=== PATIENT | female | born 1960 | race Caucasian/White ===

== ENCOUNTER 2020-01-06 09:51 | Inpatient (IN) ==
[2020-01-06] MEDS ORDERED: ONDANSETRON INJ 2 MG/ML 2 ML VIAL IV STA (10:18)
[2020-01-06] MEDS ORDERED: MoRPHine SULFATE 4 MG/ML 1 ML CARP\\VIAL IV STA ×2 (10:18→13:32)
--- NOTE | 2020-01-06 10:29 | Emergency Department Note ---
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 tachycardia without acute ischemia. I did order and personally reviewed the images of the patient's ribs/chest x-ray as described above. She does appear to have multiple rib fractures on the left side. I did order a urine analysis. She has some urine bacteria and WBC casts but no nitrates or leukocyte Estrace. I did order and review the patient's blood work as noted in the electronic medical record. CBC is unremarkable without leukocytosis or anemia. Her creatinine is elevated 1.78. I have no baseline to compare this with. Her calcium is elevated at 12.3. I did treat her with normal saline IV. ALT and AST are both elevated as well. Bilirubin is 1.2. D- dimer is significantly elevated at over 20,000. I did discuss the test results with the patient and her daughter. After discussion of risks and benefits she was agreeable to CT scanning with IV contrast to evaluate for pulmonary embolism and metastases. I did order a CT of the abdomen and pelvis, thoracic and lumbar spine and CT angiogram of the chest. I did review the images myself as well as the radiology report as described above. The patient appears to have multiple bony mets in the spine with compression fractures as well. She also has cholelithiasis with some gallbladder distention but no signs of cholecystitis. She was given additional morphine for pain control. This is for her back. She has no abdominal pain or tenderness at this time. I did discuss the days vomiting CT results with the patient and her daughter. Unfortunately does appears that she does have metastatic breast cancer. I did recommend hospitalization for further care and evaluation. I did discuss case with the hospitalist and telephonic nurse case manager. She was given Dilaudid 0.5 mg IV prior to her MRI which was ordered by the medical service. 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 Patient Disposition: Admitted As Inpatient Discharge Instructions Interventions: ED Discharge Assessment Last Done: 01/06/20 16:29 Discharge Problem: Non-traumatic compression fracture of vertebral column Qualifiers: Encounter type: initial encounter Qualified Code(s): M48.50XA - Collapsed vertebra, not elsewhere classified, site unspecified, initial encounter for fracture Metastatic cancer Qualifiers: Area of secondary neoplastic involvement: breast Qualified Code(s): C79.81 - Secondary malignant neoplasm of breast Multiple fractures of ribs Qualifiers: Encounter type: initial encounter Fracture type: closed Laterality: bilateral Qualified Code(s): S22.43XA - Multiple fractures of ribs, bilateral, initial encounter for closed fracture
[2020-01-06 10:37] LABS: Hematocrit (blood only) 38.1 % (37-47); Mean Corpuscular Hemoglobin 28.3 pg (25-34); Mean Corpuscular Hgb Conc 34.1 g/dL (32-36); Mean Platelet Volume 9.8 fL (7.4-10.4); Nucleated RBC # (auto) 0.15 K/uL (0-0); Nucleated RBC % (auto) 1.7 %; Platelet Count 175 K/uL (130-400); RDW Coefficient of Variation 14.5 % (11.5-14.5); RDW Standard Deviation 43.5 fL (36.4-46.3); Red Blood Count 4.59 M/uL (4.2-5.4); White Blood Count 8.94 K/uL (4.8-10.8)
[2020-01-06 10:57] LABS: Albumin Globulin Ratio 0.9 (0.9-2); Albumin Level 3.8 gm/dl (3.4-5.0); BUN Creatinine Ratio 18.9 (10-20); Bilirubin,Total 1.2 mg/dl (0.2-1); Calcium 12.3 mg/dl (8.5-10.1); Creatinine Clr Calc Pharmacy 38.1 ml/min; Est GFR (African American) 35.1; Est GFR (Non-African American) 30.3; Globulin 4.2 gm/dl (2.5-4.0); Potassium 3.8 mmol/L (3.5-5.1)
[2020-01-06 10:59] LABS: ALC (manual) 1.02 K/uL (1.2-3.4); ANC (manual) 6.74 K/uL (1.4-6.5); Basophils # (manual) 0.08 K/uL (0-0.2); Basophils % (manual) 0.9 %; Eosinophils # (manual) 0.08 K/uL (0-0.5); Eosinophils % (manual) 0.9 %; Lymphocytes # (manual) 1.02 K/uL (1.2-3.4); Lymphocytes % (manual) 11.4 %; Monocytes # (manual) 0.71 K/uL (0.11-0.59); Monocytes % (manual) 7.9 %; Myelocytes # (manual) 0.31 K/uL (0-0); Myelocytes % (manual) 3.5 %; Neutrophils # (manual) 6.74 K/uL (1.4-6.5); Neutrophils % (manual) 75.4 %; RBC Morphology Unremarkable
[2020-01-06] MEDS ORDERED: SODIUM CHLORIDE 0.9% 1000ML 1,000 ML IV ONE (11:00)
--- NOTE | 2020-01-06 11:18 | XRay Report ---
XR ribs BI min 4V w CXR1V CLINICAL HISTORY: bear hug with pain eval for fx COMPARISON STUDY: 07/08/2019 FINDINGS: Healing fractures left fourth and fifth ribs. Nondisplaced cortical fracture left eighth ri b. Right ribs show no acute bony abnormality. Lungs are considered clear. No evidence for pneumothorax. IMPRESSION: 1. Nondisplaced cortical fracture left anterior eighth rib. 2. Several old and/or healing left rib fractures. 3. No acute abnormality of the chest. ACT 112: Negative or not required by law. The above report was generated using voice recognition software. It may contain grammatical, syntax or spelling errors. Electronically signed by: Chon Henderson M.D. 01/06/2020 11:17 AM
[2020-01-06 11:33] LABS: D Dimer 28550 ug/L FEU (0-500)
[2020-01-06 12:36] LABS: Partial Thromboplastin Ratio 0.7; Partial Thromboplastin Time 20.5 Seconds (21.0-31.0); Prothrombin Time 10.8 Seconds (9.0-12.0)
[2020-01-06 12:50] LABS: Appearance Urine Clear (Clear); Bacteria Urine Automated 1+ (Negative); Bilirubin Urine Negative (Negative); Blood Urine Negative (Negative); Color Urine Yellow; Epithelial Cell Urine Auto >30 /lpf (0-5); Glucose Urine UA Negative (Negative); Ketones Urine Negative (Negative); Leukocyte Esterase Urine Negative (Negative); Nitrite Urine Negative (Negative); Protein Urine 1+ (Negative); RBC Urine Automated 0-4 /hpf (0-4); Specific Gravity Urine 1.016 (1.000-1.030); Urobilinogen Urine Negative (Negative)
[2020-01-06] MEDS ORDERED: OPTIRAY 320 125ml IV ONE (13:22)
--- NOTE | 2020-01-06 13:35 | CT Scan Report ---
LUMBAR SPINE CT CT DOSE: HISTORY: Low back pain eval for mets TECHNIQUE: Multiaxial CT images of the lumbar spine were performed and reformatted in the sagittal an d coronal plane without the use of contrast. A dose lowering technique was utilized adhering to the principles of ALARA. COMPARISON: None. FINDINGS: Multiple small scattered mixed lytic and osteoblastic metastatic lesions seen throughout th e lumbar spine and visualized pelvis. Dominant lytic lesion within the L5 vertebral body measures 1.5 cm. Mild superior endplate compression fracture at L1 demonstrating up to 15% loss of height. There is also 3 mm of retropulsion of the posterior superior corner of L1 resulting in mild central canal n arrowing at this level. Possible subtle superior endplate compression fracture at L2. Focal inferior endplate central compression fracture at L3. No associated retropulsion. No definite epidural or para spinal masses on this noncontrast study. Mild disc space narrowing at L2-L3 and L5-S1. IMPRESSION: 1. Innumerable small scattered mixed lytic and osteoblastic metastasis lesions seen throughout the tomas mbar spine and visualized pelvis. 2. 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 This is likely pathologic. 3. Possible subtle superior endplate compression fracture at L2. 4. Focal inferior endplate central compression fracture at L3. ACT 112: Negative or not required by law. Electronically signed by: Jonathan Parsons M.D. 01/06/2020 1:34 PM
--- NOTE | 2020-01-06 13:43 | CT Scan Report ---
CT angio chest PE protocol, CT abd pelvis IV con only CT DOSE: 2950.88 mGy.cm HISTORY: 59 years-old Female with cp eval for pe. Acute chest pain with shortness of breath TECHNIQUE: Multiple CTA images of the chest were obtained after the intravenous administration of [address] abdomen pelvis was also obtained with IV contrast. Coronal and sagittal MIPS were obtained from the axial data set and were submitted for review. All measurements were obtained acco rding to NASCET criteria. A dose lowering technique was utilized adhering to the principles of ALARA. COMPARISON: CT abdomen and pelvis, thoracic and lumbar spine studies of same day FINDINGS: CTA: The heart is normal in size without pericardial effusion. No thoracic aortic aneurysm or dissection. Patency of the imaged great vessels. The pulmonary artery is opacified to the level of the subsegment al branches and demonstrates no filling defects to suggest thromboembolic disease. CT CHEST: Unremarkable thyroid. No mediastinal or hilar adenopathy. There are multiple pathologically enlarged right axillary and subpectoral lymph nodes. A previously biopsied 1.6 x 1.4 cm right axillary lymph n ode is present. 2.9 cm biopsied mass of the lateral right mid breast. There is moderate diffuse right breast skin thickening. Subcutaneous edema of the medial right mid breast. Asymmetric subcutaneous e shanon of the right lateral chest wall with mild asymmetric thickening of the right pectoralis musculat ure. There is no pneumothorax or pleural effusion. Mild pulmonary cystic changes of the left lower lobe. M ild bilateral bronchial wall thickening. There are no suspicious pulmonary nodules or masses to sugge st metastasis. No airspace consolidation typical for pneumonia. Central airways appear patent. Innumerable lytic lesions are present throughout the spine with multiple age-indeterminate superior a nd inferior endplate compression deformity/Schmorl's nodes, most pronounced at the T5, T7, T9, T10 an d T11 levels. There is an expansile lytic lesion involving the posterior elements at T10 with possibl e mild involvement of the posterior epidural space. There are remote appearing bilateral rib fracture s. CT ABDOMEN/PELVIS: No pneumatosis or pneumoperitoneum. Mild splenomegaly, 14.2 cm. Unremarkable right adrenal gland. Lef t adrenal gland thickening. Gallbladder distention with cholelithiasis. No definite gallbladder wall thickening or biliary ductal dilation. Mild generalized pancreatic atrophy. Hepatic steatosis without a hepatic mass lesion identified. Kidneys, and urinary bladder appear unremarkable. Calcified uterine fibroids. No adnexal mass lesion. Aorta and IVC are within normal limits. No adenopathy. No bowel obstruction or bowel wall thickening. Terminal ileum and appendix are unremarkable. Soft tis sues are within normal limits. Innumerable lytic lesions throughout the spine with probable mixed haydee ent and sclerotic lesions of the sacrum and iliac bones. 25% anterior and superior endplate compressi on deformity of L1. Schmorl's nodes involve the inferior endplate of L3. There is an equivocal 9 mm l ucent lesion of the left femoral head. IMPRESSION: 1. Biopsied right breast mass with asymmetric right breast skin thickening and subcutaneous edema wit h thickening of the right pectoralis muscle may represent areas of disease extension versus posttreat ment related changes. 2. Metastatic right axillary and subpectoral adenopathy. 3. Innumerable skeletal metastasis with multiple age-indeterminate thoracic and lumbar compression de formities. Expansile lytic lesion involving the posterior elements at T10 may partially extend into t he posterior epidural space at this level. 4. No definite metastatic disease within the abdomen or pelvis. 5. Additional findings as above. ACT 112: Negative or not required by law. The above report was generated using voice recognition software. It may contain grammatical, syntax o r spelling errors. Electronically signed by: Dat Johnson M.D. 01/06/2020 1:42 PM
--- NOTE | 2020-01-06 14:13 | History & Physical Report ---
Date of Service January 06, 2020 Assessment & Plan (1) Hypercalcemia: Likely due to copious numbers of bony mets, presumably from right-sided breast cancer. Intact PTH suppressed. Will hydrate with NS and give zometa infusion 4mg IV x 1 tonight. Repeat BMP am. Suspect hypercalcemia was causing nonspecific abdominal discomfort, fatigue, and even mild mental fogginess. (2) Acute kidney injury: Possibly due to hypercalcemia. Can't rule out prerenal state from poor oral nutrition. Has casts on urine microscopy consistent with OLGA. Treat hypercalcemia. IV fluids. BMP in am. No signs of obstruction on CT today. (3) Bone pain: Severe metastatic disease seen on barragan-CT today. Numerous lesions in spine, ribs, etc. Has severe pain from these lesions. Start dilaudid SAFETY TECH -- 0.1mg demand dose, lock-out 20 minutes, max 0.3mg/hr. No basal rate at this time. Adjust as needed. K-pad heating. Lidoderm patches. Consider dexamethasone. (4) Metastatic cancer: most likely this is stage 4 breast cancer with primary site in the right breast. s/p right breast biopsy about 1 week ago at [facility] - biopsy results unavailable. Will ask HIM to obtain the biopsy report. (5) Breast cancer: right breast - presumed. large mass based on CT report today. s/p biopsy 1 week ago. I spoke with Dr Mccoy from oncology who will consult in am. We both agreed there is likely a major role for rad onc to play given her t- spine and l-spine pain from mets. Will consult rad onc, Dr Guy. treat pain as above. very poor prognosis given the aggressive nature seen on CT. will need dedicated MRI brain at some point this admission. (6) Abnormal LFTs: highly concerning for liver mets but none seen on CT. does have gallstones on CT, but no symptoms of such. will check RUQ u/s for mets, cholecystitis, etc. was taking tylenol prior to admission but not large amounts thus doubt tylenol toxicity. repeat LFTs am. (7) Multiple fractures of ribs: PATHOLOGIC. Pain control w/ SAFETY TECH dilaudid prn. K-pad. Etc. (8) Pathologic fracture of thoracic vertebrae: t-spine MRI without signs of cord compromise from her multiple t-spine compression fractures. rad onc to be consulted for her severe t-spine pain from bony mets. (9) Pathologic fracture of lumbar vertebra: no cord compromise seen on CT today in the lumbar region. neuro exam is reassuring. pain control as above. (10) DVT prophylaxis: lovenox 40mg daily daughter, extensively updated at bedside today patient and family aware of all CT findings and presumed metastatic breast ca support given focus on pain control tonight and Rx of high calcium History of Present Illness Chief Complaint: back pain, rib pain Primary Care Provider: Lara Moore 59yo female with no significant PMH presents with worsening back pain over a 1- 2 month period but much worse in the last 2 weeks. She remembers having a forceful sneeze about 2 weeks ago and has had severe back pain in the lumbar spine region since then. Much of the pain prior to that had been in the middle of the upper back. She has also has had right sided lower costal rib pain for 2 weeks, and left- sided mid-axillary pain as well. About 1-2 weeks ago her developmentally delayed son "bear hugged her" from behind and since then her rib pain has been much worse. Then, over the last 48 hours, she has had extreme fatigue. Just taking a shower led to severe weakness. She noticed several days ago during a walk that she was very tired. Had a breast biopsy of a right breast mass 1 week ago at [facility]. The breast mass was seen on a mammogram about 2 weeks ago. She found the mass on self-breast exam just prior to the mammogram. Currently taking tylenol and motrin at home without relief. Used tramadol sparingly at home without relief. Allergies Allergy/AdvReac Type Severity Reaction Status Date / Time No Known Allergies Allergy Verified 01/06/20 10:56 Home Medications Home Medications Medication Instructions Recorded Confirmed Type acetaminophen 500 mg PO Q6H PRN 01/06/20 01/06/20 History cyclobenzaprine [Flexeril] 10 mg PO HS PRN 01/06/20 01/06/20 History ibuprofen 800 mg PO Q6H PRN 01/06/20 01/06/20 History tramadol 50 mg PO TID PRN 01/06/20 01/06/20 History Past Med/Surg History Medical History (Updated 01/06/20 @ 23:20 by Fan Chan) No pertinent past medical history Surgical History (Updated 01/06/20 @ 14:23 by Fan Chan) History of bilateral tubal ligation Family History (Updated 01/06/20 @ 14:25 by Fan Chan) Mother , about age 82 Alzheimer disease Breast cancer Father , age 52 from MVA Motor vehicle accident Family/Other Breast cancer cousin Social History (Updated 01/06/20 @ 14:27 by Fan Chan) Smoking Status: Never smoker Hx Alcohol Use: No Hx Substance Use: No Preferred Language: Kazakh Communication Ability: Effective Computer Architect Required: No Beliefs That Will Affect Care: None marital status: Current Living Situation: Spouse Current Living Situation Comment: lives in [place] current occupational status: previously employed 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; 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; 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 How many Children do You have: 3 How many Children do You have Comment: 1 child developmentally disable Other Information That Helps Us Care for You: No Feels Safe at Home: Yes Review of Systems Constitutional: + fatigue, + weakness and + anorexia; no fever and no weight loss Eyes: no worsening vision Ear, Nose, Mouth, Throat: no nasal discharge and no dysphagia no loss of taste or smell Respiratory: + dyspnea on exertion (mild - with showering this AM ); no cough Cardiovascular: as per Subjective / HPI and + chest pain; no orthopnea, no paroxysmal nocturnal dyspnea and no edema Gastrointestinal: + abdominal pain (epigastric ); no nausea, no vomiting, no diarrhea/loose stools and no blood in stools Genitourinary: no dysuria Musculoskeletal: + back pain Integumentary: no rash Neurologic: + numbness (right leg - for 2 weeks ) Psychiatric: no depression Endocrine: no diabetes Hematologic / Lymphatic: no easy bleeding and no easy bruising Physical Exam Constitutional: + acute distress (any movement causes severe pain in back); no altered mental status Eyes: PERRL ENMT: Mouth: + dry oral mucous membranes; no oropharynx abnormality Neck: trachea midline, no thyromegaly Respiratory: normal respiratory effort, lungs clear to auscultation Cardiovascular: Rate/Rhythm: regular rate and regular rhythm Heart Sounds: normal S1 and normal S2; no murmur Vessels: posterior tibial pulses present and dorsalis pedis pulses present; no JVD Extremities: no edema Chest (Breasts): Additional Comments: chaperoned by nursing staff -- right breast nipple inverted; minimal erythema of superior portion of right breast; former breast bx sites clean Gastrointestinal (Abdomen): Inspection/Auscultation: normal bowel sounds; abdomen not distended Percussion/Palpation: abdomen soft and + hepatomegaly; abdomen nontender, no guarding and no splenomegaly Musculoskeletal: Spine: + thoracic spinal tenderness and + lumbar spinal tenderness tender over right lower costal margin to palpation Skin: no rashes, warm and dry Neurologic: deep tendon reflexes 2+ bilaterally and moves all extremities; no focal motor deficits Psychiatric: Orientation: alert and oriented x 3 Affect: + flat affect Lymphatic: + subclavicular lymphadenopathy (multiple small nodes b/l supraclavicular region ) Results & Data Results & Data ([facility]) Vital Signs (Past 12 Hours) Vital Signs Temp Pulse Pulse Resp BP BP Pulse Ox 01/06/20 12:00 85 18 151/96 H 96 01/06/20 11:12 93 H 18 133/82 98 01/06/20 10:02 36.7 C 122 H 18 166/109 H 97 Laboratory Results Laboratory Results - last 24 hr 01/06/20 01/06/20 01/06/20 10:25 10:25 10:25 WBC 8.94 RBC 4.59 Hgb 13.0 Hct 38.1 MCV 83.0 MCH 28.3 MCHC 34.1 RDW Std Deviation 43.5 RDW Coeff of Fritz 14.5 Plt Count 175 MPV 9.8 Absolute Nucleated RBC 0.15 H Nucleated RBC % (auto) 1.7 Neutrophils % (Manual) 75.4 Lymphocytes % (Manual) 11.4 Monocytes % (Manual) 7.9 Eosinophils % (Manual) 0.9 Basophils % (Manual) 0.9 Myelocytes % (Man) 3.5 Neutrophils # (Manual) 6.74 H Total Absolute Neuts 6.74 H Lymphocytes # (Manual) 1.02 L Total Abs Lymphocytes 1.02 L Monocytes # (Manual) 0.71 H Eosinophils # (Manual) 0.08 Basophils # (Manual) 0.08 Myelocytes # (Manual) 0.31 H RBC Morphology Unremarkable PT INR APTT PTT Ratio D-Dimer 37383 H* Sodium 138 Potassium 3.8 Chloride 105 Carbon Dioxide 22 Anion Gap 11.0 BUN 34 H Creatinine 1.78 H Est Cr Clr Drug Dosing 38.1 Est GFR ( Amer) 35.1 Est GFR (Non-Af Amer) 30.3 BUN/Creatinine Ratio 18.9 Glucose 102 H Calcium 12.3 H* Total Bilirubin 1.2 H AST 301 H ALT 136 H Alkaline Phosphatase 371 H Total Protein 8.0 Albumin 3.8 Globulin 4.2 H Albumin/Globulin Ratio 0.9 Lipase 58 L TSH PTH Intact Urine Color Urine Appearance Urine pH Ur Specific [place] Urine Protein Urine Glucose (UA) Urine Ketones Urine Blood Urine Nitrite Urine Bilirubin Urine Urobilinogen Ur Leukocyte Esterase Urine WBC (Auto) Urine RBC (Auto) U Hyaline Cast (Auto) U Epithel Cells (Auto) Urine Bacteria (Auto) Ur Renal Epithelial Cell WBC Casts Other Casts 01/06/20 01/06/20 01/06/20 10:25 10:25 12:22 WBC RBC Hgb Hct MCV MCH MCHC RDW Std Deviation RDW Coeff of Fritz Plt Count MPV Absolute Nucleated RBC Nucleated RBC % (auto) Neutrophils % (Manual) Lymphocytes % (Manual) Monocytes % (Manual) Eosinophils % (Manual) Basophils % (Manual) Myelocytes % (Man) Neutrophils # (Manual) Total Absolute Neuts Lymphocytes # (Manual) Total Abs Lymphocytes Monocytes # (Manual) Eosinophils # (Manual) Basophils # (Manual) Myelocytes # (Manual) RBC Morphology PT 10.8 INR 1.0 APTT 20.5 L PTT Ratio 0.7 D-Dimer Sodium Potassium Chloride Carbon Dioxide Anion Gap BUN Creatinine Est Cr Clr Drug Dosing Est GFR ( Amer) Est GFR (Non-Af Amer) BUN/Creatinine Ratio Glucose Calcium Total Bilirubin AST ALT Alkaline Phosphatase Total Protein Albumin Globulin Albumin/Globulin Ratio Lipase TSH 4.330 PTH Intact 7.3 L Urine Color Urine Appearance Urine pH Ur Specific [place] Urine Protein Urine Glucose (UA) Urine Ketones Urine Blood Urine Nitrite Urine Bilirubin Urine Urobilinogen Ur Leukocyte Esterase Urine WBC (Auto) Urine RBC (Auto) U Hyaline Cast (Auto) U Epithel Cells (Auto) Urine Bacteria (Auto) Ur Renal Epithelial Cell WBC Casts Other Casts 01/06/20 12:38 WBC RBC Hgb Hct MCV MCH MCHC RDW Std Deviation RDW Coeff of Fritz Plt Count MPV Absolute Nucleated RBC Nucleated RBC % (auto) Neutrophils % (Manual) Lymphocytes % (Manual) Monocytes % (Manual) Eosinophils % (Manual) Basophils % (Manual) Myelocytes % (Man) Neutrophils # (Manual) Total Absolute Neuts Lymphocytes # (Manual) Total Abs Lymphocytes Monocytes # (Manual) Eosinophils # (Manual) Basophils # (Manual) Myelocytes # (Manual) RBC Morphology PT INR APTT PTT Ratio D-Dimer Sodium Potassium Chloride Carbon Dioxide Anion Gap BUN Creatinine Est Cr Clr Drug Dosing Est GFR ( Amer) Est GFR (Non-Af Amer) BUN/Creatinine Ratio Glucose Calcium Total Bilirubin AST ALT Alkaline Phosphatase Total Protein Albumin Globulin Albumin/Globulin Ratio Lipase TSH PTH Intact Urine Color Yellow Urine Appearance Clear Urine pH 5.0 Ur Specific [place] 1.016 Urine Protein 1+ H Urine Glucose (UA) Negative Urine Ketones Negative Urine Blood Negative Urine Nitrite Negative Urine Bilirubin Negative Urine Urobilinogen Negative Ur Leukocyte Esterase Negative Urine WBC (Auto) 1-5 Urine RBC (Auto) 0-4 U Hyaline Cast (Auto) 10-30 H U Epithel Cells (Auto) >30 H Urine Bacteria (Auto) 1+ H Ur Renal Epithelial Cell 10-20 H WBC Casts 5-10 H Other Casts Mixed Cell Cast A Diagnostic Findings 1. CT chest/abd/pelvis - IMPRESSION: 1. Biopsied right breast mass with asymmetric right breast skin thickening and subcutaneous edema with thickening of the right pectoralis muscle may represent areas of disease extension versus posttreatment related changes. 2. Metastatic right axillary and subpectoral adenopathy. 3. Innumerable skeletal metastasis with multiple age-indeterminate thoracic and lumbar compression deformities. Expansile lytic lesion involving the posterior elements at T10 may partially extend into the posterior epidural space at this level. 4. No definite metastatic disease within the abdomen or pelvis. 5. No pulmonary emboli. 2. CT lumbar spine - IMPRESSION: 1. Innumerable small scattered mixed lytic and osteoblastic metastasis lesions seen throughout the lumbar spine and visualized pelvis. 2. Mild superior endplate compression fracture at L1 demonstrating 3 mm of retropulsion of the posterior superior corner with mild central canal narrowing at this level. This is likely pathologic. 3. Possible subtle superior endplate compression fracture at L2. 4. Focal inferior endplate central compression fracture at L3. 3. MRI thoracic spine - IMPRESSION: Diffuse osseous metastatic disease seen throughout the thoracic spine resulting in multiple mild endplate compression fractures. These are technically age indeterminate but favor subacute to chronic fractures. No central canal narrowing. 4. rib series - IMPRESSION: 1. Nondisplaced cortical fracture left anterior eighth rib. 2. Several old and/or healing left rib fractures. 3. No acute abnormality of the chest. 5. EKG - my reading - sinus tach, no ST changes Code Status & VTE Plan Code Status full VTE Prophylaxis Plan VTE Prophylaxis will be ordered: Yes PG Care Time/CCT Total # of Minutes Spent Total Time Spent with Patient: Total time spent is greater than 50% in coordination of care (as documented) at patient's floor/unit and/or counseling patient: Coding Level of Care Code 77460 Initial Inpt Care Lvl 3 Diagnoses Hypercalcemia E83.52 Acute kidney injury N17.9 Bone pain M89.8X9 Metastatic cancer C79.9 Breast cancer C50.911 Breast location: unspecified site of breast Estrogen receptor status: unspecified Patient sex: female Laterality: right Abnormal LFTs R94.5 Multiple fractures of ribs S22.43XA Encounter type: initial encounter Fracture type: closed Laterality: bilateral Pathologic fracture of thoracic vertebrae M84.48XA Pathologic fracture of lumbar vertebra M84.48XA DVT prophylaxis Z29.9 (1) Multiple fractures of ribs Encounter type: initial encounter Fracture type: closed Laterality: bilateral Qualified Code(s): S22.43XA - Multiple fractures of ribs, bilateral, initial encounter for closed fracture (2) Breast cancer Breast location: unspecified site of breast Estrogen receptor status: unspecified Patient sex: female Laterality: right Qualified Code(s): C50.911 - Malignant neoplasm of unspecified site of right female breast
--- NOTE | 2020-01-06 14:14 | CT Scan Report ---
CT SCAN OF THE THORACIC SPINE WITHOUT IV CONTRAST CLINICAL HISTORY: Thoracic back pain. COMPARISON STUDY: No priors. TECHNIQUE: CT scan of the thoracic spine is performed from the lower cervical spine to the upper lumb ar spine. Images are reviewed in the axial, sagittal, and coronal planes. IV contrast was not adminis tered for this examination. A dose lowering technique was utilized adhering to the principles of ELIJAH Ruano. FINDINGS: The skeletal structures are heterogeneously osteopenic. There are age indeterminant get milagros deformities of T3, T5, T7, T8, T9, T10, T11, and L1. Loss of height is moderate at T5, T9, and L 1. Fractures involving the inferior endplate of T8, the body of T9, and the body of L1 demonstrate tomas cency, suggesting these are acute to subacute. Fragments at L1 are retropulsed by up to 6 mm. Alignme nt is preserved. 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 Lesions are seen thro ughout the thoracic spine. Large lesions are seen in the spinous processes of T4 and T10. Question a nondisplaced pathologic fracture of the T10 spinous process. The remaining spinous processes are inta ct. The transverse processes are maintained. There is mild multilevel degenerative disc space narrowi ng. The central canal appears clear. The imaged lung parenchyma shows no evidence of airspace consoli dation or pleural effusion. A 4 mm groundglass nodule at the right apex is seen on image #39. The par aspinous soft tissues are normal in appearance. Mild paravertebral edema is noted at L1. A 10 mm comp chrystal/hyperdense cyst is noted in the partially imaged right kidney. IMPRESSION: 1. 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 2. There are numerous age indeterminant compression deformities of the thoracolumbar spine as above. 3. The compression deformities of T8, T9, and L1 demonstrate linear lucencies suggesting that these a re acute to subacute. Correlate for point tenderness. 4. Additional findings as above. ACT 112: Negative or not required by law. Dictated: 01/06/2020 1:34 PM Transcribed: 01/06/2020 2:03 PM Mica [id number] Electronically signed by: Isacc Benedict M.D. 01/06/2020 2:13 PM
[2020-01-06] MEDS ORDERED: HYDROmorphone INJ 0.5 MG/0.5 ML SYR IV STA (15:34)
--- NOTE | 2020-01-06 16:59 | Magnetic Resonance Report ---
THORACIC SPINE MRI HISTORY: metastatic cancer; concern for unstable T-spine Fx TECHNIQUE: Multiplanar multisequence MRI of the thoracic spine was performed without the use of contr ast. COMPARISON: Thoracic spine CT 01/06/2020. FINDINGS: Near diffuse abnormal T2 hyperintense, T1 hypointense signal seen throughout the thoracic spine consi stent with metastatic disease. Mild endplate compression deformities at T3, T5, T7, T8, T9, T10, T11, and L1. These are detected age indeterminate but favor subacute to chronic pathologic fractures. No definite epidural or paraspinal masses on this noncontrast study. No significant central canal or sean ral foraminal narrowing. 1 cm T2 hypointense lesion within the right kidney. This could represent a h yperdense cyst seen on the prior CT examination. The conus terminates at the T12-L1 disc space. The t horacic spinal cord is normal in course, caliber, and signal intensity. Mild posterior epidural lipom atosis within the mid thoracic region. IMPRESSION: Diffuse osseous metastatic disease seen throughout the thoracic spine resulting in multiple mild endp late compression fractures. These are technically age indeterminate but favor subacute to chronic fra ctures. No central canal narrowing. ACT 112: Negative or not required by law. Electronically signed by: Jonathan Parsons M.D. 01/06/2020 4:58 PM
[2020-01-06] MEDS ORDERED: NALOXONE HCL 0.4 MG/1 ML VIAL/CARP IV PRN (17:11)
[2020-01-06] MEDS: SODIUM CHLORIDE 0.9% 1000ML 1,000 ML IV SCH ×2 (17:41→18:19)
[2020-01-06] MEDS ORDERED: ZOLEDRONIC ACID 4 MG in 0.9 % SODIUM CHLORIDE 100 ML IV ONE (17:45)
[2020-01-06] MEDS: LIDOCAINE 5% 1 PATCH TD SCH (17:50)
[2020-01-06] MEDS: ENOXAPARIN INJ 40 MG/0.4 ML SYR SQ SCH (17:51)
[2020-01-06] MEDS: HYDROmorphone PCA 30 MG/30 ML IV PRN (18:26)
[2020-01-07] MEDS: SODIUM CHLORIDE 0.9% 1000ML 1,000 ML IV SCH ×5 (01:51→21:00)
--- NOTE | 2020-01-07 06:28 | Electrocardiogram Report ---
Test Reason : Blood Pressure : / mmHG Vent. Rate : 104 BPM Atrial Rate : 104 BPM P-R Int : 150 ms QRS Dur : 070 ms QT Int : 330 ms P-R-T Axes : 050 -07 007 degrees QTc Int : 433 ms Sinus tachycardia Cannot rule out Anterior infarct , age undetermined Abnormal ECG No previous ECGs available Confirmed by Rosalio Corrigan ([id number]) on 01/07/2020 6:27:56 AM Referred By: Confirmed By:Rosalio Corrigan
[2020-01-07 06:39] LABS: Albumin Level 2.6 gm/dl (3.4-5.0); BUN Creatinine Ratio 17.7 (10-20); Bilirubin Direct 0.4 mg/dl (0-0.2); Bilirubin,Total 1.1 mg/dl (0.2-1); Calcium 9.8 mg/dl (8.5-10.1); Creatinine Clr Calc Pharmacy 46.7 ml/min; Est GFR (African American) 44.2; Est GFR (Non-African American) 38.1; Potassium 4.2 mmol/L (3.5-5.1); Total Protein 5.9 gm/dl (6.4-8.2)
[2020-01-07] MEDS: SENNA 8.6 MG TAB PO SCH (07:18)
[2020-01-07] MEDS: LIDOCAINE 5% 1 PATCH TD SCH (07:19)
[2020-01-07] MEDS: POLYETHYLENE (MIRALAX) 17 GM PACK PO SCH (07:19)
--- NOTE | 2020-01-07 07:51 | Hospitalist Progress Note ---
Date of Service January 07, 2020 Assessment & Plan (1) Hypercalcemia: Likely due to bony mets, presumably from right-sided breast cancer. Intact PTH suppressed. NS and was given zometa infusion 4mg IV x 1 tonight. Calcium has responded to treatment Suspect hypercalcemia was causing nonspecific abdominal discomfort, fatigue, and even mild mental fogginess. (2) Acute kidney injury: Possibly due to hypercalcemia. Improved with treatment of hypercalcemia continue IV fluids No signs of obstruction on CT today. (3) Bone pain: Severe metastatic disease seen on barragan-CT today. Numerous lesions in spine, ribs, etc. Has severe pain from these lesions. Started dilaudid PLASTIC TILE SETTER -- 0.1mg demand dose, lock-out 20 minutes, max 0.3mg/hr. No basal rate at this time. Adjust as needed. K-pad heating. Lidoderm patches. Pain control is fair adding oxycodone as needed and scheduled Tylenol MRI thoracic spine 01/06/2020 Near diffuse abnormal T2 hyperintense, T1 hypointense signal seen throughout the thoracic spine consistent with metastatic disease. Mild endplate compression deformities at T3, T5, T7, T8, T9, T10, T11, and L1. These are detected age indeterminate but favor subacute to chronic patho logic fractures. CT scan of lumbar spine 01/06/2020 1. Innumerable small scattered mixed lytic and osteoblastic metastasis lesions seen throughout the lumbar spine and visualized pelvis. 2. Mild superior endplate compression fracture at L1 demonstrating 3 mm of retropulsion of the posterior superior corner with mild central canal narrowing at this level. This is likely pathologic. 3. Possible subtle superior endplate compression fracture at L2. 4. Focal inferior endplate central compression fracture at L3. (4) Metastatic cancer: most likely this is stage 4 breast cancer with primary site in the right breast. s/p right breast biopsy about 1 week ago at [facility] - biopsy results will be scanned into her record. With concern for thromboembolic disease associated with malignancy CT angiogram and lower extremity Doppler studies were negative for thromboembolic phenomena (5) Breast cancer: right breast - presumed. large mass based on CT report today. s/p biopsy 1 week ago. I spoke with Dr Mccoy from oncology who will consult in am. We both agreed there is likely a major role for rad onc to play given her t- spine and l-spine pain from mets. Will consult rad onc, Dr Guy. treat pain as above. very poor prognosis given the aggressive nature seen on CT. (6) Abnormal LFTs: highly concerning for liver mets but none seen on CT. does have gallstones on CT, but no symptoms of such. Negative RUQ u/s for mets, steatosis has been identified of masses seen on CT scan of the abdomen within her liver or other areas of metastasis was taking tylenol prior to admission but not large amounts thus doubt tylenol toxicity. (7) Multiple fractures of ribs: PATHOLOGIC. Pain control w/ PLASTIC TILE SETTER dilaudid prn. K-pad. Etc. (8) Pathologic fracture of thoracic vertebrae: t-spine MRI without signs of cord compromise from her multiple t-spine compression fractures. rad onc to be consulted for her severe t-spine pain from bony mets. (9) Pathologic fracture of lumbar vertebra: no cord compromise seen on CT today in the lumbar region. neuro exam is reassuring. pain control as above. (10) DVT prophylaxis: lovenox 40mg daily daughter, extensively updated at bedside today patient and family aware of all CT findings and presumed metastatic breast ca support given focus on pain control tonight and Rx of high calcium Admission and Anticipated Discharge Date Admission Date: January 06, 2020 Subjective Patient's pain is improved with a a PLASTIC TILE SETTER however it was started up after she underwent some testing for her radiation treatment for her skeletal spinal disease with likely metastatic breast cancer. We discussed pain management strategies during the visit today were going to try to employ some oral oxycodone and scheduled Tylenol leave the PLASTIC TILE SETTER in place at this time and eventually try to slowly reduce it over the weekend. Patient's daughter at the bedside is a nurse in our facility she is did say she located the pathology report which she will likely try to supply to Dr. Hauser for further plans on attacking her malignancy Review of Systems Review of Systems: Mild to moderate distress and fatigue no headache, blurry or double vision no speech or swallowing issues no chest pain, pressure or palpitations no shortness of breath, cough or wheezes no abdominal pain, mild nausea without vomiting, no dysuria, hematuria or frequency no focal joint pain or swelling Midline central posterior back pain lower thoracic spine no bruising, bleeding or rashes no focal signs of weakness or numbness or altered sensation no complaints or anxiety or depression. Physical Exam Physical Exam: The patient appeared well nourished and normally developed. He is in mild to moderate pain at this time Vital signs as documented. Head exam is normocephalic atraumatic no scleral icterus Neck is without JVD, thyromegaly, or carotid bruits. Lungs are clear to auscultation, no focal loss of breath sounds Cardiac exam, Rhythm is regular.. No murmurs, rubs or gallops. Abdominal exam reveals normal bowel sounds, soft non tender, no masses Extremities are nonedematous and both pedal pulses are normal. Spine is reproducible tenderness to examination Neurologic exam is alert and oriented, no focal loss of strength or sensation no focal peripheral neuropathy noted right now Skin is without bruises or rashes Psychologically is with concerned for depression Results & Data Results & Data ([facility]) Vital Signs (Past 12 Hours) Vital Signs Temp Pulse Pulse Resp BP BP Pulse Ox 01/07/20 02:56 98.4 F 90 18 144/74 H 92 01/06/20 23:35 90 01/06/20 23:21 97.9 F 107 H 18 138/81 93 01/06/20 19:53 97.9 F 18 131/81 92 PG Care Time/CCT Total # of Minutes Spent Total Time Spent with Patient: Total time spent is greater than 50% in coordination of care (as documented) at patient's floor/unit and/or counseling patient: Coding Level of Care Code 39945 Subseq Hosp Care Lvl 3 Diagnoses Hypercalcemia E83.52 Acute kidney injury N17.9 Bone pain M89.8X9 Metastatic cancer C79.81 Area of secondary neoplastic involvement: breast Breast cancer C50.911 Breast location: unspecified site of breast Estrogen receptor status: unspecified Laterality: right Patient sex: female Abnormal LFTs R94.5 Multiple fractures of ribs S22.43XA Encounter type: initial encounter Fracture type: closed Laterality: bilateral Pathologic fracture of thoracic vertebrae M84.48XA Pathologic fracture of lumbar vertebra M84.48XA DVT prophylaxis Z29.9 (1) Multiple fractures of ribs Encounter type: initial encounter Fracture type: closed Laterality: bilateral Qualified Code(s): S22.43XA - Multiple fractures of ribs, bilateral, initial encounter for closed fracture (2) Breast cancer Breast location: unspecified site of breast Estrogen receptor status: unspecified Laterality: right Patient sex: female Qualified Code(s): C50.911 - Malignant neoplasm of unspecified site of right female breast (3) Metastatic cancer Area of secondary neoplastic involvement: breast Qualified Code(s): C79.81 - Secondary malignant neoplasm of breast
--- NOTE | 2020-01-07 08:09 | Ultrasound Report ---
ABDOMINAL ULTRASOUND, RIGHT UPPER QUADRANT HISTORY: metastatic cancer; abnormal LFTs. COMPARISON: Abdomen and pelvis CT 01/06/2020. FINDINGS: Pancreas: The pancreatic head and tail are obscured by overlying bowel gas. The remaining portions of the pancreas are within normal limits. Liver: The liver is echogenic consistent with fatty change. A 2.6 cm in length. No hepatic masses stuart ntified. Gallbladder: No gallbladder wall thickening. A 2.3 cm stone within the gallbladder. Ringdown artifact at the gallbladder fundus favors adenomyomatosis. CBD: 2 mm in diameter. Right kidney: No hydronephrosis. IMPRESSION: 1. Cholelithiasis. No gallbladder wall thickening. 2. Hepatic steatosis. ACT 112: Negative or not required by law. Electronically signed by: Jonathan Parsons M.D. 01/07/2020 8:07 AM
--- NOTE | 2020-01-07 09:06 | Radiation OncologyConsultation ---
Date of Consultation January 07, 2020 Assessment & Plan (1) Secondary malignant neoplasm of bone: Assessment: Ms. Lynn is a 59-year-old female who presents with metastatic breast cancer to bone (ER/NV positive, Her2 negative). The patient was admitted to the hospital due to significant pain control issues. The patient did undergo imaging studies which did reveal metastatic disease involving the thoracic and lumbar spine. The patient is still symptomatic however her pain is significantly improved since she has been started on narcotic pain control medications. I am seeing the patient in consultation to discuss the role of radiation therapy. Recommendation: Palliative external beam radiation therapy to thoracic and lumbar spine. 10 fractions. 300 cGy per fraction. Plan: 1. CT simulation today to expedite treatment planning. Plan to start radiation therapy in the inpatient or outpatient setting on Friday. 2. Medical oncology consultation. 3. Palliative care consultation could be useful either in the inpatient or outpatient setting. 4. Continue pain management as per primary hospital team. 5. Patient and family encouraged to call us with any further questions or concerns. Rationale/Explanation of Treatment: I explained the indications, alternatives, benefits, risks and side effects of external beam radiation therapy. I then discussed radiation therapy side effects for treatment which include, but are not limited to, skin erythema, dry/moist desquamation of the skin, hyperpigmentation, telangiectasias, damage to the heart and development of cardiovascular disease, damage to the lungs including radiation pneumonitis, pulmonary fibrosis, decrease in pulmonary function, cough, fistula formation, tracheal stenosis, esophageal stenosis, esophageal perforation, dysphagia, nausea, vomiting, ulcers in stomach/bowel, gastritis, gastric perforation, bowel perforation, bowel obstruction, weight loss, dehydration, decreased appetite, liver damage including hepatitis and liver failure, damage to the kidneys including decreased renal function and renal failure, spinal cord damage including myelopathy, fatigue and secondary malignancy. I did explain the indications, alternatives, benefits, risks and side effects of external beam radiation therapy. I did explain the most common side effects including, but not limited to, skin erythema, skin breakdown, hyperpigmentation, telangiectasia, wound complications, perianal fistula development, fistula formation, bowel obstruction, bowel perforation, vaginal dryness, vaginal stenosis, dyspareunia, dysuria, increased urinary frequency, urgency, diarrhea, constipation, melena, hematochezia, hematuria, radiation cystitis, radiation proctitis, fatigue, decreased blood counts, wound complications from surgery, rectal incontinence, secondary malignancy development. I did explain the procedures and daily process of radiation therapy. The patient understands and would be willing to consent to treatment. The patient and daughter had multiple questions which were answered to their full satisfaction. Thank you for allowing us to participate in the care of this patient. This chart was completed in part utilizing [employer] Speech Voice Recognition software. Attempts were made to minimize the grammatical errors, random word insertions, pronoun errors and incomplete sentences. Any formal questions or concerns about the content, text or information contained within the body of this dictation should be directly addressed to the provider for clarification. Bhavani Guy MD Department of Radiation Oncology [facility] Present on Admission?: Yes History of Present Illness Attending Physician: Jose Deng MD History of Present Illness 12/29/2019. Biopsy of right breast mass. Official diagnostic pathology report unavailable. Notes as per radiology report state patient has invasive ductal carcinoma that is ER/NV positive and HER-2 negative. Sampled right axillary lymph node was also biopsied and consistent with breast cancer. 01/06/2020. Patient presents to emergency room with complaints of significant back pain. Patient states that she was previously diagnosed with breast cancer. 01/06/2020. CT of chest/abdomen/pelvis. IMPRESSION: 1. Biopsied right breast mass with asymmetric right breast skin thickening and subcutaneous edema with thickening of the right pectoralis muscle may represent areas of disease extension versus posttreatment related changes. 2. Metastatic right axillary and subpectoral adenopathy. 3. Innumerable skeletal metastasis with multiple age- indeterminate thoracic and lumbar compression deformities. Expansile lytic lesion involving the posterior elements at T10 may partially extend into the posterior epidural space at this level. 4. No definite metastatic disease within the abdomen or pelvis. 5. Additional findings as above. 01/06/2020. Chest x-ray. IMPRESSION: 1. Nondisplaced cortical fracture left anterior eighth rib. 2. Several old and/or healing left rib fractures. 3. No acute abnormality of the chest. 01/06/2020. CT of thoracic spine. 01/06/2020. CT of lumbar spine. IMPRESSION: 1. Innumerable small scattered mixed lytic and osteoblastic metastasis lesions seen throughout the lumbar spine and visualized pelvis. 2. Mild superior endplate compression fracture at L1 demonstrating 3 mm of retropulsion of the posterior superior corner with mild central canal narrowing at this level. This is likely pathologic. 3. Possible subtle superior endplate compression fracture at L2. 4. Focal inferior endplate central compression fracture at L3. 01/06/2020. MRI of thoracic spine. IMPRESSION: Diffuse osseous metastatic disease seen throughout the thoracic spine resulting in multiple mild endplate compression fractures. These are technically age indeterminate but favor subacute to chronic fractures. No central canal narrowing. Currently, the patient is doing better since she has been started on pain medication. Allergies Allergy/AdvReac Type Severity Reaction Status Date / Time No Known Allergies Allergy Verified 01/06/20 10:56 Home Medications Home Medications Medication Instructions Recorded Confirmed Type acetaminophen 500 mg PO Q6H PRN 01/06/20 01/06/20 History cyclobenzaprine [Flexeril] 10 mg PO HS PRN 01/06/20 01/06/20 History ibuprofen 800 mg PO Q6H PRN 01/06/20 01/06/20 History tramadol 50 mg PO TID PRN 01/06/20 01/06/20 History Patient History Medical History (Updated 01/07/20 @ 09:13 by Bhavani Guy MD) No pertinent past medical history Secondary malignant neoplasm of bone Surgical History (Updated 01/06/20 @ 14:23 by Fan Chan) History of bilateral tubal ligation Family History (Updated 01/06/20 @ 14:25 by Fan Chan) Mother , about age 82 Alzheimer disease Breast cancer Father , age 52 from MVA Motor vehicle accident Family/Other Breast cancer cousin Social History (Updated 01/06/20 @ 14:27 by Fan Chan) Smoking Status: Never smoker Hx Alcohol Use: No Hx Substance Use: No Preferred Language: Nigerian Communication Ability: Effective Machine Setup Operator Required: No Beliefs That Will Affect Care: None marital status: Current Living Situation: Spouse Current Living Situation Comment: lives in [place] current occupational status: previously employed 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; 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; 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 How many Children do You have: 3 How many Children do You have Comment: 1 child developmentally disable Other Information That Helps Us Care for You: No Feels Safe at Home: Yes Review of Systems Review of Systems: All systems reviewed & are unremarkable except as noted in HPI & below Physical Exam 2 Constitutional: WD/WN, vitals as above well developed and well nourished Eyes: PERRL, conjunctivae normal, anicteric sclerae ENMT: external ear and nose normal, oropharynx normal Neck: trachea midline, no thyromegaly Respiratory: normal respiratory effort, lungs clear to auscultation Cardiovascular: RRR, no murmur, no edema Gastrointestinal (Abdomen): normal bowel sounds, soft, nontender, no hepatosplenomegaly Musculoskeletal: no cyanosis or clubbing, extremities motor strength 5/5 Skin: no rashes, warm and dry Neurologic: patellar DTR's 2+ bilat, sensation intact and PERRL, EOMI, accommodation nl, no face palsy, no dysarthria Psychiatric: A+Ox3, euthymic affect Time Spent Attending I spent 10 minutes in preparation for this consultation including reviewing all the clinical records, reviewing laboratory studies, pathology reports and imaging results. I spent 20 minutes with direct face to face interaction with the patient and/or family including performing a physical exam and answering all questions. I spent 10 minutes documenting this patient's visit. I spent 5 minutes speaking with the following providers regarding this patient's care: Dr. Deng.
--- NOTE | 2020-01-07 09:22 | Consultation Report ---
DATE OF CONSULTATION: 01/07/2020 REASON FOR CONSULTATION: Suspected metastatic breast cancer, hypercalcemia and intractable skeletal pain. HISTORY OF PRESENT ILLNESS: Audra is a very pleasant 59-year-old postmenopausal female who presented to [facility] Emergency Room with worsening back pain over the past couple of months, which exacerbated within the past 2 weeks. The patient unfortunately has a disabled son that she cares for, weighs 30 pounds and has to carry him around from time to time and thought that her pain was related to a musculoskeletal strain. However, a couple weeks ago, she had noticed changes within the right breast including inversion of the nipple and increased firmness in the outer portion of the breast. She brought this to the attention of medical authorities in [place] who recommended a biopsy. Unfortunately, I do not have the path report as of yet. Nonetheless, Audra underwent extensive radiographic workup in the Emergency Room including CTA of the chest and CT of the abdomen and pelvis. Interestingly, Audra's D-dimer is significantly elevated and CTA was negative for pulmonary embolism. Nonetheless, the scan did reveal innumerable skeletal metastatic disease, specifically an expansile lytic lesion in the posterior elements of T10, which may be partially extend into the posterior epidural space at this level. There was also metastatic right axillary and subpectoral adenopathy and no definite metastatic disease within the abdomen and pelvis. She was also noted to suffer from hypercalcemia, was provided IV fluids and bisphosphonate therapy by the admitting service. I have been asked to discuss therapeutic options with Audra this morning. PAST MEDICAL HISTORY: Essentially negative. PAST SURGICAL HISTORY: Bilateral tubal ligation. HOME MEDICATIONS: Include tramadol 50 mg p.o. t.i.d. p.r.n., ibuprofen 800 mg p.o. q. 6 hours p.r.n., Flexeril 10 mg p.o. at bedtime p.r.n., acetaminophen 500 mg p.o. 6 hours p.r.n. ALLERGIES: No known drug allergies. FAMILY HISTORY: Much more interesting. Her mother suffered from breast cancer as well as maternal cousin. Father secondary to motor vehicle accident at age 52. SOCIAL HISTORY: The patient lives in [place]. She is . She is a nonsmoker, nondrinker. REVIEW OF SYSTEMS: CONSTITUTIONAL: Most notably for asthenia, generalized weakness, anorexia. Negative for fevers, chills or sweats. She reports no significant weight loss. HEENT: Negative for headaches, lightheadedness or dizziness. No sinus symptoms, sore throat or dysphagia. LYMPH: No history of lymphoproliferative disease. CARDIAC: No history of coronary artery disease, no angina or palpitations. PULMONARY: She is not acutely short of breath, dyspneic or orthopneic. No cough or hemoptysis. No history of chronic obstructive pulmonary disease. GASTROINTESTINAL: Negative for abdominal pain, nausea, vomiting, diarrhea or constipation, hematochezia or melena stools. GENITOURINARY: No hematuria, dysuria, urinary incontinence. PSYCHIATRIC: Negative for anxiety, depression or psychoses. MUSCULOSKELETAL: Positive for mid thoracic back pain. ENDOCRINE: Negative for diabetes or thyroid disease. NEUROLOGIC: Negative for seizure, stroke, or migraine headache. HEMATOLOGIC: Positive for significantly elevated D-dimer. PHYSICAL EXAMINATION: GENERAL: A very pleasant, well-nourished 59-year-old postmenopausal female in no acute distress. VITAL SIGNS: Temperature 36.8, pulse 90, respiratory rate 19, blood pressure 128/78. SKIN: Warm, dry and noncyanotic without petechia, rash or ecchymosis. HEENT: Head is atraumatic, normocephalic. Eyes: PERRLA, EOMI. Sclerae nonicteric. No conjunctival injection. Nares are patent without rhinorrhea or discharge. Throat is clear. Tongue midline. Mucous membranes are moist. NECK: Supple without JVD or thyromegaly. LYMPH: Could not palpate the radiographic evident right axillary adenopathy. HEART: Regular rate and rhythm. No clicks, rubs, murmurs or gallops. LUNGS: Clear to auscultation bilaterally. No rales or rhonchi. ABDOMEN: Soft, nontender, nondistended, without palpable hepatosplenomegaly. Bowel sounds are active. EXTREMITIES: No clubbing, cyanosis or edema. MUSCULOSKELETAL: Strength and pulses are equal in all 4 quadrants. NEUROLOGICALLY: She is awake, alert and oriented x3. Cranial nerves II-XII are grossly intact. No gross motor or sensory deficits at the present time. LABORATORY DATA: WBC count 8940, hemoglobin 13, platelet count 175,000. D-dimer 20,550. Sodium 143, potassium 4.2, chloride 112, carbon dioxide 25, BUN 26, creatinine 1.47. AST 182, ALT 87. Albumin 2.6. IMPRESSION: 1. Probable metastatic breast cancer, await pathology report from [place] for confirmation. 2. Intractable skeletal pain. 3. Markedly elevated D-dimer. 4. Elevated liver transaminases. 5. Hypoalbuminemia. 6. Hypercalcemia, attributable to neoplasia. PLAN: It was my pleasure to visit with Audra this morning to advise her that she most likely suffers from metastatic breast cancer based on radiographic evidence. Unfortunately, I cannot make treatment recommendations until path report is reviewed. Goals of this admission is to control her pain. To that end agree with SONAR WATCHSTANDER pump for now, but would also consult radiation oncology for palliative radiation to T10. The admitting hospitalist is already provided bisphosphonate therapy and IV fluids to lower Audra's calcium level. I have also asked the hospitalist to obtain Dopplers to further investigate this patient's D-dimer. I suspect she probably has left lower extremity DVT based on discomfort she describes during this morning's encounter. I would also ask the hospitalist to have general surgery consult for MediPort placement in anticipation of providing salvage treatment upon discharge. We will plan to reconvene with Audra some time during her stay to discuss path report specifics and treatment options. I agree with medical management otherwise. If there are any questions or concerns, feel free to contact me at any time. LUIS
--- NOTE | 2020-01-07 11:08 | Ultrasound Report ---
US venous doppler LE BI HISTORY: Pain. Edema. DVT? elevated DDIMER COMPARISON STUDY: None. FINDINGS: There is normal compressibility, flow, and augmentation within the bilateral lower extremit y deep venous systems. IMPRESSION: No DVT within the right or left lower extremity. Several benign soft tissue lipomas account for the p alpable left thigh nodule. ACT 112: Negative or not required by law. The above report was generated using voice recognition software. It may contain grammatical, syntax or spelling errors. Electronically signed by: Chon Henderson M.D. 01/07/2020 11:06 AM
[2020-01-07] MEDS ORDERED: OXYCODONE HCL IR 5 MG TAB (IMMEDIATE RELEASE) PO PRN (13:35)
[2020-01-07] MEDS: ACETAMINOPHEN 500 MG TAB PO SCH ×2 (13:44→21:00)
[2020-01-07] MEDS: ENOXAPARIN INJ 40 MG/0.4 ML SYR SQ SCH (18:20)
[2020-01-08] MEDS: SODIUM CHLORIDE 0.9% 1000ML 1,000 ML IV SCH ×4 (04:45→20:40)
[2020-01-08] MEDS: LIDOCAINE 5% 1 PATCH TD SCH (08:13)
[2020-01-08] MEDS: POLYETHYLENE (MIRALAX) 17 GM PACK PO SCH (08:13)
[2020-01-08] MEDS: ACETAMINOPHEN 500 MG TAB PO SCH ×3 (08:14→20:27)
[2020-01-08] MEDS: SENNA 8.6 MG TAB PO SCH (08:14)
--- NOTE | 2020-01-08 14:59 | Hospitalist Progress Note ---
Date of Service January 08, 2020 Assessment & Plan (1) Hypercalcemia: Likely due to bony mets, presumably from right-sided breast cancer. Intact PTH suppressed. Concern for PTH RP with this was not measured NS and was given zometa infusion 4mg IV x 1 tonight. Calcium has responded to treatment repeat calcium on 01/08 Suspect hypercalcemia was causing nonspecific abdominal discomfort, fatigue, and even mild mental fogginess. (2) Acute kidney injury: Possibly due to hypercalcemia. Improved with treatment of hypercalcemia continue IV fluids/as the addition of nonsteroidals at this time No signs of obstruction on CT today. (3) Bone pain: Severe metastatic disease seen on barragan-CT today. Numerous lesions in spine, ribs, etc. Has severe pain from these lesions. Started dilaudid [employer] -- 0.1mg demand dose, lock-out 20 minutes, max 0.3mg/hr. No basal rate at this time. Adjust as needed. K-pad heating. Lidoderm patches. Pain control is fair adding oxycodone as needed and scheduled Tylenol we will add Miacalcin nasal spray and Celebrex MRI thoracic spine 01/06/2020 Near diffuse abnormal T2 hyperintense, T1 hypointense signal seen throughout the thoracic spine consistent with metastatic disease. Mild endplate compression deformities at T3, T5, T7, T8, T9, T10, T11, and L1. These are detected age indeterminate but favor subacute to chronic pathologic fractures. CT scan of lumbar spine 01/06/2020 1. Innumerable small scattered mixed lytic and osteoblastic metastasis lesions seen throughout the lumbar spine and visualized pelvis. 2. Mild superior endplate compression fracture at L1 demonstrating 3 mm of retropulsion of the posterior superior corner with mild central canal narrowing at this level. This is likely pathologic. 3. Possible subtle superior endplate compression fracture at L2. 4. Focal inferior endplate central compression fracture at L3. (4) Metastatic cancer: most likely this is stage 4 breast cancer with primary site in the right breast. s/p right breast biopsy about 1 week ago at [facility] - biopsy results will be scanned into her record. With concern for thromboembolic disease associated with malignancy CT angiogram and lower extremity Doppler studies were negative for thromboembolic phenomena (5) Breast cancer: right breast - presumed. large mass based on CT report today. s/p biopsy 1 week ago. I spoke with Dr Mccoy from oncology we are still in search of a formal pathology report daughter believes she delivered this to the hospital. Is also in need of a brain imaging test to look for metastatic disease however given her spinal pain will wait till this is better controlled before we have really in a hard surface for period of time. We both agreed there is likely a major role for rad onc to play given her t- spine and l-spine pain from mets. Will consult rad onc, Dr Guy. treat pain as above. (6) Abnormal LFTs: highly concerning for liver mets but none seen on CT. does have gallstones on CT, but no symptoms of such. Negative RUQ u/s for mets, steatosis has been identified of masses seen on CT scan of the abdomen within her liver or other areas of metastasis was taking tylenol prior to admission but not large amounts thus doubt tylenol toxicity. (7) Multiple fractures of ribs: PATHOLOGIC. Pain control w/ [employer] dilaudid prn. Continue topical Lidoderm patches and other adjunctive pain measures K-pad. Etc. (8) Pathologic fracture of thoracic vertebrae: t-spine MRI without signs of cord compromise from her multiple t-spine compression fractures. rad onc to be consulted for her severe t-spine pain from bony mets. (9) Pathologic fracture of lumbar vertebra: no cord compromise seen on CT today in the lumbar region. neuro exam is without radicular symptoms (10) DVT prophylaxis: lovenox 40mg daily daughter, extensively updated at bedside 01/08/2020 patient and family aware of all CT findings and presumed metastatic breast ca support given focus on pain control tonight and Rx of high calcium Admission and Anticipated Discharge Date Admission Date: January 06, 2020 Subjective Patient's pain is improved she continues with [employer] coverage but will try and escalate non-parenteral medications in hopes of controlling her cancer related pain. To this and she is on oxycodone, scheduled Tylenol, Lidoderm patch to painful points, she started Miacalcin nasal spray for compression fractures of her spine however instituting Celebrex therapy. We will watch her renal function with the start of nonsteroidals. Review of Systems Review of Systems: Mild to moderate distress and fatigue no headache, blurry or double vision no speech or swallowing issues Patient is having some left-sided rib pain now but denies having any pressure or palpitations no shortness of breath, cough or wheezes no abdominal pain, mild nausea without vomiting, no dysuria, hematuria or frequency no focal joint pain or swelling Midline central posterior back pain lower thoracic spine no bruising, bleeding or rashes no focal signs of weakness or numbness or altered sensation no complaints or anxiety or depression. Physical Exam Physical Exam: The patient appeared well nourished and normally developed. He is in mild to moderate pain at this time Vital signs as documented. Head exam is normocephalic atraumatic no scleral icterus Neck is without JVD, thyromegaly, or carotid bruits. Lungs are clear to auscultation, no focal loss of breath sounds Cardiac exam, Rhythm is regular.. No murmurs, rubs or gallops. Abdominal exam reveals normal bowel sounds, soft non tender, no masses Extremities are nonedematous and both pedal pulses are normal. Spine is reproducible tenderness to examination Neurologic exam is alert and oriented, no focal loss of strength or sensation no focal peripheral neuropathy noted right now Skin is without bruises or rashes Psychologically is with concerned for depression Results & Data Results & Data ([facility]) Vital Signs (Past 12 Hours) Vital Signs Temp Pulse Pulse Pulse Resp BP BP 01/08/20 11:45 97.9 F 78 18 135/73 01/08/20 08:55 88 01/08/20 08:15 98.6 F 79 18 128/79 01/08/20 08:05 98.4 F 79 18 144/67 H 01/08/20 03:54 99.3 F 78 17 110/55 L Pulse Ox 01/08/20 11:45 96 01/08/20 08:55 01/08/20 08:15 93 01/08/20 08:05 94 01/08/20 03:54 94 PG Care Time/CCT Total # of Minutes Spent Total Time Spent with Patient: Total time spent is greater than 50% in coordination of care (as documented) at patient's floor/unit and/or counseling patient: Coding Level of Care Code 60703 Subseq Hosp Care Lvl 3 Diagnoses Hypercalcemia E83.52 Acute kidney injury N17.9 Bone pain M89.8X9 Metastatic cancer C79.81 Area of secondary neoplastic involvement: breast Breast cancer C50.911 Breast location: unspecified site of breast Estrogen receptor status: unspecified Patient sex: female Laterality: right Abnormal LFTs R94.5 Multiple fractures of ribs S22.43XA Encounter type: initial encounter Fracture type: closed Laterality: bilateral Pathologic fracture of thoracic vertebrae M84.48XA Pathologic fracture of lumbar vertebra M84.48XA DVT prophylaxis Z29.9 (1) Metastatic cancer Area of secondary neoplastic involvement: breast Qualified Code(s): C79.81 - Secondary malignant neoplasm of breast (2) Breast cancer Breast location: unspecified site of breast Estrogen receptor status: unspecified Patient sex: female Laterality: right Qualified Code(s): C50.911 - Malignant neoplasm of unspecified site of right female breast (3) Multiple fractures of ribs Encounter type: initial encounter Fracture type: closed Laterality: bilateral Qualified Code(s): S22.43XA - Multiple fractures of ribs, bilateral, initial encounter for closed fracture
[2020-01-08] MEDS: CALCITONIN SALMON NA 200 IU/AC 3.7 ML BTL SCH (15:05)
--- NOTE | 2020-01-08 16:00 | Progress Notes ---
DATE: 01/08/2020 DIAGNOSES: 1. Probable metastatic breast cancer, ER 90% positive, VA less than 5% positive and HER-2/sean 1+, date of diagnosis 12/29/2019. 2. Intractable skeletal pain. 3. Markedly elevated D-dimer. 4. Elevated liver transaminases. 5. Hypoalbuminemia. 6. Hypercalcemia attributable to neoplasia. SUBJECTIVE: The patient was seen and examined at bedside this afternoon. She is definitely much more comfortable with current pain regimen. Appreciate Radiation Oncology's input and plans to provide palliative radiation therapy to painful bony areas. I finally was able to get ahold of the patient's original path report which indicates she suffers from ER strongly positive, VA weakly positive and HER-2/sean negative invasive ductal carcinoma. Referring to her most recent radiographs, she clearly has extensive skeletal disease and a fair amount of locally advanced disease with the involved breast into the right axilla. Discussed possible therapeutic options moving forward, specifically induction chemotherapy followed by an oral metastatic regimen versus starting the metastatic oral regimen upfront. My concern with that option is her tumor burden at the present time. The patient's calcium levels have come down quite nicely. Creatinine is also improving. Nursing reports no overnight difficulties. OBJECTIVE: GENERAL: A very pleasant 59-year-old female, in no acute distress. VITAL SIGNS: Temperature 36.6, pulse 78, respiratory rate 18, blood pressure 135/73. SKIN: Warm, dry, noncyanotic without rash or lesion. HEENT: Buccal mucosa clear. HEART: Regular rate and rhythm. LUNGS: Clear to auscultation. ABDOMEN: Soft, nontender, nondistended. EXTREMITIES: No clubbing, cyanosis or edema. NEUROLOGIC: Grossly intact. LABORATORY DATA: CA 15-3 and CA 27-29 pending. IMPRESSION: 1. Probable metastatic breast cancer. 2. Intractable skeletal pain. 3. Markedly elevated D-dimer. 4. Elevated liver transaminases. 5. Hypoalbuminemia. 6. Hypercalcemia. PLAN: I was very pleased to see her Dopplers were negative for DVT. I was also able to obtain a path report, which confirmed ER strongly positive, VA weakly positive and HER-2/sean negative disease. I will now contemplate the therapeutic approach in the patient's case. She has quite a bit of tumor in the breast, axilla and supramammary lymph nodes. She also has a lot of bony disease. I am considering cytotoxic chemotherapy upfront followed by perhaps Faslodex and Ibrance. She would need bisphosphonate therapy for bone strengthening. We could even consider placing her on anastrozole while she is in house. Appreciate Radiation-Oncology's input and plan to proceed with palliative XRT. I would still like the patient to discuss MediPort placement with General Surgery during her inpatient stay. We will continue to follow her periodically once her electrolytes normalize and the patient gets back on her feet. She could go home and follow up at [facility] as an outpatient. Thank you very much for allowing me to participate in her care.
[2020-01-08] MEDS: ENOXAPARIN INJ 40 MG/0.4 ML SYR SQ SCH (18:49)
[2020-01-08] MEDS: CELECOXIB 100 MG CAP PO SCH (20:27)
[2020-01-09] MEDS: SODIUM CHLORIDE 0.9% 1000ML 1,000 ML IV SCH ×4 (04:21→19:56)
[2020-01-09] MEDS: ONDANSETRON INJ 2 MG/ML 2 ML VIAL IV PRN ×2 (04:21→17:10)
[2020-01-09] MEDS: POLYETHYLENE (MIRALAX) 17 GM PACK PO SCH (08:26)
[2020-01-09] MEDS: SENNA 8.6 MG TAB PO SCH (08:26)
[2020-01-09] MEDS: CALCITONIN SALMON NA 200 IU/AC 3.7 ML BTL SCH (08:26)
[2020-01-09] MEDS: LIDOCAINE 5% 1 PATCH TD SCH (08:26)
[2020-01-09] MEDS: ACETAMINOPHEN 500 MG TAB PO SCH ×2 (08:27→13:18)
[2020-01-09] MEDS: CELECOXIB 100 MG CAP PO SCH (08:27)
[2020-01-09] MEDS ORDERED: ALUMINUM/MAGNESIUM/SIMETH (MAALOX MAX) 30 ML UDC PO PRN (13:48)
[2020-01-09] MEDS ORDERED: OXYCODONE HCL IR 5 MG TAB (IMMEDIATE RELEASE) PO PRN (15:56)
--- NOTE | 2020-01-09 16:00 | Hospitalist Progress Note ---
Date of Service January 09, 2020 Assessment & Plan (1) Hypercalcemia: Likely due to bony mets, presumably from right-sided breast cancer. Intact PTH suppressed. Concern for PTH RP with this was not measured NS and was given zometa infusion 4mg IV x 1 on admission Calcium has responded to treatment repeat calcium on 01/08 Suspect hypercalcemia was causing nonspecific abdominal discomfort, fatigue, and even mild mental fogginess. (2) Acute kidney injury: Possibly due to hypercalcemia. Improved with treatment of hypercalcemia continue IV fluids/as the addition of nonsteroidals at this time No signs of obstruction on CT on admission (3) Bone pain: Severe metastatic disease seen on barragan-CT today. Numerous lesions in spine, ribs, etc. Has severe pain from these lesions. Started dilaudid [employer] -- 0.1mg demand dose, lock-out 20 minutes, max 0.3mg/hr. No basal rate at this time. Adjust as needed. K-pad heating. Lidoderm patches. Pain control is fair increasing oxycodone as needed on 01/09/2020 and scheduled Tylenol added Miacalcin nasal spray and Celebrex 01/08/2020 MRI thoracic spine 01/06/2020 Near diffuse abnormal T2 hyperintense, T1 hypointense signal seen throughout the thoracic spine consistent with metastatic disease. Mild endplate compression deformities at T3, T5, T7, T8, T9, T10, T11, and L1. These are detected age indeterminate but favor subacute to chronic pathologic fractures. CT scan of lumbar spine 01/06/2020 1. Innumerable small scattered mixed lytic and osteoblastic metastasis lesions seen throughout the lumbar spine and visualized pelvis. 2. Mild superior endplate compression fracture at L1 demonstrating 3 mm of retropulsion of the posterior superior corner with mild central canal narrowing at this level. This is likely pathologic. 3. Possible subtle superior endplate compression fracture at L2. 4. Focal inferior endplate central compression fracture at L3. (4) Metastatic cancer: most likely this is stage 4 breast cancer with primary site in the right breast. s/p right breast biopsy about 1 week ago at [facility] - biopsy results will be scanned into her record. With concern for thromboembolic disease associated with malignancy CT angiogram and lower extremity Doppler studies were negative for thromboembolic phenomena (5) Breast cancer: right breast - presumed. large mass based on CT report today. s/p biopsy 1 week ago. I spoke with Dr Mccoy from oncology we are still in search of a formal pathology report daughter believes she delivered this to the hospital. Is also in need of a brain imaging test to look for metastatic disease however given her spinal pain will wait till this is better controlled before we have really in a hard surface for period of time. We both agreed there is likely a major role for rad onc to play given her t- spine and l-spine pain from mets. Will consult rad onc, Dr Guy. treat pain as above. (6) Abnormal LFTs: highly concerning for liver mets but none seen on CT. does have gallstones on CT, but no symptoms of such. Negative RUQ u/s for mets, steatosis has been identified of masses seen on CT scan of the abdomen within her liver or other areas of metastasis was taking tylenol prior to admission but not large amounts thus doubt tylenol toxicity. Some dyspeptic symptoms adding Maalox and Protonix (7) Multiple fractures of ribs: PATHOLOGIC. Pain control w/ [employer] dilaudid prn. Continue topical Lidoderm patches and other adjunctive pain measures K-pad. Etc. (8) Pathologic fracture of thoracic vertebrae: t-spine MRI without signs of cord compromise from her multiple t-spine compression fractures. rad onc to be consulted for her severe t-spine pain from bony mets. Hopefully radiation treatment to her spine may improve her pain control if not may consider pain management consultation (9) Pathologic fracture of lumbar vertebra: no cord compromise seen on CT today in the lumbar region. neuro exam is without radicular symptoms (10) DVT prophylaxis: lovenox 40mg daily daughter, extensively updated at bedside 01/08/2020 patient and family aware of all CT findings and presumed metastatic breast ca did discuss with the patient and her the need for a brain image at some point along the way but we are hopeful to improve her back pain before we have her have a prolonged recumbent position for the MRI Admission and Anticipated Discharge Date Admission Date: January 06, 2020 Subjective Patient's pain is improved she continues with the need for [employer] coverage Increased dose of PRN oxycodone, continued scheduled Tylenol, Lidoderm patch to painful points, she started Miacalcin nasal spray for compression fractures of her spine was also began Celebrex therapy. We will watch her renal function with the start of nonsteroidals. Review of Systems Review of Systems: Mild to moderate distress and fatigue no headache, blurry or double vision no speech or swallowing issues Patient is having some left-sided rib pain now but denies having any pressure or palpitations no shortness of breath, cough or wheezes no abdominal pain, mild nausea without vomiting, no dysuria, hematuria or frequency no focal joint pain or swelling Midline central posterior back pain lower thoracic spine no bruising, bleeding or rashes no focal signs of weakness or numbness or altered sensation no complaints or anxiety or depression. Constitutional: + fatigue, + weakness and + anorexia; no fever and no weight loss Ear, Nose, Mouth, Throat: no loss of taste or smell Respiratory: + dyspnea on exertion (mild - with showering this AM ); no cough Cardiovascular: as per Subjective / HPI and + chest pain; no orthopnea, no paroxysmal nocturnal dyspnea and no edema Gastrointestinal: + abdominal pain (epigastric ); no nausea, no vomiting, no diarrhea/loose stools and no blood in stools Musculoskeletal: + back pain Neurologic: + numbness (right leg - for 2 weeks ) Endocrine: no diabetes Physical Exam Physical Exam: The patient appeared well nourished and normally developed. He is in mild to moderate pain at this time Vital signs as documented. Head exam is normocephalic atraumatic no scleral icterus Neck is without JVD, thyromegaly, or carotid bruits. Lungs are clear to auscultation, no focal loss of breath sounds Cardiac exam, Rhythm is regular.. No murmurs, rubs or gallops. Abdominal exam reveals normal bowel sounds, soft non tender, no masses Extremities are nonedematous and both pedal pulses are normal. Spine is reproducible tenderness to examination Neurologic exam is alert and oriented, no focal loss of strength or sensation no focal peripheral neuropathy noted right now Skin is without bruises or rashes Psychologically is with concerned for depression Results & Data Results & Data ([facility]) Vital Signs (Past 12 Hours) Vital Signs Temp Pulse Resp BP Pulse Ox 01/09/20 15:10 97.7 F 76 18 148/84 H 94 01/09/20 07:00 97.5 F L 67 18 136/81 92 01/09/20 04:00 97.9 F 79 18 146/83 H 96 PG Care Time/CCT Total # of Minutes Spent Total Time Spent with Patient: Total time spent is greater than 50% in coordination of care (as documented) at patient's floor/unit and/or counseling patient: Coding Level of Care Code 42510 Subseq Hosp Care Lvl 3 Diagnoses Hypercalcemia E83.52 Acute kidney injury N17.9 Bone pain M89.8X9 Metastatic cancer C79.81 Area of secondary neoplastic involvement: breast Breast cancer C50.911 Breast location: unspecified site of breast Estrogen receptor status: unspecified Patient sex: female Laterality: right Abnormal LFTs R94.5 Multiple fractures of ribs S22.43XA Encounter type: initial encounter Fracture type: closed Laterality: bilateral Pathologic fracture of thoracic vertebrae M84.48XA Pathologic fracture of lumbar vertebra M84.48XA DVT prophylaxis Z29.9 (1) Metastatic cancer Area of secondary neoplastic involvement: breast Qualified Code(s): C79.81 - Secondary malignant neoplasm of breast (2) Breast cancer Breast location: unspecified site of breast Estrogen receptor status: unspecified Patient sex: female Laterality: right Qualified Code(s): C50.911 - Malignant neoplasm of unspecified site of right female breast (3) Multiple fractures of ribs Encounter type: initial encounter Fracture type: closed Laterality: bilateral Qualified Code(s): S22.43XA - Multiple fractures of ribs, bilateral, initial encounter for closed fracture
[2020-01-09] MEDS: PANTOprazole 40 MG TAB PO SCH (16:31)
[2020-01-09] MEDS: ENOXAPARIN INJ 40 MG/0.4 ML SYR SQ SCH (17:17)
[2020-01-09] MEDS ORDERED: METOCLOPRAMIDE HCL INJ 5 MG/ML 2 ML VIAL IV ONE (20:42)
[2020-01-09] MEDS ORDERED: DiphenhydrAMINE HCL 50 MG/ML VIAL IV STA (20:51)
[2020-01-10] MEDS: CELECOXIB 100 MG CAP PO SCH ×3 (00:20→21:01)
[2020-01-10] MEDS: ACETAMINOPHEN 500 MG TAB PO SCH ×4 (00:20→22:53)
[2020-01-10] MEDS: SODIUM CHLORIDE 0.9% 1000ML 1,000 ML IV SCH ×2 (04:08→23:02)
[2020-01-10 08:32] LABS: Hematocrit (blood only) 30.6 % (37-47); Mean Corpuscular Hemoglobin 27.2 pg (25-34); Mean Corpuscular Hgb Conc 32.7 g/dL (32-36); Mean Corpuscular Volume 83.4 fL (80-100); Mean Platelet Volume 9.3 fL (7.4-10.4); Nucleated RBC # (auto) 0.21 K/uL (0-0); Platelet Count 128 K/uL (130-400); RDW Coefficient of Variation 14.5 % (11.5-14.5); RDW Standard Deviation 43.5 fL (36.4-46.3); Red Blood Count 3.67 M/uL (4.2-5.4); White Blood Count 5.21 K/uL (4.8-10.8)
[2020-01-10] MEDS: ONDANSETRON INJ 2 MG/ML 2 ML VIAL IV PRN ×2 (08:35→15:57)
[2020-01-10 09:06] LABS: Albumin Level 2.6 gm/dl (3.4-5.0); BUN Creatinine Ratio 10.7 (10-20); Bilirubin Direct 0.3 mg/dl (0-0.2); Calcium 7.1 mg/dl (8.5-10.1); Creatinine Clr Calc Pharmacy 80.7 ml/min; Est GFR (African American) 85.7; Potassium 3.3 mmol/L (3.5-5.1)
[2020-01-10 09:11] LABS: Total Protein 5.9 gm/dl (6.4-8.2)
[2020-01-10 09:12] LABS: Basophils # (auto) 0.03 K/uL (0-0.2); Basophils % (auto) 0.6 %; Eosinophils # (auto) 0.11 K/uL (0-0.5); Eosinophils % (auto) 2.1 %; Immature Granulocytes # (auto) 0.35 K/uL (0.00-0.02); Immature Granulocytes % (auto) 6.7 %; Lymphocytes # (auto) 0.73 K/uL (1.2-3.4); Monocytes # (auto) 0.47 K/uL (0.11-0.59); Neutrophils # (auto) 3.52 K/uL (1.4-6.5); Neutrophils % (auto) 67.6 %; RBC Morphology Unremarkable
[2020-01-10] MEDS: POLYETHYLENE (MIRALAX) 17 GM PACK PO SCH (10:00)
[2020-01-10] MEDS: CALCITONIN SALMON NA 200 IU/AC 3.7 ML BTL SCH (10:00)
[2020-01-10] MEDS: PANTOprazole 40 MG TAB PO SCH (10:00)
[2020-01-10] MEDS: SENNA 8.6 MG TAB PO SCH (10:00)
[2020-01-10] MEDS: LIDOCAINE 5% 1 PATCH TD SCH (10:05)
[2020-01-10] MEDS ORDERED: POTASSIUM CHLORIDE 20 MEQ in SODIUM CHLORIDE 0.9% 1000ML 1,000 ML IV SCH (12:00)
[2020-01-10] MEDS: PROMETHAZINE HCL 12.5 MG in SODIUM CHLORIDE 0.9% 50 ML IV PRN ×2 (12:02→19:16)
[2020-01-10] MEDS: NSS + 20MEQ KCL 20 MEQ/1,000 ML BAG IV SCH ×2 (12:05→21:01)
--- NOTE | 2020-01-10 13:15 | Pain Management Consultation ---
Date of Consultation January 10, 2020 Assessment & Plan (1) Secondary malignant neoplasm of bone: Present on Admission?: Yes (2) Breast cancer: Breast location: unspecified site of breast Estrogen receptor status: unspecified Patient sex: female Laterality: right Qualified Code(s): C50.911 - Malignant neoplasm of unspecified site of right female breast Present on Admission?: Yes (3) Pathologic fracture of lumbar vertebra: Present on Admission?: Yes (4) Pathologic fracture of thoracic vertebrae: Present on Admission?: Yes (5) Multiple fractures of ribs: * Will discontinue OxyIR due to reported side effect of nausea * Will initiate fentanyl 12 mcg every 72 hours. Titration pending response as well as conversion of HEAVY EQUIPMENT OPERATOR/PAVER Dilaudid * Continue with HEAVY EQUIPMENT OPERATOR/PAVER Dilaudid for PRN breakthrough pain. We encouraged utilization to assess need * Consider trial of tramadol versus Nucynta versus hydrocodone for PRN breakthrough pain due to side effect of nauseousness on OxyIR * Will initiate Colace 100 mg twice daily to combat opioid-induced constipation * Consider Medrol Dosepak intended diminish inflammatory response-we will defer to Dr. Deng * Consider duloxetine to assist in pain control and mood response to recent diagnosis of metastatic breast cancer * Will continue to follow. Thank you for allowing us to participate in the care of Mrs. Luz. Encounter type: initial encounter Fracture type: closed Laterality: bilateral Qualified Code(s): S22.43XA - Multiple fractures of ribs, bilateral, initial encounter for closed fracture Present on Admission?: Yes History of Present Illness Reason for Consultation: Intractable axial back pain Requesting Physician: Jose Deng MD Attending Physician: Jose Deng MD History of Present Illness Mrs. Luz is a 59-year-old white female who was admitted with a 1-2-month history of worsening thoracolumbar back pain. Her pain was initially in the lumbar region which she reported occurred after "a forceful sneeze". She reported improvement in this pain and then the pain began in the thoracic region. She is also describing pain in the chest wall right greater than left- sided. The patient underwent a breast biopsy approximate 1 week ago and was found to have breast cancer. Extensive imaging has revealed metastatic disease with multiple pathologic fractures involving the ribs, thoracic and lumbar spine vertebral bodies. Patient has been experiencing persisting complaints of pain upon this admission moderately well controlled with Dilaudid HEAVY EQUIPMENT OPERATOR/PAVER and poorly controlled transition to oral oxycodone with associated nausea. Patient has not been utilizing HEAVY EQUIPMENT OPERATOR/PAVER Dilaudid as she knows diminished utilization will allow her to transition to home care. She is also concerned about contributions of her nausea. Patient's daughter reported that the patient felt her best on Friday/Friday timeframe with frequent utilization of Dilaudid HEAVY EQUIPMENT OPERATOR/PAVER with improved pain control. Patient reports her pain is a 3-4/10 while sitting without movement but can escalate to an 8-9/10 with movement. She reports a few episodes of pain traveling in the right lower extremity which appear to be in an L4 distribution to the pretibial region. She denies bowel or bladder incontinence or saddle anesthesias. Patient is planned for her initial radiation therapy later today. They did initiate Phenergan earlier which is causing some sedation. She is reporting slight improvement provement in her nausea. Plan of care discussed with Dr. Jesica Ceballos. Pain Assessment Full Body Front + Back: 1. Axial thoracolumbar back pain 2. Occasional right lower extremity pain Pain scale - at its best (0-10): 3 Pain scale - at its worst (0-10): 8 Allergies Allergy/AdvReac Type Severity Reaction Status Date / Time No Known Allergies Allergy Verified 01/06/20 10:56 Home Medications Home Medications Medication Instructions Recorded Confirmed Type acetaminophen 500 mg PO Q6H PRN 01/06/20 01/06/20 History cyclobenzaprine [Flexeril] 10 mg PO HS PRN 01/06/20 01/06/20 History ibuprofen 800 mg PO Q6H PRN 01/06/20 01/06/20 History tramadol 50 mg PO TID PRN 01/06/20 01/06/20 History Pain History Pain Intensity Pain scale - at its best (0-10): 3 Pain scale - at its worst (0-10): 8 Patient History Medical History (Updated 01/07/20 @ 09:13 by Bhavani Guy MD) No pertinent past medical history Secondary malignant neoplasm of bone Surgical History (Updated 01/06/20 @ 14:23 by Fan Chan) History of bilateral tubal ligation Family History (Updated 01/06/20 @ 14:25 by Fan Chan) Mother , about age 82 Alzheimer disease Breast cancer Father , age 52 from MVA Motor vehicle accident Family/Other Breast cancer cousin Social History (Updated 01/06/20 @ 14:27 by Fan Chan) Smoking Status: Never smoker Hx Alcohol Use: No Hx Substance Use: No Preferred Language: Monegasque Communication Ability: Effective Player Development Manager Required: No Beliefs That Will Affect Care: None marital status: Current Living Situation: Spouse Current Living Situation Comment: lives in [place] current occupational status: previously employed 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 Speech and thought process appropriate. Mood and affect appropriate. Cognition intact. Patient accompanied by her daughter. Head: Normocephalic and atraumatic. ENT: No evidence of nasal or oral mucosal lesions. Mucous membranes are moist. Eyes: Pupils equal round reactive to light. Neck: Supple without adenopathy and full range of motion. Chest: Nontender to palpation of the costosternal junction. Patient moderately tender with AP and lateral compression of the chest wall. Abdomen: Soft and nondistended. No organomegaly. Bowel sounds active. Back/spine: Patient tender to palpation and percussion over the mid thoracic through the thoracolumbar junction. Minimally tender in the paravertebral musculature. Lower extremities: Sensation intact distally. Strength testing 5/5 with dorsiflexion, plantarflexion and EHL testing. No evidence of edema. Neurologic: Cranial nerves grossly intact. Ambulatory function not witnessed. Results (Pain Clinic) Diagnostic Review MRI: non enhanced and reports reviewed [phone] Report Patient: COLE LUZ Date: 01/06/20 MR#: [id number]: [address] Acct ID:[id number]: [facility]: 1960[facility] Zip[facility] [place] [address] Age: 59Location: ED Sex: F Room/Bed: Att Phy:Diagnosis: BACK PAIN, UPPER ABD PAIN Candie Phy: Lara Moore PA-CService Date: 01/06/20 Fam Phy:Interpreting Phy: Jonathan Parsons MD Admit Phy: Ordering Phy: Fan Chan MD cc: ~ THORACIC SPINE MRI HISTORY: metastatic cancer; concern for unstable T-spine Fx TECHNIQUE: Multiplanar multisequence MRI of the thoracic spine was performed without the use of contrast. COMPARISON: Thoracic spine CT 01/06/2020. FINDINGS: Near diffuse abnormal T2 hyperintense, T1 hypointense signal seen throughout the thoracic spine consistent with metastatic disease. Mild endplate compression deformities at T3, T5, T7, T8, T9, T10, T11, and L1. These are detected age indeterminate but favor subacute to chronic pathologic fractures. No definite epidural or paraspinal masses on this noncontrast study. No significant central canal or neural foraminal narrowing. 1 cm T2 hypointense lesion within the right kidney. This could represent a hyperdense cyst seen on the prior CT examination. The conus terminates at the T12-L1 disc space. The thoracic spinal cord is normal in course, caliber, and signal intensity. Mild posterior epidural lipomatosis within the mid thoracic region. IMPRESSION: Diffuse osseous metastatic disease seen throughout the thoracic spine resulting in multiple mild endplate compression fractures. These are technically age indeterminate but favor subacute to chronic fractures. No central canal narrowing. ACT 112: Negative or not required by law. Electronically signed by: Jonathan Parsons M.D. 01/06/2020 4:58 PM Dictated: 01/06/201651 Transcribed: 01/06/201651 CT: non enhanced and reports reviewed CT Findings: [place], [place] [phone] CT Scan Report Patient: COLE LUZ Date: 01/06/20 MR#: [id number]: [address] Acct ID:[id number]: Date: 1960[facility] Zip: [place] [address] Age: 59Location: ED Sex: F Room/Bed: Att Phy:Diagnosis: BACK PAIN, UPPER ABD PAIN Candie Phy: Lara Moore PA-CService Date: 01/06/20 [facility] Phy:Interpreting Phy: Isacc Benedict MD Admit Phy: Ordering Phy: Jose Aquino MD cc: ~ CT SCAN OF THE THORACIC SPINE WITHOUT IV CONTRAST CLINICAL HISTORY: Thoracic back pain. COMPARISON STUDY: No priors. TECHNIQUE: CT scan of the thoracic spine is performed from the lower cervical spine to the upper lumbar spine. Images are reviewed in the axial, sagittal, and coronal planes. IV contrast was not administered for this examination. A dose lowering technique was utilized adhering to the principles of ALARA. FINDINGS: The skeletal structures are heterogeneously osteopenic. There are age indeterminant compression deformities of T3, T5, T7, T8, T9, T10, T11, and L1. Loss of height is moderate at T5, T9, and L1. Fractures involving the inferior endplate of T8, the body of T9, and the body of L1 demonstrate lucency, suggesting these are acute to subacute. Fragments at L1 are retropulsed by up to 6 mm. Alignment is preserved. 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 Lesions are seen throughout the thoracic spine. Large lesions are seen in the spinous processes of T4 and T10. Question a nondisplaced pathologic fracture of the T10 spinous process. The remaining spinous processes are intact. The transverse processes are maintained. There is mild multilevel degenerative disc space narrowing. The central canal appears clear. The imaged lung parenchyma shows no evidence of airspace consolidation or pleural effusion. A 4 mm groundglass nodule at the right apex is seen on image #39. The paraspinous soft tissues are normal in appearance. Mild paravertebral edema is noted at L1. A 10 mm complex/hyperdense cyst is noted in the partially imaged right kidney. IMPRESSION: 1. 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 2. There are numerous age indeterminant compression deformities of the thoracolumbar spine as above. 3. The compression deformities of T8, T9, and L1 demonstrate linear lucencies suggesting that these are acute to subacute. Correlate for point tenderness. 4. Additional findings as above. ACT 112: Negative or not required by law. Dictated: 01/06/2020 1:34 PM Transcribed: 01/06/2020 2:03 PM Mica [id number] [email or web address] Electronically signed by: Isacc Benedict M.D. 01/06/2020 2:13 PM Dictated: 01/06/20 1334 Transcribed: 01/06/20 1405 [place], [place] [phone] CT Scan Report Patient: COLE LUZ Date: 01/06/20 MR#: [id number]: [address] Acct ID:[id number]: [facility]: 1960[facility] Zip: [place] [address] Age: 59Location: ED Sex: F Room/Bed: Att Phy:Diagnosis: BACK PAIN, UPPER ABD PAIN Candie Phy: Lara Moore PA-CService Date: 01/06/20 Fam Phy:Interpreting Phy: Jonathan Parsons MD Admit Phy: Ordering Phy: Jose Aquino MD cc: ~ LUMBAR SPINE CT CT DOSE: HISTORY: Low back pain eval for mets TECHNIQUE: Multiaxial CT images of the lumbar spine were performed and reformatted in the sagittal and coronal plane without the use of contrast. A dose lowering technique was utilized adhering to the principles of ALARA. COMPARISON: None. FINDINGS: Multiple small scattered mixed lytic and osteoblastic metastatic lesions seen throughout the lumbar spine and visualized pelvis. Dominant lytic lesion within the L5 vertebral body measures 1.5 cm. Mild superior endplate compression fracture at L1 demonstrating up to 15% loss of height. There is also 3 mm of retropulsion of the posterior superior corner of L1 resulting in mild central canal narrowing at this level. Possible subtle superior endplate compression fracture at L2. Focal inferior endplate central compression fracture at L3. No associated retropulsion. No definite epidural or paraspinal masses on this noncontrast study. Mild disc space narrowing at L2-L3 and L5-S1. IMPRESSION: 1. Innumerable small scattered mixed lytic and osteoblastic metastasis lesions seen throughout the lumbar spine and visualized pelvis. 2. Mild superior endplate compression fracture at L1 demonstrating 3 mm of retropulsion of the posterior superior corner with mild central canal narrowing at this level. This is likely pathologic. 3. Possible subtle superior endplate compression fracture at L2. 4. Focal inferior endplate central compression fracture at L3. ACT 112: Negative or not required by law. Electronically signed by: Jonathan Parsons M.D. 01/06/2020 1:34 PM Dictated: 01/06/20 1328 Transcribed: 01/06/20 1328 [place], [place] [phone] CT Scan Report Patient: COLE LUZ Date: 01/06/20 MR#: [id number]: [address] Acct ID:[id number]: Date: 1960[facility] Zip: [place] [address] Age: 59Location: ED Sex: F Room/Bed: Att Phy:Diagnosis: BACK PAIN, UPPER ABD PAIN Candie Phy: Lara Moore PA-CService Date: 01/06/20 Fam Phy:Interpreting Phy: Severo Johnson Admit Phy: Ordering Phy: Jose Aquino MD cc: ~ CT angio chest PE protocol, CT abd pelvis IV con only CT DOSE: 2950.88 mGy.cm HISTORY: 59 years-old Female with cp eval for pe. Acute chest pain with shortness of breath TECHNIQUE: Multiple CTA images of the chest were obtained after the intravenous administration of [address] abdomen pelvis was also obtained with IV contrast. Coronal and sagittal MIPS were obtained from the axial data set and were submitted for review. All measurements were obtained according to NASCET criteria. A dose lowering technique was utilized adhering to the principles of ALARA. COMPARISON: CT abdomen and pelvis, thoracic and lumbar spine studies of same day FINDINGS: CTA: The heart is normal in size without pericardial effusion. No thoracic aortic aneurysm or dissection. Patency of the imaged great vessels. The pulmonary artery is opacified to the level of the subsegmental branches and demonstrates no filling defects to suggest thromboembolic disease. CT CHEST: Unremarkable thyroid. No mediastinal or hilar adenopathy. There are multiple pathologically enlarged right axillary and subpectoral lymph nodes. A previously biopsied 1.6 x 1.4 cm right axillary lymph node is present. 2.9 cm biopsied mass of the lateral right mid breast. There is moderate diffuse right breast skin thickening. Subcutaneous edema of the medial right mid breast. Asymmetric subcutaneous edema of the right lateral chest wall with mild asymmetric thickening of the right pectoralis musculature. There is no pneumothorax or pleural effusion. Mild pulmonary cystic changes of the left lower lobe. Mild bilateral bronchial wall thickening. There are no suspicious pulmonary nodules or masses to suggest metastasis. No airspace consolidation typical for pneumonia. Central airways appear patent. Innumerable lytic lesions are present throughout the spine with multiple age- indeterminate superior and inferior endplate compression deformity/Schmorl's nodes, most pronounced at the T5, T7, T9, T10 and T11 levels. There is an expansile lytic lesion involving the posterior elements at T10 with possible mild involvement of the posterior epidural space. There are remote appearing bilateral rib fractures. CT ABDOMEN/PELVIS: No pneumatosis or pneumoperitoneum. Mild splenomegaly, 14.2 cm. Unremarkable right adrenal gland. Left adrenal gland thickening. Gallbladder distention with cholelithiasis. No definite gallbladder wall thickening or biliary ductal dilation. Mild generalized pancreatic atrophy. Hepatic steatosis without a hepatic mass lesion identified. Kidneys, and urinary bladder appear unremarkable. Calcified uterine fibroids. No adnexal mass lesion. Aorta and IVC are within normal limits. No adenopathy. No bowel obstruction or bowel wall thickening. Terminal ileum and appendix are unremarkable. Soft tissues are within normal limits. Innumerable lytic lesions throughout the spine with probable mixed lucent and sclerotic lesions of the sacrum and iliac bones. 25% anterior and superior endplate compression deformity of L1. Schmorl's nodes involve the inferior endplate of L3. There is an equivocal 9 mm lucent lesion of the left femoral head. IMPRESSION: 1. Biopsied right breast mass with asymmetric right breast skin thickening and subcutaneous edema with thickening of the right pectoralis muscle may represent areas of disease extension versus posttreatment related changes. 2. Metastatic right axillary and subpectoral adenopathy. 3. Innumerable skeletal metastasis with multiple age-indeterminate thoracic and lumbar compression deformities. Expansile lytic lesion involving the posterior elements at T10 may partially extend into the posterior epidural space at this level. 4. No definite metastatic disease within the abdomen or pelvis. 5. Additional findings as above. ACT 112: Negative or not required by law. The above report was generated using voice recognition software. It may contain grammatical, syntax or spelling errors. Electronically signed by: Dat Johnson M.D. 01/06/2020 1:42 PM Dictated: 01/06/20 1320 Transcribed: 01/06/20 1320 Radiology: reports reviewed Radiology Findings: [facility], [place] [phone] XRay Report Patient: COLE LUZ Date: 01/06/20 MR#: [id number]: [address] Acct ID:[id number]: Date: 1960City Zip: [place] [address] Age: 59Location: ED Sex: F Room/Bed: Att Phy:Diagnosis: BACK PAIN, UPPER ABD PAIN Candie Phy: PCP,NOService Date: 01/06/20 Fam Phy:Interpreting Phy: Chon Henderson MD Admit Phy: Ordering Phy: Jose Aquino MD cc: ~ XR ribs BI min 4V w CXR1V CLINICAL HISTORY: bear hug with pain eval for fx COMPARISON STUDY: 07/08/2019 FINDINGS: Healing fractures left fourth and fifth ribs. Nondisplaced cortical fracture left eighth rib. Right ribs show no acute bony abnormality. Lungs are considered clear. No evidence for pneumothorax. IMPRESSION: 1. Nondisplaced cortical fracture left anterior eighth rib. 2. Several old and/or healing left rib fractures. 3. No acute abnormality of the chest. ACT 112: Negative or not required by law. The above report was generated using voice recognition software. It may contain grammatical, syntax or spelling errors. Electronically signed by: Chon Henderson M.D. 01/06/2020 11:17 AM Dictated: 01/06/20 111 Transcribed: 01/06/20 111 Previous Records Review Previous Records: personally reviewed by me
[2020-01-10] MEDS: fentaNYL 12 MCG/HR TDSY TD SCH (15:57)
--- NOTE | 2020-01-10 15:57 | Hospitalist Progress Note ---
Date of Service January 10, 2020 Assessment & Plan (1) Bone pain: Severe metastatic disease seen on barragan-CT today. Numerous lesions in spine, ribs, etc. Has severe pain from these lesions. Started dilaudid BENCH REPAIR TECHNICIAN -- 0.1mg demand dose, lock-out 20 minutes, max 0.3mg/hr. No basal rate at this time. Adjust as needed. K-pad heating. Lidoderm patches. Pain control not well-balanced, even after increasing oxycodone as needed on 01/09/2020 and scheduled Tylenol added Miacalcin nasal spray and Celebrex 01/08/2020 I did personally call pain management as for consultation on 01/10/2020 MRI thoracic spine 01/06/2020 Near diffuse abnormal T2 hyperintense, T1 hypointense signal seen throughout the thoracic spine consistent with metastatic disease. Mild endplate compression deformities at T3, T5, T7, T8, T9, T10, T11, and L1. These are detected age indeterminate but favor subacute to chronic pathologic fractures. CT scan of lumbar spine 01/06/2020 1. Innumerable small scattered mixed lytic and osteoblastic metastasis lesions seen throughout the lumbar spine and visualized pelvis. 2. Mild superior endplate compression fracture at L1 demonstrating 3 mm of retropulsion of the posterior superior corner with mild central canal narrowing at this level. This is likely pathologic. 3. Possible subtle superior endplate compression fracture at L2. 4. Focal inferior endplate central compression fracture at L3. (2) Hypercalcemia: Likely due to bony mets, presumably from right-sided breast cancer. Intact PTH suppressed. Concern for PTH RP with this was not measured NS and was given zometa infusion 4mg IV x 1 on admission Calcium has responded to treatment repeat calcium on 01/08 Suspect hypercalcemia was causing nonspecific abdominal discomfort, fatigue, and even mild mental fogginess. (3) Acute kidney injury: Possibly due to hypercalcemia. Improved with treatment of hypercalcemia continue IV fluids/as the addition of nonsteroidals at this time No signs of obstruction on CT on admission (4) Metastatic cancer: most likely this is stage 4 breast cancer with primary site in the right breast. s/p right breast biopsy about 1 week ago at [facility] - biopsy results will be scanned into her record. With concern for thromboembolic disease associated with malignancy CT angiogram and lower extremity Doppler studies were negative for thromboembolic phenomena (5) Breast cancer: right breast - presumed. large mass based on CT report today. s/p biopsy [address] Mccoy from oncology we are still in search of a formal pathology report daughter believes she delivered this to the hospital. Is also in need of a brain imaging test to look for metastatic disease however given her spinal pain will wait till this is better controlled before we have really in a hard surface for period of time. We both agreed there is likely a major role for rad onc to play given her t- spine and l-spine pain from mets. Will consult rad onc, Dr Guy. treat pain as above. Patient did not have a ROD AND TUBE STRAIGHTENER brain scan of any kind and likely willing to do this however her pain limits the ability to remain still for such a scan at this point time (6) Abnormal LFTs: highly concerning for liver mets but none seen on CT. does have gallstones on CT, but no symptoms of such. Negative RUQ u/s for mets, steatosis has been identified of masses seen on CT scan of the abdomen within her liver or other areas of metastasis was taking tylenol prior to admission but not large amounts thus doubt tylenol toxicity. Some dyspeptic symptoms adding Maalox and Protonix (7) Multiple fractures of ribs: PATHOLOGIC. Pain control w/ BENCH REPAIR TECHNICIAN dilaudid prn. Continue topical Lidoderm patches and other adjunctive pain measures K-pad. Etc. (8) Pathologic fracture of thoracic vertebrae: t-spine MRI without signs of cord compromise from her multiple t-spine compression fractures. rad onc to be consulted for her severe t-spine pain from bony mets. Hopefully radiation treatment to her spine may improve her pain control if not may consider pain management consultation (9) Pathologic fracture of lumbar vertebra: no cord compromise seen on CT today in the lumbar region. neuro exam is without radicular symptoms (10) DVT prophylaxis: lovenox 40mg daily daughter, extensively updated at bedside 01/08/2020 patient and family aware of all CT findings and presumed metastatic breast ca did discuss with the patient and her the need for a brain image at some point along the way but we are hopeful to improve her back pain before we have her have a prolonged recumbent position for the MRI Admission and Anticipated Discharge Date Admission Date: January 06, 2020 Subjective Patient's pain is worsened today associate with nausea vomiting and hematochezia. Pain management was consulted On 01/09 we increased dose of PRN oxycodone, continued scheduled Tylenol, Lidoderm patch to painful points, she started Miacalcin nasal spray for compression fractures of her spine was also began Celebrex therapy. Review of Systems Review of Systems: Mild to moderate distress and fatigue no headache, blurry or double vision no speech or swallowing issues Patient is having some left-sided rib pain now but denies having any pressure or palpitations no shortness of breath, cough or wheezes Abdominal pain nausea vomiting and one bout of hematochezia on 01/09 no dysuria, hematuria or frequency no focal joint pain or swelling Midline central posterior back pain lower thoracic spine no bruising, bleeding or rashes no focal signs of weakness or numbness or altered sensation no complaints or anxiety or depression. Physical Exam Physical Exam: The patient appeared well nourished and normally developed. This patient continues with moderate pain at this time Vital signs as documented. Head exam is normocephalic atraumatic no scleral icterus Neck is without JVD, thyromegaly, or carotid bruits. Lungs are clear to auscultation, no focal loss of breath sounds Cardiac exam, Rhythm is regular.. No murmurs, rubs or gallops. Abdominal exam reveals normal bowel sounds, soft non tender, feels dull and slightly distended Extremities are nonedematous and both pedal pulses are normal. Spine is reproducible tenderness to examination Neurologic exam is alert and oriented, no focal loss of strength or sensation no focal peripheral neuropathy noted right now Skin is without bruises or rashes Psychologically is with concerned for depression Results & Data Results & Data ([facility]) Vital Signs (Past 12 Hours) Vital Signs Temp Pulse Resp BP Pulse Ox 01/10/20 11:13 98.2 F 79 18 156/82 H 96 01/10/20 07:22 97.9 F 86 18 154/90 H 95 PG Care Time/CCT Total # of Minutes Spent Total Time Spent with Patient: Total time spent is greater than 50% in coordination of care (as documented) at patient's floor/unit and/or counseling patient: Coding Level of Care Code 05700 Subseq Hosp Care Lvl 2 Diagnoses Bone pain M89.8X9 Hypercalcemia E83.52 Acute kidney injury N17.9 Metastatic cancer C79.81 Area of secondary neoplastic involvement: breast Breast cancer C50.911 Breast location: unspecified site of breast Estrogen receptor status: unspecified Patient sex: female Laterality: right Abnormal LFTs R94.5 Multiple fractures of ribs S22.43XA Encounter type: initial encounter Fracture type: closed Laterality: bilateral Pathologic fracture of thoracic vertebrae M84.48XA Pathologic fracture of lumbar vertebra M84.48XA DVT prophylaxis Z29.9 (1) Metastatic cancer Area of secondary neoplastic involvement: breast Qualified Code(s): C79.81 - Secondary malignant neoplasm of breast (2) Breast cancer Breast location: unspecified site of breast Estrogen receptor status: unspecified Patient sex: female Laterality: right Qualified Code(s): C50.911 - Malignant neoplasm of unspecified site of right female breast (3) Multiple fractures of ribs Encounter type: initial encounter Fracture type: closed Laterality: bilateral Qualified Code(s): S22.43XA - Multiple fractures of ribs, bilateral, initial encounter for closed fracture
[2020-01-10] MEDS: CHECK FENTANYL PATCH PLACEMENT SCH (17:02)
[2020-01-10] MEDS: ENOXAPARIN INJ 40 MG/0.4 ML SYR SQ SCH (19:53)
[2020-01-10] MEDS ORDERED: METOCLOPRAMIDE HCL INJ 5 MG/ML 2 ML VIAL IV ONE (20:05)
[2020-01-10] MEDS: DOCUSATE SODIUM 100 MG CAP PO SCH (21:01)
[2020-01-11] MEDS: CHECK FENTANYL PATCH PLACEMENT SCH ×4 (01:05→23:18)
[2020-01-11] MEDS: NSS + 20MEQ KCL 20 MEQ/1,000 ML BAG IV SCH ×3 (05:22→23:18)
[2020-01-11] MEDS: LIDOCAINE 5% 1 PATCH TD SCH (07:20)
[2020-01-11] MEDS: POLYETHYLENE (MIRALAX) 17 GM PACK PO SCH (07:20)
[2020-01-11] MEDS: PANTOprazole 40 MG TAB PO SCH (07:21)
[2020-01-11] MEDS: CELECOXIB 100 MG CAP PO SCH ×2 (07:21→20:08)
[2020-01-11] MEDS: DOCUSATE SODIUM 100 MG CAP PO SCH ×2 (07:21→20:06)
[2020-01-11] MEDS: CALCITONIN SALMON NA 200 IU/AC 3.7 ML BTL SCH (07:21)
[2020-01-11] MEDS: SENNA 8.6 MG TAB PO SCH (07:21)
[2020-01-11] MEDS: ACETAMINOPHEN 500 MG TAB PO SCH ×3 (07:21→20:14)
[2020-01-11] MEDS: ONDANSETRON INJ 2 MG/ML 2 ML VIAL IV PRN (07:22)
--- NOTE | 2020-01-11 08:24 | Pain Management Progress Note ---
Date of Service January 11, 2020 Assessment & Plan (1) Secondary malignant neoplasm of bone: (2) Breast cancer: Breast location: unspecified site of breast Estrogen receptor status: unspecified Laterality: right Patient sex: female Qualified Code(s): C50.911 - Malignant neoplasm of unspecified site of right female breast (3) Pathologic fracture of lumbar vertebra: (4) Pathologic fracture of thoracic vertebrae: (5) Multiple fractures of ribs: * Will maintain fentanyl at 12 mcg q. 72 hours at this time. Will again consider titration pending utilization of Dilaudid RN PSYCHIATRIC over the next 24 hours. * Continue to refrain from oral opiate therapy due to her nausea/vomiting--continue with current RN PSYCHIATRIC Dilaudid without change * Consider trial of tramadol versus Nucynta versus hydrocodone for PRN breakthrough pain once nausea well controlled * Continue Colace 100 mg twice daily to combat opioid-induced constipation * Consider Medrol Dosepak intended diminish inflammatory response--defer to Dr. Deng * Consider duloxetine to assist in pain control and mood response to recent diagnosis of metastatic breast cancer * Will continue to follow. Encounter type: initial encounter Fracture type: closed Laterali ty: bilateral Qualified Code(s): S22.43XA - Multiple fractures of ribs, bilateral, initial encounter for closed fracture Present on Admission?: Yes Admission and Anticipated Discharge Date Admission Date: January 06, 2020 Subjective Mrs. Lynn is a 59-year-old white female who is recent diagnosis of metastatic breast cancer who has multiple pathologic fractures of the lumbar vertebrae, thoracic vertebrae and ribs. She started radiation therapy yesterday. She has ongoing difficulties with intractable axial thoracolumbar back pain. Fentanyl transdermal patch was initiated yesterday at 12 mcg dose applied to the right upper outer arm. She is reporting tolerability at this time without notable side effects although does continue to deal with nausea and occasional vomiting. Oxycodone was discontinued yesterday which appears to be unlikely the overt cause of her nausea/vomiting which was previously suspected. She reports that her pain is improved. She indicates that she is currently comfortable at a 2- 3/10. She continues to have escalation of pain with movement. Her pain can escalate to a 6-7/10. She reported limited utilization of Dilaudid RN PSYCHIATRIC throughout last night as her pain was adequately well controlled. She reports her pain remains in the midline of the axial spine. She continues to deny a radicular component to symptoms. Patient has no further constitutional complaints. Plan of care discussed with Dr. Jesica Ceballos. Physical Exam Physical Exam: General: Patient was sitting up upon in the room in no acute distress. Speech and thought process appropriate. Mood and affect appropriate. Cognition intact.
[2020-01-11] MEDS: PROMETHAZINE HCL 12.5 MG in SODIUM CHLORIDE 0.9% 50 ML IV PRN (09:53)
[2020-01-11] MEDS ORDERED: PROMETHAZINE HCL 12.5 MG in SODIUM CHLORIDE 0.9% 50 ML IV PRN (12:46)
[2020-01-11] MEDS: FAMOTIDINE 20 MG in SYRINGE 3 ML IV SCH ×2 (13:31→20:17)
[2020-01-11] MEDS: ONDANSETRON INJ 2 MG/ML 2 ML VIAL IV SCH ×2 (13:31→19:31)
[2020-01-11] MEDS: ANASTROZOLE 1 MG TAB PO SCH (14:27)
[2020-01-11 14:29] LABS: CA 27.29 1517 U/mL (<38); CA15-3 Breast Antigen 1898 U/mL (<32)
[2020-01-11] MEDS ORDERED: SODIUM CHLORIDE 0.9% 1000ML 1,000 ML IV PRN (15:30)
[2020-01-11] MEDS: ENOXAPARIN INJ 40 MG/0.4 ML SYR SQ SCH (17:08)
[2020-01-11] MEDS: METOCLOPRAMIDE HCL INJ 5 MG/ML 2 ML VIAL IV PRN (17:08)
--- NOTE | 2020-01-11 20:12 | Hospitalist Progress Note ---
Date of Service January 11, 2020 Assessment & Plan (1) Bone pain: Severe metastatic disease seen on barragan-CT Numerous lesions in spine, ribs, etc. Has severe pain from these lesions. doing better with this since dilauded CHERRY GROWER - appreciate pain mangement input K-pad heating. Lidoderm patches. MRI thoracic spine 01/06/2020 Near diffuse abnormal T2 hyperintense, T1 hypointense signal seen throughout the thoracic spine consistent with metastatic disease. Mild endplate compression deformities at T3, T5, T7, T8, T9, T10, T11, and L1. These are detected age indeterminate but favor subacute to chronic pathologic fractures. CT scan of lumbar spine 01/06/2020 1. Innumerable small scattered mixed lytic and osteoblastic metastasis lesions seen throughout the lumbar spine and visualized pelvis. 2. Mild superior endplate compression fracture at L1 demonstrating 3 mm of retropulsion of the posterior superior corner with mild central canal narrowing at this level. This is likely pathologic. 3. Possible subtle superior endplate compression fracture at L2. 4. Focal inferior endplate central compression fracture at L3. (2) Nausea: likely related to diffuse malignancy as well -aggressive management - scheduled zofran (QTC ok), pepcid IV BID, prn reglan/phenergan, start marinol bid -encouarged small amounts of PO intake (3) Hypercalcemia: Likely due to bony mets, presumably from right-sided breast cancer. Intact PTH suppressed. NS and was given zometa infusion 4mg IV x 1 on admission Calcium has responded to treatment - continue to follow Suspect hypercalcemia was contributing to nonspecific abdominal discomfort, fatigue, and even mild mental fogginess. (4) Acute kidney injury: Possibly due to hypercalcemia. Improved with treatment of hypercalcemia continue IV fluids/as the addition of nonsteroidals at this time No signs of obstruction on CT on admission f/u periodic BMP (5) Metastatic cancer: most likely this is stage 4 breast cancer with primary site in the right breast. s/p right breast biopsy about 1 week ago at [facility] [address] - biopsy results will be scanned into her record. With concern for thromboembolic disease associated with malignancy CT angiogram and lower extremity Doppler studies were negative for thromboembolic phenomena (6) Breast cancer: right breast - presumed. large mass based on CT report today. s/p biopsy 1 week ago. started anastrazole today at oncology recommendation (pt unable to take due to nausea, however) (7) Abnormal LFTs: highly concerning for liver mets but none seen on CT. does have gallstones on CT, but no symptoms of such. Negative RUQ u/s for mets, steatosis has been identified of masses seen on CT scan of the abdomen within her liver or other areas of metastasis was taking tylenol prior to admission but not large amounts thus doubt tylenol t oxicity. ?reflective of hepatic malignant process contributing to nausea -follow periodically (8) Multiple fractures of ribs: PATHOLOGIC. Pain control as goal (9) Pathologic fracture of thoracic vertebrae: t-spine MRI without signs of cord compromise from her multiple t-spine compression fractures. rad onc to be consulted for her severe t-spine pain from bony mets. Hopefully radiation treatment to her spine may improve her pain control, continue meds for now (10) Pathologic fracture of lumbar vertebra: no cord compromise seen on CT in the lumbar region. neuro exam is without radicular symptoms (11) DVT prophylaxis: lovenox 40mg daily I Admission and Anticipated Discharge Date Admission Date: January 06, 2020 Subjective notes pain is actually reasonably well controlled today - problem is more nausea. notes this has been going on for a while too - predating admission/pain meds/etc. vomited a few times, but mostly is a food aversion. no stomach pain - just nausea and occassional vomiting. no constipation - generally a BM more or less every day. son adriana as well - answered all questions to the best of my ability and to their satisfaction. d/w dr pulido this AM - wanted her started on anastrozole - ordered, although pt deferred due to nausea. discussed plan for the day pain management input appreciated Review of Systems Review of Systems: All systems reviewed & are unremarkable except as noted in HPI & below Physical Exam Physical Exam: gen aao pleasant but does appear apprehensive and somewhat na useated. heent nc at mmm. breathing unlabored no accessory muscles good effort skin no rashes no pallor or icteurs neuro no focal deficits. abd soft nd nt no masses or organomegaly. Results & Data Results & Data ([facility]) Vital Signs (Past 12 Hours) Vital Signs Temp Pulse Resp BP Pulse Ox 01/11/20 15:12 98.2 F 81 21 168/92 H 95 PG Care Time/CCT Total # of Minutes Spent Total Time Spent with Patient: Total time spent is greater than 50% in coordination of care (as documented) at patient's floor/unit and/or counseling patient: Coding Level of Care Code 14766 Subseq Hosp Care Lvl 3 Diagnoses Bone pain M89.8X9 Nausea R11.0 Hypercalcemia E83.52 Acute kidney injury N17.9 Metastatic cancer C79.81 Area of secondary neoplastic involvement: breast Breast cancer C50.911 Breast location: unspecified site of breast Estrogen receptor status: unspecified Patient sex: female Laterality: right Abnormal LFTs R94.5 Multiple fractures of ribs S22.43XA Encounter type: initial encounter Fracture type: closed Laterality: bilateral Pathologic fracture of thoracic vertebrae M84.48XA Pathologic fracture of lumbar vertebra M84.48XA DVT prophylaxis Z29.9 (1) Metastatic cancer Area of secondary neoplastic involvement: breast Qualified Code(s): C79.81 - Secondary malignant neoplasm of breast (2) Breast cancer Breast location: unspecified site of breast Estrogen receptor status: unspecified Patient sex: female Laterality: right Qualified Code(s): C50.911 - Malignant neoplasm of unspecified site of right female breast (3) Multiple fractures of ribs Encounter type: initial encounter Fracture type: closed Laterality: bilateral Qualified Code(s): S22.43XA - Multiple fractures of ribs, bilateral, initial encounter for closed fracture
[2020-01-12] MEDS: ONDANSETRON INJ 2 MG/ML 2 ML VIAL IV SCH ×4 (00:47→17:36)
[2020-01-12 06:17] LABS: Hematocrit (blood only) 28.3 % (37-47); Hemoglobin 9.4 g/dL (12.0-16.0); Mean Corpuscular Hemoglobin 27.9 pg (25-34); Mean Corpuscular Hgb Conc 33.2 g/dL (32-36); Mean Platelet Volume 9.9 fL (7.4-10.4); Nucleated RBC # (auto) 0.26 K/uL (0-0); Nucleated RBC % (auto) 5.1 %; Platelet Count 125 K/uL (130-400); RDW Coefficient of Variation 15.1 % (11.5-14.5); RDW Standard Deviation 45.4 fL (36.4-46.3); Red Blood Count 3.37 M/uL (4.2-5.4); White Blood Count 5.01 K/uL (4.8-10.8)
[2020-01-12] MEDS: NSS + 20MEQ KCL 20 MEQ/1,000 ML BAG IV SCH ×3 (06:23→20:36)
[2020-01-12 06:42] LABS: Albumin Level 2.5 gm/dl (3.4-5.0); BUN Creatinine Ratio 13.7 (10-20); Calcium 6.9 mg/dl (8.5-10.1); Creatinine Clr Calc Pharmacy 92.7 ml/min; Est GFR (African American) 101.3; Est GFR (Non-African American) 87.4; Potassium 3.7 mmol/L (3.5-5.1)
[2020-01-12 06:45] LABS: Albumin Globulin Ratio 0.8 (0.9-2); Bilirubin,Total 1.2 mg/dl (0.2-1); Globulin 3.1 gm/dl (2.5-4.0); Total Protein 5.6 gm/dl (6.4-8.2)
[2020-01-12] MEDS: HYDROmorphone PCA 30 MG/30 ML IV PRN (06:55)
[2020-01-12] MEDS: METOCLOPRAMIDE HCL INJ 5 MG/ML 2 ML VIAL IV PRN (07:58)
[2020-01-12] MEDS: CHECK FENTANYL PATCH PLACEMENT SCH ×3 (08:00→23:20)
--- NOTE | 2020-01-12 08:27 | Pain Management Progress Note ---
Date of Service January 12, 2020 Assessment & Plan (1) Secondary malignant neoplasm of bone: (2) Breast cancer: Breast location: unspecified site of breast Estrogen receptor status: unspecified Patient sex: female Laterality: right Qualified Code(s): C50.911 - Malignant neoplasm of unspecified site of right female breast (3) Pathologic fracture of lumbar vertebra: (4) Pathologic fracture of thoracic vertebrae: (5) Multiple fractures of ribs: * Maintain fentanyl at 12 mcg q. 72 hours at this time. * Will initiate tramadol 50 mg every 4 hours for as needed breakthrough pain in an attempt to determine tolerability and effectiveness. * Patient may utilize ELECTRICIAN SHIP Dilaudid as needed. We discussed the importance of utilizing Dilaudid ELECTRICIAN SHIP prior to transferring for radiation therapy in an attempt to improve pain control during radiation therapy. Patient verbalized understanding. * Continue Colace 100 mg twice daily to combat opioid-induced constipation * Consider duloxetine to assist in pain control and mood response to recent diagnosis of metastatic breast cancer * Will continue to follow. Encounter type: initial encounter Fracture type: closed Laterality: bilateral Qualified Code(s): S22.43XA - Multiple fractures of ribs, bilateral, initial encounter for closed fracture Admission and Anticipated Discharge Date Admission Date: January 06, 2020 Subjective Mrs. Lynn is reporting improved pain control as well as improvement in her nausea over the past 12 hours. She reports her discomfort is minimal in the sitting or supine positions rating her pain at a 2-3/10. Her pain is increased with positional change from supine to sitting and from sitting to standing but then gradually improves once she establishes position. Patient indicates she is tolerating the fentanyl patch without notable side effects. She reports increased pain while lying supine for her radiation therapy. She continues utilize Dilaudid ELECTRICIAN SHIP for breakthrough pain with efficacy. She has only utilized 1.4 mg over the past 24 hours. Patient indicates that her pain remains in the axial thoracic and thoracolumbar regions. She continues to deny radiation. Patient has no further concert complaints at this time. Plan of care discussed with Dr. Jesica Ceballos. Pain Assessment Pain Assessment Full Body Front + Back: 1. Thoracic and thoracolumbar axial spine Pain scale - at its best (0-10): 2 Pain scale - at its worst (0-10): 8 Physical Exam Physical Exam: General: Patient sitting up on entering the room in no acute distress. Speech and thought process appropriate. Mood and affect appropriate. Cognition intact. Neurologic: Cranial nerves grossly intact. Ambulatory function not witnessed.
[2020-01-12] MEDS: POLYETHYLENE (MIRALAX) 17 GM PACK PO SCH (08:52)
[2020-01-12] MEDS: DOCUSATE SODIUM 100 MG CAP PO SCH ×2 (08:52→20:38)
[2020-01-12] MEDS: LIDOCAINE 5% 1 PATCH TD SCH (08:53)
[2020-01-12] MEDS: SENNA 8.6 MG TAB PO SCH (08:53)
[2020-01-12] MEDS: CELECOXIB 100 MG CAP PO SCH ×2 (08:54→20:38)
[2020-01-12] MEDS: ANASTROZOLE 1 MG TAB PO SCH (08:54)
[2020-01-12] MEDS: PANTOprazole 40 MG TAB PO SCH (08:54)
[2020-01-12] MEDS: CALCITONIN SALMON NA 200 IU/AC 3.7 ML BTL SCH (08:55)
[2020-01-12] MEDS: FAMOTIDINE 20 MG in SYRINGE 3 ML IV SCH (08:58)
[2020-01-12] MEDS: ACETAMINOPHEN 500 MG TAB PO SCH ×3 (08:58→20:36)
--- NOTE | 2020-01-12 08:58 | Progress Notes ---
DATE: 01/12/2020 DIAGNOSES: 1. Metastatic breast cancer, ER 90% positive, ID less than 5% positive and HER-2/sean 1+, date of diagnosis 12/29/2019. 2. Intractable skeletal pain. 3. Markedly elevated D-dimer. 4. Elevated liver transaminases. 5. Hypoalbuminemia. 6. Hypercalcemia, attributable to neoplasia. SUBJECTIVE: The patient was seen and examined at bedside. I had recommended starting anastrozole as a temporizing measure while in house as I formulate a therapeutic approach where the patient is concerned. Her pain is slowly improving. She has been placed on fentanyl patch, but still remains on MARINE SURVEYOR Dilaudid. She experienced some nausea last night, but was able to get her first dose of anastrozole down without issue. Again, I need general surgery to place a MediPort to provide flexibility regarding treatment moving forward. She seems to be doing well with radiation thus far, but expects expresses concern that she is not able to lie still for prolonged periods of time. Nursing reports no overnight difficulties. OBJECTIVE: GENERAL: A very pleasant 59-year-old postmenopausal female in no acute distress. VITAL SIGNS: Temperature 36.8, pulse 82, respiratory rate 20, blood pressure 145/79. SKIN: Without rash or lesion. HEENT: Oral mucosa without erythema or ulceration. HEART: Regular rate and rhythm. No clicks, rubs or murmurs. LUNGS: Clear to auscultation bilaterally. ABDOMEN: Soft, nontender, nondistended. EXTREMITIES: No clubbing, cyanosis or edema. NEUROLOGICAL: Grossly intact. LABORATORY DATA: WBC count 5000, hemoglobin 9.4, platelet count 125,000. Sodium 142, potassium 3.7, chloride 112, carbon dioxide 23, creatinine 0.74 and BUN 10, AST 165, ALT 73, albumin 2.5. IMPRESSION: 1. Intractable skeletal pain due to metastatic disease. 2. Metastatic ER/ID positive breast cancer. 3. Hypercalcemia, attributable to bony metastatic disease. 4. Hypoalbuminemia. 5. Acute renal injury. 6. Elevated liver transaminases. PLAN: It was my pleasure to visit with the patient this morning. I think overall she is making strides getting her pain under control. She was converted to fentanyl and now will require oral breakthrough opioids moving forward heading towards discharge. I empirically started her on anastrozole yesterday. She had a bout of nausea but was able to get her first dose down. That said, I am oscillating between a possible IV induction, will most likely be modified. My concern is tumor bulk within her breast and some point a prophylactic mastectomy may need to be done. Current standard for ER/ID positive metastatic bony disease is Ibrance and Faslodex. I may consider an abbreviated Taxotere and cyclophosphamide induction again merely to reduce tumor bulk. I will leave her on anastrozole and would ask the hospitalist to provide a prescription so she may continue oral therapy until I see her in followup. Overall, feels that she is doing relatively well. Thank you again for allowing me to participate in her care.
[2020-01-12] MEDS: ENOXAPARIN INJ 40 MG/0.4 ML SYR SQ SCH (17:37)
[2020-01-12] MEDS ORDERED: PROMETHAZINE HCL 25 MG TAB PO PRN (19:19)
[2020-01-12] MEDS ORDERED: METOCLOPRAMIDE HCL 10 MG TABLET PO PRN (19:19)
--- NOTE | 2020-01-12 19:24 | Hospitalist Progress Note ---
Date of Service January 12, 2020 Assessment & Plan (1) Breast cancer: (1) Bone pain: Severe metastatic disease seen on barragan-CT Numerous lesions in spine, ribs, etc. Has severe pain from these lesions. pain improvign - needing IV very little. continue current care MRI thoracic spine 01/06/2020 Near diffuse abnormal T2 hyperintense, T1 hypointense signal seen throughout the thoracic spine consistent with metastatic disease. Mild endplate compression deformities at T3, T5, T7, T8, T9, T10, T11, and L1. These are detected age indeterminate but favor subacute to chronic pathologic fractures. CT scan of lumbar spine 01/06/2020 1. Innumerable small scattered mixed lytic and osteoblastic metastasis lesions seen throughout the lumbar spine and visualized pelvis. 2. Mild superior endplate compression fracture at L1 demonstrating 3 mm of retropulsion of the posterior superior corner with mild central canal narrowing at this level. This is likely pathologic. 3. Possible subtle superior endplate compression fracture at L2. 4. Focal inferior endplate central compression fracture at L3. (2) Nausea: likely related to diffuse malignancy as well -improving - transition aggressive regimen to PO, increase marinol (3) Hypercalcemia: Likely due to bony mets, presumably from right-sided breast cancer. Intact PTH suppressed. NS and was given zometa infusion 4mg IV x 1 on admission Calcium has responded to treatment - continue to follow periodically (actually a little low today - obviously will not supplement at this time) Suspect hypercalcemia was contributing to nonspecific abdominal discomfort, fatigue, and even mild mental fogginess. (4) Acute kidney injury: Possibly due to hypercalcemia. Improved with treatment of hypercalcemia continue IV fluids/as the addition of nonsteroidals at this time No signs of obstruction on CT on admission f/u periodic BMP - creat normal now (5) Metastatic cancer: most likely this is stage 4 breast cancer with primary site in the right breast. s/p right breast biopsy about [address] [facility] - biopsy results will be scanned into her record. With concern for thromboembolic disease associated with malignancy CT angiogram and lower extremity Doppler studies were negative for thromboembolic phenomena (6) Breast cancer: right breast - presumed. large mass based on CT report today. s/p biopsy 1 week ago. started anastrazole today at oncology recommendation (pt unable to take due to nausea, however) (7) Abnormal LFTs: highly concerning for liver mets but none seen on CT. does have gallstones on CT, but no symptoms of such. Negative RUQ u/s for mets, steatosis has been identified of masses seen on CT scan of the abdomen within her liver or other areas of metastasis was taking tylenol prior to admission but not large amounts thus doubt tylenol toxicity. ?reflective of hepatic malignant process contributing to nausea -follow periodically (8) Multiple fractures of ribs: PATHOLOGIC. Pain control as goal (9) Pathologic fracture of thoracic vertebrae: t-spine MRI without signs of cord compromise from her multiple t-spine compression fractures. rad onc to be consulted for her severe t-spine pain from bony mets. Hopefully radiation treatment to her spine may improve her pain control, continue meds for now (10) Pathologic fracture of lumbar vertebra: no cord compromise seen on CT in the lumbar region. neuro exam is without radicular symptoms (11) DVT prophylaxis: lovenox 40mg daily Admission and Anticipated Discharge Date Admission Date: January 06, 2020 Subjective feeling somewhat better!! eating better, a little hungry at times. pain under pretty good overall control, brighter spirits Review of Systems Review of Systems: All systems reviewed & are unremarkable except as noted in HPI & below Physical Exam Physical Exam: gen aao pleasant nad heent nc at mmm breathing unlabored no accessory muslces good effort skin no rashes no pallor or icterus Results & Data Results & [facility] ([facility]) Vital Signs (Past 12 Hours) Vital Signs Temp Pulse Resp BP BP Pulse Ox 01/12/20 15:44 98.1 F 80 20 172/94 H 94 01/12/20 12:02 97.9 F 80 23 167/84 H 96 01/12/20 07:35 98.2 F 82 22 145/79 H 95 PG Care Time/CCT Total # of Minutes Spent Total Time Spent with Patient: Total time spent is greater than 50% in coordination of care (as documented) at patient's floor/unit and/or counseling patient: Coding Level of Care Code 85836 Subseq Hosp Care Lvl 3 Diagnoses Breast cancer C50.911 Breast location: unspecified site of breast Estrogen receptor status: unspecified Patient sex: female Laterality: right (1) Breast cancer Breast location: unspecified site of breast Estrogen receptor status: unspecified Patient sex: female Laterality: right Qualified Code(s): C50.911 - Malignant neoplasm of unspecified site of right female breast
[2020-01-12] MEDS: FAMOTIDINE 20 MG TAB PO SCH (20:54)
[2020-01-13] MEDS: NSS + 20MEQ KCL 20 MEQ/1,000 ML BAG IV SCH ×3 (03:48→18:51)
--- NOTE | 2020-01-13 08:42 | Pain Management Progress Note ---
Date of Service January 13, 2020 Assessment & Plan (1) Secondary malignant neoplasm of bone: (2) Breast cancer: Breast location: unspecified site of breast Estrogen receptor status: unspecified Patient sex: female Laterality: right Qualified Code(s): C50.911 - Malignant neoplasm of unspecified site of right female breast (3) Pathologic fracture of lumbar vertebra: (4) Pathologic fracture of thoracic vertebrae: (5) Multiple fractures of ribs: * Maintain fentanyl at 12 mcg q. 72 hours at this time. * Patient was encouraged utilize tramadol 50 mg every 4 hours for PRN breakthrough pain in place of TAX REPRESENTATIVE Dilaudid throughout today to assess efficacy/tolerability. * Continue Colace 100 mg twice daily to combat opioid-induced constipation * Consider duloxetine to assist in pain control and mood response to recent diagnosis of metastatic breast cancer. Encounter type: initial encounter Fracture type: closed Laterality: bilateral Qualified Code(s): S22.43XA - Multiple fractures of ribs, bilateral, initial encounter for closed fracture Admission and Anticipated Discharge Date Admission Date: January 06, 2020 [address] Mrs. Lynn is reporting overall improved pain control. Patient reports her pain in the axial thoracolumbar region is currently a 2/10. She reported slight increased pain in the rib/chest wall throughout last evening and this morning rating it a 4-5/10. She did not utilize oral tramadol yesterday as we discussed. She reported nursing staff recommended to utilize TAX REPRESENTATIVE hydromorphone instead of tramadol. She reported improved pain control with radiation therapy yesterday with utilization of TAX REPRESENTATIVE Dilaudid prior to the treatment. She reports no residual nausea at this time. Patient feels she is tolerating fentanyl patch without notable side effects. Patient has no further constitutional complaints at this time. Plan of care discussed with Dr. Jesica Ceballos. Pain Assessment Pain Assessment Full Body Front + Back: 1. Axial thoracolumbar spine 2. Anterior lateral chest wall 3. Anterior lateral chest wall Pain scale - at its best (0-10): 2 Pain scale - at its worst (0-10): 6 Physical Exam Physical Exam: General: Patient sitting up upon entering the room reading. Patient in no acute distress. Speech and thought process appropriate. Cognition intact. Chest: Moderately tender with AP/lateral compression of the chest wall. Thoracolumbar spine: Nontender to palpation. Minimal tenderness over the midline to percussion.
--- NOTE | 2020-01-13 08:53 | Progress Notes ---
DATE: 01/13/2020 ONCOLOGY PROGRESS NOTE DIAGNOSES: 1. Metastatic breast cancer, ER 90% positive, NH less than 5% positive and HER-2/sean 1+, date of diagnosis 12/29/2019. 2. Intractable skeletal pain. 3. Markedly elevated D-dimer. 4. Elevated liver transaminases. 5. Hypoalbuminemia. 6. Hypercalcemia, attributable to neoplasia. SUBJECTIVE: The patient was seen and examined at bedside. She seems to be tolerating anastrozole well. Advised her that I would probably proceed with combination Ibrance and Faslodex once she is outpatient. Pain control seems to be improving; however, would like her IV opioids replaced with oral as we move forward towards discharge. The patient's dietary intake has improved modestly. She is able to ambulate without difficulty. She continues to experience some discomfort in the rib area. Audra continues palliative radiation therapy without difficulty. OBJECTIVE: GENERAL: A very pleasant 59-year-old female, in no acute distress. VITAL SIGNS: Temperature 37.1, pulse 76, respiratory rate 16, blood pressure 134/74. SKIN: Without rash or lesion. HEENT: Oral mucosa without erythema or ulceration. HEART: Regular rate and rhythm. LUNGS: Clear to auscultation. ABDOMEN: Soft, nontender, nondistended. EXTREMITIES: No clubbing, cyanosis or edema. NEUROLOGIC: Grossly intact. LABORATORY DATA: None ordered. IMPRESSION: 1. ER/NH positive metastatic breast cancer. 2. Intractable skeletal pain, attributable to metastatic disease. 3. Hypercalcemia, attributable to bony metastatic disease. 4. Hypoalbuminemia. 5. Acute renal injury. 6. Elevated liver transaminases. PLAN: Audra was seen once again at bedside. She took her anastrozole dose as prescribed without difficulty. Her nausea seems to be improving. Her dietary intake has also increased. Truly in my estimation, the only outstanding issue is converting IV opioids to p.o. to prepare her for discharge. After speaking with some colleagues, I have decided to proceed with Ibrance and Faslodex once she is stable. However, I would like her to receive a small prescription for anastrozole to continue until the patient is established on the prescribed induction regimen. Thank you again for allowing me to participate in Audra's care.
[2020-01-13] MEDS: FAMOTIDINE 20 MG TAB PO SCH ×2 (09:30→20:28)
[2020-01-13] MEDS: ANASTROZOLE 1 MG TAB PO SCH (09:30)
[2020-01-13] MEDS: PANTOprazole 40 MG TAB PO SCH (09:30)
[2020-01-13] MEDS: CELECOXIB 100 MG CAP PO SCH ×2 (09:31→20:28)
[2020-01-13] MEDS: POLYETHYLENE (MIRALAX) 17 GM PACK PO SCH (09:31)
[2020-01-13] MEDS: CHECK FENTANYL PATCH PLACEMENT SCH ×2 (09:31→16:04)
[2020-01-13] MEDS: CALCITONIN SALMON NA 200 IU/AC 3.7 ML BTL SCH (09:32)
[2020-01-13] MEDS: SENNA 8.6 MG TAB PO SCH (09:33)
[2020-01-13] MEDS: LIDOCAINE 5% 1 PATCH TD SCH (09:37)
[2020-01-13] MEDS: DOCUSATE SODIUM 100 MG CAP PO SCH ×2 (09:38→20:29)
[2020-01-13] MEDS: ACETAMINOPHEN 500 MG TAB PO SCH ×3 (09:40→21:48)
[2020-01-13] MEDS ORDERED: HYDROmorphone INJ 0.5 MG/0.5 ML SYR IV PRN (13:24)
[2020-01-13] MEDS: fentaNYL 12 MCG/HR TDSY TD SCH (13:28)
--- NOTE | 2020-01-13 17:53 | Hospitalist Progress Note ---
Date of Service January 13, 2020 Assessment & Plan (1) Breast cancer: (1) Bone pain: Severe metastatic disease seen on barragan-CT Numerous lesions in spine, ribs, etc. Has severe pain from these lesions. pain improving - changed orders so as to be clear to prioritize PO tramadol prior to anything IV so that pt has confidence in being able to have pain control at home MRI thoracic spine 01/06/2020 Near diffuse abnormal T2 hyperintense, T1 hypointense signal seen throughout the thoracic spine consistent with metastatic disease. Mild endplate compression deformities at T3, T5, T7, T8, T9, T10, T11, and L1. These are detected age indeterminate but favor subacute to chronic pathologic fractures. CT scan of lumbar spine 01/06/2020 1. Innumerable small scattered mixed lytic and osteoblastic metastasis lesions seen throughout the lumbar spine and visualized pelvis. 2. Mild superior endplate compression fracture at L1 demonstrating 3 mm of retropulsion of the posterior superior corner with mild central canal narrowing at this level. This is likely pathologic. 3. Possible subtle superior endplate compression fracture at L2. 4. Focal inferior endplate central compression fracture at L3. (2) Nausea: likely related to diffuse malignancy as well -improving - regimen now entirely PO. continue. (3) Hypercalcemia: Likely due to bony mets, presumably from right-sided breast cancer. Intact PTH suppressed. NS and was given zometa infusion 4mg IV x 1 on admission Calcium has responded to treatment - continue to follow periodically. no current intervention needed Suspect hypercalcemia was contributing to nonspecific abdominal discomfort, fatigue, and even mild mental fogginess. (4) Acute kidney injury: Possibly due to hypercalcemia. Improved with treatment of hypercalcemia continue IV fluids/as the addition of nonsteroidals at this time No signs of obstruction on CT on admission f/u periodic BMP - anticipate this staying normal as long as her PO intake stays good. (5) Metastatic cancer: most likely this is stage 4 breast cancer with primary site in the right breast. s/p right breast biopsy about 1 week ago at [facility] - biopsy results will be scanned into her record. With concern for thromboembolic disease associated with malignancy CT angiogram and lower extremity Doppler studies were negative for thromboembolic phenomena (6) Breast cancer: right breast - presumed. large mass based on CT report today. s/p biopsy 1 week ago. started anastrazole - pt tolerating. (7) Abnormal LFTs: highly concerning for liver mets but none seen on CT. -periodic f/u (8) Multiple fractures of ribs: PATHOLOGIC. Pain control as goal (9) Pathologic fracture of thoracic vertebrae: t-spine MRI without signs of cord compromise from her multiple t-spine compression fractures. rad onc input appreciated Hopefully radiation treatment to her spine may improve her pain control, continue meds for now (10) Pathologic fracture of lumbar vertebra: no cord compromise seen on CT in the lumbar region. neuro exam is without radicular symptoms (11) DVT prophylaxis: lovenox 40mg daily Admission and Anticipated Discharge Date Admission Date: January 06, 2020 Subjective pain and nausea overall doing better - only real problem was apparent confusion overngith on trying PO pain regimen while SOAP PRESS FEEDER still attached - so was instructed to just use SOAP PRESS FEEDER. otherwise though pain doing better, nausea doing better, eating better. d/w dr pulido Review of Systems Review of Systems: All systems reviewed & are unremarkable except as noted in HPI & below Physical Exam Physical Exam: gen aaox3 pleasant nad heent nc at mmm breathing unlabored no accessory muscles good effort skin no rashes no pallor or icterus neuro no focal deficits Results & Data Results & Data ([facility]) Vital Signs (Past 12 Hours) Vital Signs Temp Pulse Resp BP BP Pulse Ox 01/13/20 15:01 98.2 F 80 20 146/87 H 95 01/13/20 08:00 98.1 F 82 16 149/79 H 94 PG Care Time/CCT Total # of Minutes Spent Total Time Spent with Patient: Total time spent is greater than 50% in coordination of care (as documented) at patient's floor/unit and/or counseling patient: Coding Level of Care Code 14315 Subseq Hosp Care Lvl 3 Diagnoses Breast cancer C50.911 Breast location: unspecified site of breast Estrogen receptor status: unspecified Patient sex: female Laterality: right (1) Breast cancer Breast location: unspecified site of breast Estrogen receptor status: unspecified Patient sex: female Laterality: right Qualified Code(s): C50.911 - Malignant neoplasm of unspecified site of right female breast
[2020-01-13] MEDS: TRAMADOL HCL 50 MG TABLET PO PRN ×2 (18:02→21:45)
[2020-01-13] MEDS: ONDANSETRON 4 MG OD TAB PO PRN (18:02)
[2020-01-13] MEDS: ENOXAPARIN INJ 40 MG/0.4 ML SYR SQ SCH (18:45)
[2020-01-14] MEDS: CHECK FENTANYL PATCH PLACEMENT SCH ×2 (00:42→08:05)
[2020-01-14] MEDS: NSS + 20MEQ KCL 20 MEQ/1,000 ML BAG IV SCH ×2 (02:07→10:31)
[2020-01-14 06:17] LABS: Hematocrit (blood only) 27.5 % (37-47); Hemoglobin 9.4 g/dL (12.0-16.0); Mean Corpuscular Hemoglobin 28.6 pg (25-34); Mean Corpuscular Hgb Conc 34.2 g/dL (32-36); Mean Corpuscular Volume 83.6 fL (80-100); Mean Platelet Volume 9.8 fL (7.4-10.4); Nucleated RBC # (auto) 0.28 K/uL (0-0); Nucleated RBC % (auto) 7.6 %; Platelet Count 108 K/uL (130-400); RDW Coefficient of Variation 15.2 % (11.5-14.5); RDW Standard Deviation 45.2 fL (36.4-46.3); Red Blood Count 3.29 M/uL (4.2-5.4); White Blood Count 3.62 K/uL (4.8-10.8)
[2020-01-14 06:45] LABS: BUN Creatinine Ratio 12.7 (10-20); Calcium 7.6 mg/dl (8.5-10.1); Creatinine Clr Calc Pharmacy 103.9 ml/min; Est GFR (African American) 110.5; Est GFR (Non-African American) 95.3; Potassium 3.5 mmol/L (3.5-5.1)
[2020-01-14] MEDS: ONDANSETRON 4 MG OD TAB PO PRN (08:04)
[2020-01-14] MEDS: CALCITONIN SALMON NA 200 IU/AC 3.7 ML BTL SCH (09:04)
[2020-01-14] MEDS: CELECOXIB 100 MG CAP PO SCH (09:05)
[2020-01-14] MEDS: FAMOTIDINE 20 MG TAB PO SCH (09:05)
[2020-01-14] MEDS: ANASTROZOLE 1 MG TAB PO SCH (09:06)
[2020-01-14] MEDS: PANTOprazole 40 MG TAB PO SCH (09:06)
[2020-01-14] MEDS: LIDOCAINE 5% 1 PATCH TD SCH (09:07)
[2020-01-14] MEDS: POLYETHYLENE (MIRALAX) 17 GM PACK PO SCH (10:23)
[2020-01-14] MEDS: SENNA 8.6 MG TAB PO SCH (10:23)
[2020-01-14] MEDS: DOCUSATE SODIUM 100 MG CAP PO SCH (10:23)
[2020-01-14] MEDS: ACETAMINOPHEN 500 MG TAB PO SCH ×2 (10:28→13:37)
--- NOTE | 2020-01-14 19:33 | Discharge Summary ---
Date of Service January 14, 2020 Admission HPI Per Admitting Provider 59yo female with no significant PMH presents with worsening back pain over a 1-2 month period but much worse in the last 2 weeks. She remembers having a forceful sneeze about 2 weeks ago and has had severe back pain in the lumbar spine region since then. Much of the pain prior to that had been in the middle of the upper back. She has also has had right sided lower costal rib pain for 2 weeks, and left- sided mid-axillary pain as well. About 1-2 weeks ago her developmentally delayed son "jennifer hugged her" from behind and since then her rib pain has been much worse. Then, over the last 48 hours, she has had extreme fatigue. Just taking a shower led to severe weakness. She noticed several days ago during a walk that she was very tired. Had a breast biopsy of a right breast mass 1 week ago at [facility]. The breast mass was seen on a mammogram about 2 weeks ago. She found the mass on self-breast exam just prior to the mammogram. Currently taking tylenol and motrin at home without relief. Used tramadol sparingly at home without relief. Principal Diagnosis metastatic breast cancer Discharge Exam gen aaox3 [place] at [facility] breathing unlabored no accessory muscles good effort skin no rashes no pallor or icterus neuro no focal deficits mental status intact Discharge Data Allergies Allergy/AdvReac Type Severity Reaction Status Date / Time No Known Allergies Allergy Verified 01/06/20 10:56 Consultations 01/06/20 13:52 ED Decision to Admit Stat 01/06/20 17:11 Consult Oncology Routine 01/06/20 22:59 Consult Health Information Management Routine Consult Radiation Oncology Routine 01/08/20 15:01 Consult Health Information Management Routine 01/10/20 13:54 Consult Pain Management Routine Ordered Studies 01/06/20 11:37 CT abd pelvis IV con only Stat CT angio chest PE protocol Stat CT lumbar spine wo con Stat CT thoracic spine wo con Stat 01/06/20 15:11 MR thoracic spine wo con Stat 01/06/20 17:11 US gallbladder Routine 01/07/20 CT guide rad therapy abdomen Routine 01/07/20 07:44 US venous doppler LE BI Routine Hospital Course (1) Breast cancer: (1) Bone pain: Severe metastatic disease seen on barragan-CT Numerous lesions in spine, ribs, etc. Has severe pain from these lesions. pain improving - home on home regimen MRI thoracic spine 01/06/2020 Near diffuse abnormal T2 hyperintense, T1 hypointense signal seen throughout the thoracic spine consistent with metastatic disease. Mild endplate compression deformities at T3, T5, T7, T8, T9, T10, T11, and L1. These are detected age indeterminate but favor subacute to chronic pathologic fractures. CT scan of lumbar spine 01/06/2020 1. Innumerable small scattered mixed lytic and osteoblastic metastasis lesions seen throughout the lumbar spine and visualized pelvis. 2. Mild superior endplate compression fracture at L1 demonstrating 3 mm of retropulsion of the posterior superior corner with mild central canal narrowing at this level. This is likely pathologic. 3. Possible subtle superior endplate compression fracture at L2. 4. Focal inferior endplate central compression fracture at L3. (2) Nausea: likely related to diffuse malignancy as well -improving - regimen now entirely PO. continue. see instructions (3) Hypercalcemia: Likely due to bony mets, presumably from right-sided breast cancer. Intact PTH suppressed. NS and was given zometa infusion 4mg IV x 1 on admission Calcium has responded to treatment - continue to follow periodically. no current intervention needed. follow periodically Suspect hypercalcemia was contributing to nonspecific abdominal discomfort, fatigue, and even mild mental fogginess. (4) Acute kidney injury: Possibly due to hypercalcemia. Improved with treatment of hypercalcemia continue IV fluids/as the addition of nonsteroidals at this time No signs of obstruction on CT on admission f/u periodic BMP - anticipate this staying normal as long as her PO intake stays good. (5) Metastatic cancer: most likely this is stage 4 breast cancer with primary site in the right breast. s/p right breast biopsy about 1 week ago at [facility] - biopsy results will be scanned into her record. With concern for thromboembolic disease associated with malignancy CT angiogram and lower extremity Doppler studies were negative for thromboembolic phenomena (6) Breast cancer: right breast - presumed. large mass based on CT report today. s/p biopsy 1 week ago. started anastrazole - pt tolerating. (7) Abnormal LFTs: highly concerning for liver mets but none seen on CT. -periodic f/u (8) Multiple fractures of ribs: PATHOLOGIC. Pain control as goal (9) Pathologic fracture of thoracic vertebrae: t-spine MRI without signs of cord compromise from her multiple t-spine compression fractures. rad onc input appreciated Hopefully radiation treatment to her spine may improve her pain control, continue meds for now (10) Pathologic fracture of lumbar vertebra: no cord compromise seen on CT in the lumbar region. neuro exam is without radicular symptoms (11) DVT prophylaxis: lovenox 40mg daily utilized while here stable for home see instructions for details of today's discussions for close oncology and PCP f/u Total Time Total Time Spent Total Time Spent (In Minutes): >30 Discharge Plan Discharge Items Patient Disposition: Home - Self-Care Reason For Visit: HYPERCALCEMIA; PRESUMED METASTATIC CANCER Discharge Diagnosis: metastatic breast cancer now under treatment Activity: Resume your previous activity Non-emergency contact: Primary Care Provider Call non-emergency contact if: you have any medication questions, your symptoms worsen and your pain is not controlled Follow-up/Referrals: Lara Moore PA-C [Primary Care Provider] - Diet: Regular Addtl Attending Provider Instructions: pain -while this may be a bit of a "moving target" depending on how things go with radiation and chemo, for now the pain is under pretty reasonable control - so we'll continue our current regimen: ---fentanyl patch every 3 days - like we talked, write the date down on the patch, because it's REALLY easy to forget when you put it on. right now, it's our foundational pain control medicine ---we'll have you use the tramadol up to every four hours as needed for breakthrough pain -- if you're finding that you need it 4 times a day or more pretty routinely, then it's probably time to talk w Dr Marshall about increasing the dose of the patch ---because both of these medicines can be constipating, and constipation can effect both pain and nausea, we'll want to be proactive with your bowels -- the goal is a bowel movement DAILY. if you don't have a bowel movement that day, take a dose (17 grams, 1 capful) of miralax that night. if you haven't had a bowel movement the next day (day 2) then take 3 doses of miralax. if it's three days in with no bowel movement, take 5 capfuls -- and if that doesn't fix the problem, call the office for evaluation and/or further guidance. nausea -it's critical that we keep ahead of the nausea so that you're able to get in enough nutrition -we'll have you on 2 medicines scheduled (our "foundational treatment") - protonix (pantoprazole) and marinol (dronabinol); and 2 medicines as needed (for "breakthrough nausea") - the zofran (ondansetron) and reglan (metoclopramide) -take the protonix every morning, take the marinol in the morning and in the evening. you're at a "mid dose" on the marinol - so if we find that you need more help with your appetite, it can be increased to as much as 10mg twice a day -if you have nausea on top of those medicines, take the zofran as your first line - you can take it up to every four hours if you need; if that's not enough then take the reglan, but as we discussed, it can have odd neurologic side effects that don't go away - generally only if people are taking it at high doses for a long time - but because of that we'll want you to be a little more cautious/a little slower to take it nutrition -far too often when i see someone doing poorly during a course with cancer, malnutrition is at play -- when people fall behind nutritionally, they'll start to lose reserve to tolerate cancer treatments, and their immune systems are less able to fight infections - so bad things often start to pop up in a lot of ways -it is CRITICAL to get in enough nutrition every day - no matter how you get it in. while "perfect" would be eating entirely fruits, vegetables, and lean proteins - it is more important to get in enough calories than it is to get in "the right kind" of calories -re-doing the math - it does appear that somewhere around 1900 calories a day is the target for you. keep track - either using a notepad or an neetu (like calorie shan, lose it, or my fitness pal) -- when people guesstimate how they're doing with eating enough, they're almost always wrong (and usually by at least 25%) -- this is too important to get right -"cheaters" that allow you to get in a lot of calories without putting a lot of volume of food/drink in your stomach can be very helpful - boost plus has 350 calories in 8 ounces, most regular ones have about 220-250 in 8 ounces, they even make a product that has a whopping 500 calories in 8 ounces if you really needed. on top of that, making your own shakes at home can get a similar goal of calories with more variety in taste. ice cream is also a great "cheat" where you can get in 3-400 calories without it feeling like a lot. if you really can't eat, [place] [employer] are the most calorie dense hard candy i've found - at about 25 calories per piece (yes, it's all sugar, but getting in something is better than nothing). -the bottom line is that as the day goes on, if you're seeing that you're going to come up short on the goal of 1900, it's really important to find ways to get in more calories, however you can. ongoing cancer treatment -for no w Dr Mccoy wants you on the anastrazole daily, and you'll finish out your course of radiation treatment -he'll have you continue to follow up with him, and he has plans for other more aggressive treatments, he just wanted to get you built up first (see "all of above") PCP follow up -as we discussed, it's really helpful to see your PCP about once a month or so as you're going through treatment - while the oncologist will act as the quarterback for "all things cancer," it's just as important to make sure someone is looking after the rest of you - and putting in dedicated effort to pain/nausea/nutrition/depression/etc - so that we can make adjustments to help before you're really in a hole/have a big problem that might be way harder to fix -while Dr Mccoy will likely be getting it as part of your chemo related labs, if he hasn't checked an electrolyte panel (BMP) by the time you get to your appointment with Dr Marshall, we'll want him to check one (your calcium levels have come down nicely, but with the bony spread, it can creep up again - better to see it as a lab problem and treat if needed than to have you start to feel worse because of really high levels.) Pending Studies at Discharge: No Stand-Alone Forms: My [facility], Smoking Cessation Medications and DC Order Prescriptions: New anastrozole 1 mg Tablet 1 mg PO QAM Qty: 30 RF: 0 polyethylene glycol 3350 [Miralax] 17 gram Powder In Packet 17 g PO DAILY PRN (Reason: constipation) Qty: 1 RF: 0 tramadol 50 mg Tablet 50 mg PO Q4H PRN (Reason: breakthrough pain) Qty: 90 RF: 0 pantoprazole 40 mg Tablet,Delayed Release (Dr/Ec) 40 mg PO QAM Qty: 30 RF: 0 ondansetron 4 mg Tablet,Disintegrating 4 mg PO Q4H PRN (Reason: nausea and vomiting) Qty: 120 RF: 0 metoclopramide HCl 10 mg Tablet 10 mg PO QID PRN (Reason: breakthrough nausea) Qty: 30 RF: 0 fentanyl 12 mcg/hr Patch 72 Hour 12 mcg transdermal Q3D Qty: 10 RF: 0 dronabinol [Marinol] 5 mg capsule 5 mg PO BID Qty: 60 RF: 0 Continued acetaminophen 500 mg Tablet 500 mg PO Q6H PRN (Reason: Pain) RF: 0 Discontinued cyclobenzaprine [Flexeril] 10 mg Tablet 10 mg PO HS PRN (Reason: Pain) RF: 0 tramadol 50 mg Tablet 50 mg PO TID PRN (Reason: Pain) RF: 0 ibuprofen 200 mg Tablet 800 mg PO Q6H PRN (Reason: Pain) RF: 0 Discharge Orders: Discharge Order (Routine); Ordered 01/14/20 Ordered By: Rajiv Douglas Admission Data Admit Date/Time: 01/06/20 15:08 Attending Provider: Rajiv Douglas Admit Provider: Fan Chan Primary Care Provider: Lara Moore Other Providers: Fan Chan ; Willy Mccoy V. ; Bhavani Guy ; Cirilo Jiménez ; Jose Deng Other Interventions: Discharge Summary Assessment (RN) Last Done: 01/14/20 13:56 Coding Level of Care Code D/C Day Management >30 mins Diagnoses Breast cancer C50.911 Breast location: unspecified site of breast Estrogen receptor status: unspecified Patient sex: female Laterality: right
== END 2020-01-14 14:45 | disposition home or self-care (01) | DRG 543 ==
LOC: ED 09:51 → SUATTDRO 15:08 → 2S 15:08 → 2W 01-08 13:34 → 3N 01-11 21:11

== ENCOUNTER 2020-01-26 15:45 | Inpatient (IN) ==
[2020-01-26] MEDS ORDERED: FAMOTIDINE 20MG/5ML IV PUSH IV STA (16:38)
[2020-01-26] MEDS ORDERED: PROMETHAZINE 6.25 MG/50.25 ML BAG IV STA (16:38)
[2020-01-26] MEDS ORDERED: ONDANSETRON INJ 2 MG/ML 2 ML VIAL IV STA (16:38)
--- NOTE | 2020-01-26 16:43 | Emergency Department Note ---
Impression & Plan Acute dehydration, Breast cancer, Vomiting, Tachycardia ED Provider Note NAME: COLE LUZ AGE: 59 SEX: F : 1960 ARRIVES VIA: Walk-In INFORMANT: [Patient][family] ED PROVIDER(S): [Isacc Garcia MD] CHIEF COMPLAINT: Vomiting HISTORY OF PRESENT ILLNESS: The patient is a 59-year-old female who states that around 3 to 4 weeks ago she was diagnosed with stage IV breast cancer. She was in the hospital for a bit and has been home for several weeks. She has been on oral chemotherapy and has been receiving radiation. The patient states that in the last 2 weeks, she has had escalating symptoms. She has nausea, she feels weak, she feels exhausted. She has no appetite. Over the last few days, she has been vomiting. Now she cannot keep any of her medications down. She has nausea medication at home but she is vomiting despite these meds. There has been no cough, no fever. No stuffy nose or sore throat. No urinary complaints, no diarrhea. She says that she does have some abdominal pain but it is mild and is more nausea than anything. It would be may be a 2 on a scale of 1-10. The patient is to see her cancer physician in 2 days. She was feeling so poorly to that she went to her doctors office. She was referred to the ED for hydration and a work-up. REVIEW OF SYSTEMS: See HPI for pertinent positives and negatives. A total of ten systems were reviewed and were otherwise negative. PMHx/PSHx: See Below SOCIAL HISTORY: See Below. PHYSICAL EXAM: GENERAL: Patient is in no acute distress. HEENT: No acute trauma, normocephalic atraumatic, mucous membranes somewhat dry, no nasal congestion, no scleral icterus. NECK: No stridor, no adenopathy, no meningismus, trachea is midline. LUNGS: Clear to auscultation bilaterally, no wheeze, no rhonchi, breath sounds equal. HEART: Tachycardic, regular rhythm, no murmurs. ABDOMEN: Soft, nontender, bowel sounds positive, no hernias, no peritonitis. EXTREMITIES: No cyanosis or edema, full range of motion of all the joints without pain or difficulty, no signs for acute trauma. NEUROLOGIC: Oriented x 3, no acute motor or sensory deficits, no focal weakness. SKIN: No rash, no jaundice, no diaphoresis. DIFFERENTIAL DIAGNOSIS: Infection, dehydration, metabolic abnormality, hypo/hyperglycemia, bowel obstruction, ileus, medication reaction, viral or foodborne illness, electrolyte disturbance, anemia, hypoxia, cardiac sources, intracerebral event, toxicologic, neurologic, as well as other pathologies. EMERGENCY DEPARTMENT COURSE/PROCEDURES: ECG: Indication was weakness. The ECG shows a sinus tachycardia with a rate of 102. There is no ST elevation, no PVCs. The QTc is 456. Continuous Cardiac Monitoring: An order was placed for continuous cardiac monitoring. The monitor shows a rate of 86 with normal sinus rhythm. MEDICAL DECISION MAKING: There is a lower white blood cell count and platelet count. She has had this issue in the past and this is likely secondary to her oral chemotherapy. No worrisome anemia. No significant electrolyte abnormality or kidney failure. She does have liver enzyme elevation, slightly worse than her past values. Patient appeared to be in a euthyroid state. Urinalysis did not show any evidence for infection, contamination was seen. ECG showed a sinus tachycardia, no acute ischemia. Cardiac enzyme testing x1 is not consistent with acute cardiac injury. Abdominal series does not show pneumonia, free air or bowel obstruction. The patient received IV Phenergan, IV Zofran, IV saline patient was given a liter of lactated Ringer's. She was given IV Pepcid. She still feels nauseated and does not feel she can take anything in by mouth. The patient is dehydrated. She is not able to tolerate oral intake. She is not able to take her regular medications. I suspect a lot of her nausea/vomiting may be from her oral chemotherapy agent. I do not think the patient is capable of being discharged. She will be hospit alized for hydration and further care. I did speak to the patient and case management. The on-call hospitalist has been consulted. Past Med/Surg History Medical History Breast cancer Secondary malignant neoplasm of bone Surgical History History of bilateral tubal ligation Family History (Updated 01/06/20 @ 14:25 by Fan Chan) Mother , about age 82 Alzheimer disease Breast cancer Father , age 52 from MVA Motor vehicle accident Family/Other Breast cancer cousin Social History Smoking Status: Never smoker Do You Dip or Chew Tobacco: No; Hx Alcohol Use: No Hx Substance Use: No Preferred Language: Albanian Communication Ability: Effective Sales And Training Specialist Required: No Beliefs That Will Affect Care: None marital status: Current Living Situation: Family Current Living Situation Comment: lives in [place] current occupational status: previously employed 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; 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; 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 How many Children do You have: 3 How many Children do You have Comment: 1 child developmentally disable Other Information That Helps Us Care for You: No Feels Safe at Home: Yes Safety Concerns: Feels Safe At This Time Allergies Allergies Allergy/AdvReac Type Severity Reaction Status Date / Time No Known Allergies Allergy Verified 01/26/20 18:04 Home Meds Home Medications Medication Instructions Recorded Confirmed acetaminophen 500 mg PO Q6H PRN 01/06/20 01/26/20 fentanyl 12 mcg TRANSDERMAL [id number] 01/26/20 01/26/20 metoclopramide HCl 10 mg PO QID PRN 01/26/20 01/26/20 ondansetron 4 mg PO Q4H PRN 01/26/20 01/26/20 polyethylene glycol 3350 [Miralax] 17 g PO DAILY PRN 01/26/20 01/26/20 tramadol 50 mg PO Q4H PRN 01/26/20 01/26/20 Previous Rx's Medication Instructions Recorded anastrozole 1 mg PO QAM #30 tab 01/14/20 dronabinol [Marinol] 5 mg PO BID #60 cap 01/14/20 pantoprazole 40 mg PO QAM #30 tab 01/14/20 Results & Data (ED) Vital Signs Vital Signs - 24 hr 01/26/20 15:51 01/26/20 16:57 01/26/20 17:06 Temperature 36.3 C L Temperature Source Oral Pulse Rate 127 H 101 H Pulse Rate [Apical] Pulse Rate from SpO2 Sensor Respiratory Rate 18 20 Respiratory Effort / Characteristics Non-Labored Spontaneous Respiratory Depth Normal Respiratory Pattern Regular Blood Pressure 129/87 Blood Pressure [Left Arm] Blood Pressure Mean 101 Blood Pressure Mean [Left Arm] Blood Pressure Position Sitting Pulse Oximetry 95 97 Oxygen Delivery Method Room Air Room Air Sepsis Recent Fever Within 48 Hours No Sepsis New/Unexplained Change in Mental Status N/A Sepsis Action Taken by Nursing No Action Required 01/26/20 17:09 01/26/20 17:10 01/26/20 17:11 Temperature Temperature Source Pulse Rate 99 H 100 H Pulse Rate [Apical] 101 H Pulse Rate from SpO2 Sensor 99 H 101 H Respiratory Rate 18 19 16 Respiratory Effort / Characteristics Non-Labored Respiratory Depth Normal Respiratory Pattern Blood Pressure 139/87 Blood Pressure [Left Arm] 139/87 Blood Pressure Mean 108 Blood Pressure Mean [Left Arm] 104 Blood Pressure Position Pulse Oximetry 96 96 96 Oxygen Delivery Method Room Air Sepsis Recent Fever Within 48 Hours Sepsis New/Unexplained Change in Mental Status Sepsis Action Taken by Nursing 01/26/20 17:20 01/26/20 17:30 01/26/20 17:31 Temperature Temperature Source Pulse Rate 87 91 H 89 Pulse Rate [Apical] Pulse Rate from SpO2 Sensor 88 90 89 Respiratory Rate 20 23 20 Respiratory Effort / Characteristics Respiratory Depth Respiratory Pattern Blood Pressure 138/85 Blood Pressure [Left Arm] Blood Pressure Mean 93 Blood Pressure Mean [Left Arm] Blood Pressure Position Pulse Oximetry 97 96 98 Oxygen Delivery Method Sepsis Recent Fever Within 48 Hours Sepsis New/Unexplained Change in Mental Status Sepsis Action Taken by Nursing 01/26/20 17:44 01/26/20 17:50 01/26/20 18:00 Temperature Temperature Source Pulse Rate 100 H 95 H 92 H Pulse Rate [Apical] Pulse Rate from SpO2 Sensor 101 H 94 H 92 H Respiratory Rate 16 20 22 Respiratory Effort / Characteristics Respiratory Depth Respiratory Pattern Blood Pressure Blood Pressure [Left Arm] Blood Pressure Mean Blood Pressure Mean [Left Arm] Blood Pressure Position Pulse Oximetry 96 97 96 Oxygen Delivery Method Sepsis Recent Fever Within 48 Hours Sepsis New/Unexplained Change in Mental Status Sepsis Action Taken by Nursing 01/26/20 18:01 01/26/20 18:10 01/26/20 18:20 Temperature Temperature Source Pulse Rate 89 92 H 105 H Pulse Rate [Apical] Pulse Rate from SpO2 Sensor 91 H 91 H 109 H Respiratory Rate 21 22 21 Respiratory Effort / Characteristics Respiratory Depth Respiratory Pattern Blood Pressure 113/64 Blood Pressure [Left Arm] Blood Pressure Mean 86 Blood Pressure Mean [Left Arm] Blood Pressure Position Pulse Oximetry 96 96 96 Oxygen Delivery Method Sepsis Recent Fever Within 48 Hours Sepsis New/Unexplained Change in Mental Status Sepsis Action Taken by Nursing 01/26/20 18:30 01/26/20 18:31 01/26/20 18:40 Temperature Temperature Source Pulse Rate 94 H 88 92 H Pulse Rate [Apical] Pulse Rate from SpO2 Sensor 92 H 91 H 92 H Respiratory Rate 20 20 19 Respiratory Effort / Characteristics Respiratory Depth Respiratory Pattern Blood Pressure 101/67 Blood Pressure [Left Arm] Blood Pressure Mean 84 Blood Pressure Mean [Left Arm] Blood Pressure Position Pulse Oximetry 95 96 97 Oxygen Delivery Method Sepsis Recent Fever Within 48 Hours Sepsis New/Unexplained Change in Mental Status Sepsis Action Taken by Nursing 01/26/20 18:50 01/26/20 19:00 01/26/20 19:01 Temperature Temperature Source Pulse Rate 92 H 86 86 Pulse Rate [Apical] Pulse Rate from SpO2 Sensor 92 H 86 85 Respiratory Rate 23 20 20 Respiratory Effort / Characteristics Respiratory Depth Respiratory Pattern Blood Pressure 128/76 Blood Pressure [Left Arm] Blood Pressure Mean 106 Blood Pressure Mean [Left Arm] Blood Pressure Position Pulse Oximetry 96 96 96 Oxygen Delivery Method Sepsis Recent Fever Within 48 Hours Sepsis New/Unexplained Change in Mental Status Sepsis Action Taken by Nursing 01/26/20 19:12 01/26/20 19:20 01/26/20 19:30 Temperature Temperature Source Pulse Rate 104 H 88 86 Pulse Rate [Apical] Pulse Rate from SpO2 Sensor 88 86 Respiratory Rate 17 21 22 Respiratory Effort / Characteristics Respiratory Depth Respiratory Pattern Blood Pressure 129/73 Blood Pressure [Left Arm] Blood Pressure Mean 83 Blood Pressure Mean [Left Arm] Blood Pressure Position Pulse Oximetry 96 98 Oxygen Delivery Method Sepsis Recent Fever Within 48 Hours Sepsis New/Unexplained Change in Mental Status Sepsis Action Taken by Nursing 01/26/20 19:31 01/26/20 19:40 01/26/20 19:50 Temperature Temperature Source Pulse Rate 84 89 90 Pulse Rate [Apical] Pulse Rate from SpO2 Sensor 85 89 91 H Respiratory Rate 19 17 14 Respiratory Effort / Characteristics Respiratory Depth Respiratory Pattern Blood Pressure Blood Pressure [Left Arm] Blood Pressure Mean Blood Pressure Mean [Left Arm] Blood Pressure Position Pulse Oximetry 95 96 96 Oxygen Delivery Method Sepsis Recent Fever Within 48 Hours Sepsis New/Unexplained Change in Mental Status Sepsis Action Taken by Nursing 01/26/20 20:00 01/26/20 20:01 01/26/20 20:10 Temperature Temperature Source Pulse Rate 89 88 79 Pulse Rate [Apical] Pulse Rate from SpO2 Sensor 89 89 79 Respiratory Rate 26 H 23 20 Respiratory Effort / Characteristics Respiratory Depth Respiratory Pattern Blood Pressure 115/73 Blood Pressure [Left Arm] Blood Pressure Mean 83 Blood Pressure Mean [Left Arm] Blood Pressure Position Pulse Oximetry 96 96 95 Oxygen Delivery Method Sepsis Recent Fever Within 48 Hours Sepsis New/Unexplained Change in Mental Status Sepsis Action Taken by Nursing 01/26/20 20:20 01/26/20 20:30 01/26/20 20:32 Temperature Temperature Source Pulse Rate 80 84 86 Pulse Rate [Apical] Pulse Rate from SpO2 Sensor 80 84 86 Respiratory Rate 20 21 22 Respiratory Effort / Characteristics Respiratory Depth Respiratory Pattern Blood Pressure 109/69 Blood Pressure [Left Arm] Blood Pressure Mean 84 Blood Pressure Mean [Left Arm] Blood Pressure Position Pulse Oximetry 95 96 96 Oxygen Delivery Method Sepsis Recent Fever Within 48 Hours Sepsis New/Unexplained Change in Mental Status Sepsis Action Taken by Nursing 01/26/20 20:40 01/26/20 20:50 01/26/20 21:00 Temperature Temperature Source Pulse Rate 86 80 89 Pulse Rate [Apical] Pulse Rate from SpO2 Sensor 86 Respiratory Rate 22 20 19 Respiratory Effort / Characteristics Respiratory Depth Respiratory Pattern Blood Pressure 128/66 Blood Pressure [Left Arm] Blood Pressure Mean 81 Blood Pressure Mean [Left Arm] Blood Pressure Position Pulse Oximetry 96 Oxygen Delivery Method Sepsis Recent Fever Within 48 Hours Sepsis New/Unexplained Change in Mental Status Sepsis Action Taken by Nursing 01/26/20 21:01 01/26/20 21:10 01/26/20 21:20 Temperature Temperature Source Pulse Rate 87 85 85 Pulse Rate [Apical] Pulse Rate from SpO2 Sensor Respiratory Rate 19 20 Respiratory Effort / Characteristics Respiratory Depth Respiratory Pattern Blood Pressure Blood Pressure [Left Arm] Blood Pressure Mean Blood Pressure Mean [Left Arm] Blood Pressure Position Pulse Oximetry Oxygen Delivery Method Sepsis Recent Fever Within 48 Hours Sepsis New/Unexplained Change in Mental Status Sepsis Action Taken by [facility] Medications Current Medication List: was personally reviewed by me Laboratory Data Attestation: I reviewed the patient's lab results. Result diagrams: 01/26/20 16:55 01/26/20 16:55 Lab Results 01/26/20 01/26/20 01/26/20 Range/Units 16:55 16:55 19:15 WBC 2.36 L (4.8-10.8) K/uL RBC 4.21 (4.2-5.4) M/uL Hgb 11.8 L (12.0-16.0) g/dL Hct 37.1 (37-47) % MCV 88.1 (80-100) fL MCH 28.0 (25-34) pg MCHC 31.8 L (32-36) g/dL RDW Std Deviation 50.9 H (36.4-46.3) fL RDW Coeff of Fritz 16.7 H (11.5-14.5) % Plt Count 82 L (130-400) K/uL MPV 10.6 H (7.4-10.4) fL Immature Gran % (Auto) 5.5 % Neut % (Auto) 67.9 % Lymph % (Auto) 11.0 % [place] % (Auto) 12.3 % Eos % (Auto) 2.5 % Baso % (Auto) 0.8 % Neut # (Auto) 1.60 (1.4-6.5) K/uL Lymph # (Auto) 0.26 L (1.2-3.4) K/uL [place] # (Auto) 0.29 (0.11-0.59) K/uL Eos # (Auto) 0.06 (0-0.5) K/uL Baso # (Auto) 0.02 (0-0.2) K/uL Immature Gran # (Auto) 0.13 H (0.00-0.02) K/uL Absolute Nucleated RBC 0.07 H (0-0) K/uL Nucleated RBC % (auto) 3.2 % Platelet Estimate Decreased L (Normal) Ovalocytes 1+ Sodium 140 (136-145) mmol/L Potassium 4.0 (3.5-5.1) mmol/L Chloride 108 H (98-107) mmol/L Carbon Dioxide 23 (21-32) mmol/L Anion Gap 9.0 (3-11) BUN 32 H (7-18) mg/dl Creatinine 1.06 (0.6-1.2) mg/dl Est Cr Clr Drug Dosing 59.9 ml/min Est GFR ( Amer) 65.6 Est GFR (Non-Af Amer) 56.6 BUN/Creatinine Ratio 29.7 H (10-20) Glucose 117 H (70-99) mg/dl Calcium 9.2 (8.5-10.1) mg/dl Magnesium 2.3 (1.8-2.4) mg/dl Total Bilirubin 1.8 H (0.2-1) mg/dl AST 178 H (15-37) U/L ALT 138 H (12-78) U/L Alkaline Phosphatase 666 H (45-117) U/L Troponin I < 0.015 (0-0.045) ng/ml Total Protein 7.0 (6.4-8.2) gm/dl Albumin 3.2 L (3.4-5.0) gm/dl Globulin 3.8 (2.5-4.0) gm/dl Albumin/Globulin Ratio 0.8 L (0.9-2) TSH 0.657 (0.300-4.500) uIu/ml Urine Color Dark Yellow Urine Appearance Clear (Clear) Urine pH 5.5 (4.5-7.5) Ur Specific [place] 1.025 (1.000-1.030) Urine Protein 1+ H (Negative) Urine Glucose (UA) Negative (Negative) Urine Ketones 1+ H (Negative) Urine Blood Negative (Negative) Urine Nitrite Negative (Negative) Urine Bilirubin Negative (Negative) Urine Urobilinogen Negative (Negative) Ur Leukocyte Esterase Negative (Negative) Urine WBC (Auto) 1-5 (0-5) /hpf Urine RBC (Auto) 0-4 (0-4) /hpf U Hyaline Cast (Auto) 1-5 (0-5) /lpf U Epithel Cells (Auto) 10-20 H (0-5) /lpf Urine Bacteria (Auto) Negative (Negative) Administered Medications Acetaminophen (Acetaminophen 1000 Mg/100 Ml Iv) 1,000 mg IV Q6H PRN PRN Reason: Pain or Fever Stop: 01/30/20 00:18 Last Admin: 01/27/20 00:44 Dose: 1,000 mg Documented by: [id number] Enoxaparin Sodium (Enoxaparin Inj 40 Mg/0.4 Ml Syr) 40 mg SQ Q24H DARLENE Stop: 02/25/20 22:59 Last Admin: 01/27/20 00:13 Dose: 40 mg Documented by: [id number] Lactated Ringer's (Lr) 1,000 mls @ 125 mls/hr IV .Q8H DARLENE Stop: 01/27/20 14:11 Last Admin: 01/26/20 22:46 Dose: 125 mls/hr Documented by: [id number] Famotidine 20 mg/ Syringe 5 mls @ 2.5 mls/min IV HS DARLENE Stop: 02/25/20 22:21 Last Admin: 01/27/20 00:13 Dose: 2.5 mls/min Documented by: [id number] Miscellaneous (Check Fentanyl Patch Placement) 1 ea N/A QS DARLENE Stop: 02/26/20 00:00 Last Admin: 01/27/20 00:14 Dose: 1 ea Documented by: [id number] Ondansetron HCl (Ondansetron Inj 2 Mg/Ml 2 Ml Vial) 4 mg IV Q4H PRN PRN Reason: Nausea Stop: 02/25/20 22:11 Last Admin: 01/26/20 22:46 Dose: 4 mg Documented by: [id number] Discontinued Medications Famotidine (Famotidine 20mg/5ml Iv Push) 20 mg IV ONE STA Stop: 01/26/20 16:39 Last Admin: 01/26/20 17:05 Dose: 20 mg Documented by: [id number] Sodium Chloride (Nss 1000ml) 1,000 mls @ 999 mls/hr IV .Q1H1M DARLENE Stop: 01/26/20 17:45 Last Infusion: 01/26/20 19:04 Dose: 0 mls/hr Documented by: [id number] Admin: 01/26/20 17:04 Dose: 999 mls/hr Documented by: [id number] Promethazine HCl (Phenergan) 6.25 mg in 50.25 mls @ 201 mls/hr IV NOW STA Stop: 01/26/20 16:52 Last Infusion: 01/26/20 17:36 Dose: 0 mls/hr Documented by: [id number] Admin: 01/26/20 17:04 Dose: 201 mls/hr Documented by: [id number] Lactated Ringer's (Lr) 1,000 mls @ 999 mls/hr IV .Q1H1M STA Stop: 01/26/20 18:50 Last Infusion: 01/26/20 20:34 Dose: 0 mls/hr Documented by: [id number] Admin: 01/26/20 19:21 Dose: 999 mls/hr Documented by: [id number] Promethazine HCl 12.5 mg/ (Sodium Chloride) 50.5 mls @ 202 mls/hr IV NOW ONE Stop: 01/27/20 00:44 Last Infusion: 01/27/20 00:43 Dose: 0 mls/hr Documented by: [id number] Admin: 01/27/20 00:22 Dose: 202 mls/hr Documented by: [id number] Ondansetron HCl (Ondansetron Inj 2 Mg/Ml 2 Ml Vial) 4 mg IV NOW STA Stop: 01/26/20 16:39 Last Admin: 01/26/20 17:04 Dose: 4 mg Documented by: [id number] Imaging Data Radiologist's Impression: PA CHEST RADIOGRAPH AND UPRIGHT AND SUPINE AP RADIOGRAPHS OF THE ABDOMEN CLINICAL HISTORY: Nausea and vomiting. COMPARISON STUDY: CT of the chest, abdomen and pelvis January 06, 2020. FINDINGS: Lung volumes are normal. There is no pneumothorax or pleural effusion. There is no consolidation or evidence for pulmonary edema. Cardiomediastinal silhouette is unremarkable. Numerous skeletal lesions are better depicted on prior CT. There is no free air. A gallstone within the gallbladder is noted. The bowel gas pattern is normal. IMPRESSION: 1. No free air or evidence of bowel obstruction. 2. No acute cardiopulmonary findings. 3. Numerous skeletal lesions, better depicted on prior CT. Blood Pressure Blood Pressure Findings: Elevated blood pressure Blood Pressure Disposition: further management by hospitalist Discharge Plan Visit Data Chief Complaint: Vomiting Stated Complaint: VOMITING, HYDRATED FROM CHEMO ED Provider: Isacc Garcia Discharge Problem: Acute dehydration, Breast cancer, Vomiting, Tachycardia Patient Disposition: Admitted As Inpatient Condition: Fair Discharge Instructions Interventions: ED Discharge Assessment Last Done: 01/26/20 21:58 Discharge Problem: Breast cancer Qualifiers: Breast location: unspecified site of breast Estrogen receptor status: unspecified Patient sex: female Laterality: unspecified laterality Qualified Code(s): C50.919 - Malignant neoplasm of unspecified site of unspecified female breast Vomiting Qualifiers: Vomiting type: unspecified Vomiting Intractability: non-intractable Nausea presence: with nausea Qualified Code(s): R11.2 - Nausea with vomiting, unspecified
[2020-01-26] MEDS ORDERED: SODIUM CHLORIDE 0.9% 1000ML 1,000 ML IV SCH (16:45)
[2020-01-26 17:12] LABS: Hematocrit (blood only) 37.1 % (37-47); Hemoglobin 11.8 g/dL (12.0-16.0); Mean Corpuscular Hgb Conc 31.8 g/dL (32-36); Mean Corpuscular Volume 88.1 fL (80-100); Nucleated RBC # (auto) 0.07 K/uL (0-0); Nucleated RBC % (auto) 3.2 %; RDW Coefficient of Variation 16.7 % (11.5-14.5); RDW Standard Deviation 50.9 fL (36.4-46.3); Red Blood Count 4.21 M/uL (4.2-5.4); White Blood Count 2.36 K/uL (4.8-10.8)
[2020-01-26 17:32] LABS: Alanine Aminotransferase 138 U/L (12-78); Albumin Level 3.2 gm/dl (3.4-5.0); Aspartate Aminotransferase 178 U/L (15-37); BUN Creatinine Ratio 29.7 (10-20); Blood Urea Nitrogen 32 mg/dl (7-18); Calcium 9.2 mg/dl (8.5-10.1); Carbon Dioxide 23 mmol/L (21-32); Chloride 108 mmol/L (98-107); Creatinine Clr Calc Pharmacy 59.9 ml/min; Est GFR (African American) 65.6; Est GFR (Non-African American) 56.6; Glucose 117 mg/dl (70-99); Magnesium 2.3 mg/dl (1.8-2.4); Sodium 140 mmol/L (136-145)
[2020-01-26 17:35] LABS: Basophils # (auto) 0.02 K/uL (0-0.2); Basophils % (auto) 0.8 %; Eosinophils # (auto) 0.06 K/uL (0-0.5); Eosinophils % (auto) 2.5 %; Immature Granulocytes # (auto) 0.13 K/uL (0.00-0.02); Immature Granulocytes % (auto) 5.5 %; Lymphocytes # (auto) 0.26 K/uL (1.2-3.4); Mean Platelet Volume 10.6 fL (7.4-10.4); Monocytes # (auto) 0.29 K/uL (0.11-0.59); Monocytes % (auto) 12.3 %; Neutrophils % (auto) 67.9 %; Ovalocytes 1+; Platelet Count 82 K/uL (130-400); Platelet Estimate Decreased (Normal)
[2020-01-26 17:43] LABS: Albumin Globulin Ratio 0.8 (0.9-2); Alkaline Phosphatase 666 U/L (45-117); Bilirubin,Total 1.8 mg/dl (0.2-1); Globulin 3.8 gm/dl (2.5-4.0); Thyroid Stimulating Hormone 0.657 uIu/ml (0.300-4.500); Troponin I < 0.015 ng/ml (0-0.045)
[2020-01-26] MEDS ORDERED: LACTATED RINGER'S 1,000 ML IV STA (17:50)
--- NOTE | 2020-01-26 18:03 | XRay Report ---
PA CHEST RADIOGRAPH AND UPRIGHT AND SUPINE AP RADIOGRAPHS OF THE ABDOMEN CLINICAL HISTORY: Nausea and vomiting. COMPARISON STUDY: CT of the chest, abdomen and pelvis January 06, 2020. FINDINGS: Lung volumes are normal. There is no pneumothorax or pleural effusion. There is no consoli dation or evidence for pulmonary edema. Cardiomediastinal silhouette is unremarkable. Numerous skelet al lesions are better depicted on prior CT. There is no free air. A gallstone within the gallbladder is noted. The bowel gas pattern is normal. IMPRESSION: 1. No free air or evidence of bowel obstruction. 2. No acute cardiopulmonary findings. 3. Numerous skeletal lesions, better depicted on prior CT. ACT 112: Negative or not required by law. Electronically signed by: Allan Santamaria M.D. 01/26/2020 6:01 PM
[2020-01-26 19:30] LABS: Appearance Urine Clear (Clear); Bacteria Urine Automated Negative (Negative); Blood Urine Negative (Negative); Color Urine Dark Yellow; Glucose Urine UA Negative (Negative); Ketones Urine 1+ (Negative); Leukocyte Esterase Urine Negative (Negative); Nitrite Urine Negative (Negative); Protein Urine 1+ (Negative); RBC Urine Automated 0-4 /hpf (0-4); Specific Gravity Urine 1.025 (1.000-1.030); Urobilinogen Urine Negative (Negative); pH Urine 5.5 (4.5-7.5)
[2020-01-26 19:32] LABS: Bilirubin Urine Negative (Negative); Ictotest Urine Negative (Negative)
--- NOTE | 2020-01-26 21:32 | History & Physical Report ---
Date of Service January 26, 2020 Assessment & Plan (1) Intractable vomiting with nausea: Audra Lynn is a 59 y/o female with metastatic breast cancer, bone pain from mets, pathologic fractures, who presented to [facility] ED for CC of Intractable Nausea and Vomiting. - She was tachycardic on arrival and hypovolumic. She was given NSS 1L Bolus x1; LR 1L Bolus x1 which resolved HR to WNL. - Admission for intractable nausea/vomiting. Will try to help come up with home regimen to help provide symptom relief. - Will consult Dr. Mccoy Oncology. - In ED was also given, Pepcid 20mg IV, Promethazine 6.25mg IV, Zofran 4mg IV, with no active vomiting. - Will have Reglan 10mg IV ordered PRN, along with Zofran 4mg IV. she might benefit from more frequent dosage..? Discussed that will try to find more appropriate home regimen. - Currently appears stable, vital signs WNL, nausea/vomiting actively controlled. - Will continue with IVF overnight and hopefully can manage nausea where she is able to take PO intake. FENGI: home PPI, Pepcid 20mg IV, LR @ 125ml/hr x 2 bags; Full liquid - advanced as tolerated DVT ppx: Lovenox 40mg SQ daily Code: DNR/DNI Dipso: Full admit, med/surg (2) Secondary malignant neoplasm of bone: c/w home Fentanyl TD pain appears well controlled here C/w home Tramadol 50mg PRN for breatkthrough pain (3) Breast cancer: metastatic has been going through radiation, on hormone Anastrozole c/w medication Was planning to meet soon with Onc to discuss chemotherapy Might benefit from discussion about Palliative Care to help with quality of life....? c/w home pain meds as noted above. (4) Abnormal LFTs: AST 178 similar to prior lab values on record from past hospitalization ALT elevated to 138, either medication/disease process/from vomiting related. Alk Phos 666 most likely in response to bony mets/destruction (5) GERD (gastroesophageal reflux disease): notes difficulties with GERD at home. She is on Pantoprazole 40mg PO. will continue with home PPI will add Pepcid 20mg IV in short term Perhaps might benefit from Carafate? (6) Bone pain: Appears controlled at baseline. C/w Fentanyl patch TD. C/w Tramadol 50mg PO breatkthrough pain (home dose) (7) Leukopenia: WBC of 2.36, not on chemotherapy, only radiation and hormone. She did have value of 3.62 on 01/14/20, previously values were normal. Get CBC with Diff in AM (8) Normocytic hypochromic anemia: Hgb 11.8 improved from prior hospitalization MCV WNL MCHC 31.8 L - suspect neoplasm using iron stores or perhaps acute phase reactants are storing iron Will check iron studies as early intervention with iron supplementation could help promote adequate RBC formation. History of Present Illness Chief Complaint: Intractable Nausea and Vomiting Primary Care Provider: Lara Moore Audra Lynn is a 59 y/o female with metastatic breast cancer, bone pain from mets, pathologic fractures, who presented to [facility] ED for CC of Intractable Nausea and Vomiting. She notes onset was about 3 days ago. She notes that her nausea and vomiting are worsened with food or with movement she feels stomach acid move in her stomach which also worsens. She notes she has been unable to tolerate any significant PO intake. She notes only PO intake she was able to hand was a "mushed up popsicle." She has been taking Zofran ODT at home which notes only provided mild relief. She states Zofran has helped her to keep her daily medications from being ejected from body through vomiting. She notes she has had generalized abdominal discomfort from stomach acid sensation. She notes she only gets this discomfort prior to episode of emesis. She denies any blood tinged emesis/coffee ground emesis/bloody emesis. She denies fever, chills, diarrhea, constipation, chest pain, shortness of breath. She notes she's had 10 sessions of radiation, M-F over the last two weeks. She notes she hasn't started chemotherapy as of yet, she had an appointment later this week with Oncology. She is on hormone therapy with Anastrozole. She had a recent hospitalization here from 01/05- where work up showed new diagnosis of Metastatic Breast Ca. Allergies Allergy/AdvReac Type Severity Reaction Status Date / Time No Known Allergies Allergy Verified 01/26/20 18:04 Home Medications Home Medications Medication Instructions Recorded Confirmed Type acetaminophen 500 mg PO Q6H PRN 01/06/20 01/26/20 History anastrozole 1 mg PO QAM #30 tab 01/14/20 01/26/20 Rx dronabinol [Marinol] 5 mg PO BID #60 cap 01/14/20 01/26/20 Rx pantoprazole 40 mg PO QAM #30 tab 01/14/20 01/26/20 Rx fentanyl 12 mcg TRANSDERMAL [id number] 01/26/20 01/26/20 History metoclopramide HCl 10 mg PO QID PRN 01/26/20 01/26/20 History ondansetron 4 mg PO Q4H PRN 01/26/20 01/26/20 History polyethylene glycol 3350 [Miralax] 17 g PO DAILY PRN 01/26/20 01/26/20 History tramadol 50 mg PO Q4H PRN 01/26/20 01/26/20 History Past Med/Surg History Medical History Breast cancer Secondary malignant neoplasm of bone Surgical History History of bilateral tubal ligation Family History (Updated 01/06/20 @ 14:25 by Fan Chan) Mother , about age 82 Alzheimer disease Breast cancer Father , age 52 from MVA Motor vehicle accident Family/Other Breast cancer cousin Social History Smoking Status: Never smoker Do You Dip or Chew Tobacco: No; Hx Alcohol Use: No Hx Substance Use: No Preferred Language: Botswan[place] Communication Ability: Effective Project Management Specialist Required: No Beliefs That Will Affect Care: None marital status: Current Living Situation: Family Current Living Situation Comment: lives in [place] current occupational status: previously employed 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; 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; 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 How many Children do You have: 3 How many Children do You have Comment: 1 child developmentally disable Other Information That Helps Us Care for You: No Feels Safe at Home: Yes Safety Concerns: Feels Safe At This Time Review of Systems Review of Systems: All systems reviewed & are unremarkable except as noted in HPI & below Constitutional: no fever, no chills and no increased appetite Eyes: no blind spots and no diplopia Ear, Nose, Mouth, Throat: no nasal congestion, no nasal obstruction and no epistaxis Respiratory: no cough and no dyspnea Cardiovascular: no chest pain and no syncope Gastrointestinal: as per Subjective / HPI; no blood in stools Genitourinary: no dysuria and no urinary frequency Musculoskeletal: no radicular pain and no deformity Integumentary: no rash and no lesions Neurologic: no localized weakness and no numbness Physical Exam Constitutional: WD/WN, vitals as above cooperative and comfortable; no acute distress laying left lateral recumbent, no active vomiting Eyes: PERRL, conjunctivae normal, anicteric sclerae ENMT: external ear and nose normal, oropharynx normal Neck: normal visual inspection and trachea midline Respiratory: normal respiratory effort, lungs clear to auscultation Cardiovascular: Rate/Rhythm: regular rate and regular rhythm Extremities: no edema Gastrointestinal (Abdomen): Percussion/Palpation: abdomen soft; abdomen nontender, no guarding and abdomen not rigid Musculoskeletal: Head/Neck/Chest: normocephalic and head atraumatic Skin: no rashes, warm and dry Neurologic: moves all extremities and awake Psychiatric: A+Ox3, euthymic affect Results & Data Results & Data ([facility]) Vital Signs (Past 12 Hours) Vital Signs Temp Pulse Pulse Resp BP BP Pulse Ox 01/26/20 20:01 88 23 96 01/26/20 20:00 89 26 H 115/73 96 01/26/20 19:50 90 14 96 01/26/20 19:40 89 17 96 01/26/20 19:31 84 19 95 01/26/20 19:30 86 22 129/73 98 01/26/20 19:20 88 21 96 01/26/20 19:12 104 H 17 01/26/20 19:01 86 20 96 01/26/20 19:00 86 20 128/76 96 01/26/20 18:50 92 H 23 96 01/26/20 18:40 92 H 19 97 01/26/20 18:31 88 20 96 01/26/20 18:30 94 H 20 101/67 95 01/26/20 18:20 105 H 21 96 01/26/20 18:10 92 H 22 96 01/26/20 18:01 89 21 113/64 96 01/26/20 18:00 92 H 22 96 01/26/20 17:50 95 H 20 97 01/26/20 17:44 100 H 16 96 01/26/20 17:31 89 20 98 01/26/20 17:30 91 H 23 138/85 96 01/26/20 17:20 87 20 97 01/26/20 17:11 100 H 16 96 01/26/20 17:10 99 H 19 139/87 96 01/26/20 17:09 101 H 18 139/87 96 01/26/20 17:06 101 H 20 01/26/20 16:57 97 01/26/20 15:51 36.3 C L 127 H 18 129/87 95 Laboratory Results Laboratory Results - last 24 hr 01/26/20 01/26/20 01/26/20 16:55 16:55 19:15 WBC 2.36 L RBC 4.21 Hgb 11.8 L Hct 37.1 MCV 88.1 MCH 28.0 MCHC 31.8 L RDW Std Deviation 50.9 H RDW Coeff of Fritz 16.7 H Plt Count 82 L MPV 10.6 H Immature Gran % (Auto) 5.5 Neut % (Auto) 67.9 Lymph % (Auto) 11.0 Stanton % (Auto) 12.3 Eos % (Auto) 2.5 Baso % (Auto) 0.8 Neut # (Auto) 1.60 Lymph # (Auto) 0.26 L Stanton # (Auto) 0.29 Eos # (Auto) 0.06 Baso # (Auto) 0.02 Immature Gran # (Auto) 0.13 H Absolute Nucleated RBC 0.07 H Nucleated RBC % (auto) 3.2 Platelet Estimate Decreased L Ovalocytes 1+ Sodium 140 Potassium 4.0 Chloride 108 H Carbon Dioxide 23 Anion Gap 9.0 BUN 32 H Creatinine 1.06 Est Cr Clr Drug Dosing 59.9 Est GFR ( Amer) 65.6 Est GFR (Non-Af Amer) 56.6 BUN/Creatinine Ratio 29.7 H Glucose 117 H Calcium 9.2 Magnesium 2.3 Total Bilirubin 1.8 H AST 178 H ALT 138 H Alkaline Phosphatase 666 H Troponin I < 0.015 Total Protein 7.0 Albumin 3.2 L Globulin 3.8 Albumin/Globulin Ratio 0.8 L TSH 0.657 Urine Color Dark Yellow Urine Appearance Clear Urine pH 5.5 Ur Specific [place] 1.025 Urine Protein 1+ H Urine Glucose (UA) Negative Urine Ketones 1+ H Urine Blood Negative Urine Nitrite Negative Urine Bilirubin Negative Urine Urobilinogen Negative Ur Leukocyte Esterase Negative Urine WBC (Auto) 1-5 Urine RBC (Auto) 0-4 U Hyaline Cast (Auto) 1-5 U Epithel Cells (Auto) 10-20 H Urine Bacteria (Auto) Negative Diagnostic Findings PA CHEST RADIOGRAPH AND UPRIGHT AND SUPINE AP RADIOGRAPHS OF THE ABDOMEN CLINICAL HISTORY: Nausea and vomiting. COMPARISON STUDY: CT of the chest, abdomen and pelvis January 06, 2020. FINDINGS: Lung volumes are normal. There is no pneumothorax or pleural effusion. There is no consolidation or evidence for pulmonary edema. Cardiomediastinal silhouette is unremarkable. Numerous skeletal lesions are better depicted on prior CT. There is no free air. A gallstone within the gallbladder is noted. The bowel gas pattern is normal. IMPRESSION: 1. No free air or evidence of bowel obstruction. 2. No acute cardiopulmonary findings. 3. Numerous skeletal lesions, better depicted on prior CT. Code Status & VTE Plan Code Status DNR/DNI VTE Prophylaxis Plan VTE Prophylaxis will be ordered: Yes Supervising Physician Co-Signing Physician Notes Attending addendum: I have physically seen this patient, have supervised the medical residents activities, and agree with the H&P unless as otherwise noted. Assessment and Plan: Intractable nausea vomiting with dehydration- Status post 1 L normal saline bolus in ED with improved heart rate. Add acid reduction medications with Pepcid IV and pantoprazole IV. Continue promethazine IV as needed and Zofran IV as needed. Reglan IV as needed Continue IV fluid rehydration the evening. Could add Decadron IV if symptoms persist. Metastatic breast cancer- newly diagnosed during admission 01/05-01/[address] Mccoy Remainder of orders and notations as noted Resident Activity Tracking Resident Involvement: Resident Care Provided Care Provided: Adult [facility] (1) Breast cancer Breast location: unspecified site of breast Estrogen receptor status: unspecified Laterality: right Patient sex: female Qualified Code(s): C50.911 - Malignant neoplasm of unspecified site of right female breast
[2020-01-26] MEDS ORDERED: ACETAMINOPHEN 325 MG TAB PO PRN (22:12)
[2020-01-26] MEDS ORDERED: MELATONIN 3 MG TAB PO PRN (22:12)
[2020-01-26] MEDS ORDERED: TRAMADOL HCL 50 MG TABLET PO PRN (22:12)
[2020-01-26] MEDS ORDERED: POLYETHYLENE (MIRALAX) 17 GM PACK PO PRN (22:12)
[2020-01-26] MEDS: ONDANSETRON INJ 2 MG/ML 2 ML VIAL IV PRN (22:46)
[2020-01-26] MEDS: LACTATED RINGER'S 1,000 ML IV SCH (22:46)
[2020-01-27] MEDS: ENOXAPARIN INJ 40 MG/0.4 ML SYR SQ SCH ×2 (00:13→22:03)
[2020-01-27] MEDS: FAMOTIDINE 20 MG in SYRINGE 3 ML IV SCH ×2 (00:13→20:33)
[2020-01-27] MEDS: CHECK FENTANYL PATCH PLACEMENT SCH ×4 (00:14→23:54)
[2020-01-27] MEDS ORDERED: ACETAMINOPHEN 1000 MG/100 ML IV IV PRN (00:19)
[2020-01-27] MEDS ORDERED: PROMETHAZINE HCL 12.5 MG in SODIUM CHLORIDE 0.9% 50 ML IV ONE (00:30)
[2020-01-27] MEDS: ONDANSETRON INJ 2 MG/ML 2 ML VIAL IV PRN ×3 (02:19→19:09)
[2020-01-27 06:38] LABS: Hematocrit (blood only) 29.3 % (37-47); Hemoglobin 9.5 g/dL (12.0-16.0); Mean Corpuscular Hemoglobin 28.1 pg (25-34); Mean Corpuscular Hgb Conc 32.4 g/dL (32-36); Mean Corpuscular Volume 86.7 fL (80-100); Nucleated RBC # (auto) 0.03 K/uL (0-0); Nucleated RBC % (auto) 1.6 %; RDW Coefficient of Variation 16.6 % (11.5-14.5); RDW Standard Deviation 50.8 fL (36.4-46.3); Red Blood Count 3.38 M/uL (4.2-5.4); White Blood Count 1.79 K/uL (4.8-10.8)
[2020-01-27 06:42] LABS: Mean Platelet Volume 10.6 fL (7.4-10.4); Platelet Count 62 K/uL (130-400)
[2020-01-27 07:05] LABS: Basophils # (auto) 0.02 K/uL (0-0.2); Basophils % (auto) 1.1 %; Eosinophils # (auto) 0.08 K/uL (0-0.5); Eosinophils % (auto) 4.5 %; Immature Granulocytes # (auto) 0.08 K/uL (0.00-0.02); Immature Granulocytes % (auto) 4.5 %; Lymphocytes # (auto) 0.27 K/uL (1.2-3.4); Lymphocytes % (auto) 15.1 %; Monocytes # (auto) 0.18 K/uL (0.11-0.59); Monocytes % (auto) 10.1 %; Neutrophils # (auto) 1.16 K/uL (1.4-6.5); Neutrophils % (auto) 64.7 %
[2020-01-27 07:16] LABS: Albumin Level 2.6 gm/dl (3.4-5.0); BUN Creatinine Ratio 36.7 (10-20); Calcium 8.6 mg/dl (8.5-10.1); Creatinine Clr Calc Pharmacy 76.5 ml/min; Est GFR (African American) 88.2; Est GFR (Non-African American) 76.1; Potassium 3.3 mmol/L (3.5-5.1)
[2020-01-27 07:37] LABS: Albumin Globulin Ratio 0.9 (0.9-2); Bilirubin,Total 1.3 mg/dl (0.2-1); Ferritin 5876.1 ng/ml (8-388); Total Protein 5.6 gm/dl (6.4-8.2)
[2020-01-27] MEDS: PANTOprazole 40 MG TAB PO SCH (08:12)
[2020-01-27] MEDS: ANASTROZOLE 1 MG TAB PO SCH (08:12)
[2020-01-27] MEDS: LACTATED RINGER'S 1,000 ML IV SCH (08:23)
--- NOTE | 2020-01-27 09:22 | Consultation Report ---
DATE OF CONSULTATION: 01/27/2020 REASON FOR CONSULTATION: Intractable vomiting in a 59-year-old female patient with recent diagnosis of metastatic breast cancer. HISTORY OF PRESENT ILLNESS: The patient is a very pleasant 59-year-old postmenopausal female recently diagnosed with metastatic breast cancer, specifically a disseminated skeletal disease, returns to [facility] with intractable nausea and vomiting. I had seen the patient a little less than a month ago when she was initially diagnosed. She had been struggling with intractable pain and was started on opioid analgesia, which was quite effective. She also received palliative radiation therapy. However, she readily admits after being discharged to struggling with her appetite over the past couple of days, now developed intractable nausea and vomiting. Biopsy of the right breast confirmed ER positive breast cancer and initially placed her on anastrozole as a temporizing measure until I could get her into the office and propose combination Ibrance and Faslodex. I initially met the patient back in mid December, to be precise at [facility] where she had presented with worsening back pain. Couple weeks prior to admission had noticed changes within the right breast including inversion of the nipple and increased firmness in the outer portion of the breast. She brought this to the attention of her physicians in [place] who recommended biopsy. Again, path report confirms invasive ductal carcinoma. Again, she was provided palliative radiation therapy, which has been largely helpful. I also initially placed her on anastrozole 1 mg p.o. daily, which she states has been compliant up until yesterday when nausea and vomiting worsened. The patient also was noted to have hypercalcemia when she originally presented. PAST MEDICAL HISTORY: Essentially negative except for metastatic breast cancer. PAST SURGICAL HISTORY: Bilateral tubal ligation. FAMILY HISTORY: Mother suffered from breast cancer as well as maternal cousin. Father secondary to motor vehicle accident at age 52. SOCIAL HISTORY: The patient lives in [place]. She is and nonsmoker, nondrinker. MEDICATIONS: Prior to admission include tramadol 50 mg p.o. q. 4 hours p.r.n., MiraLax 17 g p.o. daily p.r.n., Zofran 4 mg p.o. q. 4 hours p.r.n., metoclopramide 10 mg p.o. q.i.d. p.r.n., fentanyl 12 mcg transdermal patch q. 72 hours, Protonix 40 mg p.o. daily, Marinol 5 mg p.o. b.i.d., anastrozole 1 mg p.o. daily, acetaminophen 500 mg p.o. 6 hours p.r.n. ALLERGIES: No known drug allergies. REVIEW OF SYSTEMS: CONSTITUTIONAL: Positive for anorexia, weight loss, intractable nausea and vomiting. A general clinical decline. No fevers, chills or sweats. HEENT: Denies headaches, lightheadedness or dizziness. No acute visual or hearing deficits. No sinus symptoms, sore throat or dysphagia. LYMPH: No history of lymphadenopathy. CARDIAC: Negative for coronary artery disease, no angina or palpitations. PULMONARY: Negative for COPD. No shortness of breath, dyspnea or orthopnea. No cough or hemoptysis. GASTROINTESTINAL: Negative for abdominal pain per se. Positive for intractable nausea and vomiting. She denies diarrhea, constipation or hematochezia at this time. GENITOURINARY: No hematuria, dysuria, urinary incontinence. PSYCHIATRIC: Negative for anxiety, depression or psychoses. ENDOCRINE: Negative for diabetes or thyroid disease. MUSCULOSKELETAL: Positive for skeletal metastatic disease and associated pain. NEUROLOGIC: Negative for seizure, stroke, or migraine headache. HEMATOLOGIC: Positive for normocytic normochromic anemia and borderline thrombocytopenia. PHYSICAL EXAMINATION: GENERAL: Very pleasant 59-year-old female, awake, alert and appropriate, in no acute distress. VITAL SIGNS: Temperature 36.5, pulse 87, respiratory rate 18, blood pressure 132/79. SKIN: Warm, dry, noncyanotic without petechia, rash or ecchymosis. HEENT: Head is atraumatic, normocephalic. Eyes: PERRLA, EOMI. Sclerae nonicteric. No conjunctival injection. Nares are patent without rhinorrhea or discharge. Throat is clear. Tongue is midline. Mucous membranes are moist. NECK: Supple without JVD or thyromegaly. HEART: Regular rate and rhythm. No clicks, rubs, murmurs or gallops. LUNGS: Clear to auscultation bilaterally. ABDOMEN: Soft, nontender, nondistended, without palpable hepatosplenomegaly. EXTREMITIES: No calf tenderness or swelling. No clubbing, cyanosis or edema. NEUROLOGICALLY: She is awake, alert and oriented x3. Cranial nerves are grossly intact. LABORATORY DATA: WBC count 1790, hemoglobin 9.5, platelet count 62,000. Sodium 142, potassium 3.3, chloride 111, creatinine 0.83, BUN 31, ferritin 5876. Serum iron 174, TIBC 179, AST 139, ALT 106, alkaline phosphatase 564, albumin 2.6. IMPRESSION: 1. Intractable nausea and vomiting. 2. Metastatic breast cancer. 3. Elevated liver transaminases. 4. Hypoalbuminemia. 5. Pancytopenia. PLAN: The patient is a very pleasant but unfortunate 59-year-old female who is in a general clinical decline manifested by anorexia and weight loss. More recently, she has developed nausea and vomiting. She has a disseminated skeletal disease and thus far has been treated with single-agent anastrozole and palliative radiation therapy. Unfortunately, her prognosis is very poor at this point. Peripheral blood counts indicate that she may perhaps have intramedullary bone marrow involvement. It would be difficult at this point to treat her with cytotoxic chemotherapy and based on her recent chemistries, I suspect the liver may now be involved. Perhaps a CT scan of the chest, abdomen and pelvis with contrast today. Additionally, I would like her CA 27-29 and CA 15-3 drawn. Because of the apparent rapid progression, I feel there is probably very little else that can be done at this point and need to discuss the possibility of hospice care in her case. Treating her aggressively with chemotherapy would result in profound and protracted myelosuppression. We will discuss further with the patient once her nausea is better controlled. Agree with medical management otherwise a transfusional support is reasonable if her hemoglobin falls below 8 grams per deciliter and platelet count falls below 15,000. We will continue to follow periodically during her hospital stay. Thank you very much for allowing me to participate in the care of this very pleasant but unfortunate patient.
[2020-01-27] MEDS ORDERED: IOVERSOL 100ml IV ONE (20:14)
--- NOTE | 2020-01-27 20:26 | CT Scan Report ---
CT OF THE CHEST WITH IV CONTRAST CLINICAL HISTORY: Metastatic disease. COMPARISON STUDY: 01/06/2020 TECHNIQUE: Following the IV administration of 90 mL of Optiray-320, CT of the thorax was performed f rom the thoracic inlet to the lung bases. Images are reviewed in the axial, sagittal, and coronal larissa isha. IV contrast was administered without complication. A dose lowering technique was utilized adher ing to the principles of ALARA. CT DOSE: FINDINGS: Thyroid: Imaged portions of the thyroid gland are normal in appearance. Thoracic aorta: The thoracic aorta is normal in course and caliber, noting standard 3-vessel arch antionette ashanti. No aneurysm or dissection is seen. Pulmonary vasculature: The pulmonary trunk is normal in caliber. There are no central filling defects identified to suggest pulmonary embolus. Note that this examination was not protocoled for the evalu ation of pulmonary emboli. HEART: The heart is normal in size and configuration, without pericardial effusion. Lungs and pleural spaces: There are no pleural effusions. There is no focal pulmonary consolidation. There is respiratory motion artifact. There are left basilar atelectatic changes. There are areas of presumed focal emphysema versus air trapping within the left lower lobe. There is stable 4 mm right a pical pulmonary nodule. There is a stable 5 mm groundglass pulmonary nodule within the left upper lob e. Mediastinum: There is no mediastinal lymphadenopathy. Bette: Clear. Axilla: There is pathologic right axillary lymphadenopathy. Upper abdomen: There is suspected mild splenomegaly Skeletal structures: There is diffuse skeletal metastasis. There are multiple thoracic compression de formities similar to the prior study. There is a right breast mass. IMPRESSION: 1. Persistent pathologic right axillary and subpectoral lymphadenopathy 2. Right breast mass containing a surgical clip 3. Stable indeterminate 4 mm right apical pulmonary nodule and 5 mm groundglass left upper lobe pulmo nary nodule 4. Diffuse skeletal metastasis with multiple thoracic vertebral body compression deformities. There i s a stable slightly expansile lytic lesion involving the posterior elements the T10 level. ACT 112: Negative or not required by law. Electronically signed by: Anselmo Villa M.D. 01/27/2020 8:25 PM
--- NOTE | 2020-01-27 20:29 | CT Scan Report ---
CT abd pelvis IV con only CLINICAL HISTORY: Metastatic carcinoma. Abnormal LFTs. COMPARISON STUDY: 01/06/2020 TECHNIQUE: The patient was scanned in a dynamic helical fashion during intravenous administration of 90 cc of Optiray 320 A dose lowering technique was utilized adhering to the principles of ALARA. CT DOSE: 890.77 mGy.cm FINDINGS: Lower chest: There is right breast skin thickening and asymmetric parenchyma. Liver: There is borderline hepatic steatosis. No focal masses are visualized. Gallbladder: Cholelithiasis Spleen: Top normal in size Pancreas: Unremarkable. Adrenal glands: Unremarkable. Kidneys: There is symmetric renal cortical enhancement. The kidneys are normal in size without hydron ephrosis. Bowel: There are no transition zones indicate bowel obstruction. The appendix appears normal. There i s no acute diverticulitis. Peritoneum: There is no intraperitoneal free air or abdominal ascites. There is minimal infiltration of the central mesentery unchanged from the preceding study Vasculature: The abdominal aorta is normal in course and caliber. Adenopathy: None. Pelvic viscera: There are uterine calcifications likely secondary to calcified fibroids Skeletal structures: There is evidence for diffuse skeletal metastasis. IMPRESSION: 1. No evidence of solid organ metastasis within the abdomen or pelvis. 2. No evidence of pathologic adenopathy within the abdomen or pelvis 3. Diffuse skeletal metastasis 4. No evidence of bowel obstruction. No evidence of free air 5. Cholelithiasis 6. Normal appendix. No evidence of acute diverticulitis ACT 112: Negative or not required by law. Electronically signed by: Anselmo Villa M.D. 01/27/2020 8:28 PM
[2020-01-27] MEDS: POTASSIUM CHLORIDE 20 MEQ TABCR PO SCH (20:33)
--- NOTE | 2020-01-27 21:32 | Billing Data ---
Date of Service January 27, 2020 Coding Level of Care Code 77624 OBS Care - Level 3
--- NOTE | 2020-01-27 22:45 | Hospitalist Progress Note ---
Date of Service January 27, 2020 Assessment & Plan (1) Intractable vomiting with nausea: Audra Lynn is a 59 y/o female with metastatic breast cancer, bone pain from mets, pathologic fractures, who presented to [facility] ED for CC of Intractable Nausea and Vomiting. - She was tachycardic on arrival and hypovolumic. She was given NSS 1L Bolus x1; LR 1L Bolus x1 which resolved HR to WNL. - Admission for intractable nausea/vomiting. Will try to help come up with home regimen to help provide symptom relief. - Will consult Dr. Mccoy Oncology. - In ED was also given, Pepcid 20mg IV, Promethazine 6.25mg IV, Zofran 4mg IV, with no active vomiting. - Will have Reglan 10mg IV ordered PRN, along with Zofran 4mg IV. she might benefit from more frequent dosage..? Discussed that will try to find more appropriate home regimen. - Currently appears stable, vital signs WNL, nausea/vomiting actively controlled. - No longer tachycardic. D/W Onc will obtain ct scans of abd/ pelvis and chest. Will also obtain PET scan as an outpatient. FENGI: home PPI, Full liquid - advanced as tolerated DVT ppx: Lovenox 40mg SQ daily Code: DNR/DNI Dipso: Full admit, med/surg (2) Secondary malignant neoplasm of bone: c/w home Fentanyl TD pain appears well controlled here C/w home Tramadol 50mg PRN for breatkthrough pain (3) Breast cancer: metastatic has been going through radiation, on hormone Anastrozole c/w medication Was planning to meet soon with Onc to discuss chemotherapy Might benefit from discussion about Palliative Care to help with quality of life: not ordered as of yet. May do this as an outpatient. c/w home pain meds as noted above. (4) Abnormal LFTs: AST 178 similar to prior lab values on record from past hospitalization ALT elevated to 138, either medication/disease process/from vomiting related. Alk Phos 666 most likely in response to bony mets/destruction (5) GERD (gastroesophageal reflux disease): notes difficulties with GERD at home. She is on Pantoprazole 40mg PO. will continue with home PPI will add Pepcid 20mg IV in short term Perhaps might benefit from Carafate. Symptoms though have improved, this is held. (6) Bone pain: Appears controlled at baseline. C/w Fentanyl patch TD. C/w Tramadol 50mg PO breatkthrough pain (home dose) (7) Leukopenia: WBC of 2.36, not on chemotherapy, only radiation and hormone. She did have value of 3.62 on 01/14/20, previously values were normal. Get CBC with Diff in AM (8) Normocytic hypochromic anemia: Hgb 11.8 improved from prior hospitalization MCV WNL MCHC 31.8 L - suspect neoplasm using iron stores or perhaps acute phase reactants are storing iron (2) Secondary malignant neoplasm of bone: (3) Breast cancer: (4) Abnormal LFTs: (5) GERD (gastroesophageal reflux disease): (6) Bone pain: (7) Leukopenia: (8) Normocytic hypochromic anemia: Admission and Anticipated Discharge Date Admission Date: January 26, 2020 Subjective 59 yo female reports feeling better, she is less nauseous at this time. Review of Systems Review of Systems: All systems reviewed & are unremarkable except as noted in HPI & below Physical Exam Physical Exam: Constitutional: WD/WN, vitals as above cooperative and comfor table; no acute distress laying left lateral recumbent, no active vomiting Eyes: PERRL, conjunctivae normal, anicteric sclerae ENMT: external ear and nose normal, oropharynx normal Neck: normal visual inspection and trachea midline Respiratory: normal respiratory effort, lungs clear to auscultation Cardiovascular: Rate/Rhythm: regular rate and regular rhythm Extremities: no edema Gastrointestinal (Abdomen): Percussion/Palpation: abdomen soft; abdomen nontender, no guarding and abdomen not rigid Musculoskeletal: Head/Neck/Chest: normocephalic and head atraumatic Skin: no rashes, warm and dry Neurologic: moves all extremities and awake Psychiatric: A+Ox3, euthymic affect Results & Data Results & Data ([facility]) Vital Signs (Past 12 Hours) Vital Signs Temp Pulse Resp BP Pulse Ox 01/27/20 15:22 36.9 C 89 18 110/72 95 PG Care Time/CCT Total # of Minutes Spent Total Time Spent with Patient: Total time spent is greater than 50% in coordination of care (as documented) at patient's floor/unit and/or counseling patient: Coding Level of Care Code 47286 Subseq Hosp Care Lvl 2 Diagnoses Intractable vomiting with nausea R11.2 Secondary malignant neoplasm of bone C79.51 Breast cancer C50.911 Breast location: unspecified site of breast Estrogen receptor status: unspecified Laterality: right Patient sex: female Abnormal LFTs R94.5 GERD (gastroesophageal reflux disease) K21.9 Bone pain M89.8X9 Leukopenia D72.819 Normocytic hypochromic anemia D50.9 (1) Breast cancer Breast location: unspecified site of breast Estrogen receptor status: unspecified Laterality: right Patient sex: female Qualified Code(s): C50.911 - Malignant neoplasm of unspecified site of right female breast
[2020-01-28] MEDS: ONDANSETRON INJ 2 MG/ML 2 ML VIAL IV PRN ×2 (02:37→07:55)
--- NOTE | 2020-01-28 06:15 | Electrocardiogram Report ---
Test Reason : Blood Pressure : / mmHG Vent. Rate : 102 BPM Atrial Rate : 102 BPM P-R Int : 128 ms QRS Dur : 070 ms QT Int : 350 ms P-R-T Axes : 061 -08 009 degrees QTc Int : 456 ms Sinus tachycardia Otherwise normal ECG When compared with ECG of 06-JAN-2020 10:41, No significant change was found Confirmed by Rosalio Corrigan ([id number]) on 01/28/2020 6:14:57 AM Referred By: REFERRED SELF Confirmed By:Rosalio Corrigan
[2020-01-28] MEDS: METOCLOPRAMIDE HCL INJ 5 MG/ML 2 ML VIAL IV PRN (06:34)
[2020-01-28] MEDS: ANASTROZOLE 1 MG TAB PO SCH (09:20)
[2020-01-28] MEDS: PANTOprazole 40 MG TAB PO SCH (09:22)
[2020-01-28] MEDS: POTASSIUM CHLORIDE 20 MEQ TABCR PO SCH ×3 (09:22→23:40)
[2020-01-28] MEDS: fentaNYL 12 MCG/HR TDSY TD SCH (09:33)
[2020-01-28] MEDS: CHECK FENTANYL PATCH PLACEMENT SCH ×2 (09:35→17:16)
--- NOTE | 2020-01-28 16:07 | Hospitalist Progress Note ---
Date of Service January 28, 2020 Assessment & Plan (1) Pulmonary nodules: Stable 4 mm right apical pulmonary nodule Stable 5 mm groundglass pulmonary nodule within the left upper lobe No mediastinal lymphadenopathy These were not mentioned on CTA of 01/06/2020 Continue to follow due to metastatic disease of breast cancer (2) Breast cancer: Metastatic disease to the bone specifically of the lumbar and thoracic spine Follows with Dr. Willy Hauser Continue anastrozole 1 mg p.o. daily Oncology is consulted Appreciate Dr. Mccoy's input (3) Secondary malignant neoplasm of bone: Secondary to breast cancer Underwent radiation therapy with 10 sessions of 300 cGy to the thoracic and lumbar spine Further management per oncology (4) Intractable vomiting with nausea: Patient with ongoing history of GERD and being treated with omeprazole at home We will treat her with pantoprazole while inpatient secondary to formulary We will also add famotidine Patient has never been seen by gastroenterology Pattern of vomiting after food ingestion lend suspicion for obstructive syndrome or gastroparesis Patient would benefit from an upper GI barium swallow. Unable we are not able to perform this inpatient until next Friday Should arrange for outpatient follow-up with gastroenterology and upper GI barium swallow as an outpatient discharge While inpatient, continue antiemetics, H2 daniela, and PPI Continue aspiration precautions (5) Pancytopenia: Leukopenia but no neutropenia Thrombocytopenia with a platelet count of 62,000 Oncology consulted and will see the patient tomorrow (6) Abnormal LFTs: Unknown etiology CT scan of the abdomen pelvis yesterday with no involvement of solid organs LFTs significantly elevated in mid December LFTs are drifting downward Continue to follow serial lab (7) Bone pain: Continue fentanyl patch Continue tramadol Continue bowel regimen (8) DVT prophylaxis: Metastatic disease Continue enoxaparin Please refer to Dr. Beebe's addendum for recommendations and corrections Admission and Anticipated Discharge Date Admission Date: January 26, 2020 Subjective Attending: Dr. Beebe Is a 59-year-old female with metastatic breast cancer. She has disseminated skeletal disease and has received palliative radiation to her spine. She received 10 fractions of 300 cGy per fraction to the lumbar and thoracic spine and was simulated on 01/07/2020. She is followed by Dr. Hauser and was first seen for worsening back pain. She is continued on anastrozole 1 mg p.o. daily at home. She presented to the hospital on 01/26/2020 with intractable nausea and vomiting. I had a lengthy discussion with the patient and her son at bedside where they describe that her chief complaint is ongoing nausea. She reports that she has GERD and is on a PPI and lately has been experiencing reflux up to her neck most of the time with laying down. She also reports that she has intractable vomiting when eating anything. She has not seen gastroenterology and has never had any imaging studies done. She has been placed empirically on Marinol for appetite stimulation and also metoclopramide for motility. She is unaware of a formal diagnosis of gastroparesis and does not remember undergoing nuclear s malinda. Aside from nausea and vomiting and fatigue, she really has very few complaints. She denies fever chills. She denies shortness of breath. She has no chest pain or tightness. She has no specific abdominal pain. She does have some pain with vomiting but this is atypical. She has no lower extremity edema. She has no recent history of falls. I broached the subject of palliation and the patient and her son were fairly convinced that if the nausea could be controlled that she would feel better. She did discuss conversation with Dr. Mccoy where it was conveyed that without treatment she would have less than a year to live and with treatment she possibly could have as long as 5 years. She is informed that Dr. Mccoy would see her in consultation tomorrow and that complete work-up may need to be completed outpatient Review of Systems Review of Systems: All systems reviewed & are unremarkable except as noted in HPI & below Physical Exam Physical Exam: GENERAL : No acute distress EYES: No icterus, gaze conjugate NOSE: No evidence of epistaxis MOUTH: No lesions or candidiasis NECK: Supple LUNGS: CTA B/L, no wheezes, rales or rhonchi HEART: Regular, rate controlled ABDOMEN: Soft, ND, BS Present. She does have some tenderness to palpation of the belly. Deep palpation does not elicit nausea EXTREMITIES: No LE edema, pedal pulses intact NEURO: A&OX3 Results & Data Results & Data ([facility]) Vital Signs (Past 12 Hours) Vital Signs Temp Pulse Resp BP Pulse Ox 01/28/20 15:34 36.9 C 94 H 20 121/80 96 01/28/20 07:07 36.9 C 92 H 16 131/[address] OF THE CHEST WITH IV CONTRAST CLINICAL HISTORY: Metastatic disease. COMPARISON STUDY: 01/06/2020 TECHNIQUE: Following the IV administration of 90 mL of Optiray-320, CT of the thorax was performed from the thoracic inlet to the lung bases. Images are re viewed in the axial, sagittal, and coronal planes. IV contrast was administered without complication. A dose lowering technique was utilized adhering to the principles of ALARA. CT DOSE: FINDINGS: Thyroid: Imaged portions of the thyroid gland are normal in appearance. Thoracic aorta: The thoracic aorta is normal in course and caliber, noting standard 3-vessel arch anatomy. No aneurysm or dissection is seen. Pulmonary vasculature: The pulmonary trunk is normal in caliber. There are no central filling defects identified to suggest pulmonary embolus. Note that this examination was not protocoled for the evaluation of pulmonary emboli. HEART: The heart is normal in size and configuration, without pericardial effusion. Lungs and pleural spaces: There are no pleural effusions. There is no focal pulmonary consolidation. There is respiratory motion artifact. There are left basilar atelectatic changes. There are areas of presumed focal emphysema versus air trapping within the left lower lobe. There is stable 4 mm right apical pulmonary nodule. There is a stable 5 mm groundglass pulmonary nodule within the left upper lobe. Mediastinum: There is no mediastinal lymphadenopathy. Bette: Clear. Axilla: There is pathologic right axillary lymphadenopathy. Upper abdomen: There is suspected mild splenomegaly Skeletal structures: There is diffuse skeletal metastasis. There are multiple thoracic compression deformities similar to the prior study. There is a right breast mass. IMPRESSION: 1. Persistent pathologic right axillary and subpectoral lymphadenopathy 2. Right breast mass containing a surgical clip 3. Stable indeterminate 4 mm right apical pulmonary nodule and 5 mm groundglass left upper lobe pulmonary nodule 4. Diffuse skeletal metastasis with multiple thoracic vertebral body compression deformities. There is a stable slightly expansile lytic lesion involving the posterior elements the T10 level. ACT 112: Negative or not required by law. Electronically signed by: Anselmo Villa M.D. 01/27/2020 8:[address] abd pelvis IV con only CLINICAL HISTORY: Metastatic carcinoma. Abnormal LFTs. COMPARISON STUDY: 01/06/2020 TECHNIQUE: The patient was scanned in a dynamic helical fashion during intravenous administration of 90 cc of Optiray 320 A dose lowering technique was utilized adhering to the principles of ALARA. CT DOSE: 890.77 mGy.cm FINDINGS: Lower chest: There is right breast skin thickening and asymmetric parenchyma. Liver: There is borderline hepatic steatosis. No focal masses are visualized. Gallbladder: Cholelithiasis Spleen: Top normal in size Pancreas: Unremarkable. Adrenal glands: Unremarkable. Kidneys: There is symmetric renal cortical enhancement. The kidneys are normal in size without hydronephrosis. Bowel: There are no transition zones indicate bowel obstruction. The appendix appears normal. There is no acute diverticulitis. Peritoneum: There is no intraperitoneal free air or abdominal ascites. There is minimal infiltration of the central mesentery unchanged from the preceding study Vasculature: The abdominal aorta is normal in course and caliber. Adenopathy: None. Pelvic viscera: There are uterine calcifications likely secondary to calcified fibroids Skeletal structures: There is evidence for diffuse skeletal metastasis. IMPRESSION: 1. No evidence of solid organ metastasis within the abdomen or pelvis. 2. No evidence of pathologic adenopathy within the abdomen or pelvis 3. Diffuse skeletal metastasis 4. No evidence of bowel obstruction. No evidence of free air 5. Cholelithiasis 6. Normal appendix. No evidence of acute diverticulitis ACT 112: Negative or not required by law. Electronically signed by: Anselmo Villa M.D. 01/27/2020 8:28 PM PG Care Time/CCT Total # of Minutes Spent Total Time Spent with Patient: Total time spent is greater than 50% in coordination of care (as documented) at patient's floor/unit and/or counseling patient: 45 minutes including multiple visits to the patient to discuss with family as well as discussion with specialists Coding Level of Care Code 36887 Subseq Hosp Care Lvl 3 Diagnoses Pulmonary nodules R91.8 Breast cancer C50.919 Breast location: unspecified site of breast Estrogen receptor status: unspecified Laterality: unspecified laterality Patient sex: female Secondary malignant neoplasm of bone C79.51 Intractable vomiting with nausea R11.2 Pancytopenia D61.818 Abnormal LFTs R94.5 Bone pain M89.8X9 DVT prophylaxis Z29.9 (1) Breast cancer Breast location: unspecified site of breast Estrogen receptor status: unspecified Laterality: unspecified laterality Patient sex: female Qualified Code(s): C50.919 - Malignant neoplasm of unspecified site of unspecified female breast
[2020-01-28] MEDS: FAMOTIDINE 20 MG in SYRINGE 3 ML IV SCH (23:30)
[2020-01-28] MEDS: ENOXAPARIN INJ 40 MG/0.4 ML SYR SQ SCH (23:41)
[2020-01-29] MEDS: ONDANSETRON INJ 2 MG/ML 2 ML VIAL IV PRN (00:08)
[2020-01-29] MEDS: CHECK FENTANYL PATCH PLACEMENT SCH ×3 (00:18→17:23)
[2020-01-29 07:51] LABS: Hematocrit (blood only) 30.5 % (37-47); Hemoglobin 9.6 g/dL (12.0-16.0); Mean Corpuscular Hemoglobin 27.1 pg (25-34); Mean Corpuscular Hgb Conc 31.5 g/dL (32-36); Mean Corpuscular Volume 86.2 fL (80-100); Nucleated RBC # (auto) 0.05 K/uL (0-0); Nucleated RBC % (auto) 2.5 %; RDW Coefficient of Variation 16.2 % (11.5-14.5); RDW Standard Deviation 48.7 fL (36.4-46.3); Red Blood Count 3.54 M/uL (4.2-5.4); White Blood Count 1.87 K/uL (4.8-10.8)
[2020-01-29] MEDS: METOCLOPRAMIDE HCL INJ 5 MG/ML 2 ML VIAL IV PRN (08:01)
[2020-01-29 08:02] LABS: Mean Platelet Volume 9.6 fL (7.4-10.4); Platelet Count 48 K/uL (130-400)
[2020-01-29 08:14] LABS: Basophils # (auto) 0.01 K/uL (0-0.2); Basophils % (auto) 0.5 %; Eosinophils # (auto) 0.09 K/uL (0-0.5); Eosinophils % (auto) 4.8 %; Immature Granulocytes # (auto) 0.02 K/uL (0.00-0.02); Immature Granulocytes % (auto) 1.1 %; Lymphocytes # (auto) 0.12 K/uL (1.2-3.4); Lymphocytes % (auto) 6.4 %; Monocytes % (auto) 10.7 %; Neutrophils # (auto) 1.43 K/uL (1.4-6.5); Neutrophils % (auto) 76.5 %
[2020-01-29 08:24] LABS: Creatinine Clr Calc Pharmacy 85.8 ml/min; Est GFR (African American) 101.3; Est GFR (Non-African American) 87.4
[2020-01-29 08:28] LABS: Albumin Globulin Ratio 0.9 (0.9-2); Albumin Level 2.7 gm/dl (3.4-5.0); BUN Creatinine Ratio 24.5 (10-20); Bilirubin,Total 1.3 mg/dl (0.2-1); Calcium 8.5 mg/dl (8.5-10.1); Creatinine Clr Calc Pharmacy 85.8 ml/min; Est GFR (African American) 101.3; Est GFR (Non-African American) 87.4; Globulin 3.1 gm/dl (2.5-4.0); Phosphorus 2.8 mg/dl (2.5-4.9); Potassium 4.1 mmol/L (3.5-5.1); Total Protein 5.8 gm/dl (6.4-8.2)
--- NOTE | 2020-01-29 09:53 | Progress Notes ---
DATE: 01/29/2020 DIAGNOSES: 1. Intractable nausea and vomiting. 2. Metastatic breast cancer. 3. Elevated liver transaminases. 4. Hypoalbuminemia. 5. Pancytopenia. SUBJECTIVE: Visited with the patient this morning at bedside, accompanied by her son. She is not making significant progress regarding her nausea. Again, had an episode of vomiting last night. I made it very clear to the patient with her current performance status, could not push forward with salvage chemotherapy. Various antiemetics have been tried. Unclear if a GI consultation is on the horizon, it probably would not be a bad idea. Her pain seems to be reasonably well controlled, but again her performance status remains tenuous. The pancytopenia has me concerned again that she may be suffering with infiltrated bone marrow disease. OBJECTIVE: GENERAL: A very pleasant 59-year-old female, in no acute distress. VITAL SIGNS: Temperature 36.8, pulse 91, respiratory rate 18, blood pressure 124/81. SKIN: Without rash or lesion. HEENT: Oral mucosa without erythema or ulceration. HEART: Regular rate and rhythm. No clicks, rubs, murmurs or gallops. LUNGS: Clear to auscultation bilaterally. ABDOMEN: Soft, nontender, nondistended, without palpable hepatosplenomegaly. EXTREMITIES: No calf tenderness or swelling. No clubbing, cyanosis or edema. NEUROLOGIC: Grossly intact. LABORATORY DATA: WBC count 1870, hemoglobin 9.6, platelet count 48,000. Sodium 138, potassium 4.1, chloride 108, carbon dioxide 23, creatinine 0.74, BUN 18, AST improving on 147, ALT 101, alkaline phosphatase 631, albumin 2.7. RADIOGRAPHIC DATA: Chest CT reveals persistent pathologic right axillary and subpectoral lymphadenopathy. Right breast mass containing surgical clip, stable indeterminate 4 mm right apical pulmonary nodule and a 5 mm ground-glass left upper lobe pulmonary nodule, diffuse skeletal mets with multiple thoracic vertebral body compression deformities noted. IMPRESSION: 1. Intractable nausea and vomiting. 2. Metastatic breast cancer (bony mets). 3. Elevated liver transaminases. 4. Hypoalbuminemia. 5. Pancytopenia. PLAN: Engaged in discussion with the patient on where we are at present time with salvage intervention. Her performance status is not satisfactory and not to be aggressive with her treatment. I encouraged her to continue the anastrozole orally. However, we need to get to the bottom of the intractable nausea and vomiting before I would feel comfortable pressing forward with chemotherapy. I am now with the mindset that I might have to treat her with an IV cytotoxic chemotherapy to get a better handle on the disease moving forward. I did not broach hospice directly, but certainly the patient understands the terminal nature of her disease and further delay in pursuing therapy will impact her overall prognosis moving forward. I would not be against should the patient comes to the decision to maintain comfort for the time that she has remaining. I suspect, however, at the rate that she appears to be progressing she is probably looking at 2-3 months at best without treatment. Thank you very much for allowing me to participate in her care. I will continue to periodically follow her during her hospital stay. Should she be discharged before I return to the hospital on Friday, make sure that she calls the office to schedule a followup appointment.
[2020-01-29] MEDS: PANTOprazole 40 MG TAB PO SCH (10:59)
[2020-01-29] MEDS: ANASTROZOLE 1 MG TAB PO SCH (10:59)
--- NOTE | 2020-01-29 15:37 | Hospitalist Progress Note ---
Date of Service January 29, 2020 Assessment & Plan (1) Intractable vomiting with nausea: She was tachycardic on arrival and hypovolumic. She was given NSS 1L Bolus x1; LR 1L Bolus x1 which resolved HR to WNL. - Unclear cause, though GERD may be the issue as she reports it is worse in the morning after lying down. - Will give standing Zofran - GI consulted on 01/28. - Would plan for barium swallow and gastric emptying study on Friday if she is still here. Otherwise, will pursue outpatient. (2) Breast cancer: Metastatic. Has been going through radiation, on hormone anastrozole c/w medication. - Was planning to meet soon with Onc to discuss chemotherapy - C/w home Fentanyl TD - C/w home Tramadol 50mg PRN for breatkthrough pain (3) Abnormal LFTs: AST was 178 similar to prior lab values on record from past hospitalization; ALT elevated to 138, either medication/disease process/from vomiting related. - Alk Phos 666 most likely in response to bony mets/destruction. - Monitor (4) GERD (gastroesophageal reflux disease): Notes difficulties with GERD at home. She is on Pantoprazole 40mg PO. - Continue with home PPI - Added Pepcid 20mg IV in short term - Perhaps might benefit from Carafate. Symptoms though have improved, this is held. (5) Bone pain: Appears controlled at baseline. C/w Fentanyl patch TD. C/w Tramadol 50mg PO breatkthrough pain (home dose). (6) Leukopenia: WBC of 2.36, not on chemotherapy, only radiation and hormone. She did have value of 3.62 on 01/14/20, previously values were normal. - Concern by Dr. Mccoy of bone marrow infiltration of her cancer. (7) Normocytic hypochromic anemia: Hgb was 11.8 improved from prior hospitalization. MCV WNL. - Stable today at 9.6. (8) DVT prophylaxis: Admission and Anticipated Discharge Date Admission Date: January 26, 2020 Subjective Some better on my arrival today at 11:30am. The mornings are worst for her, then seem to improve after that. Reports no fevers/chills, chest pain, shortness of breath. Physical Exam Constitutional: WD/WN, vitals as above Eyes: EOM intact bilaterally; no conjunctival abnormality ENMT: external ear and nose normal, oropharynx normal Neck: trachea midline, no thyromegaly normal visual inspection Respiratory: normal respiratory effort, lungs clear to auscultation no respiratory distress Cardiovascular: RRR, no murmur, no edema Gastrointestinal (Abdomen): Inspection/Auscultation: abdomen normal to inspection; abdomen not distended Musculoskeletal: no cyanosis or clubbing, extremities motor strength 5/5 Skin: no rashes, warm and dry Neurologic: moves all extremities and awake Psychiatric: Orientation: alert, oriented to person and cooperative Results & Data Results & Data ([facility]) Vital Signs (Past 12 Hours) Vital Signs Temp Pulse Resp BP Pulse Ox 01/29/20 14:17 36.7 C 90 18 120/80 96 01/29/20 07:52 36.8 C 91 H 18 124/81 95 PG Care Time/CCT Total # of Minutes Spent Total Time Spent with Patient: Total time spent is greater than 50% in coordination of care (as documented) at patient's floor/unit and/or counseling patient: Coding Level of Care Code 24446 Subseq Hosp Care Lvl 3 Diagnoses Intractable vomiting with nausea R11.2 Breast cancer C50.911 Breast location: unspecified site of breast Estrogen receptor status: unspecified Patient sex: female Laterality: right Abnormal LFTs R94.5 GERD (gastroesophageal reflux disease) K21.9 Bone pain M89.8X9 Leukopenia D72.819 Normocytic hypochromic anemia D50.9 DVT prophylaxis Z29.9 (1) Breast cancer Breast location: unspecified site of breast Estrogen receptor status: unspecified Patient sex: female Laterality: right Qualified Code(s): C50.911 - Malignant neoplasm of unspecified site of right female breast
[2020-01-29] MEDS ORDERED: NORMOSOL-R 1,000 ML IV ONE (15:38)
[2020-01-29] MEDS: FAMOTIDINE 20 MG in SYRINGE 3 ML IV SCH (20:31)
[2020-01-29] MEDS: ONDANSETRON INJ 2 MG/ML 2 ML VIAL IV SCH (20:33)
[2020-01-30] MEDS: CHECK FENTANYL PATCH PLACEMENT SCH ×4 (00:16→23:15)
[2020-01-30] MEDS: ONDANSETRON INJ 2 MG/ML 2 ML VIAL IV SCH ×3 (00:16→21:28)
[2020-01-30 05:46] LABS: Hematocrit (blood only) 27.5 % (37-47); Hemoglobin 8.7 g/dL (12.0-16.0); Mean Corpuscular Hemoglobin 27.7 pg (25-34); Mean Corpuscular Hgb Conc 31.6 g/dL (32-36); Mean Corpuscular Volume 87.6 fL (80-100); Nucleated RBC # (auto) 0.04 K/uL (0-0); Nucleated RBC % (auto) 2.1 %; RDW Coefficient of Variation 16.5 % (11.5-14.5); RDW Standard Deviation 50.6 fL (36.4-46.3); Red Blood Count 3.14 M/uL (4.2-5.4)
[2020-01-30 06:14] LABS: Mean Platelet Volume 10.6 fL (7.4-10.4); Platelet Count 40 K/uL (130-400)
[2020-01-30 06:39] LABS: Albumin Globulin Ratio 0.8 (0.9-2); Albumin Level 2.4 gm/dl (3.4-5.0); BUN Creatinine Ratio 22.5 (10-20); Bilirubin,Total 1.1 mg/dl (0.2-1); Calcium 8.3 mg/dl (8.5-10.1); Creatinine Clr Calc Pharmacy 79.4 ml/min; Est GFR (African American) 92.2; Est GFR (Non-African American) 79.6; Magnesium 2.2 mg/dl (1.8-2.4); Phosphorus 3.1 mg/dl (2.5-4.9); Potassium 4.3 mmol/L (3.5-5.1); Total Protein 5.4 gm/dl (6.4-8.2)
[2020-01-30 06:41] LABS: ALC (manual) 0.19 K/uL (1.2-3.4); ANC (manual) 1.36 K/uL (1.4-6.5); Basophils # (manual) 0.02 K/uL (0-0.2); Basophils % (manual) 0.9 %; Eosinophils # (manual) 0.02 K/uL (0-0.5); Eosinophils % (manual) 0.9 %; Lymphocytes # (manual) 0.19 K/uL (1.2-3.4); Lymphocytes % (manual) 11.3 %; Metamyelocytes # (manual) 0.02 K/uL (0-0); Metamyelocytes % (manual) 0.9 %; Monocytes # (manual) 0.06 K/uL (0.11-0.59); Monocytes % (manual) 3.5 %; Myelocytes # (manual) 0.04 K/uL (0-0); Myelocytes % (manual) 2.6 %; Neutrophils # (manual) 1.36 K/uL (1.4-6.5); Neutrophils % (manual) 79.9 %; Tear Drop Cells 1+
[2020-01-30 08:12] LABS: Fibrinogen 377 mg/dl (184-400)
[2020-01-30 08:42] LABS: Immature Retic Fraction 21.4 % (3.0-15.9); Reticulated Hemoglobin 32.6 pg (28.2-36.6); Reticulocyte % 1.6 % (0.5-2.0); Reticulocytes # 0.05 10^6/uL (0.02-0.10)
--- NOTE | 2020-01-30 11:43 | Gastrointestinal Consultation ---
Date of Consultation January 30, 2020 Assessment & Plan (1) GERD (gastroesophageal reflux disease): (2) Intractable vomiting with nausea: possibly 2/2 severe GERD vs. medication side effect vs. gastroparesis; she may also have a component of PUD has hx frequent NSAID use with aleve/motrin not too long ago Recs: --increase protonix to 40 mg BID, switch to IV while inpatient -- continue IV famotidine qhs --start carafate 5 mL QID --consider gastric emptying study early this week or as an outpatient --can consider EGD for further evaluation in the future when she is not leukopenic Thank you for allowing me to participate in the care of this patient History of Present Illness Attending Physician: Guero Beebe MD 59 yo female with hx metastatic breast cancer on anastrozole here with intractable nausea and vomiting. There is a plan for her to eventually start chemotherapy, she has completed radiation treatment recently. She notes a persistent reflux of acidic content worse in the mornings and nausea and vomiting, can happen even when she is not eating. No diarrhea, she notes some small amounts of blood occasionally when she vomits. Also notes some dysphagia to solids and liquids. labs reviewed. pancytopenia noted. Allergies Allergy/AdvReac Type Severity Reaction Status Date / Time No Known Allergies Allergy Verified 01/26/20 18:04 Home Medications Home Medications Medication Instructions Recorded Confirmed Type acetaminophen 500 mg PO Q6H PRN 01/06/20 01/26/20 History anastrozole 1 mg PO QAM #30 tab 01/14/20 01/26/20 Rx dronabinol [Marinol] 5 mg PO BID #60 cap 01/14/20 01/26/20 Rx pantoprazole 40 mg PO QAM #30 tab 01/14/20 01/26/20 Rx fentanyl 12 mcg TRANSDERMAL [id number] 01/26/20 01/26/20 History metoclopramide HCl 10 mg PO QID PRN 01/26/20 01/26/20 History ondansetron 4 mg PO Q4H PRN 01/26/20 01/26/20 History polyethylene glycol 3350 [Miralax] 17 g PO DAILY PRN 01/26/20 01/26/20 History tramadol 50 mg PO Q4H PRN 01/26/20 01/26/20 History Patient History Medical History Breast cancer Secondary malignant neoplasm of bone Surgical History History of bilateral tubal ligation Family History Mother , about age 82 Alzheimer disease Breast cancer Father , age 52 from MVA Motor vehicle accident Family/Other Breast cancer cousin Social History Smoking Status: Never smoker Do You Dip or Chew Tobacco: No; Hx Alcohol Use: No Hx Substance Use: No Preferred Language: Croatian Communication Ability: Effective [employer] Required: No Beliefs That Will Affect Care: None marital status: Current Living Situation: Family Current Living Situation Comment: lives in [place] current occupational status: previously employed 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; 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; 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 How many Children do You have: 3 How many Children do You have Comment: 1 child developmentally disable Other Information That Helps Us Care for You: No Feels Safe at Home: Yes Safety Concerns: Feels Safe At This Time Review of Systems Constitutional: no fever, no chills and no weight loss Eyes: as per Subjective / HPI Ear, Nose, Mouth, Throat: as per Subjective / HPI Respiratory: no dyspnea and no dyspnea on exertion Cardiovascular: no chest pain and no palpitations Gastrointestinal: as per Subjective / HPI Musculoskeletal: no joint pain and no swelling Integumentary: no rash and no lesions Neurologic: no numbness and no paresthesia Psychiatric: no depression and no anxiety Endocrine: no fatigue Hematologic / Lymphatic: no easy bleeding and no easy bruising Physical Exam Constitutional: WD/WN, vitals as above Eyes: EOM intact bilaterally Neck: normal visual inspection Respiratory: normal respiratory effort, lungs clear to auscultation Cardiovascular: RRR, no murmur, no edema Gastrointestinal (Abdomen): Inspection/Auscultation: abdomen normal to inspection; abdomen not distended Percussion/Palpation: abdomen soft; abdomen nontender and no hepatosplenomegaly Musculoskeletal: Extremities: no cyanosis Gait: normal gait Skin: no rashes, warm and dry Neurologic: moves all extremities Psychiatric: A+Ox3, euthymic affect Results & Data ([place]) Vital Signs (Past 12 Hours) Vital Signs Temp Pulse Resp BP Pulse Ox 01/30/20 08:00 36.7 C 90 16 134/81 95 01/30/20 00:18 36.9 C 80 16 111/70 96 PG Care Time/CCT Total # of Minutes Spent Total Time Spent with Patient: Total time spent is greater than 50% in coordination of care (as documented) at patient's floor/unit and/or counseling patient: Coding Level of Care Code 34878 Inpt Consult Level 4 Diagnoses GERD (gastroesophageal reflux disease) K21.9 Intractable vomiting with nausea R11.2
--- NOTE | 2020-01-30 12:30 | Hospitalist Progress Note ---
Date of Service January 30, 2020 Assessment & Plan (1) Pancytopenia: During this admission, all cell lines have trended down. Discussed with Dr. Mccoy who feels bone marrow infiltration from cancer may be the cause. No indication of hemolysis or consumptive process on labs as of 01/29. - Unfortunately, this is very bad prognostic sign as she could not really tolerate chemotherapy given that would further suppress her counts. - Blood consent in the chart: * Replete hgb > 8 (given oncologic issue in nature) * Replete platelets > 10 or > 50 if any sign of bleeding (2) Intractable vomiting with nausea: She was tachycardic on arrival and hypovolumic. She was given NSS 1L Bolus x1; LR 1L Bolus x1 which resolved HR to WNL. - Unclear cause, though GERD may be the issue as she reports it is worse in the morning after lying down. - Will give standing Zofran at 9pm, 1am, and 6am. - GI consulted on 01/28 -> Recommend PPI IV BID & starting carafate QID. - Would plan for gastric emptying study on Friday if she is still here. Otherwise, will pursue outpatient. Deferring EGD for now given low cell counts. (3) Breast cancer: Metastatic. Has been going through radiation, on hormone anastrozole. - Was planning to meet soon with onc to discuss chemotherapy - C/w home Fentanyl TD - C/w home Tramadol 50mg PRN for breatkthrough pain - Palliative care consult (4) Abnormal LFTs: AST was 178 similar to prior lab values on record from past hospitalization; ALT elevated to 138, either medication/disease process/from vomiting-related. - Alk Phos 586 most likely in response to bony mets/destruction. - Monitor (5) GERD (gastroesophageal reflux disease): Notes difficulties with GERD at home. She is on Pantoprazole 40mg PO. - As above (6) Bone pain: Appears controlled at baseline. - C/w Fentanyl patch TD. - C/w Tramadol 50mg PO breatkthrough pain (home dose). (7) DVT prophylaxis: Lovenox initially; stopped on 01/28 for platelets < 50k. Admission and Anticipated Discharge Date Admission Date: January 26, 2020 Subjective Woke up feeling relatively well, but then had an episode of nausea and emesis before breakfast. Was able to eat some breakfast and keep it down. Now mostly with just low energy/fatigue. Reports no fevers/chills, chest pain, shortness of breath, or abdominal pain. Physical Exam Constitutional: WD/WN, vitals as above Eyes: EOM intact bilaterally; no conjunctival abnormality ENMT: external ear and nose normal, oropharynx normal Neck: trachea midline, no thyromegaly normal visual inspection Respiratory: normal respiratory effort, lungs clear to auscultation no respiratory distress Cardiovascular: RRR, no murmur, no edema Gastrointestinal (Abdomen): Inspection/Auscultation: abdomen normal to inspection; abdomen not distended Musculoskeletal: no cyanosis or clubbing, extremities motor strength 5/5 Skin: no rashes, warm and dry Neurologic: moves all extremities and awake Psychiatric: Orientation: alert, oriented to person and cooperative Results & Data Results & Data ([facility]) Vital Signs (Past 12 Hours) Vital Signs Temp Pulse Resp BP Pulse Ox 01/30/20 08:00 36.7 C 90 16 134/81 95 PG Care Time/CCT Total # of Minutes Spent Total Time Spent with Patient: Total time spent is greater than 50% in coordination of care (as documented) at patient's floor/unit and/or counseling patient: Coding Level of Care Code 68905 Subseq Hosp Care Lvl 3 Diagnoses Pancytopenia D61.818 Intractable vomiting with nausea R11.2 Breast cancer C50.911 Breast location: unspecified site of breast Estrogen receptor status: unspecified Patient sex: female Laterality: right Abnormal LFTs R94.5 GERD (gastroesophageal reflux disease) K21.9 Bone pain M89.8X9 DVT prophylaxis Z29.9 (1) Breast cancer Breast location: unspecified site of breast Estrogen receptor status: unspecified Patient sex: female Laterality: right Qualified Code(s): C50.911 - Malignant neoplasm of unspecified site of right female breast
[2020-01-30] MEDS: SUCRALFATE 1 GM/10 ML UDC PO SCH ×3 (16:29→21:28)
[2020-01-30] MEDS: ANASTROZOLE 1 MG TAB PO SCH (16:29)
[2020-01-30] MEDS: PANTOprazole 40 MG TAB PO SCH (16:29)
[2020-01-30] MEDS: PANTOprazole 40 MG in SYRINGE 0 ML IV SCH (21:28)
[2020-01-30] MEDS: FAMOTIDINE 20 MG in SYRINGE 3 ML IV SCH (21:28)
[2020-01-30] MEDS: METOCLOPRAMIDE HCL INJ 5 MG/ML 2 ML VIAL IV PRN (23:25)
[2020-01-31] MEDS: ONDANSETRON INJ 2 MG/ML 2 ML VIAL IV SCH ×3 (01:10→20:55)
[2020-01-31 06:13] LABS: Hematocrit (blood only) 27.1 % (37-47); Hemoglobin 8.7 g/dL (12.0-16.0); Mean Corpuscular Hemoglobin 28.1 pg (25-34); Mean Corpuscular Hgb Conc 32.1 g/dL (32-36); Mean Corpuscular Volume 87.4 fL (80-100); Nucleated RBC # (auto) 0.05 K/uL (0-0); Nucleated RBC % (auto) 2.9 %; RDW Coefficient of Variation 16.6 % (11.5-14.5); RDW Standard Deviation 50.4 fL (36.4-46.3); White Blood Count 1.58 K/uL (4.8-10.8)
[2020-01-31 06:30] LABS: Mean Platelet Volume 10.5 fL (7.4-10.4); Platelet Count 39 K/uL (130-400)
[2020-01-31 06:37] LABS: Basophils # (auto) 0.01 K/uL (0-0.2); Basophils % (auto) 0.6 %; Eosinophils # (auto) 0.04 K/uL (0-0.5); Eosinophils % (auto) 2.5 %; Immature Granulocytes # (auto) 0.07 K/uL (0.00-0.02); Immature Granulocytes % (auto) 4.4 %; Lymphocytes # (auto) 0.15 K/uL (1.2-3.4); Lymphocytes % (auto) 9.5 %; Monocytes # (auto) 0.18 K/uL (0.11-0.59); Monocytes % (auto) 11.4 %; Neutrophils # (auto) 1.13 K/uL (1.4-6.5); Neutrophils % (auto) 71.6 %; Tear Drop Cells 1+
[2020-01-31 06:40] LABS: Albumin Level 2.5 gm/dl (3.4-5.0); BUN Creatinine Ratio 27.2 (10-20); Calcium 8.1 mg/dl (8.5-10.1); Est GFR (Non-African American) 88.9; Potassium 3.9 mmol/L (3.5-5.1)
[2020-01-31 06:42] LABS: Albumin Globulin Ratio 0.8 (0.9-2); Bilirubin,Total 1.3 mg/dl (0.2-1); Total Protein 5.5 gm/dl (6.4-8.2)
[2020-01-31] MEDS: ANASTROZOLE 1 MG TAB PO SCH (09:17)
[2020-01-31] MEDS: SUCRALFATE 1 GM/10 ML UDC PO SCH ×4 (09:17→20:49)
[2020-01-31] MEDS: PANTOprazole 40 MG in SYRINGE 0 ML IV SCH ×2 (09:17→21:21)
[2020-01-31] MEDS: fentaNYL 12 MCG/HR TDSY TD SCH (09:20)
[2020-01-31] MEDS: CHECK FENTANYL PATCH PLACEMENT SCH ×2 (09:29→17:16)
[2020-01-31] MEDS: SENNA 8.6 MG TAB PO SCH (11:46)
[2020-01-31] MEDS: ONDANSETRON INJ 2 MG/ML 2 ML VIAL IV PRN ×2 (11:46→17:10)
[2020-01-31] MEDS: METOCLOPRAMIDE HCL INJ 5 MG/ML 2 ML VIAL IV PRN (12:32)
--- NOTE | 2020-01-31 14:48 | Hospitalist Progress Note ---
Date of Service January 31, 2020 Assessment & Plan (1) Pancytopenia: During this admission, all cell lines have trended down. Discussed with Dr. Mccoy who feels bone marrow infiltration from cancer may be the cause. No indication of hemolysis or consumptive process on labs as of 01/29. - Unfortunately, this is very bad prognostic sign as she could not really tolerate chemotherapy given that would further suppress her counts. - Blood consent in the chart: * Replete hgb > 8 (given oncologic issue in nature) * Replete platelets > 10 or > 50 if any sign of bleeding (2) Intractable vomiting with nausea: She was tachycardic on arrival and hypovolumic. She was given NSS 1L Bolus x1; LR 1L Bolus x1 which resolved HR to WNL. - Unclear cause, though GERD may be the issue as she reports it is worse in the morning after lying down. - Will give standing Zofran at 9pm, 1am, and 6am. - GI consulted on 01/28 -> Recommend PPI IV BID & starting carafate QID. - Would plan for gastric emptying study on Friday if she is still here. Otherwise, will pursue outpatient. Deferring EGD for now given low cell counts. Pt did tolerate breakfast today, but not lunch Will continue to work with strategies for management of n/v Suggested by palliative care to try haldol 1mg SL (3) Breast cancer: Metastatic. Has been going through radiation, on hormone anastrozole. - Was planning to meet soon with onc to discuss chemotherapy - C/w home Fentanyl TD - C/w home Tramadol 50mg PRN for breatkthrough pain - Palliative care consult (4) Abnormal LFTs: AST was 178 similar to prior lab values on record from past hospitalization; ALT elevated to 138, either medication/disease process/from vomiting-related. - Alk Phos 586 most likely in response to bony mets/destruction. - Monitor (5) GERD (gastroesophageal reflux disease): Notes difficulties with GERD at home. She is on Pantoprazole 40mg PO. - As above (6) Bone pain: Appears controlled at baseline. - C/w Fentanyl patch TD. - C/w Tramadol 50mg PO breatkthrough pain (home dose). (7) DVT prophylaxis: Lovenox initially; stopped on 01/28 for platelets < 50k. Admission and Anticipated Discharge Date Admission Date: January 26, 2020 Subjective Pt seen just prior to arrival of lunch. She states that she ate breakfast this AM and felt quite well after this. She had no n/v. Son was present and felt that pt looked the best she has since admission. Pt denies fever, SOB, chest pain, abd pain, n/v, LE pain or swelling. Pt states she did have an emesis in late evening due to "acidy stomach" which has been an ongoing issue. She felt at that time that if she tolerated lunch, she might want to go home later today. Called by nursing after lunch and pt did have emesis shortly after eating. Review of Systems Review of Systems: Pertinent positives and negatives reviewed in HPI--all others negative Physical Exam Constitutional: WD/WN, vitals as above Eyes: normal visual pimentel by confrontation and + anicteric sclerae Neck: normal visual inspection and trachea midline Respiratory: normal respiratory effort, lungs clear to auscultation Cardiovascular: Rate/Rhythm: regular rate and regular rhythm Gastrointestinal (Abdomen): Inspection/Auscultation: abdomen not distended Percussion/Palpation: abdomen soft; abdomen nontender Musculoskeletal: Head/Neck/Chest: normocephalic and head atraumatic negative for edema, peripheral pulses intact Skin: no rashes, warm and dry Neurologic: awake; not confused Speech / Cognition: normal speech Psychiatric: A+Ox3, euthymic affect Results & Data Results & Data ([facility]) Vital Signs (Past 12 Hours) Vital Signs Temp Pulse Resp BP Pulse Ox 01/31/20 07:55 36.8 C 93 H 16 102/64 94 PG Care Time/CCT Total # of Minutes Spent Total Time Spent with Patient: Total time spent is greater than 50% in coordination of care (as documented) at patient's floor/unit and/or counseling patient: Coding Level of Care Code 61226 Subseq Hosp Care Lvl 3 Diagnoses Pancytopenia D61.818 Intractable vomiting with nausea R11.2 Breast cancer C50.911 Breast location: unspecified site of breast Estrogen receptor status: unspecified Laterality: right Patient sex: female Abnormal LFTs R94.5 GERD (gastroesophageal reflux disease) K21.9 Bone pain M89.8X9 DVT prophylaxis Z29.9 (1) Breast cancer Breast location: unspecified site of breast Estrogen receptor status: unspecified Laterality: right Patient sex: female Qualified Code(s): C50.911 - Malignant neoplasm of unspecified site of right female breast
[2020-01-31] MEDS ORDERED: haloperidoL 1 MG TAB PO PRN (15:01)
--- NOTE | 2020-01-31 15:39 | Gastroenterology Progress Note ---
Date of Service January 31, 2020 Assessment & Plan (1) Vomiting: (2) GERD (gastroesophageal reflux disease): mildly improved, still with symptoms likely a combination of GERD and side effects from anastrozole recs: --continue protonix 40 mg IV BID -- pepcid 20 mg IV qhs --carafate QID -- when she is no longer leukopenic, can consider EGD in the future to further assess --diet as tolerated, small meals --anti-emetics prn rest as per primary team Admission and Anticipated Discharge Date Admission Date: January 26, 2020 Subjective no events overnight, afebrile. notes some improvement with carafate. on PPI BID and pepcid qhs. tolerating some yogurt and small amounts of liquids. still with some nausea/vomiting Review of Systems Constitutional: no fever and no chills Respiratory: no cough, no dyspnea and no dyspnea on exertion Cardiovascular: no chest pain and no dyspnea Gastrointestinal: as per Subjective / HPI Psychiatric: no depression and no anxiety Physical Exam Constitutional: WD/WN, vitals as above Respiratory: normal respiratory effort, lungs clear to auscultation Cardiovascular: RRR, no murmur, no edema Gastrointestinal (Abdomen): normal bowel sounds, soft, nontender, no hepatosplenomegaly Musculoskeletal: no lower extremity edema Psychiatric: A+Ox3, euthymic affect Results & Data Results & Data ([facility]) Vital Signs (Past 12 Hours) Vital Signs Temp Pulse Resp BP Pulse Ox 01/31/20 15:04 36.8 C 95 H 18 117/79 96 01/31/20 07:55 36.8 C 93 H 16 102/64 94 PG Care Time/CCT Total # of Minutes Spent Total Time Spent with Patient: Total time spent is greater than 50% in coordination of care (as documented) at patient's floor/unit and/or counseling patient: Coding Level of Care Code 20449 Subseq Hosp Care Lvl 3 Diagnoses Vomiting R11.2 Nausea presence: with nausea Vomiting Intractability: non-intractable Vomiting type: unspecified GERD (gastroesophageal reflux disease) K21.9 (1) Vomiting Nausea presence: with nausea Vomiting Intractability: non-intractable Vomiting type: unspecified Qualified Code(s): R11.2 - Nausea with vomiting, unspecified
[2020-01-31] MEDS: LACTOBACILLUS ACIDOPHILUS (FLORANEX) TAB PO SCH ×2 (17:09→20:50)
[2020-01-31] MEDS: FAMOTIDINE 20 MG in SYRINGE 3 ML IV SCH (20:55)
[2020-02-01] MEDS: CHECK FENTANYL PATCH PLACEMENT SCH ×2 (00:02→09:41)
[2020-02-01] MEDS: ONDANSETRON INJ 2 MG/ML 2 ML VIAL IV SCH ×2 (01:05→06:15)
[2020-02-01 06:09] LABS: Creatinine Clr Calc Pharmacy 80.4 ml/min; Est GFR (African American) 93.6; Est GFR (Non-African American) 80.8
[2020-02-01] MEDS: LACTOBACILLUS ACIDOPHILUS (FLORANEX) TAB PO SCH ×2 (08:39→11:32)
[2020-02-01] MEDS: SUCRALFATE 1 GM/10 ML UDC PO SCH ×2 (08:39→11:33)
[2020-02-01] MEDS: PANTOprazole 40 MG in SYRINGE 0 ML IV SCH (08:40)
[2020-02-01] MEDS: ANASTROZOLE 1 MG TAB PO SCH (09:41)
[2020-02-01] MEDS: SENNA 8.6 MG TAB PO SCH (09:41)
[2020-02-01] MEDS: ONDANSETRON INJ 2 MG/ML 2 ML VIAL IV PRN (11:33)
--- NOTE | 2020-02-01 14:11 | Discharge Summary ---
Date of Service February 01, 2020 Admission HPI Per Admitting Provider Audra Lynn is a 59 y/o female with metastatic breast cancer, bone pain from mets, pathologic fractures, who presented to [facility] ED for CC of Intractable Nausea and Vomiting. She notes onset was about 3 days ago. She notes that her nausea and vomiting are worsened with food or with movement she feels stomach acid move in her stomach which also worsens. She notes she has been unable to tolerate any significant PO intake. She notes only PO intake she was able to hand was a "mushed up popsicle." She has been taking Zofran ODT at home which notes only provided mild relief. She states Zofran has helped her to keep her daily medications from being ejected from body through vomiting. She notes she has had generalized abdominal discomfort from stomach acid sensation. She notes she only gets this discomfort prior to episode of emesis. She denies any blood tinged emesis/coffee ground emesis/bloody emesis. She denies fever, chills, diarrhea, constipation, chest pain, shortness of breath. She notes she's had 10 sessions of radiation, M-F over the last two weeks. She notes she hasn't started chemotherapy as of yet, she had an appointment later this week with Oncology. She is on hormone therapy with Anastrozole. She had a recent hospitalization here from 01/05- where work up showed new diagnosis of Metastatic Breast Ca. Principal Diagnosis Pt did well with dinner last night and no issues overnight. Did not have the "acidy" feeling in her stomach overnight. Tolerated her breakfast, but then had some issues with taking her AM meds. One of them stuck in her throat and then she had an episode of emesis. Did well with lunch and feels she would like to go home. Pt denies fever, SOB, chest pain, abd pain, c/d, LE pain or swelling. Discharge Exam Constitutional WD/WN, vitals as above Eyes normal visual pimentel by confrontation and + anicteric sclerae Neck normal visual inspection and trachea midline Respiratory normal respiratory effort, lungs clear to auscultation Cardiovascular Rate/Rhythm: regular rate and regular rhythm Gastrointestinal (Abdomen) Inspection/Auscultation: abdomen not distended Percussion/Palpation: abdomen soft; abdomen nontender Musculoskeletal Head/Neck/Chest: normocephalic and head atraumatic Skin no rashes, warm and dry Neurologic awake; not confused Speech / Cognition: normal speech Psychiatric A+Ox3, euthymic affect Discharge Data Allergies Allergy/AdvReac Type Severity Reaction Status Date / Time No Known Allergies Allergy Verified 01/26/20 18:04 Consultations 01/26/20 19:59 ED Decision to Admit Stat 01/26/20 22:12 Consult Oncology Routine 01/29/20 15:38 Consult Gastroenterology Routine Ordered Studies 01/27/20 16:54 CT abd pelvis IV con only Routine CT chest w con Routine Hospital Course (1) Pancytopenia: During this admission, all cell lines have trended down. Discussed with Dr. Mccoy who feels bone marrow infiltration from cancer may be the cause. No indication of hemolysis or consumptive process on labs as of 01/29. - Concerns about pt's ability tolerate chemotherapy due to her cell counts No transfusions indicated during admission (2) Intractable vomiting with nausea: She was tachycardic on arrival and hypovolumic. She was given NSS 1L Bolus x1; LR 1L Bolus x1 which resolved HR to WNL. - Unclear cause, though GERD may be the issue as she reports it is worse in the morning after lying down. Pt seen by GI Working with zofran before meals, carafate scheduled Seems to be doing well with haldol 1mg SL, can use this PRN also Discussion about possible gastric emptying study, however pt is feeling improved. Can be done as outpt if issues return Deferring EGD for now given low cell counts. (3) Breast cancer: Metastatic. Has been going through radiation, on hormone anastrozole. - Was planning to meet soon with onc to discuss chemotherapy - C/w home Fentanyl TD - C/w home Tramadol 50mg PRN for breatkthrough pain - Palliative care consult not done during hospitalization as it was a holiday weekend, planning for appt with team as outpt and this can be arranged to occur after her next appt with Dr. Mccoy (4) Abnormal LFTs: AST was 178 similar to prior lab values on record from past hospitalization; ALT elevated to 138, either medication/disease process/from vomiting-related. - Alk Phos 586 most likely in response to bony mets/destruction. - Monitor (5) GERD (gastroesophageal reflux disease): Notes difficulties with GERD at home. She is on Pantoprazole 40mg PO. - As above (6) Bone pain: Appears controlled at baseline. - C/w Fentanyl patch TD. - C/w Tramadol 50mg PO breatkthrough pain (home dose). (7) DVT prophylaxis: Lovenox initially; stopped on 01/28 for platelets < 50k. Total Time Total Time Spent Total Time Spent (In Minutes): >30 Total Time Includes: Examination of the Patient, Discharge Planning, Medication Reconciliation, Communication With Other Providers and Other Discharge Plan Discharge Items Patient Disposition: Home - Self-Care Reason For Visit: INTRACTABLE VOMITING Discharge Diagnosis: intractable vomiting Condition on Discharge: Fair Activity: Resume your previous activity Non-emergency contact: Primary Care Provider and Oncologist Call non-emergency contact if: you have any medication questions and your symptoms worsen Follow-up/Referrals: Willy Mccoy DO [Physician] - (next week) Viviane Paul MD [Physician] - (should be seen the same day as next oncology appt) Lara Moore PAAzra [Primary Care Provider] - Diet: Regular Addtl Attending Provider Instructions: You should start taking a probiotic. The one I recommend for most patients is Jarrow EPS 5 billion. It is a mix of 8 different bacteria. You can find this product at [employer] in [email or web address]. You should start with 1 a day. The goal is to have 1 solid bowel movement a day. You should take the probiotic away from your reflux medication. You could also take it 30 minutes prior to taking your reflux medication. Good options for nausea and "sick stomach" are daphney, peppermint, fennel seed. You can try these one at a time as different supplements work for different people. The probiotic may also help. Slippery elm losanges are availabe over the counter and can help with the "acidy stomach" feeling that you get. Good options to help with appetite are eating a square of dark chocolate (not milk chocolate) about 15-30 minutes prior to a meal or cooking onions in a barragan on the stove while you are preparing your meals. Pending Studies at Discharge: No Stand-Alone Forms: [facility] [employer], Smoking Cessation Medications and DC Order Prescriptions: New sucralfate 100 mg/mL Suspension 1 g PO QID Qty: 420 RF: 0 haloperidol 1 mg Tablet 1 mg PO Q6H PRN (Reason: nausea and vomiting) Qty: 30 RF: 0 melatonin 3 mg Tablet 3 mg PO HS PRN (Reason: sleep) Qty: 30 RF: 0 ondansetron HCl [Zofran] 4 mg tablet 4 mg PO Q6H PRN (Reason: nausea and vomiting) Qty: 60 RF: 2 Continued acetaminophen 500 mg Tablet 500 mg PO Q6H PRN (Reason: Pain) RF: 0 anastrozole 1 mg Tablet 1 mg PO QAM Qty: 30 RF: 0 pantoprazole 40 mg Tablet,Delayed Release (Dr/Ec) 40 mg PO QAM Qty: 30 RF: 0 dronabinol [Marinol] 5 mg capsule 5 mg PO BID Qty: 60 RF: 0 polyethylene glycol 3350 [Miralax] 17 gram powder in packet 17 g PO DAILY PRN (Reason: Constipation) RF: 0 tramadol 50 mg tablet 50 mg PO Q4H PRN (Reason: Breakthrough Pain) RF: 0 ondansetron 4 mg tablet,disintegrating 4 mg PO Q4H PRN (Reason: Nausea And Vomiting) RF: 0 metoclopramide HCl 10 mg tablet 10 mg PO QID PRN (Reason: Breakthrough nausea) RF: 0 fentanyl 12 mcg/hr patch 72 hour 12 mcg transdermal [id number] RF: 0 Discharge Orders: Discharge Order (Routine); Ordered 02/01/20 Ordered By: Ivet Velasquez/Other Patient Handouts: Hormone Therapy for Breast Cancer, Nausea Vomit Control Admission Data Admit Date/Time: 01/26/20 21:26 Attending Provider: Ivet [place] Admit Provider: Jono Black Primary Care Provider: Lara Moore Other Providers: Willy Mccoy V. ; Guero Beebe ; Edgard Manriquez Coding Level of Care Code D/C Day Management >30 mins Diagnoses Pancytopenia D61.818 Intractable vomiting with nausea R11.2 Breast cancer C50.911 Breast location: unspecified site of breast Estrogen receptor status: unspecified Patient sex: female Laterality: right Abnormal LFTs R94.5 GERD (gastroesophageal reflux disease) K21.9 Bone pain M89.8X9 DVT prophylaxis Z29.9
--- NOTE | 2020-02-02 18:35 | Pharmacy Report ---
ED Pharmacist Progress Note - ED Pharmacist Progress Note Date of Service:: February 02, 2020 Notes:: Received call from patient's pharmacy regarding prescription for haldol 1 mg tablets- directions say to give sublingually but it is not an ODT tablet. Reviewed notes and medications while in hospital- patient was receiving haldol 1 mg tablet SL- there are case reports of this administration route in palliative/terminally ill patients and was tolerating in the hospital. Relayed this information to the pharmacy.
== END 2020-02-01 15:15 | disposition home or self-care (01) | DRG 392 ==
LOC: ED 15:45 → SUATTDRO 21:26 → 3W 21:26

== ENCOUNTER 2021-07-01 20:38 | Observation (INO) ==
[2021-07-01] MEDS ORDERED: fentaNYL citrate 100 MCG/2 ML VIAL IV PRN (21:35)
[2021-07-01 21:42] LABS: Hematocrit (blood only) 35.4 % (37-47); Mean Corpuscular Hgb Conc 33.9 g/dL (32-36); Mean Corpuscular Volume 100.3 fL (80-100); RDW Coefficient of Variation 19.1 % (11.5-14.5); RDW Standard Deviation 69.8 fL (36.4-46.3); Red Blood Count 3.53 M/uL (4.2-5.4); White Blood Count 10.89 K/uL (4.8-10.8)
--- NOTE | 2021-07-01 21:48 | Emergency Department Note ---
Impression & Plan Pneumothorax, Right-sided chest pain, Metastatic breast cancer, Elevated LFTs ED Provider Note INFORMANT: Patient and daughter ED PROVIDER(S): Clifton Devlin MD CHIEF COMPLAINT: Right-sided chest pain PLAN: Disposition: Admitted Condition: Good Outpatient prescription management: none Referral: None MEDICAL DECISION MAKING: Patient presented because of right-sided chest pain. ECG was performed and did not reveal any acute findings. Patient was here with IV fentanyl felt much be tter. She was placed on supplemental oxygen vital signs are stable. Chest x- ray was performed and does reveal a small right-sided pneumothorax. Pleurx catheter noted in the right base. Patient underwent chest CT imaging. No thromboembolic disease was noted. She does have a right-sided pneumothorax of 15 to 20% along with a pleural effusion on the right and left. Patient CBC showed a slight leukocytosis. Chemistry panel was unremarkable. Patient's troponin is negative. Mild elevation of LFTs which is not significantly different than prior. Due to this finding I did discuss her case with Dr. Casey of pulmonology. He recommended attaching the catheter to a chest tube set up and will suction at -[address] the patient on a nonrebreather. He recommended the patient to be admitted and pulmonary will consult. Consultation was made with Dr. Sony Santos of the [facility] service. Patient was evaluated in the ER for further management. After the catheter was placed to suction the patient had more pain on the chest, right side. A repeat chest x-ray was performed. Pneumothorax appears to be reexpanded. Patient was treated with a dose of Dilaudid by the hospitalist service and felt much better. Triage Nursing notes reviewed and agree them. Vital Signs: reviewed and remarkable for mild tachycardia Differential diagnosis: Cardiac ischemia, aortic dissection, pulmonary embolism, pneumothorax, pneum onia, pericarditis, myocarditis, esophageal rupture, GERD, cholecystitis, pancreatitis, musculoskeletal, as well as other pathologies. Diagnostics interpreted by me: ECG: Twelve-lead ECG reveals a sinus tachycardia with low voltage QRS at 109 bpm. Inferior Q waves present. No ST elevation or depression. Normal axis. Cardiac Monitoring: Cardiac monitoring ordered by me: The patient was placed on continuous cardiac monitoring and observed. It revealed a sinus tachycardia at 102 beats per minute without ectopy or evidence of dysrhythmia. Imaging studies: Chest x-ray reveals a small right-sided pneumothorax. CT imaging as above. Repeat chest x-ray after catheter hooked up to wall suction reveals resolution of pneumothorax. HPI: The patient is a 60 year old female who presents to the Emergency Room with complaints of right-sided chest pain. This started this week and is worsening over the last 2 days. The patient also notes the following associated symptoms, shortness of breath, conversational dyspnea, hypoxia with exertion. Patient has a history of breast cancer and right-sided pleural effusion. She had a thoracentesis and catheter placed 2 days ago. Her symptoms worsened over the weekend. The patient has found no relieving factors. Current pain is rated as 810. Pt denies LOC, headache, fevers, chills, diaphoresis, visual changes, neck pain, nausea, vomiting, abdominal pain, back pain, melena, hematochezia, urinary symptoms, numbness, weakness, lymphadenopathy, rash, or other complaints. ROS: See above HPI for pertinent positives & negatives. A total of 10 systems reviewed and were otherwise negative. PAST MEDICAL HISTORY:See Below , breast cancer PAST SURGICAL HISTORY:See Below, FAMILY HISTORY:See Below SOCIAL HISTORY:See Below, HOME MEDICATIONS:See Below ALLERGIES:See Below VITALS:See Below PHYSICAL EXAMINATION: GENERAL: Awake, alert, mildly dyspneic and uncomfortable-appearing, in no distress HENT: Normocephalic, atraumatic. Oropharynx unremarkable. EYES: Normal conjunctiva. Sclera non-icteric. NECK: Inspection normal. Non-tender. Supple. No nuchal rigidity. FROM. No masses. RESPIRATORY: Clear to auscultation. No wheezes. No rales. Normal respiratory effort. CARDIAC: Tachycardic rate. Normal rhythm. No murmurs. No rubs. Extremities warm and well perfused. Pulses equal. No JVD. GI: Soft, non-distended. No tenderness to palpation. No rebound or guarding. No masses. RECTAL: Deferred. MUSCULOSKELETAL: Atraumatic. Chest examination reveals Mediport in the left upper chest. There is a pleural catheter present in the right posterior lateral back without signs of infection. The back is symmetrical on inspection without obvious abnormality. There is no CVA tenderness to palpation. No joint edema. LOWER EXTREMITIES: Calves are equal size bilaterally and non-tender. No edema. No discoloration. NEURO: Normal sensorium. No sensory or motor deficits noted. SKIN: No rash or jaundice noted. Clifton Devlin MD Past Med/Surg History Medical History (Updated 07/02/21 @ 01:23 by Clifton Devlin MD) Bone cancer met cancer Breast cancer dx about 2 months, will start chemo GERD (gastroesophageal reflux disease) Metastatic cancer spread to bone Nausea Normocytic hypochromic anemia Pathologic fracture of lumbar vertebra Pathologic fracture of thoracic vertebrae Pulmonary nodules Secondary malignant neoplasm of bone Surgical History History of bilateral tubal ligation Port-A-Cath in place (02/17/20) Insertion of Mediport Left Subclavian Vein Under Fluoroscopy Dr. Maria 02/17/2020 Family History (Updated 09/15/20 @ 13:39 by Anila Thompson) Mother , about age 82 Alzheimer disease Breast cancer Father , age 52 from MVA Motor vehicle accident Family/Other Breast cancer cousin Daughter Cancer Son Diabetes Other Asthma Hypertension Social History Smoking Status: Never smoker Second Hand Exposure: No; Hx Alcohol Use: No Hx Substance Use: No Preferred Language: Bahamian Communication Ability: Effective Visual Impairment: No Limitations Cinnamon Grinder Required: No Beliefs That Will Affect Care: None marital status: Current Living Situation: Family Current Living Situation Comment: lives in [place] current occupational status: previously employed 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; 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; 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 How many Children do You have: 3 How many Children do You have Comment: 1 child developmentally disable Feels Safe at Home: Yes Assistive Devices: None Allergies Allergies Allergy/AdvReac Type Severity Reaction Status Date / Time No Known Allergies Allergy Verified 07/01/21 23:26 Home Meds Home Medications Medication Instructions Recorded Confirmed zoledronic acid 4 mg/100 mL in 4 mg IV MONTHLY ml 09/15/20 07/01/21 mannitol 5 %-water intravenous piggybck capecitabine 150 mg tablet 150 mg PO BID 06/04/21 07/01/21 capecitabine 500 mg tablet (Xeloda) 500 mg PO BID tab 06/04/21 07/01/21 acetaminophen 500 mg tablet 500 mg PO BID PRN 07/01/21 07/01/21 artificial 1 drp OPB HS 07/01/21 07/01/21 tears(itxtdxj-qdmrtgke-ivhcofk) 0.1 %-0.3 %-0.2 % eye drops (GenTeal Tears Moderate) carboxymethylcellulose sodium 1 % 1 drp OPB QID 07/01/21 07/01/21 eye liquid gel drops (Refresh Liquigel) prednisolone acetate 1 % eye 1 drp OPB QID 07/01/21 07/01/21 drops,suspension tramadol 50 mg tablet 50 mg PO Q6H PRN 07/01/21 07/01/21 Previous Rx's Medication Instructions Recorded anastrozole 1 mg tablet 1 mg PO QAM #30 tab 01/14/20 Results & Data (ED) Vital Signs Vital Signs - 24 hr 07/01/21 20:46 07/01/21 21:03 07/01/21 21:07 Temperature 36.8 C Temperature Source Oral Pulse Rate 116 H Pulse Rate [Apical] 118 H Pulse Rhythm [Apical] Pulse Strength [Apical] Respiratory Rate 22 22 Respiratory Effort / Characteristics SOB on Exertion Splinting (from pain) Short of Breath Respiratory Depth Shallow Respiratory Pattern Blood Pressure [Right Arm] 134/84 Blood Pressure Mean [Right Arm] 100 Blood Pressure Position [Right Arm] Pulse Oximetry 90 98 Oxygen Delivery Method Room Air Nasal Cannula Oxygen Flow Rate 2 Sepsis Recent Fever Within 48 Hours No Sepsis New/Unexplained Change in Mental Status No Sepsis Action Taken by Nursing No Action Required Oxygen Flow Rate - Titration Pulse Oximetry Post Tiitration 07/01/21 21:10 07/01/21 21:13 07/01/21 22:00 Temperature Temperature Source Pulse Rate 106 H Pulse Rate [Apical] 100 H Pulse Rhythm [Apical] Pulse Strength [Apical] Respiratory Rate 20 Respiratory Effort / Characteristics Respiratory Depth Respiratory Pattern Blood Pressure [Right Arm] 120/73 Blood Pressure Mean [Right Arm] 88 Blood Pressure Position [Right Arm] Pulse Oximetry 88 L 98 98 Oxygen Delivery Method Room Air Nasal Cannula Nasal Cannula Nasal Cannula Oxygen Flow Rate 2 2 Sepsis Recent Fever Within 48 Hours Sepsis New/Unexplained Change in Mental Status Sepsis Action Taken by Nursing Oxygen Flow Rate - Titration 2 Pulse Oximetry Post Tiitration 98 07/01/21 22:40 07/02/21 00:00 Temperature Temperature Source Pulse Rate Pulse Rate [Apical] 95 H 102 H Pulse Rhythm [Apical] Regular Pulse Strength [Apical] Normal Respiratory Rate 18 18 Respiratory Effort / Characteristics Non-Labored Spontaneous Respiratory Depth Normal Respiratory Pattern Regular Blood Pressure [Right Arm] 116/72 133/70 Blood Pressure Mean [Right Arm] 86 91 Blood Pressure Position [Right Arm] Semi-fowlers Pulse Oximetry 97 100 Oxygen Delivery Method Room Air Room Air Oxygen Flow Rate 2 Sepsis Recent Fever Within 48 Hours Sepsis New/Unexplained Change in Mental Status Sepsis Action Taken by Nursing Oxygen Flow Rate - Titration Pulse Oximetry Post Tiitration Laboratory Data Result diagrams: 07/01/21 21:25 07/01/21 21:25 Lab Results 07/01/21 07/01/21 Range/Units 21:25 21:25 WBC 10.89 H (4.8-10.8) K/uL RBC 3.53 L (4.2-5.4) M/uL Hgb 12.0 (12.0-16.0) g/dL Hct 35.4 L (37-47) % MCV 100.3 H (80-100) fL MCH 34.0 (25-34) pg MCHC 33.9 (32-36) g/dL RDW Std Deviation 69.8 H (36.4-46.3) fL RDW Coeff of Fritz 19.1 H (11.5-14.5) % Plt Count 52 L (130-400) K/uL MPV 11.3 H (7.4-10.4) fL Immature Gran % (Auto) 0.6 % Neut % (Auto) 79.9 % Lymph % (Auto) 6.7 % Doddridge % (Auto) 10.9 % Eos % (Auto) 1.7 % Baso % (Auto) 0.2 % Neut # (Auto) 8.69 H (1.4-6.5) K/uL Lymph # (Auto) 0.73 L (1.2-3.4) K/uL Dod[place]idge # (Auto) 1.19 H (0.11-0.59) K/uL Eos # (Auto) 0.19 (0-0.5) K/uL Baso # (Auto) 0.02 (0-0.2) K/uL Immature Gran # (Auto) 0.07 H (0.00-0.02) K/uL Polychromasia 1+ Ovalocytes 1+ Echinocytes 1+ Sodium 135 L (136-145) mmol/L Potassium 3.8 (3.5-5.1) mmol/L Chloride 105 (98-107) mmol/L Carbon Dioxide 22 (21-32) mmol/L Anion Gap 8 (3-11) BUN 25 H (6-23) mg/dl Creatinine 0.57 L (0.6-1.2) mg/dl Est Cr Clr Drug Dosing 88.4 ml/min Est GFR ( Amer) 115.2 ml/min Est GFR (Non-Af Amer) 99.4 ml/min BUN/Creatinine Ratio 43.9 H (10-20) Glucose 102 H (70-99(Fasting)) mg/dl Calcium 8.1 L (8.5-10.1) mg/dl Total Bilirubin 2.6 H (0.2-1.0) mg/dl AST 101 H (13-39) U/L ALT 27 (7-52) U/L Alkaline Phosphatase 107 H (34-104) U/L Troponin I < 0.03 (0-0.04) ng/ml Total Protein 5.2 L (6.0-8.3) gm/dl Albumin 3.0 L (3.4-5.0) gm/dl Globulin 2.2 L (2.5-4.0) gm/dl Albumin/Globulin Ratio 1.4 (0.9-2) Lipase 3 L (11-82) U/L Administered Medications Fentanyl Citrate (Fentanyl Citrate 100 Mcg/2 Ml Vial) 50 mcg IV Q15M PRN PRN Reason: Pain Stop: 07/15/21 21:34 Last Admin: 07/01/21 22:07 Dose: 50 mcg Documented by: [id number] Discontinued Medications Hydromorphone HCl (Hydromorphone Inj 0.5 Mg/0.5 Ml Syr) Confirm Administered Dose 0.5 mg .ROUTE .STK-MED ONE Stop: 07/02/21 00:38 Last Admin: 07/02/21 00:43 Dose: 0.5 mg Documented by: [id number] Ioversol (Optiray 320 125ml) 83 ml IV ONCE ONE Stop: 07/01/21 22:19 Last Admin: 07/01/21 22:24 Dose: 1 ml Documented by: [id number] Imaging Data Radiologist's Impression: Chest CTA 07/01/21 21:02 CT angio chest PE protocol CLINICAL HISTORY: R Chest Pain, eval for PE, recent covid. Breast CA with metastatic disease to the bones and liver COMPARISON STUDY: 05/24/2021 and portable chest from 07/01/2021 CT DOSE: 289.16 mGy.cm TECHNIQUE: CT Angio of the chest was performed.followed by image post processing with coronal, and sagittal MIP reformats. Contrast Volume: Optiray 320, 83 ml FINDINGS: Vasculature: There is homogeneous perfusion of the pulmonary vasculature bilaterally. No intraluminal filling defects or evidence for pulmonary embolus is seen. Airway: The airway is clear. No endobronchial lesion is identified. Lungs and pleural: On the right side, there is actually a moderate-sized right pleural effusion with compressive atelectasis at the right lung base. Right- sided chest tube is seen posteriorly and extending anteriorly into the pleural space. However, there is an approximately 15-20% right-sided pneumothorax despite the right-sided chest tube. On the left side, there is also a moderate size pleural effusion with compressive atelectasis at the left lung base posteriorly. There is no left-rizwan ed chest tube or left-sided pneumothorax. The remaining lung parenchyma is otherwise clear bilaterally. No alveolar opacities are identified. Mediastinum: There is no evidence for pathologic adenopathy. The heart size is within normal limits. The thoracic aorta is within normal limits. There is no evidence for pericardial effusion. Upper abdomen:The adrenal glands are normal bilaterally. Diffuse the heterogeneously enhancing liver metastases are again seen. Osseous structures: There is no acute osseous pathology. Diffuse lytic and blastic lesions are again seen throughout the shoulders, sternum, spine and ribs. Impression: 1. No CTA evidence for pulmonary embolus. 2. Moderate size right pleural effusion with right basilar atelectasis. Despite the placement of a right-sided chest tube, there is 15-20% right-sided pneumothorax. 3. Moderate-sized left pleural effusion with compressive atelectasis at the left lung base. 4. No acute alveolar opacities. 5. Marked skeletal metastases are again seen. 6. Diffuse liver metastases are again seen. ACT 112: Negative or not required by law. Electronically signed by: Niko Alatorre M.D. 07/01/2021 10:40 PM Chest X-Ray 07/01/21 21:02 XR chest 1V portable CLINICAL HISTORY: Chest Pain. Cough and shortness of breath COMPARISON STUDY: 06/29/2021 TECHNIQUE: 1 view of the chest FINDINGS: Single frontal view of the chest demonstrates the cardiomediastinal silhouette to be within normal limits. The lungs are clear of alveolar opacities. Compared to the previous study, there has been interval increase in left pleural effusion and left basilar atelectasis. There is now minimal blunting of the right costophrenic angle now seen characteristic of a small right pleural effusion. Right-sided chest tube is again noted there is no evidence for pneumothorax. There is no evidence for vascular congestion. There is no acute osseous pathology. IMPRESSION: Increased left pleural effusion and left basilar atelectasis. Small right pleural effusion with right-sided chest tube seen at the right lung base. No evidence for pneumothorax. ACT 112: Negative or not required by law. Electronically signed by: Niko Alatorre M.D. 07/01/2021 10:18 PM Discharge Plan Visit Data Chief Complaint: Chest Pain Stated Complaint: CHEST PAIN, SOB, LOW O2 ED Provider: Clifton Devlin Discharge Problem: Pneumothorax, Right-sided chest pain, Metastatic breast cancer, Elevated LFTs Forms Stand Alone Forms: My [facility] [place] D-ÉG Thermoset Prescriptions Prescriptions: No Action zoledronic qspr-alhcvyah-dlamx 4 mg/100 mL piggyback 4 mg IV MONTHLY RF: 0 capecitabine 150 mg tablet 150 mg PO BID RF: 0 capecitabine [Xeloda] 500 mg tablet 500 mg PO BID RF: 0 anastrozole 1 mg Tablet 1 mg PO QAM Qty: 30 RF: 0 prednisolone acetate 1 % drops,suspension 1 drp OPB QID RF: 0 carboxymethylcellulose sodium [Refresh Liquigel] 1 % Drops, Liquid Gel 1 drp OPB QID RF: 0 GenTeal Tears Moderate 0.1-0.3-0.2 % Drops 1 drp OPB HS RF: 0 tramadol 50 mg tablet 50 mg PO Q6H PRN (Reason: Pain) RF: 0 acetaminophen [Tylenol Ex Str Rapid Release] 500 mg Tablet 500 mg PO BID PRN (Reason: Pain) RF: 0 Referrals Referrals: Aston Marshall MD [Primary Care Provider] -
[2021-07-01 22:00] LABS: Platelet Count 52 K/uL (130-400)
[2021-07-01 22:04] LABS: Basophils # (auto) 0.02 K/uL (0-0.2); Basophils % (auto) 0.2 %; Echinocytes 1+; Eosinophils # (auto) 0.19 K/uL (0-0.5); Eosinophils % (auto) 1.7 %; Immature Granulocytes # (auto) 0.07 K/uL (0.00-0.02); Immature Granulocytes % (auto) 0.6 %; Lymphocytes # (auto) 0.73 K/uL (1.2-3.4); Lymphocytes % (auto) 6.7 %; Mean Platelet Volume 11.3 fL (7.4-10.4); Monocytes # (auto) 1.19 K/uL (0.11-0.59); Monocytes % (auto) 10.9 %; Neutrophils # (auto) 8.69 K/uL (1.4-6.5); Neutrophils % (auto) 79.9 %; Ovalocytes 1+; Polychromasia 1+; Troponin I < 0.03 ng/ml (0-0.04)
[2021-07-01 22:05] LABS: Alanine Aminotransferase 27 U/L (7-52); Albumin Globulin Ratio 1.4 (0.9-2); Alkaline Phosphatase 107 U/L (34-104); Anion Gap 8 (3-11); Aspartate Aminotransferase 101 U/L (13-39); BUN Creatinine Ratio 43.9 (10-20); Bilirubin,Total 2.6 mg/dl (0.2-1.0); Blood Urea Nitrogen 25 mg/dl (6-23); Calcium 8.1 mg/dl (8.5-10.1); Carbon Dioxide 22 mmol/L (21-32); Chloride 105 mmol/L (98-107); Creatinine Clr Calc Pharmacy 88.4 ml/min; Est GFR (African American) 115.2 ml/min; Est GFR (Non-African American) 99.4 ml/min; Globulin 2.2 gm/dl (2.5-4.0); Glucose 102 mg/dl (70-99(Fasting)); Lipase 3 U/L (11-82); Potassium 3.8 mmol/L (3.5-5.1); Sodium 135 mmol/L (136-145); Total Protein 5.2 gm/dl (6.0-8.3)
[2021-07-01] MEDS ORDERED: OPTIRAY 320 125ml IV ONE (22:18)
--- NOTE | 2021-07-01 22:19 | XRay Report ---
XR chest 1V portable CLINICAL HISTORY: Chest Pain. Cough and shortness of breath COMPARISON STUDY: 06/29/2021 TECHNIQUE: 1 view of the chest FINDINGS: Single frontal view of the chest demonstrates the cardiomediastinal silhouette to be within normal li mits. The lungs are clear of alveolar opacities. Compared to the previous study, there has been inter jolynn increase in left pleural effusion and left basilar atelectasis. There is now minimal blunting of the right costophrenic angle now seen characteristic of a small right pleural effusion. Right-sided c hest tube is again noted there is no evidence for pneumothorax. There is no evidence for vascular con gestion. There is no acute osseous pathology. IMPRESSION: Increased left pleural effusion and left basilar atelectasis. Small right pleural effusio n with right-sided chest tube seen at the right lung base. No evidence for pneumothorax. ACT 112: Negative or not required by law. Electronically signed by: Niko Alatorre M.D. 07/01/2021 10:18 PM
--- NOTE | 2021-07-01 22:41 | CT Scan Report ---
CT angio chest PE protocol CLINICAL HISTORY: R Chest Pain, eval for PE, recent covid. Breast CA with metastatic disease to the b ones and liver COMPARISON STUDY: 05/24/2021 and portable chest from 07/01/2021 CT DOSE: 289.16 mGy.cm TECHNIQUE: CT Angio of the chest was performed.followed by image post processing with coronal, and s agittal MIP reformats. Contrast Volume: Optiray 320, 83 ml FINDINGS: Vasculature: There is homogeneous perfusion of the pulmonary vasculature bilaterally. No intraluminal filling defects or evidence for pulmonary embolus is seen. Airway: The airway is clear. No endobronchial lesion is identified. Lungs and pleural: On the right side, there is actually a moderate-sized right pleural effusion with compressive atelectasis at the right lung base. Right-sided chest tube is seen posteriorly and extend ing anteriorly into the pleural space. However, there is an approximately 15-20% right-sided pneumoth orax despite the right-sided chest tube. On the left side, there is also a moderate size pleural effusion with compressive atelectasis at the left lung base posteriorly. There is no left-sided chest tube or left-sided pneumothorax. The remaining lung parenchyma is otherwise clear bilaterally. No alveolar opacities are identified. Mediastinum: There is no evidence for pathologic adenopathy. The heart size is within normal limits. The thoracic aorta is within normal limits. There is no evidence for pericardial effusion. Upper abdomen:The adrenal glands are normal bilaterally. Diffuse the heterogeneously enhancing liver metastases are again seen. Osseous structures: There is no acute osseous pathology. Diffuse lytic and blastic lesions are again seen throughout the shoulders, sternum, spine and ribs. Impression: 1. No CTA evidence for pulmonary embolus. 2. Moderate size right pleural effusion with right basilar atelectasis. Despite the placement of a ri ght-sided chest tube, there is 15-20% right-sided pneumothorax. 3. Moderate-sized left pleural effusion with compressive atelectasis at the left lung base. 4. No acute alveolar opacities. 5. Marked skeletal metastases are again seen. 6. Diffuse liver metastases are again seen. ACT 112: Negative or not required by law. Electronically signed by: Niko Alatorre M.D. 07/01/2021 10:40 PM
--- NOTE | 2021-07-02 00:30 | History & Physical Report ---
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 Acute Hypoxic Respiratory Failure - Likely secondary to enlarging L-sided pleural effusion, known R pleural effusion, and PNX involving 15-20% of the lung - CTA-chest demonstrating persistence of a moderate sized right pleural effusion alongside 15 to 20% right-sided pneumothorax, moderate left-sided pleural effusion, diffuse skeletal and liver metastases; no evidence of PE. - Blood counts stable. No evidence of ACS with troponin, ECG. Appears euvolemic. No obvious ongoing infectious process appreciated on CXR - effusions, as above, noted - Requiring minimal amounts of O2 at present -- continue NC to titrate SpO2 > 92% - s/p removal of ~650cc of fluid in the ED via PleurX suction - Pulmonary consulted, as below Bilateral Pleural Effusions - Patient with known history of metastatic breast cancer and associated malignant pleural effusions (see pathology tab) - Interval appearance of L-sided pleural effusion: does seem to have grown compared to previous imaging studies. --> Of note, patient did have this drained (L side) on 09/19/[address] Spence - s/p placement of R sided PleurX chest tube that did yield ~650cc in the ED -- subsequently stopped d/t sudden-onset presentation of 10/10 chest wall pain - Consult pulmonology: appreciate insight, recommendations on need for L-sided thoracentesis, alongside any unique PleurX-suction recommendations for this individual on the R side - Will hold from further suction tonight given >650cc out and significant pain that started shortly after starting the suction, which I suspect was likely secondary to re-exapnsion - Toradol 15mg q6h > Dilaudid 0.5mg q6h for pain - Otherwise as above Pneumothorax - R-sided PNX estimated to involve 15-20% of the lung space noted on CT -- suspect secondary to previous procedure/PleurX placement - AHRF management, as above; PleurX catheter in-place on the R side for effusion - Repeat CXR obtained shortly after onset of chest wall pain in the ED did not appear to show interval enlargement of the PNX -- if anything, looks mildly improved - Pulmonary consulted, as above: appreciate any special suction / monitoring recommendations for this R-sided Chest Wall Pain - Patient reporting pain within the R chest wall, worse with deep inspiration, associated with +SOB over last several days, as above - In setting of PNX, pleural effusions, PleurX catheter on same size -- as above - In ED, shortly after starting suctioning, patient had 10/10 chest wall pain at this site -- improved following Dilaudid, discontinuing suction - CXR did not show any obvious expansion of PNX - Suspect secondary to effusion and re-expansion of the lung. Monitor - Toradol, Dialudid -- as above Metastatic Breast Cancer - Patient with known history of diffusely metastatic breast cancer involving ribs, spine, liver - [facility] -- recently on capecitabine, held due to side effects - Continue anastrazole while here - Continue tramadol Transaminitis / Hyperbilirubinemia - Persistence of elevated TBili (2.6), AST 101 with seemingly-normal ALT (27), ALP (107), Alb 3.0 that has been noted for >months - In setting of known liver metastatic burden, as demonstrated on imaging - Suspect secondary to the above. Capecitabine also known to cause hyperbilirubinemia too. No abdominal symptoms. - Monitor while here. Could always consider further biliary image if worsening and associated with symptoms. Code: FULL CODE - discussed at length with patient, daughter at bedside PPX: SCDs pending possible procedure tomorrow, would consider pharmacologic PPX should she be staying longer Diet: Regular Dispo: PCU Consults: Pulmonology (2) Pneumothorax: (3) Metastatic breast cancer: (4) Elevated LFTs: (5) Acute pericardial effusion: (6) Shortness of breath: (7) T[place]END (dyspnea on exertion): (8) Pericardial effusion with cardiac tamponade: History of Present Illness Primary Care Provider: Aston Marshall MD This is a 60-year-old female with a history of metastatic breast cancer and malignant pleural effusion requiring Pleurx catheter placement, previous pericardial effusion with tamponade, recent COVID-19 approx. 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 Of note, patient called into pulmonary office on 06/29, who aids in management of her Pleurx catheter, reporting increased chest wall pain around the site of her Pleurx. This catheter was placed approx. 3 days ago. At that time, she denied shortness of breath, cough. She said the pain was mild. However, since that time, pain has gotten worse and she also notes associated shortness of breath with exertion. She denies any fevers, chills, night sweats, nausea, vomiting, diarrhea, or flulike symptoms. She follows with Dr. Mccoy for her breast cancer care. Review of notes reveals that this cancer is ER/TN positive, HER-2 negative unfortunately, she is known to have metastases to the liver, bones. She was started on Xeloda in March 2021 and also receives Zometa every 28 days. These are currently on-hold. Her last TTE was in 12/13, which demonstrated normal biventricular function with decrease in size of the known pre-existing pericardial effusion. No regional wall motion abnormalities On arrival in the ER, she was found to be in sinus tachycardia to 116 with an oxygen saturation of 88%, respiratory rate 22. She was afebrile. She was started on nasal cannula at 2L. Laboratories demonstrated elevated white count to 11 with neutrophilic predominance, platelet 52, sodium 135, total bilirubin 2.6/AST 101/ALT 27/ALP 107, negative troponin. Chest CT was obtained, which demonstrated persistence of a moderate sized right pleural effusion alongside 15 to 20% right-sided pneumothorax, moderate left-sided pleural effusion, diffuse skeletal and liver metastases. No evidence of PE. She was given fentanyl for pain. ED had spoke with Dr. Casey, Pulmonology, who recommended starting suction. Shortly after I initiated my visit with her, she did report appearance of sudden-onset 10/10 chest wall pain over the R anterior chest. It was not reproducible to palpation. The suction was turned off. CXR was obtained STAT which did not appear to show expansion of the PNX. She was given Dilaudid 0.5mg IV once. A total of ~650cc was removed in the ER from the R chest. Symptoms improved shortly thereafter. Allergies Allergy/AdvReac Type Severity Reaction Status Date / Time capecitabine AdvReac Intermediate SEE COMMENT Verified 07/08/21 03:05 Home Medications Medication Instructions Recorded Confirmed Type anastrozole 1 mg tablet 1 mg PO QAM #30 tab 01/14/20 07/08/21 Rx zoledronic acid 4 mg/100 mL in 4 mg IV MONTHLY ml 09/15/20 07/08/21 History mannitol 5 %-water intravenous piggybck acetaminophen 500 mg tablet 500 mg PO BID PRN 07/01/21 07/08/21 History artificial 1 drp OPB HS 07/01/21 07/08/21 History tears(lvckupb-lhydydjz-dyslldt) 0.1 %-0.3 %-0.2 % eye drops (GenTeal Tears Moderate) carboxymethylcellulose sodium 1 % 1 drp OPB QID 07/01/21 07/08/21 History eye liquid gel drops (Refresh Liquigel) prednisolone acetate 1 % eye 1 drp OPB QID 07/01/21 07/08/21 History drops,suspension tramadol 50 mg tablet 50 mg PO Q6H PRN 07/01/21 07/08/21 History Past Med/Surg History Medical History Acute pericardial effusion Bone cancer met cancer GERD (gastroesophageal reflux disease) Malignant pleural effusion Multiple fractures of ribs Normocytic hypochromic anemia Pathologic fracture of lumbar vertebra Pathologic fracture of thoracic vertebrae Pneumothorax Pulmonary nodules Secondary malignant neoplasm of bone Surgical History History of bilateral tubal ligation Port-A-Cath in place (02/17/20) Insertion of Mediport Left Subclavian Vein Under Fluoroscopy Dr. Maria 02/17/2020 Family History Mother , about age 82 Alzheimer disease Breast cancer Father , age 52 from MVA Motor vehicle accident Family/Other Breast cancer cousin Daughter Cancer Son Diabetes Other Asthma Hypertension Social History Smoking Status: Never smoker Second Hand Exposure: Yes (30 yrs ago); Hx Alcohol Use: No Hx Substance Use: No Preferred Language: Amharic Communication Ability: Effective Visual Impairment: No Limitations Scientist Electronics Required: No Beliefs That Will Affect Care: None marital status: Current Living Situation: Spouse and Family Current Living Situation Comment: lives with and son, 2 story home, with 1st floor set up current occupational status: previously employed 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 There are reduced lung sounds at both bases. Lung sounds throughout the right lung primarily sound vesicular, no crackles or wheezes. No significant findings on the left side otherwise. No tenderness to palpation over the right chest Abdominal: Abdomen is soft, nontender, nondistended to palpation Extremities: No significant peripheral edema in the lower extremities bi laterally Results & Data Results & Data ([place]) Vital Signs (Past 12 Hours) Vital Signs Temp Pulse Pulse Resp BP Pulse Ox 07/01/21 22:40 95 H 18 116/72 97 07/01/21 22:00 100 H 20 120/73 98 07/01/21 21:13 106 H 98 07/01/21 21:10 88 L 07/01/21 21:03 118 H 22 134/84 98 07/01/21 20:46 36.8 C 116 H 22 90 Supervising Physician Co-Signing Physician Notes Attending addendum: I have physically seen this patient, have supervised the medical residents activities, and agree with the H&P unless as otherwise noted. Assessment and Plan: Acute respiratory failure with hypoxia/bilateral pleural effusion/right hemothorax involving 15 to 20%- Reconfigured chest tube to suction as noted with 650 cc output. Try LIS Duonebs every 4 hours while awake and every 2 hours when necessary. Target oxygenation to 92-94% Toradol 15 mg IV every 6 hours as needed moderate pain Dilaudid 0.5 mg IV every 6 hours as needed severe pain Consult pulmonology Remaining orders and notations as noted Resident Activity Tracking Resident Involvement: Resident Care Provided Care Provided: Adult Hospital Medicine
[2021-07-02] MEDS ORDERED: HYDROmorphone INJ 0.5 MG/0.5 ML SYR ONE (00:37)
[2021-07-02] MEDS ORDERED: ACETAMINOPHEN 325 MG TAB PO PRN (01:30)
[2021-07-02] MEDS ORDERED: NITROGLYCERIN SL 0.4 MG/TAB TAB SL PRN (01:30)
[2021-07-02] MEDS ORDERED: ONDANSETRON INJ 2 MG/ML 2 ML VIAL IV PRN (01:30)
[2021-07-02] MEDS ORDERED: traMADol HCL 50 MG TABLET PO PRN (04:22)
[2021-07-02] MEDS ORDERED: KETOROLAC TROMETHAMINE 15 MG/ML VIAL IV PRN (04:22)
[2021-07-02] MEDS ORDERED: HYDROmorphone INJ 0.5 MG/0.5 ML SYR IV PRN (04:22)
[2021-07-02] MEDS ORDERED: ZOLEDRONIC ACID 4 MG/5 ML VIAL IV SCH (04:22)
[2021-07-02] MEDS ORDERED: ACETAMINOPHEN 500 MG TAB PO PRN (04:26)
[2021-07-02 07:32] LABS: Hematocrit (blood only) 32.4 % (37-47); Hemoglobin 10.7 g/dL (12.0-16.0); Mean Corpuscular Hemoglobin 33.5 pg (25-34); Mean Corpuscular Volume 101.6 fL (80-100); RDW Coefficient of Variation 18.7 % (11.5-14.5); RDW Standard Deviation 70.6 fL (36.4-46.3); Red Blood Count 3.19 M/uL (4.2-5.4); White Blood Count 8.73 K/uL (4.8-10.8)
--- NOTE | 2021-07-02 07:32 | XRay Report ---
XR chest 1V portable CLINICAL HISTORY: SOB TECHNIQUE: Single frontal radiograph of the chest was obtained. Comparison: Comparison is made to chest one view 07/01/2021 FINDINGS: Stable port catheter. A right pleural drain is unchanged in appearance. The cardiomediastinal silhoue tte is normal. Prominence and cephalization of the vasculature is seen. Moderate left pleural effusio n, increased from prior exam. Previously noted right pleural effusion is no longer evident. No eviden ce of pneumothorax. IMPRESSION: 1. Moderate left pleural effusion is seen with associated atelectasis. Previously noted right pleura l effusion is not definitely seen. 2. Mild pulmonary edema. ACT 112: Negative or not required by law. Electronically signed by: Chaitanya Montejo M.D. 07/02/2021 7:31 AM
[2021-07-02 07:52] LABS: Albumin Globulin Ratio 1.4 (0.9-2); Albumin Level 2.7 gm/dl (3.4-5.0); Bilirubin,Total 2.2 mg/dl (0.2-1.0); Calcium 7.8 mg/dl (8.5-10.1); Creatinine Clr Calc Pharmacy 82.6 ml/min; Est GFR (African American) 112.6 ml/min; Est GFR (Non-African American) 97.2 ml/min; Globulin 1.9 gm/dl (2.5-4.0); Potassium 4.3 mmol/L (3.5-5.1); Total Protein 4.6 gm/dl (6.0-8.3)
[2021-07-02 07:59] LABS: Mean Platelet Volume 10.5 fL (7.4-10.4); Platelet Count 41 K/uL (130-400)
[2021-07-02 08:00] LABS: Basophils # (auto) 0.02 K/uL (0-0.2); Basophils % (auto) 0.2 %; Eosinophils # (auto) 0.22 K/uL (0-0.5); Eosinophils % (auto) 2.5 %; Immature Granulocytes # (auto) 0.04 K/uL (0.00-0.02); Immature Granulocytes % (auto) 0.5 %; Lymphocytes # (auto) 0.78 K/uL (1.2-3.4); Lymphocytes % (auto) 8.9 %; Monocytes % (auto) 10.3 %; Neutrophils # (auto) 6.77 K/uL (1.4-6.5); Neutrophils % (auto) 77.6 %; Ovalocytes 1+; Poikilocytosis Present
[2021-07-02] MEDS: prednisoLONE acetate 1% OP SUSP 5 ML BTL OP SCH ×4 (08:17→21:11)
[2021-07-02] MEDS: ANASTROZOLE 1 MG TAB PO SCH (08:17)
--- NOTE | 2021-07-02 13:31 | History & Physical Bridge Note ---
Date of Service July 02, 2021 History & Physical Bridge Note I have examined the patient, reviewed the History & Physical and in the interval since the performance of the History & Physical I have noted the following changes of clinical significance: Pt feelin gbetter, less pain with deep inspiration in right chest. Seen by PULM and PleurX drained for 100mL then clamped CXR reviewed from today Spoke with Oncology BETY Ortega who asked I get CT abd/pel for surveillance as LFTs trending upward-ordered Remains on 2LNC but no distress dec BS at bases bilat RRR no mgr +BS sof Joseph ND Ext no edema labs reviewed 60 yo female w/ met Br CA and bilat pleural effusions, here with PTX after having PleurX catheter placed, acute hypoxic respiraory failure She does NOT have COVID PNA She can come off COVID precautions as per my d/w Infection Control
[2021-07-02] MEDS ORDERED: OPTIRAY 320 100ml IV ONE (13:53)
--- NOTE | 2021-07-02 14:37 | CT Scan Report ---
CT OF THE ABDOMEN AND PELVIS WITH CONTRAST CLINICAL HISTORY: elevated LFTs, metastatic breast CA, assess liver. COMPARISON STUDY: CT of the abdomen and pelvis March 20, 2021. MRI of the abdomen March 29, 2021 . TECHNIQUE: Following IV administration of 94 mL of Optiray, axial images of the abdomen and pelvis we re obtained from the lung bases to the proximal femurs. Images were reviewed in the axial, sagittal, and coronal planes. IV contrast was administered without complication. Automated exposure control wa s utilized for the study. A dose lowering technique was utilized adhering to the principles of ALARA . CT DOSE: 312.22 mGy.cm FINDINGS: Right pleural catheter is partially imaged. The right pleural effusion has significantly de creased in size since chest CT of July 01, 2021. The right pneumothorax shown on CT is not evident within the lower lungs. A small left pleural effusion is partially imaged. No pneumatosis, free air or portal venous gas is present. Multiple hepatic lesions are again noted. I ndex right hepatic lobe lesion on image 24 of 95 measures 1 cm. It previously measured 1.[address] o f March 20, 2021. Multiple smaller hepatic lesions are present. No new hepatic lesions are present. Mild splenomegaly is unchanged. There is a small amount of abdominal and pelvic ascites. No definite peritoneal/omental nodularity is present. Small suspected collaterals are present. The ascites has i ncreased since CT of March 20, 2021. Moderate renal cortical thinning is noted. No atrophy. There i s contrast within the collecting systems, ureters and bladder from recent contrast-enhanced CT. There is no hydronephrosis. No abdominal or pelvic lymphadenopathy is present. Major vasculature is patent , including the main, left and right portal veins. Left hepatic lobe atrophy is noted. Calcified gall stone within the gallbladder is noted. Gallbladder wall thickening is again noted. This is a nonspeci fic finding. There is no biliary or pancreatic ductal dilatation. Glandular atrophy of the pancreatic head, uncinate process and body is again noted. Nodularity of the adrenal glands is unchanged. Innum erable skeletal metastases are similar to prior exam with multiple pathologic thoracic and lumbar spi ne compression fractures which are similar in appearance to prior CT. IMPRESSION: 1. Interval decrease in size of hepatic metastases since CT of March 20, 2021 and MRI of March. These favor partially treated metastases. No new hepatic lesions. 2. No biliary or pancreatic ductal dilatation. 3. Left hepatic lobe atrophy. Mild hepatomegaly, small collaterals and a small amount of ascites. The findings may reflect portal hypertension. 4. Cholelithiasis. No change in gallbladder wall thickening, a nonspecific finding. 5. No significant change in extensive skeletal metastases. ACT 112: Negative or not required by law. Electronically signed by: Allan Santamaria M.D. 07/02/2021 2:36 PM
--- NOTE | 2021-07-02 15:48 | XRay Report ---
XR chest 1V portable CLINICAL HISTORY: follow up ptx. COMPARISON STUDY: Portable chest from 07/02/2021 at 12:24 AM and CTA chest from 07/01/2021 TECHNIQUE: 1 view of the chest FINDINGS: Single frontal view of the chest demonstrates the cardiomediastinal silhouette to be within normal li mits. Compared to the CT examination, the right-sided pneumothorax is not seen radiographically. Righ t-sided chest tube is again seen. The right hemithorax is clear. There is again a moderate-sized left pleural effusion with left basilar atelectasis. There is no evidence for vascular congestion. There is no acute osseous pathology. IMPRESSION: 1. Compared to yesterday's CT examination, the right-sided pneumothorax seen on CT is not identified radiographically. Right-sided chest tube remains in place. 2. There is again a moderate-sized left pleural effusion with left basilar atelectasis. ACT 112: Negative or not required by law. Electronically signed by: Niko Alatorre M.D. 07/02/2021 3:47 PM
--- NOTE | 2021-07-02 16:09 | Pulmonary Consultation ---
Date of Consultation July 02, 2021 Assessment & Plan (1) Pneumothorax: (2) Malignant pleural effusion: (3) Shortness of breath: 60-year-old female with metastatic breast cancer to the bones liver and pleura [facility]. Patient appears symptomatically improved which is likely related to the resolution of the right pneumothorax which may have been iatrogenic from the Pleurx catheter versus some degree of lung entrapment. Continue with daily drainage of the Pleurx catheter. She does have a small to moderate size left pleural effusion, but denies any significant shortness of breath at present. She can likely be discharged tomorrow if she remains stable. I do not think her underlying process is related to COVID-19 viral pneumonia and I believe that she could be removed from isolation. I did discuss the case with the patient's hospitalist and infectious control. She will need case management involvement to assist with home nursing and drainage of the Pleurx catheter. I also spoke to the patient's daughter over the phone with the patient's permission who is a nurse. Thank you for the consult. We will continue to follow along with you. History of Present Illness Reason for Consultation: Right Pleurx catheter Attending Physician: Tanya Ronquillo MD History of Present Illness 60-year-old female with history of metastatic breast cancer and malignant right pleural effusion status post Pleurx catheter placement on 06/29/2021 as an outpatient. Subsequent to the Pleurx catheter placement she developed shortness of breath over the next 1 to 2 days with chest pain. She denies any fevers, chills or night sweats. She does have a cough that is mildly productive of white sputum. The Pleurx catheter was initially hooked up to suction and hospital admission and she has remained on waterseal since. Approximately 500 mL of pleural fluid is noted in the Suzi drain. I have asked the nurse to disconnect the tube from continuous suction and utilize a Pleurx catheter bottle. Approximately 150 mL of pleural fluid was removed. The patient saturations have been 99% on 2 L nasal cannula. She is currently on COVID-19 isolation precautions due to a positive test seen on 07/02/2021. He was also positive on 06/14/2021. She denies any overt Covid symptoms like rhinorrhea, fevers, loss of smell/taste or fatigue beyond the usual. Allergies Allergy/AdvReac Type Severity Reaction Status Date / Time No Known Allergies Allergy Verified 07/01/21 23:26 Home Medications Medication Instructions Recorded Confirmed Type anastrozole 1 mg tablet 1 mg PO QAM #30 tab 01/14/20 07/01/21 Rx zoledronic acid 4 mg/100 mL in 4 mg IV MONTHLY ml 09/15/20 07/01/21 History mannitol 5 %-water intravenous piggybck capecitabine 150 mg tablet 150 mg PO BID 06/04/21 07/01/21 History capecitabine 500 mg tablet (Xeloda) 500 mg PO BID tab 06/04/21 07/01/21 History acetaminophen 500 mg tablet 500 mg PO BID PRN 07/01/21 07/01/21 History artificial 1 drp OPB HS 07/01/21 07/01/21 History tears(hugncqb-lnaimagj-sytzbxf) 0.1 %-0.3 %-0.2 % eye drops (GenTeal Tears Moderate) carboxymethylcellulose sodium 1 % 1 drp OPB QID 07/01/21 07/01/21 History eye liquid gel drops (Refresh Liquigel) prednisolone acetate 1 % eye 1 drp OPB QID 07/01/21 07/01/21 History drops,suspension tramadol 50 mg tablet 50 mg PO Q6H PRN 07/01/21 07/01/21 History Patient History Medical History (Updated 07/02/21 @ 16:05 by Pérez West MD) Bone cancer met cancer Breast cancer dx about 2 months, will start chemo GERD (gastroesophageal reflux disease) Malignant pleural effusion Metastatic cancer spread to bone Nausea Normocytic hypochromic anemia Pathologic fracture of lumbar vertebra Pathologic fracture of thoracic vertebrae Pulmonary nodules Secondary malignant neoplasm of bone Surgical History History of bilateral tubal ligation Port-A-Cath in place (02/17/20) Insertion of Mediport Left Subclavian Vein Under Fluoroscopy Dr. Maria 02/17/2020 Family History (Updated 09/15/20 @ 13:39 by Anila Thompson) Mother , about age 82 Alzheimer disease Breast cancer Father , age 52 from MVA Motor vehicle accident Family/Other Breast cancer cousin Daughter Cancer Son Diabetes Other Asthma Hypertension Social History Smoking Status: Never smoker Second Hand Exposure: Yes (30 yrs ago); Hx Alcohol Use: No Hx Substance Use: No Preferred Language: Romanian Communication Ability: Effective Visual Impairment: No Limitations Grader Tender Required: No Beliefs That Will Affect Care: None marital status: Current Living Situation: Spouse and Family Current Living Situation Comment: lives with and son, 2 story home, with 1st floor set up current occupational status: previously employed 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 Eyes: Pupils are equal round and reactive to light. Conjunctivae are normal. Anicteric sclera. Neck: Trachea is midline. Visual inspection is normal. Respiratory: Diminished lung sounds bilaterally. No wheezes. Cardiovascular: Regular rate and rhythm. No murmurs. No edema. Gastrointestinal: Normal bowel sounds, soft, nontender and nondistended. No hepatosplenomegaly noted. Musculoskeletal: No cyanosis. Patient is able to move all extremities. Skin: No rashes, warm dry and intact. Neurologic: No obvious focal neurological deficits seen. Psychiatric: Alert and oriented x3 with a euthymic affect. Results & Data Results & Data ([facility]) Vital Signs (Past 12 Hours) Vital Signs Temp Pulse Pulse Resp BP Pulse Ox 07/02/21 15:54 86 07/02/21 15:46 36.8 C 79 17 98/58 L 99 07/02/21 12:47 114/74 07/02/21 12:01 36.6 C 83 18 109/63 96 07/02/21 08:00 80 07/02/21 07:48 36.4 C L 84 16 98/61 L 100 07/02/21 04:34 36.4 C L 83 18 104/60 97 PG Care Time/CCT Total # of Minutes Spent Total Time Spent with Patient: Total time spent is greater than 50% in coordination of care (as documented) at patient's floor/unit and/or counseling patient: Coding Level of Care Code 64264 Initial Inpt Care Lvl 3 Diagnoses Pneumothorax J93.9 Malignant pleural effusion J91.0 Shortness of breath R06.02
[2021-07-02] MEDS ORDERED: ARTIFICIAL TEARS OP SCH (21:00)
[2021-07-02] MEDS ORDERED: COUGH DROP (SUGAR FREE) LOZ 24 LOZ/1 BOX BUCCAL PRN (23:34)
[2021-07-03] MEDS ORDERED: HEPARIN 100 UNIT/ML 5ML FLUSH FLUSH PRN (00:05)
[2021-07-03 03:49] VITALS: BP 112/50; TEMP 98.6
--- NOTE | 2021-07-03 06:15 | Electrocardiogram Report ---
Test Reason : Blood Pressure : / mmHG Vent. Rate : 109 BPM Atrial Rate : 107 BPM P-R Int : 000 ms QRS Dur : 074 ms QT Int : 332 ms P-R-T Axes : 000 -09 -02 degrees QTc Int : 447 ms Sinus tachycardia Cannot rule out Inferior infarct Abnormal ECG When compared with ECG of 15-SEP-2020 14:10, No significant change Confirmed by Rosalio Corrigan ([id number]) on 07/03/2021 6:14:55 AM Referred By: REFERRED SELF Confirmed By:Rosalio Corrigan
[2021-07-03] MEDS: prednisoLONE acetate 1% OP SUSP 5 ML BTL OP SCH ×2 (08:50→13:45)
[2021-07-03] MEDS: ANASTROZOLE 1 MG TAB PO SCH (08:54)
[2021-07-03 09:24] LABS: Hematocrit (blood only) 32.1 % (37-47); Mean Corpuscular Hemoglobin 34.1 pg (25-34); Mean Corpuscular Hgb Conc 34.3 g/dL (32-36); Mean Corpuscular Volume 99.4 fL (80-100); RDW Coefficient of Variation 18.7 % (11.5-14.5); RDW Standard Deviation 68.6 fL (36.4-46.3); Red Blood Count 3.23 M/uL (4.2-5.4); White Blood Count 8.13 K/uL (4.8-10.8)
[2021-07-03 09:47] LABS: Mean Platelet Volume 11.6 fL (7.4-10.4); Platelet Count 60 K/uL (130-400)
[2021-07-03 09:52] LABS: Albumin Globulin Ratio 1.2 (0.9-2); Albumin Level 2.6 gm/dl (3.4-5.0); BUN Creatinine Ratio 45.1 (10-20); Bilirubin,Total 2.3 mg/dl (0.2-1.0); Calcium 7.7 mg/dl (8.5-10.1); Creatinine Clr Calc Pharmacy 98.8 ml/min; Est GFR (African American) 119.4 ml/min; Est GFR (Non-African American) 103.1 ml/min; Globulin 2.1 gm/dl (2.5-4.0); Potassium 4.1 mmol/L (3.5-5.1); Total Protein 4.7 gm/dl (6.0-8.3)
[2021-07-03] MEDS ORDERED: ZOLEDRONIC ACID 4 MG in 0.9 % SODIUM CHLORIDE 100 ML IV ONE (10:00)
[2021-07-03 10:09] LABS: Basophils # (auto) 0.02 K/uL (0-0.2); Basophils % (auto) 0.2 %; Eosinophils # (auto) 0.27 K/uL (0-0.5); Eosinophils % (auto) 3.3 %; Immature Granulocytes # (auto) 0.05 K/uL (0.00-0.02); Immature Granulocytes % (auto) 0.6 %; Lymphocytes # (auto) 0.68 K/uL (1.2-3.4); Lymphocytes % (auto) 8.4 %; Monocytes # (auto) 0.66 K/uL (0.11-0.59); Monocytes % (auto) 8.1 %; Neutrophils # (auto) 6.45 K/uL (1.4-6.5); Neutrophils % (auto) 79.4 %; Ovalocytes 1+; Poikilocytosis Present
[2021-07-03 12:07] LABS: Appearance Pleural Fluid CLOUDY; Color Pleural Fluid YELLOW; RBC Pleural Fluid (A) 6000 /uL; Source Pleural Fluid LEFT LUNG; WBC Pleural Fluid (A) 1622 /uL
[2021-07-03 12:16] LABS: Glucose Pleural Fluid 83 mg/dl
[2021-07-03 12:21] LABS: Amylase Pleural Fluid 11 U/L; LDH Pleural Fluid 233 U/L; Total Protein Pleural Fluid 2.5 g/dl
[2021-07-03 12:32] LABS: Basophils, Fluid 0 %; Eosinophils, Fluid 0 %; Lymphocytes, Fluid 0 %; Mono,Macrophage,Mesothelial 0 %; Neutrophils, Fluid 0 %
--- NOTE | 2021-07-03 12:46 | XRay Report ---
XR chest 1V portable CLINICAL HISTORY: Status post left thoracentesis. COMPARISON STUDY: Chest radiograph July 02, 2021. FINDINGS: Extensive skeletal metastases are again noted. Left subclavian Unumuo-e-Dnnr is in place. R ight pleural catheter remains in place. No pneumothorax is identified. The left pleural effusion has significantly decreased in size since prior exam. There is a small residual left pleural effusion. Ca rdiomediastinal silhouette is stable. IMPRESSION: 1. No pneumothorax following left thoracentesis. Significant decrease in size of the left pleural eff usion. 2. Right pleural catheter in place. No significant right pleural effusion. No right pneumothorax. ACT 112: Negative or not required by law. Electronically signed by: Allan Santamaria M.D. 07/03/2021 12:45 PM
--- NOTE | 2021-07-03 13:20 | Procedure Note ---
Procedure Note Date of Service July 03, 2021 Note INDICATION: Left pleural effusion PROCEDURE: Left thoracentesis DATE: 07/03/2021 TIME: 11:00 AM PROVIDER: Isacc Meade PA-C CONSENT: Was obtained prior to the procedure by Isacc Meade PA-C as delegated by Dr. West and placed on the chart PROCEDURE SUMMARY: Bedside ultra sound was performed to identify an appropriate puncture site. Images were saved to the [employer] system. A time out was performed. The patient was prepped and draped in a sterile manner using chlorhexidine scrub after the appropriate level was confirmed by ultrasound. 1% lidocaine was used to numb the region. A finder needle was then used under negative pressure to locate fluid and instill lidocaine into the pleural space. A small incision was made with a #10 scalpel. A needle with overlying catheter was advanced using negative pressure on the syringe until a pleural flash was obtained. The thoracentesis catheter was then threaded without difficulty and without any bleeding. The patient had 670 mL of kezia- colored fluid removed. The incision site was then covered with two Band-Aids with no evidence of bleeding. No immediate complications were noted during the procedure. Dr. West was contacted after the procedure with results. A post-procedure chest x-ray was completed and reviewed at bedside by this provider and no pneumothorax was identified. The patient tolerated the procedure well with no shortness of breath, no hypotension, no increase in heart rate, and no other acute symptoms. Coding CPT Codes Pulmonary/Thoracic - Pulmonary and Thoracic: 01250 Thoracentesis w imaging ([id number]) Pulmonary/Thoracic - Pulmonary and Thoracic: 58088 US, Chest, real time with imaging documentation ([id number]) [facility] [place]Charges) Pulmonary/Thoracic Procedure 1: Pulmonary and Thoracic: 16435 Thoracentesis w imaging Procedure 2: Pulmonary and Thoracic: 61949 US, Chest, real time with imaging documentation
--- NOTE | 2021-07-03 15:17 | Discharge Summary ---
Date of Service July 03, 2021 Admission HPI Per Admitting Provider This is a 60-year-old female with a history of metastatic breast cancer and malignant pleural effusion requiring Pleurx catheter placement, previous pericardial effusion with tamponade, recent COVID-19 approx. 2.5 weeks [employer], GERD, pancytopenia, who presented to [facility] for evaluation of chest wall pain and shortness of breath. Of note, patient called into pulmonary office on 06/29, who aids in management of her Pleurx catheter, reporting increased chest wall pain around the site of her Pleurx. This catheter was placed approx. 3 days ago. At that time, she denied shortness of breath, cough. She said the pain was mild. However, since that time, pain has gotten worse and she also notes associated shortness of breath with exertion. She denies any fevers, chills, night sweats, nausea, vomiting, diarrhea, or flulike symptoms. She follows with Dr. Mccoy for her breast cancer care. Review of notes reveals that this cancer is ER/IL positive, HER-2 negative unfortunately, she is known to have metastases to the liver, bones. She was started on Xeloda in March 2021 and also receives Zometa every 28 days. These are currently on-hold. Her last TTE was in 12/13, which demonstrated normal biventricular function with decrease in size of the known pre-existing pericardial effusion. No regional wall motion abnormalities On arrival in the ER, she was found to be in sinus tachycardia to 116 with an oxygen saturation of 88%, respiratory rate 22. She was afebrile. She was started on nasal cannula at 2L. Laboratories demonstrated elevated white count to 11 with neutrophilic predominance, platelet 52, sodium 135, total bilirubin 2.6/AST 101/ALT 27/ALP 107, negative troponin. Chest CT was obtained, which demonstrated persistence of a moderate sized right pleural effusion alongside 15 to 20% right-sided pneumothorax, moderate left-sided pleural effusion, diffuse skeletal and liver metastases. No evidence of PE. She was given fentanyl for pain. ED had spoke with Dr. Casey, Pulmonology, who recommended starting suction. Shortly after I initiated my visit with her, she did report appearance of sudden-onset 10/10 chest wall pain over the R anterior chest. It was not repr oducible to palpation. The suction was turned off. CXR was obtained STAT which did not appear to show expansion of the PNX. She was given Dilaudid 0.5mg IV once. A total of ~650cc was removed in the ER from the R chest. Symptoms improved shortly thereafter. Principal Diagnosis Pneumothorax, acute respiratory failure with hypoxia, metastatic breast cancer Discharge Exam Constitutional WD/WN, vitals as above Eyes + anicteric sclerae ENMT external ear and nose normal, oropharynx normal Neck trachea midline, no thyromegaly Respiratory normal respiratory effort; no cough Auscultation: + diminished lung sounds (at bases bilat); no crackles and no wheezes Cardiovascular RRR, no murmur, no edema Chest (Breasts) Chest: normal inspection of chest Gastrointestinal (Abdomen) normal bowel sounds, soft, nontender, no hepatosplenomegaly Musculoskeletal Extremities: extremities normal to inspection; no cyanosis and no clubbing Skin no rashes, warm and dry Neurologic moves all extremities and awake; no focal motor deficits Psychiatric A+Ox3, euthymic affect Lymphatic no lymphedema Discharge Data Allergies Allergy/AdvReac Type Severity Reaction Status Date / Time capecitabine AdvReac Intermediate SEE COMMENT Verified 07/08/21 03:05 Consultations 07/01/21 23:32 ED Decision to Admit Stat 07/02/21 01:30 Consult Pulmonology Routine Ordered Studies 07/01/21 21:02 CT angio chest PE protocol Stat 07/02/21 12:58 CT abd pelvis IV con only Routine 07/03/21 10:01 US point of care ultrasound Routine Hospital Course (1) Right-sided chest pain: This is a 60-year-old female with a history of metastatic breast cancer and malignant pleural effusion requiring Pleurx catheter placement, previous pericardial effusion with tamponade, recent COVID-19 approx. 2.5 weeks [employer], GERD, pancytopenia, who presented for evaluation of chest wall pain and shortness of breath, subsequently found to have mild hypoxia and evidence of an enlarged L-sided pleural effusion and R-sided PNX involving 15-20% of the lung volume. Acute Hypoxic Respiratory Failure - Likely secondary to enlarging L-sided pleural effusion, known R pleural effusion, and PTX involving 15-20% of the lung - CTA-chest demonstrating persistence of a moderate sized right pleural effusion alongside 15 to 20% right-sided pneumothorax, moderate left-sided pleural effusion, diffuse skeletal and liver metastases; no evidence of PE. - Blood counts stable. No evidence of ACS with troponin, ECG. Appears euvolemic. No obvious ongoing infectious process appreciated on CXR - effusions, as above, noted - Required minimal amounts of O2 on admission but none needed upon discharge with formal 2 step walk test - s/p removal of ~650cc of fluid in the ED via PleurX suction on arrival and then 100mL the next day -repeat CXR with no PTX seen by day of discharge - Pulmonary consulted, as below Bilateral Pleural Effusions - Patient with known history of metastatic breast cancer and associated malignant pleural effusions (see pathology tab) - Interval appearance of L-sided pleural effusion: does seem to have grown compared to previous imaging studies. --> Of note, patient did have this drained (L side) on 09/19/[address] Spence - s/p placement of R sided PleurX chest tube that did yield ~650cc in the ED - Consult pulmonology: appreciate insight, recommendations on need for L-sided thoracentesis- thoracentesis was performed on the LEFT on the day of discharge with improvement in symptoms of SOB. -continue every other day drainage of PleurX after discharge with daughter who is a RN (was given training by our RN) Pneumothorax - R-sided PTX estimated to involve 15-20% of the lung space noted on CT -- suspect secondary to previous procedure/PleurX placement -PleurX catheter in-place on the R side for effusion -as above, resolved R-sided Chest Wall Pain - Patient reporting pain within the R chest wall, worse with deep inspiration, associated with +SOB over last several days, as above - In setting of PTX, pleural effusions, PleurX catheter on same size -- as above - now much improved with improvement in PTX, drainage of large amount of fluid from PleurX, and toradol, dilaudid Metastatic Breast Cancer - Patient with known history of diffusely metastatic breast cancer involving ribs, spine, liver - [facility] -- recently on capecitabine, held due to side effects - Continue anastrazole - Continue tramadol Transaminitis / Hyperbilirubinemia - Persistence of elevated TBili (2.6), AST 101 with seemingly-normal ALT (27), ALP (107), Alb 3.0 that has been noted for >months - In setting of known liver metastatic burden, as demonstrated on imaging - Suspect secondary to the above. Capecitabine also known to cause hyperbilirubinemia too. No abdominal symptoms. - CT abd/pel performed here as per Oncology request shows smaller tumor burden in liver, still with diffuse bony mets Code: FULL CODE Dispo: dc to home (2) Pneumothorax: (3) Metastatic breast cancer: (4) Elevated LFTs: (5) Acute pericardial effusion: (6) Shortness of breath: (7) TOWNSEND (dyspnea on exertion): (8) Pericardial effusion with cardiac tamponade: Total Time Total Time Spent Total Time Spent (In Minutes): 35 min Discharge Plan Discharge Items Patient Disposition: Home - Home Health Services Reason For Visit: SOB, CHEST PAIN -WORSENONG PLUERAL EFFUSIONS Discharge Diagnosis: Pleural effusions, pneumothorax Condition on Discharge: Fair Activity: Resume your previous activity Non-emergency contact: Primary Care Provider, Oncologist and Magazine Feeder Call non-emergency contact if: you have any medication questions, your symptoms worsen, your pain is not controlled, your pain is worsening and you have a fever Follow-up/Referrals: Won Spence MD [Physician] - 07/17/21 3:30 pm Nicci Montiel PA-C [Physician House Director] - (Follow up within 1 week) Aston Marshall MD [Primary Care Provider] - (Follow up within 1-2 weeks.) Diet: Regular Addtl Attending Provider Instructions: Please continue to drain your PleurX catheter once every other day. Follow up with Pulmonology as scheduled on 07/17/21. Please go to the cancer center to have labs done on this Thursday 07/06. Your X eloda treatment is on hold until your platelet count improves a bit more. Pending Studies at Discharge: Yes (Pleural fluid cultures) Stand-Alone Forms: My [facility] [employer] Medications and DC Order Prescriptions: Continued zoledronic oebh-cnzrhgoi-osglz 4 mg/100 mL piggyback 4 mg IV MONTHLY RF: 0 anastrozole 1 mg Tablet 1 mg PO QAM Qty: 30 RF: 0 prednisolone acetate 1 % drops,suspension 1 drp OPB QID RF: 0 carboxymethylcellulose sodium [Refresh Liquigel] 1 % Drops, Liquid Gel 1 drp OPB QID RF: 0 GenTeal Tears Moderate 0.1-0.3-0.2 % Drops 1 drp OPB HS RF: 0 tramadol 50 mg tablet 50 mg PO Q6H PRN (Reason: Pain) RF: 0 acetaminophen 500 mg Tablet 500 mg PO BID PRN (Reason: Pain) RF: 0 Discontinued capecitabine 150 mg tablet 150 mg PO BID RF: 0 capecitabine [Xeloda] 500 mg tablet 500 mg PO BID RF: 0 Discharge Orders: Discharge Order (Routine); Ordered 07/03/21 Ordered By: Tanya Ronquillo Admission Data Admit Date/Time: 07/02/21 01:31 Attending Provider: Tanya Ronquillo Admit Provider: Raijv Lu Primary Care Provider: Aston Marshall Other Providers: Sony Santos ; Pérez West ; [facility],Home Healthcare Other Interventions: *Nursing Shift Assessment Last Done: 07/03/21 08:00 Discharge Summary Assessment (RN) Last Done: 07/03/21 15:40 Coding Level of Care Code D/C DAY MANAGEMENT >30 MINS Diagnoses Right-sided chest pain R07.9 Pneumothorax J93.9 Metastatic breast cancer C50.919 Elevated LFTs R79.89 Acute pericardial effusion I30.9 Shortness of breath R06.02 TOWNSEND (dyspnea on exertion) R06.00 Pericardial effusion with cardiac tamponade I31.3; I31.4
--- NOTE | 2021-07-03 15:39 | Pulmonology Progress Note ---
Date of Service July 03, 2021 Assessment & Plan (1) Malignant pleural effusion: (2) Pneumothorax: (3) Shortness of breath: Plan: Attending: Dr. West Impression: 60-year-old female admitted with shortness of breath. Found to have pneumothorax on the right. Recent placement of Pleurx catheter by Dr. Spence. Patient was placed to suction and fluid was evacuated. Repeat chest x-ray shows no pneumothorax today. Patient also with left pleural effusion. Patient with known metastatic breast cancer and metastatic pleural effusion. Consent obtained to perform thoracentesis later today. Reviewed with Dr. West. Recommendations: 1. Left pleural effusion * Consent was obtained from the patient and the daughter to perform left-sided thoracentesis * Patient with no malignant fluid from previous placement Pleurx catheter * No absolute contraindications to doing the procedure. We will plan on doing thoracentesis later today. 2. Right pneumothorax * Resolved on chest x-ray today * Patient with right-sided Pleurx catheter * Continue to monitor vital signs. * Discussed findings with daughter Harriet as well as patient today 3. Right Pleurx catheter * Patient can have fluid drained every other day * At this time case management having difficulty with locating home health agency to assist * Discussion with [employer]un[employer] Baires, transfer and pumphouse operator. Will allow patient's daughter who is a nurse at [employer] to go onto the [facility] to receive training on draining Pleurx catheter * Discussed with Dr. Ronquillo. Patient does have Pleurx cancer [place] home. We will send her home with an additional 4 drainage kits. * Case management will continue to work with patient to coordinate home health for assistance with drainage * At this time we will have the daughter come in today for training and drainage of the catheter. Advised the daughter to drain again late tomorrow. The daughter is in working and Friday so the plan will be for patient to have Pleurx catheter drained again first thing Friday morning At this time the pulmonary service will sign off. From our perspective it is okay to discharge the patient home. Continue to work with case management on home health agencies for supportive care at home regarding Pleurx catheter. Admission and Anticipated Discharge Date Admission Date: July 02, 2021 Subjective Attending: Dr. West Patient seen and examined in room 212. She has no acute distress. She is currently on low supplemental oxygen at 2 L/min via nasal cannula. Chest x-ray revealed. Patient with Pleurx catheter on the right and left pleural effusion in addition. Patient denies any cough or sputum production. No fever or chills. He is not on any anticoagulant, antiplatelet agent. Review of Systems Review of Systems: All systems reviewed & are unremarkable except as noted in Subjective Physical Exam Physical Exam: GENERAL : No acute distress EYES: No icterus, gaze conjugate NOSE: No evidence of epistaxis MOUTH: No lesions or candidiasis NECK: Supple LUNGS: Decreased breath sounds bilaterally. No rales or rhonchi appreciated. HEART: Regular, rate controlled ABDOMEN: Soft, NT, ND, BS Present EXTREMITIES: No LE edema, pedal pulses intact NEURO: A&OX3 Results & Data Results & Data ([facility]) Vital Signs (Past 12 Hours) Vital Signs Temp Pulse Pulse Pulse Pulse Pulse Resp 07/03/21 14:36 107 H 102 H 77 07/03/21 08:00 87 07/03/21 03:49 37.0 C 99 H 14 Resp Resp Resp BP Pulse Ox Pulse Ox Pulse Ox 07/03/21 14:36 26 H 22 18 91 91 07/03/21 08:00 07/03/21 03:49 112/50 L 91 Pulse Ox 07/03/21 14:36 93 07/03/21 08:00 07/03/21 03:49 Laboratory Results 07/03/21 09:15 07/03/21 09:15 PG Care Time/CCT Total # of Minutes Spent Total Time Spent with Patient: Total time spent is greater than 50% in coordination of care (as documented) at patient's floor/unit and/or counseling patient: Coding Level of Care Code 37671 Subseq Hosp Care Lvl 2 Diagnoses Malignant pleural effusion J91.0 Pneumothorax J93.9 Shortness of breath R06.02 Time Spent (min) 40 Comment Including multiple visits to patient and phone calls to daughter/discharge planning
[2021-07-03 15:43] VITALS: O2SAT 91
[2021-07-03 16:01] VITALS: PULSE 64
--- NOTE | 2021-07-09 19:34 | Billing Data ---
Date of Service July 09, 2021 Coding Level of Care Code 49643 Initial Inpt Care Lvl 3
== END 2021-07-03 16:40 | disposition home health service (06) ==
LOC: ED 20:38 → INTOOBSV 07-02 01:31 → SUATTDRO 07-02 01:31 → 2E 07-02 03:55

== ENCOUNTER 2021-07-08 00:57 | Inpatient (IN) ==
[2021-07-08] MEDS ORDERED: ONDANSETRON INJ 2 MG/ML 2 ML VIAL IV STA (01:10)
[2021-07-08] MEDS ORDERED: SODIUM CHLORIDE 0.9% 500 ML IV STA (01:10)
--- NOTE | 2021-07-08 01:25 | Emergency Department Note ---
Impression & Plan Malignant neoplasm of breast metastatic to bone, Leukocytosis, Nausea & vomiting ADMIT ED Provider Note HPI: The patient is a 60-year-old female with history of metastatic breast cancer, stage IV, malignant pleural effusions, Pleurx catheter of the right lung, presents the emergency department with her daughter at the bedside over concern for nausea and vomiting that began acutely this afternoon. Patient has had multiple rounds of oral Zofran without relief. On arrival to the ED the patient is hemodynamically stable, she appears in mild distress secondary to nausea, she is very frail/cachectic appearing. She is alert and she is able to respond to my questions appropriately. She does admit to some generalized abdominal pain with her nausea and vomiting today. On arrival to the ED the patient is alert, she is saturating well on 2 L nasal cannula oxygen at 98%. Blood pressure is stable. ROS: -GI: Nausea and vomiting *10 point review systems was conducted and is otherwise negative unless stated above *Outpatient medications and allergy history reviewed PE: General: Alert, frail appearing, cachectic HEENT: Normocephalic, atraumatic Eyes: Extraocular eye movement is intact, no scleral erythema Pulmonary: Clear to auscultation bilaterally Cardio: Regular rate and rhythm GI: Abdomen is soft, moderate tenderness to palpation diffusely, no guarding or rigidity : No suprapubic tenderness MSK: No evidence of trauma or malformation of the extremities, no edema Skin: No evidence of rash Neuro: Alert, no focal deficits Psychiatric: Cooperative continuous still operator: - An order was placed for continuous cardiac monitoring - Patient was noted to be in sinus rhythm with rate of 80 EKG: Rate: 94 Rhythm: Normal sinus rhythm Intervals: Within normal limits ST changes: No ST elevation Time: 0130 Medical Decision Making: Patient presented to the emergency department with nausea and vomiting as well as abdominal discomfort in the setting of stage IV breast cancer that is metastatic, she is noted to have lesions in the liver, she also has history of complicated issues with malignant pleural effusions, she is a Pleurx catheter. On arrival here to the ED she is hemodynamically stable but she is frail- appearing, cachectic. Lab work was obtained that shows evidence of a worsening leukocytosis, white blood cell count is greater than 15,000 today, there is a left shift, blood cultures were ordered as well as lactic acid, patient was given IV fluid bolus. Broad-spectrum antibiotics were initiated with vancomycin and Zosyn. CT imaging of the chest as well as CT imaging of the abdomen and pelvis are ordered, per my interpretation there is evidence of a left-sided pleural effusion, no obvious large bowel obstruction is noted, official read is pending by radiology as there is currently a delay with STAT RAD interpretations. At this time I do think the patient will need to be admitted to the hospital for possible early bacteremia. Blood cultures were drawn in the ED, patient was initiated on broad-spectrum antibiotics, on my reassessment following morphine and Zofran she states she is feeling improved. Her leukocytosis is worsened acutely since yesterday, she does have a worsening left shift. I discussed the above findings with the on-call hospitalist, Dr. Davison, who admitted the patient to a telemetry bed for further care. Patient was admitted in stable condition. Diagnosis: 1. Metastatic breast cancer 2. Nausea and vomiting 3. Leukocytosis with left shift 4. Malignant pleural effusion, left side Disposition: Admission Chon Montoya DO Emergency Medicine Past Med/Surg History Medical History Acute pericardial effusion Bone cancer met cancer GERD (gastroesophageal reflux disease) Malignant pleural effusion Multiple fractures of ribs Normocytic hypochromic anemia Pathologic fracture of lumbar vertebra Pathologic fracture of thoracic vertebrae Pneumothorax Pulmonary nodules Secondary malignant neoplasm of bone Surgical History History of bilateral tubal ligation Port-A-Cath in place (02/17/20) Insertion of Mediport Left Subclavian Vein Under Fluoroscopy Dr. Maria 02/17/2020 Family History Mother , about age 82 Alzheimer disease Breast cancer Father , age 52 from MVA Motor vehicle accident Family/Other Breast cancer cousin Daughter Cancer Son Diabetes Other Asthma Hypertension Social History Smoking Status: Never smoker Second Hand Exposure: Yes (30 yrs ago); Hx Alcohol Use: No Hx Substance Use: No Preferred Language: Icelandic Communication Ability: Effective Visual Impairment: No Limitations Notcher Required: No Beliefs That Will Affect Care: None marital status: Current Living Situation: Spouse and Family Current Living Situation Comment: lives with and son, 2 story home, with 1st floor set up current occupational status: previously employed 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; 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; 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 How many Children do You have: 3 How many Children do You have Comment: 1 child developmentally disable Feels Safe at Home: Yes Assistive Devices: None Allergies Allergies Allergy/AdvReac Type Severity Reaction Status Date / Time capecitabine AdvReac Intermediate SEE COMMENT Verified 07/08/21 03:05 Home Meds Home Medications Medication Instructions Recorded Confirmed zoledronic acid 4 mg/100 mL in 4 mg IV MONTHLY ml 09/15/20 07/08/21 mannitol 5 %-water intravenous piggybck acetaminophen 500 mg tablet 500 mg PO BID PRN 07/01/21 07/08/21 artificial 1 drp OPB HS 07/01/21 07/08/21 tears(defkyky-olakxocg-dpgysza) 0.1 %-0.3 %-0.2 % eye drops (GenTeal Tears Moderate) carboxymethylcellulose sodium 1 % 1 drp OPB QID 07/01/21 07/08/21 eye liquid gel drops (Refresh Liquigel) prednisolone acetate 1 % eye 1 drp OPB QID 07/01/21 07/08/21 drops,suspension tramadol 50 mg tablet 50 mg PO Q6H PRN 07/01/21 07/08/21 Previous Rx's Medication Instructions Recorded anastrozole 1 mg tablet 1 mg PO QAM #30 tab 01/14/20 Results & Data (ED) Vital Signs Vital Signs - 24 hr 07/08/21 01:03 07/08/21 01:49 07/08/21 02:45 Temperature 37.1 C Temperature Source Temporal Artery Scan Pulse Rate 108 H 98 H Pulse Rate [Left Radial] 92 H 78 Pulse Rhythm Regular Pulse Rhythm [Left Radial] Regular Regular Pulse Strength [Left Radial] Normal Normal Respiratory Rate 24 14 14 Respiratory Effort / Characteristics Spontaneous Non-Labored Non-Labored Respiratory Depth Normal Normal Respiratory Pattern Regular Regular Blood Pressure 100/69 Blood Pressure [Left Arm] 106/64 Blood Pressure Mean 79 Blood Pressure Mean [Left Arm] 78 Blood Pressure Position Sitting Blood Pressure Position [Left Arm] Lying Pulse Oximetry 92 98 98 Oxygen Delivery Method Room Air Nasal Cannula Nasal Cannula Oxygen Flow Rate 2 Sepsis Recent Fever Within 48 Hours No Sepsis New/Unexplained Change in Mental Status No Sepsis Action Taken by Nursing No Action Required Laboratory Data Result diagrams: 07/08/21 01:34 07/08/21 01:34 Lab Results 07/08/21 07/08/21 07/08/21 Range/Units 01:34 01:34 02:25 WBC 15.38 H (4.8-10.8) K/uL RBC 3.52 L (4.2-5.4) M/uL Hgb 11.9 L (12.0-16.0) g/dL Hct 35.1 L (37-47) % MCV 99.7 (80-100) fL MCH 33.8 (25-34) pg MCHC 33.9 (32-36) g/dL RDW Std Deviation 68.9 H (36.4-46.3) fL RDW Coeff of Fritz 19.0 H (11.5-14.5) % Plt Count 105 L (130-400) K/uL MPV 12.9 H (7.4-10.4) fL Immature Gran % (Auto) 2.1 % Neut % (Auto) 79.6 % Lymph % (Auto) 7.3 % [place] % (Auto) 9.1 % Eos % (Auto) 1.6 % Baso % (Auto) 0.3 % Neut # (Auto) 12.23 H (1.4-6.5) K/uL Lymph # (Auto) 1.13 L (1.2-3.4) K/uL [place] # (Auto) 1.40 H (0.11-0.59) K/uL Eos # (Auto) 0.25 (0-0.5) K/uL Baso # (Auto) 0.04 (0-0.2) K/uL Immature Gran # (Auto) 0.33 H (0.00-0.02) K/uL Absolute Nucleated RBC 0.22 H (0-0) K/uL Nucleated RBC % (auto) 1.5 % Polychromasia 1+ Poikilocytosis Present Sodium 131 L (136-145) mmol/L Potassium 4.6 (3.5-5.1) mmol/L Chloride 101 (98-107) mmol/L Carbon Dioxide 21 (21-32) mmol/L Anion Gap 9 (3-11) BUN 24 H (6-23) mg/dl Creatinine 0.62 (0.6-1.2) mg/dl Est Cr Clr Drug Dosing Not Reportable Est GFR ( Amer) 112.0 ml/min Est GFR (Non-Af Amer) 96.6 ml/min BUN/Creatinine Ratio 38.7 H (10-20) Glucose 111 H (70-99(Fasting)) mg/dl Lactate 1.3 (0.4-2.0) mmol/L Calcium 7.9 L (8.5-10.1) mg/dl Total Bilirubin 2.3 H (0.2-1.0) mg/dl AST 136 H (13-39) U/L ALT 32 (7-52) U/L Alkaline Phosphatase 141 H (34-104) U/L Troponin I < 0.03 (0-0.04) ng/ml Total Protein 4.9 L (6.0-8.3) gm/dl Albumin 2.8 L (3.4-5.0) gm/dl Globulin 2.1 L (2.5-4.0) gm/dl Albumin/Globulin Ratio 1.3 (0.9-2) Lipase 4 L (11-82) U/L Administered Medications Discontinued Medications Sodium Chloride (Nss) 500 mls @ 999 mls/hr IV .Q31M STA Stop: 07/08/21 01:40 Last Infusion: 07/08/21 02:10 Dose: 0 mls/hr Documented by: [id number] Admin: 07/08/21 01:38 Dose: 999 mls/hr Documented by: [id number] Ioversol (Optiray 320 125ml) 120 ml IV ONCE ONE Stop: 07/08/21 03:26 Last Admin: 07/08/21 03:25 Dose: 120 ml Documented by: [id number] Metoclopramide HCl (Metoclopramide Hcl Inj 5 Mg/Ml 2 Ml Vial) 10 mg IV NOW STA Stop: 07/08/21 01:27 Last Admin: 07/08/21 01:38 Dose: 10 mg Documented by: [id number] Morphine Sulfate (Morphine Sulfate 4 Mg/Ml 1 Ml Carp\Vial) 4 mg IV NOW STA Stop: 07/08/21 01:27 Last Admin: 07/08/21 01:38 Dose: 4 mg Documented by: [id number] Ondansetron HCl (Ondansetron Inj 2 Mg/Ml 2 Ml Vial) 4 mg IV NOW STA Stop: 07/08/21 01:11 Last Admin: 07/08/21 01:52 Dose: Not Given Documented by: [id number] Discharge Plan Visit Data Chief Complaint: Nausea Stated Complaint: NAUSEA,VOMITING,ABD ED Provider: Chon Montoya Discharge Problem: Malignant neoplasm of breast metastatic to bone, Leukocytosis, Nausea & vomiting Forms Stand Alone Forms: My [facility] [employer] Prescriptions Prescriptions: No Action zoledronic bplt-hagfectc-ozvia 4 mg/100 mL piggyback 4 mg IV MONTHLY RF: 0 anastrozole 1 mg Tablet 1 mg PO QAM Qty: 30 RF: 0 prednisolone acetate 1 % drops,suspension 1 drp OPB QID RF: 0 carboxymethylcellulose sodium [Refresh Liquigel] 1 % Drops, Liquid Gel 1 drp OPB QID RF: 0 GenTeal Tears Moderate 0.1-0.3-0.2 % Drops 1 drp OPB HS RF: 0 tramadol 50 mg tablet 50 mg PO Q6H PRN (Reason: Pain) RF: 0 acetaminophen 500 mg Tablet 500 mg PO BID PRN (Reason: Pain) RF: 0 Referrals Referrals: Aston Marshall MD [Primary Care Provider] - Discharge Problem: Leukocytosis Qualifiers: Leukocytosis type: unspecified Qualified Code(s): D72.829 - Elevated white blood cell count, unspecified Nausea & vomiting Qualifiers: Vomiting type: unspecified Qualified Code(s): R11.2 - Nausea with vomiting, unspecified
[2021-07-08] MEDS ORDERED: METOCLOPRAMIDE HCL INJ 5 MG/ML 2 ML VIAL IV STA (01:26)
[2021-07-08] MEDS ORDERED: MoRPHine SULFATE 4 MG/ML 1 ML CARP\\VIAL IV STA (01:26)
[2021-07-08 02:07] LABS: Hematocrit (blood only) 35.1 % (37-47); Hemoglobin 11.9 g/dL (12.0-16.0); Mean Corpuscular Hemoglobin 33.8 pg (25-34); Mean Corpuscular Hgb Conc 33.9 g/dL (32-36); Mean Corpuscular Volume 99.7 fL (80-100); Mean Platelet Volume 12.9 fL (7.4-10.4); Nucleated RBC # (auto) 0.22 K/uL (0-0); Nucleated RBC % (auto) 1.5 %; Platelet Count 105 K/uL (130-400); RDW Standard Deviation 68.9 fL (36.4-46.3); Red Blood Count 3.52 M/uL (4.2-5.4); White Blood Count 15.38 K/uL (4.8-10.8)
[2021-07-08 02:09] LABS: Basophils # (auto) 0.04 K/uL (0-0.2); Basophils % (auto) 0.3 %; Eosinophils # (auto) 0.25 K/uL (0-0.5); Eosinophils % (auto) 1.6 %; Immature Granulocytes # (auto) 0.33 K/uL (0.00-0.02); Immature Granulocytes % (auto) 2.1 %; Lymphocytes # (auto) 1.13 K/uL (1.2-3.4); Lymphocytes % (auto) 7.3 %; Monocytes % (auto) 9.1 %; Neutrophils # (auto) 12.23 K/uL (1.4-6.5); Neutrophils % (auto) 79.6 %; Poikilocytosis Present; Polychromasia 1+
[2021-07-08 02:15] LABS: Troponin I < 0.03 ng/ml (0-0.04)
[2021-07-08 02:19] LABS: Alanine Aminotransferase 32 U/L (7-52); Albumin Globulin Ratio 1.3 (0.9-2); Albumin Level 2.8 gm/dl (3.4-5.0); Alkaline Phosphatase 141 U/L (34-104); Anion Gap 9 (3-11); Aspartate Aminotransferase 136 U/L (13-39); BUN Creatinine Ratio 38.7 (10-20); Bilirubin,Total 2.3 mg/dl (0.2-1.0); Blood Urea Nitrogen 24 mg/dl (6-23); Calcium 7.9 mg/dl (8.5-10.1); Carbon Dioxide 21 mmol/L (21-32); Chloride 101 mmol/L (98-107); Est GFR (Non-African American) 96.6 ml/min; Globulin 2.1 gm/dl (2.5-4.0); Glucose 111 mg/dl (70-99(Fasting)); Lipase 4 U/L (11-82); Potassium 4.6 mmol/L (3.5-5.1); Sodium 131 mmol/L (136-145); Total Protein 4.9 gm/dl (6.0-8.3)
[2021-07-08] MEDS ORDERED: PIPERACILLIN/TAZOBACTAM 3.375 GM in DEXTROSE 5% 100 ML/100 ML BAG IV STA (02:34)
[2021-07-08] MEDS ORDERED: VANCOMYCIN CONSULT ACTIVE PRN ×2 (02:34→10:55)
[2021-07-08] MEDS ORDERED: VANCOMYCIN HCL 1,000 MG in SODIUM CHLORIDE 0.9% 500 ML IV ONE (02:34)
[2021-07-08] MEDS ORDERED: PIPERACILL/TAZOBAC CONSULT ACTIVE PRN ×2 (02:34→10:55)
[2021-07-08] MEDS ORDERED: OPTIRAY 320 125ml IV ONE (03:25)
--- NOTE | 2021-07-08 04:44 | History & Physical Report ---
Date of Service July 08, 2021 Assessment & Plan (1) Nausea & vomiting: Plan: 60yo female with metastatin breast cancer (ER/OR+, Her-2 -) on Tamoxifen and Xeloda which are currently on hold, known metastatic disease to liver and bone, malignant pleural effusion s/p right PleurX catheter, history of pericardial effusion s/p drainage. Patient with nausea and vomiting for the last several days. Poor oral intake. Became worse this evening which prompted them to come to the ER. Dizziness as well specifically with motion. Labs are significant for worsening leukocytosis with WBC 10.86 --> 15.38. Stable LFTs Ddx to include occult infection, progression of disease, dehydration, brain metastases -Check MRI brain -IVF and electrolyte repletion -Zofran PRN -Consider ativan PRN nausea -Awaiting CT of the abdomen read (2) Malignant pleural effusion: Plan: PleurX catheter in place. Cared for by daughter. Drainage has been kezia, clear, appx 500 - 550 out with last several drainages. -Routine care -Drainage q 48 hours (3) Metastatic breast cancer: Plan: Noted. Patient follows with Oncology. Is due to see them later this week to discuss potentially resuming chemo -Continue to home chemotherapy, tamoxifen -Pain control with Tramadol PRN (4) Elevated LFTs: Plan: Near baseline. Known metastatic disease to liver -Repeat LFTs in AM -Awaiting CT Abdomen (5) GERD (gastroesophageal reflux disease): Plan: Chronic. Not on medications -Will start Protonix, Maalox. GERD may be contributing to nausea (6) COVID: Plan: Patient is Covid-19 POSITIVE today. Was POSITIVE on 06/18/20 as well - day 21. No hypoxia or fever. -Can discontinue precautions History of Present Illness Chief Complaint: nausea Primary Care Provider: Aston Marshall MD Audra Lynn is a pleasant 60yo female with history of metastatic breast cancer (ER/OR+, HER-2 NEG) on Anastrazole and Xeloda which have been on hold per Oncology for the last several weeks due to LFT abnormalities and thrombocytopenia. Patient with malignant pleural effusion s/p PleurX catheter placement as well as known metastatic disease to the liver and bone. Patient was admitted 07/02 - 07/03 with shortness of breath. She was found to have a moderate right sided pleural effusion, a 15-20% right sided PTX and a moderate left sided pleural effusion as well. She had a PleurX catheter placed with drainage of 650mL of fluid. Patient returns to the ER today with complaint of dizziness and nausea. She has been intermittently nauseous for the last several days, worse this evening after dinner. She has had decreased oral intake. She tries to force herself to eat but it is difficult for her. She has vomited several times this evening - non-bloody/non-bilious. She has some lower abdominal discomfort as well. She has weakness and dizziness, difficulty ambulating as well as shortness of breath. The nausea is worsened by movement. She denies fever, chills, chest pain, cough. Denies focal neurological deficits, headache, visual changes. No additional complaints at this time. Her daughter is a nurse here at [facility] and helps to manage her care. She drains the PleurX q48 hours. Last drained today - 500mL of clear kezia fluid. She is still having some discomfort at the PleurX catheter site. Daughter states that it is very slightly red but does not appear to be infected. Patient's Covid-19 test today is POSITIVE. She was also POSITIVE on 06/18 (21 days ago) ER Course: Vancomycin 1gm, Zosyn 3.375gm, Morphine 4mg, Reglan 10mg, NSS x 500mL, Zofran Allergies Allergy/AdvReac Type Severity Reaction Status Date / Time capecitabine AdvReac Intermediate SEE COMMENT Verified 07/08/21 03:05 Home Medications Medication Instructions Recorded Confirmed Type anastrozole 1 mg tablet 1 mg PO QAM #30 tab 01/14/20 07/08/21 Rx zoledronic acid 4 mg/100 mL in 4 mg IV MONTHLY ml 09/15/20 07/08/21 History mannitol 5 %-water intravenous piggybck acetaminophen 500 mg tablet 500 mg PO BID PRN 07/01/21 07/08/21 History artificial 1 drp OPB HS 07/01/21 07/08/21 History tears(fsuedsc-uwfqfxac-gxiricl) 0.1 %-0.3 %-0.2 % eye drops (GenTeal Tears Moderate) carboxymethylcellulose sodium 1 % 1 drp OPB QID 07/01/21 07/08/21 History eye liquid gel drops (Refresh Liquigel) prednisolone acetate 1 % eye 1 drp OPB QID 07/01/21 07/08/21 History drops,suspension tramadol 50 mg tablet 50 mg PO Q6H PRN 07/01/21 07/08/21 History Past Med/Surg History Medical History Acute pericardial effusion Bone cancer met cancer GERD (gastroesophageal reflux disease) Malignant pleural effusion Multiple fractures of ribs Normocytic hypochromic anemia Pathologic fracture of lumbar vertebra Pathologic fracture of thoracic vertebrae Pneumothorax Pulmonary nodules Secondary malignant neoplasm of bone Surgical History History of bilateral tubal ligation Port-A-Cath in place (02/17/20) Insertion of Mediport Left Subclavian Vein Under Fluoroscopy Dr. Maria 02/17/2020 Family History Mother , about age 82 Alzheimer disease Breast cancer Father , age 52 from MVA Motor vehicle accident Family/Other Breast cancer cousin Daughter Cancer Son Diabetes Other Asthma Hypertension Social History Smoking Status: Never smoker Second Hand Exposure: Yes (30 yrs ago); Hx Alcohol Use: No Hx Substance Use: No Preferred Language: Polish Communication Ability: Effective Visual Impairment: No Limitations Project Inspector Required: No Beliefs That Will Affect Care: None marital status: Current Living Situation: Spouse and Family Current Living Situation Comment: lives with and son, 2 story home, with 1st floor set up current occupational status: previously employed 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; 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; [employer] 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 How many Children do You have: 3 How many Children do You have Comment: 1 child developmentally disable Feels Safe at Home: Yes Assistive Devices: None Review of Systems Review of Systems: All systems reviewed & are unremarkable except as noted in HPI & below Physical Exam Physical Exam: General: cachectic, chronically ill in appearance Skin: warm, dry, intact, no rashes or lesions HEENT: NC/AT, PERRL, EOMI, anicteric sclera, conjunctiva without injection, external ear normal to inspection and nontender, nares patent, dry mucus membranes, dentition intact, no oropharyngeal lesions, neck supple, trachea midline, no LAD, no thyromegaly, no JVD Heart: +S1/S2, regular, no m/r/g, left chest CVC with dressing in place, no redness/drainage Lungs: equal air entry bilaterally, no rales/rhonchi/wheezes, PleurX on right, no redness/drainage Abd: +BS, soft, NT/ND, no masses/organomegaly/ascites Ext: warm, 2+ pulses in UE/LE bilaterally, no clubbing/cyanosis or edema Neuro: nonfocal, patient AA&O x 4, speech intact, no facial droop, moving all extremities on command with equal strength 5/5 Results & Data Results & Data ([facility]) Vital Signs (Past 12 Hours) Vital Signs Temp Pulse Pulse Resp BP BP Pulse Ox 07/08/21 02:45 78 14 106/64 98 07/08/21 01:49 98 H 92 H 14 98 07/08/21 01:03 37.1 C 108 H 24 100/69 92 Laboratory Results Laboratory Results WBC 15.38 K/uL (4.8-10.8) H 07/08/21 01:34 RBC 3.52 M/uL (4.2-5.4) L 07/08/21 01:34 Hgb 11.9 g/dL (12.0-16.0) L 07/08/21 01:34 Hct 35.1 % (37-47) L 07/08/21 01:34 MCV 99.7 fL (80-100) 07/08/21 01:34 MCH 33.8 pg (25-34) 07/08/21 01:34 MCHC 33.9 g/dL (32-36) 07/08/21 01:34 RDW Std Deviation 68.9 fL (36.4-46.3) H 07/08/21 01:34 RDW Coeff of Fritz 19.0 % (11.5-14.5) H 07/08/21 01:34 Plt Count 105 K/uL (130-400) L 07/08/21 01:34 MPV 12.9 fL (7.4-10.4) H 07/08/21 01:34 Immature Gran % (Auto) 2.1 % 07/08/21 01:34 Neut % (Auto) 79.6 % 07/08/21 01:34 Lymph % (Auto) 7.3 % 07/08/21 01:34 [place] % (Auto) 9.1 % 07/08/21 01:34 Eos % (Auto) 1.6 % 07/08/21 01:34 Baso % (Auto) 0.3 % 07/08/21 01:34 Neut # (Auto) 12.23 K/uL (1.4-6.5) H 07/08/21 01:34 Lymph # (Auto) 1.13 K/uL (1.2-3.4) L 07/08/21 01:34 [place] # (Auto) 1.40 K/uL (0.11-0.59) H 07/08/21 01:34 Eos # (Auto) 0.25 K/uL (0-0.5) 07/08/21 01:34 Baso # (Auto) 0.04 K/uL (0-0.2) 07/08/21 01:34 Immature Gran # (Auto) 0.33 K/uL (0.00-0.02) H 07/08/21 01:34 Absolute Nucleated RBC 0.22 K/uL (0-0) H 07/08/21 01:34 Nucleated RBC % (auto) 1.5 % 07/08/21 01:34 Polychromasia 1+ 07/08/21 01:34 Poikilocytosis Present 07/08/21 01:34 Sodium 131 mmol/L (136-145) L 07/08/21 01:34 Potassium 4.6 mmol/L (3.5-5.1) 07/08/21 01:34 Chloride 101 mmol/L (98-107) 07/08/21 01:34 Carbon Dioxide 21 mmol/L (21-32) 07/08/21 01:34 Anion Gap 9 (3-11) 07/08/21 01:34 BUN 24 mg/dl (6-23) H 07/08/21 01:34 Creatinine 0.62 mg/dl (0.6-1.2) 07/08/21 01:34 Est Cr Clr Drug Dosing Not Reportable 07/08/21 01:34 Est GFR ( Amer) 112.0 ml/min 07/08/21 01:34 Est GFR (Non-Af Amer) 96.6 ml/min 07/08/21 01:34 BUN/Creatinine Ratio 38.7 (10-20) H 07/08/21 01:34 Glucose 111 mg/dl (70-99(Fasting)) H 07/08/21 01:34 Lactate 1.3 mmol/L (0.4-2.0) 07/08/21 02:25 Calcium 7.9 mg/dl (8.5-10.1) L 07/08/21 01:34 Total Bilirubin 2.3 mg/dl (0.2-1.0) H 07/08/21 01:34 AST 136 U/L (13-39) H 07/08/21 01:34 ALT 32 U/L (7-52) 07/08/21 01:34 Alkaline Phosphatase 141 U/L (34-104) H 07/08/21 01:34 Troponin I < 0.03 ng/ml (0-0.04) 07/08/21 01:34 Total Protein 4.9 gm/dl (6.0-8.3) L 07/08/21 01:34 Albumin 2.8 gm/dl (3.4-5.0) L 07/08/21 01:34 Globulin 2.1 gm/dl (2.5-4.0) L 07/08/21 01:34 Albumin/Globulin Ratio 1.3 (0.9-2) 07/08/21 01:34 Lipase 4 U/L (11-82) L 07/08/21 01:34 Procalcitonin 0.18 ng/ml (0-0.5) 07/08/21 02:[address] Abdomen/Pelvis as well as CTA Chest performed - awaiting STAT-rad read ECG Additional Comments: NSR at 94, normal axis, YX=390, QRS=66, XNa=739, no acute ischemic changes. Low voltage. No significant change from prior EKG Code Status & VTE Plan VTE Prophylaxis Plan VTE Prophylaxis will be ordered: Yes PG Care Time/CCT Total # of Minutes Spent Total Time Spent with Patient: Total time spent is greater than 50% in coordination of care (as documented) at patient's floor/unit and/or counseling patient: Coding Level of Care Code 17377 Initial Inpt Care Lvl 3 Diagnoses COVID U07.1 Nausea & vomiting R11.2 Vomiting type: unspecified Malignant pleural effusion J91.0 Metastatic breast cancer C50.919 Elevated LFTs R79.89 GERD (gastroesophageal reflux disease) K21.9 (1) Nausea & vomiting Vomiting type: unspecified Qualified Code(s): R11.2 - Nausea with vomiting, unspecified
[2021-07-08 04:52] LABS: Appearance Urine Clear (Clear); Bacteria Urine Automated Negative (Negative); Bilirubin Urine Negative (Negative); Blood Urine Negative (Negative); Color Urine Dark Yellow; Epithelial Cell Urine Auto >30 /lpf (0-5); Glucose Urine UA Negative (Negative); Ketones Urine Trace (Negative); Leukocyte Esterase Urine Trace (Negative); Nitrite Urine Negative (Negative); Protein Urine Trace (Negative); Specific Gravity Urine > 1.045 (1.000-1.030); Urobilinogen Urine Positive (Negative)
[2021-07-08 06:15] LABS: Calcium Oxalate Crystals Urine Present (None Prsent)
--- NOTE | 2021-07-08 08:23 | CT Scan Report ---
CT angio chest PE protocol CLINICAL HISTORY: PE, shortness of breath, history of metastatic breast ca TECHNIQUE: Multidetector row helical CT of the chest was performed. Coronal and sagittal reformations were obtained. Coronal and sagittal MIPS were obtained from the axial data set and were submitted fo r review. Automated dose lowering techniques and/or adjustment according to patient size were utiliz ed for this exam. Comparison: Comparison is made to CTA chest 07/01/2021 FINDINGS: Lungs and pleura: There is a moderate left pleural effusion, stable to decreased from prior exam. Sma ll right pleural effusion is seen, significantly decreased from prior exam. A right pleural drain is noted. No suspicious pulmonary nodule is seen. Heart and pericardium: Heart size is normal. No pericardial effusion. Vessels: No evidence of pulmonary embolism. Mediastinum and titus: Unremarkable. Chest wall and lower neck: Subcentimeter axillary lymph nodes noted. Abdomen: For findings below the diaphragm, please refer to CT of the abdomen dated the same. Bones: Extensive lytic and blastic bony lesions are seen throughout the visualized skeleton. Multilev el degenerative changes are stable. IMPRESSION: 1. No evidence of pulmonary embolism. 2. Interval improvement in right pleural effusion. 3. Moderate left pleural effusion. 4. Extensive skeletal metastases. ACT 112: Negative or not required by law. Electronically signed by: Chaitanya Montejo M.D. 07/08/2021 8:21 AM
--- NOTE | 2021-07-08 08:29 | CT Scan Report ---
CT abd pelvis IV con only CLINICAL HISTORY: Nausea and vomiting, history of metastatic cancer TECHNIQUE: Helical axial images of the abdomen and pelvis were obtained and displayed. Automated dose lowering techniques and/or adjustment according to patient size were utilized for this exam. This e xam was performed with intravenous contrast. COMPARISON: Comparison is made to CT abdomen pelvis 07/02/2028 2 FINDINGS: Lower chest: No acute abnormality Liver: Ill-defined hypodensities are in the liver. Gallbladder and biliary tree: There is gallbladder wall thickening measuring up to 4 mm with a large stone noted in the gallbladder neck. No intra- or extrahepatic biliary ductal dilation. Pancreas: Unremarkable, no focal lesions. Spleen: Splenomegaly is noted, the spleen measures Adrenals: Unremarkable. Kidneys and ureters: Unremarkable. Bladder: Unremarkable. Reproductive organs: Multiple calcified fibroids are seen. Bowel: Unremarkable. Lymph nodes Retroperitoneal: Unremarkable. Mesenteric: Unremarkable. Pelvic: Unremarkable. Peritoneum: Mild ascites is seen, comparable to prior exam. Vessels: Unremarkable. Abdominal wall: Unremarkable. Bones: Extensive lytic and blastic metastatic disease is seen. Stable compression deformity of L1. IMPRESSION: 1. Cholelithiasis with gallbladder wall thickening concerning for acute cholecystitis. The wall was prominent on the prior exam as well, although the gallbladder was decompressed at that time, and thes e findings may also represent reactive edema to surrounding ascites. Recommend gallbladder ultrasound or HIDA to further evaluate this finding. 2. Extensive blastic metastases. 3. Stable mild ascites. 4. Ill-defined hypodensities in the liver are too small to characterize. Metastatic disease cannot b e entirely excluded. ACT 112: Negative or not required by law. Electronically signed by: Chaitanya Montejo M.D. 07/08/2021 8:28 AM
[2021-07-08] MEDS ORDERED: GADOBUTROL 30ML VIAL IV ONE (10:02)
--- NOTE | 2021-07-08 10:24 | Magnetic Resonance Report ---
MR brain wo/w con CLINICAL HISTORY: metastatic cancer, new nausea, ?brain mets? TECHNIQUE: Multiplanar and multisequence MR images of the brain were obtained prior to and following administration of gadolinium contrast. Comparison: Comparison is made to MRI brain 01/10/2021 FINDINGS: There is a 5 mm enhancing lesion in the right temporal lobe (series 11 image 71) which may represent an intracranial metastasis. Multiple enhancing appearance of the calvarium is noted compatible with o sseous metastasis. The ventricular system is normal in appearance. There is no evidence of acute intr aparenchymal hemorrhage. No extra axial fluid collections are seen. The corpus callosum, pituitary gl and, and cerebellar tonsils appear grossly unremarkable. Flow voids of the major intracranial arterial vessels are identified. The imaged portions of the para nasal sinuses, mastoid air cells, and orbits are unremarkable. IMPRESSION: There is a 5 mm enhancing lesion in the right temporal lobe which may represent an intracranial metas tasis. Diffuse bony metastases are also noted. ACT 112: Negative or not required by law. Electronically signed by: Chaitanya Montejo M.D. 07/08/2021 10:22 AM
[2021-07-08] MEDS ORDERED: ACETAMINOPHEN 325 MG TAB PO PRN (10:55)
[2021-07-08] MEDS ORDERED: VANCOMYCIN HCL 1,000 MG in SODIUM CHLORIDE 0.9% 500 ML IV SCH (10:55)
[2021-07-08] MEDS ORDERED: ALUMINUM/MAGNESIUM SUSP 30 ML UDC PO PRN (10:55)
[2021-07-08] MEDS: SODIUM CHLORIDE 0.9% 1000ML 1,000 ML IV SCH (11:20)
[2021-07-08 11:36] LABS: Magnesium 1.9 mg/dl (1.7-2.4); Phosphorus 3.5 mg/dl (2.5-4.9)
--- NOTE | 2021-07-08 11:39 | Pharmacy Report ---
Pharmacy Vanc AUC Short Note - Date of Service July 08, 2021 - Assessment & Plan Assessment 60 year old F receiving vancomycin and pip-tazo for treatment of possible infection. Patient presents with N/V and leukocytosis. h/o metastatic breast cancer (on xeloda and tamoxifen - currently on hold) Blood and urine cultures pending Plan Vancomycin * Start 1000 mg (~16 mg/kg) IV every 12 hours * This dose is predicted to achieve target AUC/HA of 400-600 mg/L.hr and may be associated with a 12 % risk of nephrotoxicity * predicted AUC/HA at steady state: 538 mg/L.hr * predicted steady state trough: 16.4 mcg/mL * AUC/HA is the preferred PK/PD target for vancomycin * AUC guided dosing is effective and associated with decreased risk of nephrotoxicity compared to traditional trough targets * Trough level will be ordered if regimen is continues beyond 48 hours ( currently ordered x 48 hr only) Zosyn * 3.375g IV every 8 hours via extended infusion Pharmacy will continue to follow and will adjust dose/frequency as necessary. Thank you.
[2021-07-08] MEDS: PANTOprazole 40 MG TAB PO SCH (12:42)
[2021-07-08] MEDS: PIPERACILLIN/TAZOBACTAM 3.375 GM in DEXTROSE 5% 100 ML IV SCH ×2 (12:51→21:50)
--- NOTE | 2021-07-08 13:12 | Ultrasound Report ---
US gallbladder CLINICAL HISTORY: ?acute cholecystitis TECHNIQUE: Multiple real-time sonographic images of the right upper quadrant were obtained. Comparison: None available at the time of this dictation. FINDINGS: The liver is diffusely homogenous with normal contour and echogenicity. Small lesions are seen which measure 1.1 and 7 mm and do not appear cystic. No intrahepatic ductal dilatation is seen. A large stone is seen in the gallbladder. The gallbladder wall measures 5 mm. A sonographic Vazquez's sign was not elicited by the grade and center marker. The common duct measures 0.7 cm in diameter at the level of the h epatic artery. The visualized portions of the pancreas appear normal. The right kidney shows normal echogenicity, cortical thickness and renal contour. The right kidney sh ows no evidence of hydronephrosis or mass. Ascites is seen most prominent about the liver. IMPRESSION: 1. Gallstone and gallbladder wall thickening. This may be secondary to ascites in a patient with a n egative Vazquez's sign. However if the patient has received pain medication, this exam may be equivoca l for acute cholecystitis. If clinical suspicion remains, a HIDA scan can be performed. 2. Multiple liver masses are seen. If not previously evaluated, a nonemergent liver MRI with Eovist can be performed. ACT 112: Negative or not required by law. Electronically signed by: Chaitanya Montejo M.D. 07/08/2021 1:11 PM
--- NOTE | 2021-07-08 13:54 | Communication Note ---
Date of Service: July 08, 2021 Bridge note, patient admitted [id number] 07/08/21 Seen is seen at the bedside this morning. She reports that she continues to have right upper quadrant abdominal pain which is worsened with meals, which has occurred with increased nausea with meals over the previous few days and which is associated with decreased oral intake. Feels is difficult to tolerate any food, has vomited several times and emesis without blood/bile. Nausea worsened with food. No BM. CT scan with cholelithiasis with gallbladder wall thickening concerning for acute cholecystitis. The wall was prominent on the prior exam as well, although the gallbladder was decompressed at that time, and these findings may also represent reactive edema to surrounding ascites. Ultrasound equivocal, 5 mm gallbladder wall. HIDA scan is pending. With leukocytosis today, chronically elevated transaminase although AST slightly higher than baseline, with bilirubin chronically elevated with known breast cancer metastasis including bone and liver. Pro-Patric was negative on admission. MRIB: There is a 5 mm enhancing lesion in the right temporal lobe which may represent an intracranial metastasis. Diffuse bony metastases are also noted. Nausea/vomiting, leukocytosis Associated with right upper quadrant pain worsened with palpation. Presentation is suspicious for acute cholecystitis. Ultrasound was equivocal, HIDA is pending General surgery consulted, patient's daughter is a nurse with [employer] and patient would like her daughter to be kept up-to-date Patient is residual positive for Covid, not requiring isolation precautions at this time Continue on Zosyn for suspected acute cholecystitis - NPO, fluids while NPO History of breast cancer with metastasis (ER/AK positive, H ER2 -) on anastrozole/Xeloda on hold for several weeks due to abnormal LFTs, thrombocytopenia, and recent COVID Known bony and liver metastasis [facility] New 5 mm enhancing lesion above concerning for brain mets, oncology consulted No surrounding edema/no evidence of midline shift, low suspicion that the lesion above is the cause of her acute symptoms but will continue to follow Malignant pleural effusion - History of Pleurx catheter, draining clear kezia fluid no purulent dc Continue Pleurx catheter, low suspicion suspect acute infection at this time
[2021-07-08] MEDS ORDERED: VANCOMYCIN HCL 1,000 MG in SODIUM CHLORIDE 0.9% 250 ML IV SCH (14:00)
[2021-07-08] MEDS: ARTIFICIAL TEARS OP SCH ×3 (14:01→21:54)
--- NOTE | 2021-07-08 16:33 | Surgery Consultation ---
Date of Consultation July 08, 2021 Assessment & Plan (1) Pleural effusion: (2) Nausea & vomiting: (3) Malignant pleural effusion: (4) Metastatic breast cancer: (5) Elevated LFTs: 60-year-old woman with metastatic breast cancer to the liver and bone and malignant pleural effusion presents with few day history of nausea/vomiting/right sided abdominal pain. CT and ultrasound findings are equivocal for acute cholecystitis. We will obtain a HIDA scan for further evaluation of the gallbladder. In the meantime, we will keep her on IV fluids and IV Zosyn. Pain control with IV pain medications. With her medical condition, I would like to avoid the operating room if possible, however we will follow up with the results of the HIDA scan and discuss further treatment options based on the results. History of Present Illness Reason for Consultation: Right upper quadrant pain and nausea Requesting Physician: Santo Vitale MD Attending Physician: Evelyn Davison, DO History of Present Illness 60-year-old woman with history of metastatic breast cancer to the liver and bone, malignant pleural effusion status post Pleurx catheter placement, ascites, presents with 3-day history of new onset of nausea, vomiting, and right-sided abdominal pain. He nausea worsened after eating yesterday, and she has vomited a few times. She is also somewhat lightheaded. She denies fevers. She has bowel movements every few days, and does not note any changes in her bowel movements. She had a slightly elevated LFTs, but there are no more elevated than usual. Of note, her chemotherapy was stopped a few weeks ago due to elevated LFTs. She has not had nausea and vomiting with the chemotherapy. Today, CT scan demonstrates nonspecific wall thickening of the gallbladder, unchanged from prior CT scans, as well as a large gallstone. Ultrasound demonstrates the same findings. There is apparently no positive Vazquez sign on the ultrasound. Allergies Allergy/AdvReac Type Severity Reaction Status Date / Time capecitabine AdvReac Intermediate SEE COMMENT Verified 07/08/21 03:05 Home Medications Medication Instructions Recorded Confirmed Type anastrozole 1 mg tablet 1 mg PO QAM #30 tab 01/14/20 07/08/21 Rx zoledronic acid 4 mg/100 mL in 4 mg IV MONTHLY ml 09/15/20 07/08/21 History mannitol 5 %-water intravenous piggybck acetaminophen 500 mg tablet 500 mg PO BID PRN 07/01/21 07/08/21 History artificial 1 drp OPB HS 07/01/21 07/08/21 History tears(ubmysib-yyihrvdp-xzyubft) 0.1 %-0.3 %-0.2 % eye drops (GenTeal Tears Moderate) carboxymethylcellulose sodium 1 % 1 drp OPB QID 07/01/21 07/08/21 History eye liquid gel drops (Refresh Liquigel) prednisolone acetate 1 % eye 1 drp OPB QID 07/01/21 07/08/21 History drops,suspension tramadol 50 mg tablet 50 mg PO Q6H PRN 07/01/21 07/08/21 History Patient History Medical History Acute pericardial effusion Bone cancer met cancer GERD (gastroesophageal reflux disease) Malignant pleural effusion Multiple fractures of ribs Normocytic hypochromic anemia Pathologic fracture of lumbar vertebra Pathologic fracture of thoracic vertebrae Pneumothorax Pulmonary nodules Secondary malignant neoplasm of bone Surgical History History of bilateral tubal ligation Port-A-Cath in place (02/17/20) Insertion of Mediport Left Subclavian Vein Under Fluoroscopy Dr. Maria 02/17/2020 Family History Mother , about age 82 Alzheimer disease Breast cancer Father , age 52 from MVA Motor vehicle accident Family/Other Breast cancer cousin Daughter Cancer Son Diabetes Other Asthma Hypertension Social History Smoking Status: Never smoker Second Hand Exposure: Yes (30 yrs ago); Hx Alcohol Use: No Hx Substance Use: No Preferred Language: Faroese Communication Ability: Effective Visual Impairment: No Limitations House Cleaner Supervisor Required: No Beliefs That Will Affect Care: None marital status: Current Living Situation: Spouse and Family Current Living Situation Comment: lives with and son, 2 story home, with 1st floor set up current occupational status: previously employed 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[employer]; 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; 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 How many Children do You have: 3 How many Children do You have Comment: 1 child developmentally disable Feels Safe at Home: Yes Assistive Devices: Glasses Review of Systems Review of Systems: All systems reviewed & are unremarkable except as noted in HPI & below Physical Exam Constitutional: WD/WN, vitals as above Eyes: PERRL, conjunctivae normal, anicteric sclerae Neck: trachea midline, no thyromegaly Respiratory: normal respiratory effort; no respiratory distress and no labored breathing Cardiovascular: Rate/Rhythm: regular rate and regular rhythm Gastrointestinal (Abdomen): Inspection/Auscultation: abdomen normal to inspection; abdomen not distended Percussion/Palpation: + abdomen tender (Mild right upper quadrant/epigastric tenderness) and abdomen soft; no guarding and abdomen not rigid Musculoskeletal: Extremities: no cyanosis and no clubbing Skin: no rashes, warm and dry Psychiatric: A+Ox3, euthymic affect Results & Data ([facility]) Vital Signs (Past 12 Hours) Vital Signs Temp Pulse Pulse Resp BP BP Pulse Ox 07/08/21 14:28 36.9 C 91 H 16 98/65 L 100 07/08/21 11:01 36.8 C 76 20 126/72 99 07/08/21 10:57 36.9 C 80 18 110/60 97 07/08/21 09:20 81 19 07/08/21 09:10 83 19 07/08/21 09:00 80 22 07/08/21 08:50 81 21 07/08/21 08:40 81 21 07/08/21 08:30 80 21 07/08/21 08:20 80 21 07/08/21 08:10 81 22 07/08/21 08:00 80 23 07/08/21 07:50 81 21 07/08/21 07:40 82 20 07/08/21 07:30 85 19 07/08/21 07:20 83 24 07/08/21 07:10 80 21 07/08/21 07:00 76 19 07/08/21 06:50 76 19 07/08/21 06:40 74 19 07/08/21 06:30 74 19 07/08/21 06:20 75 20 07/08/21 06:10 74 19 07/08/21 06:00 91 H 16 07/08/21 05:50 76 20 07/08/21 05:40 83 19 07/08/21 05:30 86 19 07/08/21 05:20 85 19 02/13/22 05:10 86 18 07/08/21 05:00 86 19 07/08/21 04:50 90 19 07/08/21 04:40 91 H 20 07/08/21 04:30 91 H 15 Laboratory Results 07/08/21 07/08/21 07/08/21 Range/Units 04:33 02:25 02:25 WBC (4.8-10.8) K/uL RBC (4.2-5.4) M/uL Hgb (12.0-16.0) g/dL Hct (37-47) % MCV (80-100) fL MCH (25-34) pg MCHC (32-36) g/dL RDW Std Deviation (36.4-46.3) fL RDW Coeff of Fritz (11.5-14.5) % Plt Count (130-400) K/uL MPV (7.4-10.4) fL Immature Gran % (Auto) % Neut % (Auto) % Lymph % (Auto) % [place] % (Auto) % Eos % (Auto) % Baso % (Auto) % Neut # (Auto) (1.4-6.5) K/uL Lymph # (Auto) (1.2-3.4) K/uL [place] # (Auto) (0.11-0.59) K/uL Eos # (Auto) (0-0.5) K/uL Baso # (Auto) (0-0.2) K/uL Immature Gran # (Auto) (0.00-0.02) K/uL Absolute Nucleated RBC (0-0) K/uL Nucleated RBC % (auto) % Polychromasia Poikilocytosis Sodium (136-145) mmol/L Potassium (3.5-5.1) mmol/L Chloride (98-107) mmol/L Carbon Dioxide (21-32) mmol/L Anion Gap (3-11) BUN (6-23) mg/dl Creatinine (0.6-1.2) mg/dl Est Cr Clr Drug Dosing Est GFR ( Amer) ml/min Est GFR (Non-Af Amer) ml/min BUN/Creatinine Ratio (10-20) Glucose (70-99(Fasting)) mg/dl Lactate 1.3 (0.4-2.0) mmol/L Calcium (8.5-10.1) mg/dl Phosphorus (2.5-4.9) mg/dl Magnesium (1.7-2.4) mg/dl Total Bilirubin (0.2-1.0) mg/dl AST (13-39) U/L ALT (7-52) U/L Alkaline Phosphatase (34-104) U/L Troponin I (0-0.04) ng/ml Total Protein (6.0-8.3) gm/dl Albumin (3.4-5.0) gm/dl Globulin (2.5-4.0) gm/dl Albumin/Globulin Ratio (0.9-2) Lipase (11-82) U/L Procalcitonin 0.18 (0-0.5) ng/ml Urine Color Dark Yellow Urine Appearance Clear (Clear) Urine pH 6.0 (4.5-7.5) Ur Specific [place] > 1.045 H (1.000-1.030) Urine Protein Trace H (Negative) Urine Glucose (UA) Negative (Negative) Urine Ketones Trace H (Negative) Urine Blood Negative (Negative) Urine Nitrite Negative (Negative) Urine Bilirubin Negative (Negative) Urine Urobilinogen Positive H (Negative) Ur Leukocyte Esterase Trace H (Negative) Urine WBC (Auto) 10-30 H (0-5) /hpf Urine RBC (Auto) 5-10 H (0-4) /hpf U Hyaline Cast (Auto) 10-30 H (0-5) /lpf U Epithel Cells (Auto) >30 H (0-5) /lpf Urine Bacteria (Auto) Negative (Negative) Ur Renal Epithelial Cell Not Reportable Calcium Oxalate Crystal Present A (None Prsent) 07/08/21 07/08/21 07/08/21 Range/Units 01:34 01:34 01:15 WBC 15.38 H (4.8-10.8) K/uL RBC 3.52 L (4.2-5.4) M/uL Hgb 11.9 L (12.0-16.0) g/dL Hct 35.1 L (37-47) % MCV 99.7 (80-100) fL MCH 33.8 (25-34) pg MCHC 33.9 (32-36) g/dL RDW Std Deviation 68.9 H (36.4-46.3) fL RDW Coeff of Fritz 19.0 H (11.5-14.5) % Plt Count 105 L (130-400) K/uL MPV 12.9 H (7.4-10.4) fL Immature Gran % (Auto) 2.1 % Neut % (Auto) 79.6 % Lymph % (Auto) 7.3 % [place] % (Auto) 9.1 % Eos % (Auto) 1.6 % Baso % (Auto) 0.3 % Neut # (Auto) 12.23 H (1.4-6.5) K/uL Lymph # (Auto) 1.13 L (1.2-3.4) K/uL [place] # (Auto) 1.40 H (0.11-0.59) K/uL Eos # (Auto) 0.25 (0-0.5) K/uL Baso # (Auto) 0.04 (0-0.2) K/uL Immature Gran # (Auto) 0.33 H (0.00-0.02) K/uL Absolute Nucleated RBC 0.22 H (0-0) K/uL Nucleated RBC % (auto) 1.5 % Polychromasia 1+ Poikilocytosis Present Sodium 131 L (136-145) mmol/L Potassium 4.6 (3.5-5.1) mmol/L Chloride 101 (98-107) mmol/L Carbon Dioxide 21 (21-32) mmol/L Anion Gap 9 (3-11) BUN 24 H (6-23) mg/dl Creatinine 0.62 (0.6-1.2) mg/dl Est Cr Clr Drug Dosing Not Reportable Est GFR ( Amer) 112.0 ml/min Est GFR (Non-Af Amer) 96.6 ml/min BUN/Creatinine Ratio 38.7 H (10-20) Glucose 111 H (70-99(Fasting)) mg/dl Lactate (0.4-2.0) mmol/L Calcium 7.9 L (8.5-10.1) mg/dl Phosphorus 3.5 (2.5-4.9) mg/dl Magnesium 1.9 (1.7-2.4) mg/dl Total Bilirubin 2.3 H (0.2-1.0) mg/dl AST 136 H (13-39) U/L ALT 32 (7-52) U/L Alkaline Phosphatase 141 H (34-104) U/L Troponin I < 0.03 (0-0.04) ng/ml Total Protein 4.9 L (6.0-8.3) gm/dl Albumin 2.8 L (3.4-5.0) gm/dl Globulin 2.1 L (2.5-4.0) gm/dl Albumin/Globulin Ratio 1.3 (0.9-2) Lipase 4 L (11-82) U/L Procalcitonin (0-0.5) ng/ml Urine Color Urine Appearance (Clear) Urine pH (4.5-7.5) Ur Specific [place] (1.000-1.030) Urine Protein (Negative) Urine Glucose (UA) (Negative) Urine Ketones (Negative) Urine Blood (Negative) Urine Nitrite (Negative) Urine Bilirubin (Negative) Urine Urobilinogen (Negative) Ur Leukocyte Esterase (Negative) Urine WBC (Auto) (0-5) /hpf Urine RBC (Auto) (0-4) /hpf U Hyaline Cast (Auto) (0-5) /lpf U Epithel Cells (Auto) (0-5) /lpf Urine Bacteria (Auto) (Negative) Ur Renal Epithelial Cell Calcium Oxalate Crystal (None Prsent) Diagnostic Findings US gallbladder CLINICAL HISTORY: ?acute cholecystitis TECHNIQUE: Multiple real-time sonographic images of the right upper quadrant were obtained. Comparison: None available at the time of this dictation. FINDINGS: The liver is diffusely homogenous with normal contour and echogenicity. Small lesions are seen which measure 1.1 and 7 mm and do not appear cystic. No intrahepatic ductal dilatation is seen. A large stone is seen in the gallbladder. The gallbladder wall measures 5 mm. A sonographic Vazquez's sign was not elicited by the marketing communications coordinator. The common duct measures 0.7 cm in diameter at the level of the hepatic artery. The visualized portions of the pancreas appear normal. The right kidney shows normal echogenicity, cortical thickness and renal contour. The right kidney shows no evidence of hydronephrosis or mass. Ascites is seen most prominent about the liver. IMPRESSION: 1. Gallstone and gallbladder wall thickening. This may be secondary to ascites in a patient with a negative Vazquez's sign. However if the patient has received pain medication, this exam may be equivocal for acute cholecystitis. If clinical suspicion remains, a HIDA scan can be performed. 2. Multiple liver masses are seen. If not previously evaluated, a nonemergent liver MRI with Eovist can be performed. CT abd pelvis IV con only CLINICAL HISTORY: Nausea and vomiting, history of metastatic cancer TECHNIQUE: Helical axial images of the abdomen and pelvis were obtained and displayed. Automated dose lowering techniques and/or adjustment according to patient size were utilized for this exam. This exam was performed with intravenous contrast. COMPARISON: Comparison is made to CT abdomen pelvis 07/02/2028 2 FINDINGS: Lower chest: No acute abnormality Liver: Ill-defined hypodensities are in the liver. Gallbladder and biliary tree: There is gallbladder wall thickening measuring up to 4 mm with a large stone noted in the gallbladder neck. No intra- or extrahepatic biliary ductal dilation. Pancreas: Unremarkable, no focal lesions. Spleen: Splenomegaly is noted, the spleen measures Adrenals: Unremarkable. Kidneys and ureters: Unremarkable. Bladder: Unremarkable. Reproductive organs: Multiple calcified fibroids are seen. Bowel: Unremarkable. Lymph nodes Retroperitoneal: Unremarkable. Mesenteric: Unremarkable. Pelvic: Unremarkable. Peritoneum: Mild ascites is seen, comparable to prior exam. Vessels: Unremarkable. Abdominal wall: Unremarkable. Bones: Extensive lytic and blastic metastatic disease is seen. Stable compression deformity of L1. IMPRESSION: 1. Cholelithiasis with gallbladder wall thickening concerning for acute cholecystitis. The wall was prominent on the prior exam as well, although the gallbladder was decompressed at that time, and these findings may also represent reactive edema to surrounding ascites. Recommend gallbladder ultrasound or HIDA to further evaluate this finding. 2. Extensive blastic metastases. 3. Stable mild ascites. 4. Ill-defined hypodensities in the liver are too small to characterize. Metastatic disease cannot be entirely excluded. (1) Nausea & vomiting Vomiting type: unspecified Qualified Code(s): R11.2 - Nausea with vomiting, unspecified
[2021-07-08] MEDS: ENOXAPARIN INJ 40 MG/0.4 ML SYR SQ SCH (21:53)
[2021-07-09] MEDS: SODIUM CHLORIDE 0.9% 1000ML 1,000 ML IV SCH (03:45)
[2021-07-09] MEDS: PIPERACILLIN/TAZOBACTAM 3.375 GM in DEXTROSE 5% 100 ML IV SCH ×3 (04:59→20:26)
[2021-07-09 06:39] LABS: Hematocrit (blood only) 28.7 % (37-47); Hemoglobin 9.3 g/dL (12.0-16.0); Mean Corpuscular Hemoglobin 33.2 pg (25-34); Mean Corpuscular Hgb Conc 32.4 g/dL (32-36); Mean Corpuscular Volume 102.5 fL (80-100); Nucleated RBC # (auto) 0.27 K/uL (0-0); Nucleated RBC % (auto) 2.4 %; RDW Coefficient of Variation 19.6 % (11.5-14.5); RDW Standard Deviation 72.5 fL (36.4-46.3); White Blood Count 11.41 K/uL (4.8-10.8)
[2021-07-09 06:46] LABS: Mean Platelet Volume 11.1 fL (7.4-10.4); Platelet Count 89 K/uL (130-400)
[2021-07-09 07:04] LABS: Albumin Level 2.2 gm/dl (3.4-5.0); BUN Creatinine Ratio 32.1 (10-20); Bilirubin Direct 0.6 mg/dl (0-0.2); Bilirubin,Total 2.1 mg/dl (0.2-1.0); Calcium 7.2 mg/dl (8.5-10.1); Creatinine Clr Calc Pharmacy 64.6 ml/min; Est GFR (African American) 94.4 ml/min; Est GFR (Non-African American) 81.5 ml/min; Potassium 4.3 mmol/L (3.5-5.1); Total Protein 3.7 gm/dl (6.0-8.3)
[2021-07-09 07:13] LABS: Anisocytosis Present; Basophils # (auto) 0.06 K/uL (0-0.2); Basophils % (auto) 0.5 %; Eosinophils # (auto) 0.44 K/uL (0-0.5); Eosinophils % (auto) 3.9 %; Immature Granulocytes # (auto) 0.28 K/uL (0.00-0.02); Immature Granulocytes % (auto) 2.5 %; Lymphocytes # (auto) 0.99 K/uL (1.2-3.4); Lymphocytes % (auto) 8.7 %; Monocytes # (auto) 1.56 K/uL (0.11-0.59); Monocytes % (auto) 13.7 %; Neutrophils # (auto) 8.08 K/uL (1.4-6.5); Neutrophils % (auto) 70.7 %; Polychromasia 1+; Schistocytes Occasional; Tear Drop Cells 1+
[2021-07-09] MEDS ORDERED: SODIUM CHLORIDE 0.9% IV ONE (08:30)
[2021-07-09] MEDS ORDERED: SINCALIDE IV ONE (08:30)
--- NOTE | 2021-07-09 10:10 | Nuclear Medicine Report ---
NUCLEAR HEPATOBILIARY SCAN WITH EJECTION FRACTION IMAGING CLINICAL HISTORY: Right upper quadrant abdominal pain. COMPARISON STUDY: Abdominal ultrasound dated 07/08/2021. TECHNIQUE: Dynamic images of the liver and anterior abdomen were obtained every 5 minutes for a total of 60 minutes following the IV administration of 5.6 mCi of technetium 99m Mebrofenin. 1.26 mcg of sincalide was then injected with additional images acquired every 5 minutes for 45 minutes to calcul ate the gallbladder ejection fraction. FINDINGS: The hepatobiliary scan shows prompt and homogeneous hepatic uptake. There is visualized act ivity within the intra and extrahepatic biliary tree at 10 minutes, and within the gallbladder at 15 minutes. There is normal biliary to bowel transit, with small bowel visualized by 25 minutes. On the sincalide imaging, the gallbladder ejection fraction was measured at 2%. IMPRESSION: 1. There is no scintigraphic evidence of acute cholecystitis. 2. The gallbladder ejection fraction is abnormally diminished, measuring 2%. This suggest gallbladder dysfunction and clinical correlation will be required. ACT 112: Negative or not required by law. Electronically signed by: Isacc Benedict M.D. 07/09/2021 10:08 AM
[2021-07-09] MEDS: ARTIFICIAL TEARS OP SCH ×5 (10:31→19:43)
[2021-07-09] MEDS: PANTOprazole 40 MG TAB PO SCH (10:31)
--- NOTE | 2021-07-09 12:15 | Pulmonary Consultation ---
Date of Consultation July 09, 2021 Assessment & Plan (1) COVID: (2) Malignant pleural effusion: (3) Metastatic breast cancer: (4) Hypoxia: Attending: Dr. Spence Impression: 60-year-old female with history of breast cancer and Metastasis to the pleural fluid and to bone. Patient with recurrent left pleural effusion. We are consulted to evaluate for repeat thoracentesis versus left Pleurx catheter. Recommendations: 1.Recurrent left pleural effusion * Thoracentesis with previous metastatic spread with left thoracentesis earlier this month. * Patient currently is asymptomatic other than requiring chronic 1 L/min via nasal cannula to maintain saturations in the mid 90s. * Patient and daughter agreeable to Pleurx catheter on left prior to discharge. * Is much as patient is asymptomatic right now, would defer on thoracentesis until after surgery if surgery is required for cholecystitis. * Patient is not on any anticoagulants or antiplatelet agents but is on chemotherapy. Platelet count today is 89,000. * We will continue to coordinate with surgery regarding treatment plan * Continue supportive care at this time. 2. Hypoxia: * Bilateral pleural effusions. Right Pleurx catheter. Reaccumulation of fluid on left. * Continue supplementation of oxygen to maintain SaO2 greater than 90% * Patient is working with [employer] out of [facility] for DME supplies. We will contact them regarding delivery of oxygen to the patient's home 3. Breast cancer: * Follows with [facility] * Discussion with Nicci Montiel PA-C this morning regarding changing chemotherapy to address recurrent pleural effusions * Continue management per oncology Thank you for including us in the care of this patient. We will continue to follow along with you during this hospital stay for now. Please refer to Dr. Spence's addendum for further recommendations. Supervising Physician Co-Signing Physician Notes Patient seen and examined. EMR reviewed. Discussed with critical care MARIA TERESA and agree with assessment and plan as noted. Physical exam: Vital signs noted. General: The patient is awake alert. She appears chronically ill HEENT: Pupils equal round reactive. Sclera are anicteric Neck: No obvious JVD or tracheal deviation Cardiovascular regular S1-S2. No murmurs rubs or gallops Lungs: Pleurx catheter site dressed on the right. Previous left-sided thoracentesis site clean dry and intact. Abdomen: Minimally tender to palpation. Bowel sounds are present Extremities: No cyanosis clubbing or edema The patient is known to me from placement of prior Pleurx catheter on the right. She has been draining at home with significant relief. She presented to the hospital with abdominal pain and is being evaluated for potential acute cholecystitis. She has had drainage of the left-sided effusion with improvement in her symptoms and is interested in pursuing Pleurx catheter. I discussed with the patient as well as with her daughter on the phone options at this point time. They were advised that drainage of the pleural fluid is not really a therapeutic intervention is only designed to control symptoms. She did achieve clinical benefit from her prior thoracentesis and is interested in pursuing additional pleural drainage procedures. She is open to the idea of a Pleurx catheter placement on the left given the malignant nature of her effusion. We will follow-up with the surgical service to ensure no plans for surgical intervention and if appropriate plan on placement of Pleurx catheter on the left within the next 24hours. The right-sided drain is scheduled to be accessed and drained today. When the dressing is taken down, we will remove the sutures. Management the patient's other medical issues is deferred to the primary admitting service. History of Present Illness Reason for Consultation: Evaluation of left pleural effusion Requesting Physician: Dr. Hughes Attending Physician: Mike Hughes MD History of Present Illness Attending: Dr. Spence This is a 60-year-old female with a history of breast cancer with metastasis to the pleural fluid as well as to bone. The patient is currently undergoing chemotherapy and has pancytopenia secondary to that.The patient has further past medical history including hypoxia on chronic supplemental oxygen, recurrent pleural effusion, hypercalcemia, abnormal LFTs, pulmonary nodules, n ormocytic hypochromic anemia, GERD. The patient presented the emergency department for multiple days of nausea and vomiting. She was found to have cholecystitis. She is currently awaiting results from a HIDA scan to determine whether or not she will go to surgery for cholecystectomy.Patient found to have enlarging recurrent left pleural effusion.Patient also has a right Pleurx catheter.Daughter reports that she is draining the right catheter every other day for approximately 500 cc.Patient has no current new hypoxia. She is sustaining saturations of 95% on 1 L/min via nasal cannula.Patient was ordered supplemental oxygen for use at home. This has not been delivered to date. Imaging reveals recurrent left pleural effusion. Physical exam shows no acute respiratory distress. She is oxygenating well on 1 L/min via nasal cannula. Patient denies any fever, chills, sweats, rigors. No complications with right Pleurx catheter. Aside from her complaints of symptomology for cholecystitis, she has no acute complaints. Patient is vaccinated for COVID-19 on 07/03/2020 as well as 07/27/2020. She was recently positive for Covid 06/18/2021. Allergies Allergy/AdvReac Type Severity Reaction Status Date / Time capecitabine AdvReac Intermediate SEE COMMENT Verified 07/08/21 03:05 Home Medications Medication Instructions Recorded Confirmed Type anastrozole 1 mg tablet 1 mg PO QAM #30 tab 01/14/20 07/08/21 Rx zoledronic acid 4 mg/100 mL in 4 mg IV MONTHLY ml 09/15/20 07/08/21 History mannitol 5 %-water intravenous piggybck acetaminophen 500 mg tablet 500 mg PO BID PRN 07/01/21 07/08/21 History artificial 1 drp OPB HS 07/01/21 07/08/21 History tears(azphvvd-uwceznox-dcnuvmw) 0.1 %-0.3 %-0.2 % eye drops (GenTeal Tears Moderate) carboxymethylcellulose sodium 1 % 1 drp OPB QID 07/01/21 07/08/21 History eye liquid gel drops (Refresh Liquigel) prednisolone acetate 1 % eye 1 drp OPB QID 07/01/21 07/08/21 History drops,suspension tramadol 50 mg tablet 50 mg PO Q6H PRN 07/01/21 07/08/21 History Patient History Medical History Acute pericardial effusion Bone cancer met cancer GERD (gastroesophageal reflux disease) Malignant pleural effusion Multiple fractures of ribs Normocytic hypochromic anemia Pathologic fracture of lumbar vertebra Pathologic fracture of thoracic vertebrae Pneumothorax Pulmonary nodules Secondary malignant neoplasm of bone Surgical History History of bilateral tubal ligation Port-A-Cath in place (02/17/20) Insertion of Mediport Left Subclavian Vein Under Fluoroscopy Dr. Maria 02/17/2020 Family History Mother , about age 82 Alzheimer disease Breast cancer Father , age 52 from MVA Motor vehicle accident Family/Other Breast cancer cousin Daughter Cancer Son Diabetes Other Asthma Hypertension Social History Smoking Status: Never smoker Second Hand Exposure: Yes (30 yrs ago); Hx Alcohol Use: No Hx Substance Use: No Preferred Language: Italian Communication Ability: Effective Visual Impairment: No Limitations Pattern Hanger Required: No Beliefs That Will Affect Care: None marital status: Current Living Situation: Spouse and Family Current Living Situation Comment: lives with and son, 2 story home, with 1st floor set up current occupational status: previously employed 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 Otherwise clear to auscultation bilaterally with no wheezes, rales, rhonchi. HEART: Regular, rate controlled ABDOMEN: Soft, NT, ND, BS Present EXTREMITIES: No LE edema, pedal pulses intact NEURO: A&OX3 Results & Data Results & Data ([facility]) Vital Signs (Past 12 Hours) Vital Signs Temp Pulse Resp BP Pulse Ox 07/09/21 06:56 36.7 C 86 16 96/61 L 95 Critical Care Results & Data Vital Signs (Past 12 Hours) Vital Signs Temp Pulse Resp BP Pulse Ox 07/09/21 06:56 36.7 C 86 16 96/61 L 95 Lab & Micro Results (Past 24 Hours) RBC 2.80 M/uL (4.2-5.4) L 07/09/21 WBC 11.41 K/uL (4.8-10.8) H 07/09/21 Hgb 9.3 g/dL (12.0-16.0) L 07/09/21 Hct 28.7 % (37-47) L 07/09/21 MCV 102.5 fL (80-100) H 07/09/21 MCH 33.2 pg (25-34) 07/09/21 MCHC 32.4 g/dL (32-36) 07/09/21 RDW Standard Deviation 72.5 fL (36.4-46.3) H 07/09/21 RDW Coefficient of Variation 19.6 % (11.5-14.5) H 07/09/21 Plt Count 89 K/uL (130-400) L 07/09/21 MPV 11.1 fL (7.4-10.4) H 07/09/21 Nucleated Red Blood Cells % (auto) 2.4 % 07/09/21 Nucleated RBC Absolute Count (auto) 0.27 K/uL (0-0) H 07/09/21 Neutrophils (%) (Auto) 70.7 % 07/09/21 Lymphocytes (%) (Auto) 8.7 % 07/09/21 Monocytes # (Auto) 1.56 K/uL (0.11-0.59) H 07/09/21 Eosinophils # (Auto) 0.44 K/uL (0-0.5) 07/09/21 Immature Granulocyte % (Auto) 2.5 % 07/09/21 Neutrophils # (Auto) 8.08 K/uL (1.4-6.5) H 07/09/21 Lymphocytes # (Auto) 0.99 K/uL (1.2-3.4) L 07/09/21 Monocytes # (Auto) 1.56 K/uL (0.11-0.59) H 07/09/21 Eosinophils # (Auto) 0.44 K/uL (0-0.5) 07/09/21 Basophils # (Auto) 0.06 K/uL (0-0.2) 07/09/21 Immature Granulocyte # (Auto) 0.28 K/uL (0.00-0.02) H 07/09/21 Polychromasia 1+ 07/09/21 Anisocytosis Present 07/09/21 Tear Drop Cells 1+ 07/09/21 Schistocytes Occasional 07/09/21 Na 134 mmol/L (136-145) L 07/09/21 K 4.3 mmol/L (3.5-5.1) 07/09/21 Cl 107 mmol/L (98-107) 07/09/21 CO2 23 mmol/L (21-32) 07/09/21 Anion Gap 4 (3-11) 07/09/21 BUN 25 mg/dl (6-23) H 07/09/21 Creatinine 0.78 mg/dl (0.6-1.2) 07/09/21 Estimated GFR ( Amer) 94.4 ml/min 07/09/21 Estimated GFR (Non-Af Amer) 81.5 ml/min 07/09/21 BUN/Creatinine Ratio 32.1 (10-20) H 07/09/21 Glu 79 mg/dl (70-99(Fasting)) 07/09/21 Ca 7.2 mg/dl (8.5-10.1) L 07/09/21 Total Bilirubin 2.1 mg/dl (0.2-1.0) H 07/09/21 Direct Bilirubin 0.6 mg/dl (0-0.2) H 07/09/21 AST 108 U/L (13-39) H 07/09/21 ALT 26 U/L (7-52) 07/09/21 Alkaline Phosphatase 101 U/L (34-104) 07/09/21 TP 3.7 gm/dl (6.0-8.3) L 07/09/21 Albumin 2.2 gm/dl (3.4-5.0) L 07/09/21 Calcium Level 7.2 mg/dl (8.5-10.1) L 07/09/21 05:49 07/09/21 Microbiology 07/08/21 04:33 Urine Culture - Final Urine,Clean Catch More than three types of organisms present, all high counts mixed probable skin conrad - No further identifications or sensitivities to follow. 07/08/21 02:55 Aerobic Blood Culture - Preliminary Blood No growth in Aerobic bottle after 24 hours. Anaerobic Blood Culture - Preliminary No growth in Anaerobic bottle after 24 hours. 07/08/21 02:25 Aerobic Blood Culture - Preliminary Blood No growth in Aerobic bottle after 24 hours. Anaerobic Blood Culture - Preliminary No growth in Anaerobic bottle after 24 hours. Diagnostic Findings (Past 24 Hours) Gallbladder Ultrasound 07/08/21 07:58 US gallbladder CLINICAL HISTORY: ?acute cholecystitis TECHNIQUE: Multiple real-time sonographic images of the right upper quadrant were obtained. Comparison: None available at the time of this dictation. FINDINGS: The liver is diffusely homogenous with normal contour and echogenicity. Small lesions are seen which measure 1.1 and 7 mm and do not appear cystic. No intrahepatic ductal dilatation is seen. A large stone is seen in the gallbladder. The gallbladder wall measures 5 mm. A sonographic Vazquez's sign was not elicited by the lockstitch sleeve setter. The common duct measures 0.7 cm in diameter at the level of the hepatic artery. The visualized portions of the pancreas appear normal. The right kidney shows normal echogenicity, cortical thickness and renal contour. The right kidney shows no evidence of hydronephrosis or mass. Ascites is seen most prominent about the liver. IMPRESSION: 1. Gallstone and gallbladder wall thickening. This may be secondary to ascites in a patient with a negative Vazquez's sign. However if the patient has received pain medication, this exam may be equivocal for acute cholecystitis. If clinical suspicion remains, a HIDA scan can be performed. 2. Multiple liver masses are seen. If not previously evaluated, a nonemergent liver MRI with Eovist can be performed. ACT 112: Negative or not required by law. Electronically signed by: Chaitanya Montejo M.D. 07/08/2021 1:11 PM Hepatobiliary Scan Nuclear Medicine 07/09/21 13:21 NUCLEAR HEPATOBILIARY SCAN WITH EJECTION FRACTION IMAGING CLINICAL HISTORY: Right upper quadrant abdominal pain. COMPARISON STUDY: Abdominal ultrasound dated 07/08/2021. TECHNIQUE: Dynamic images of the liver and anterior abdomen were obtained every 5 minutes for a total of 60 minutes following the IV administration of 5.6 mCi of technetium 99m Mebrofenin. 1.26 mcg of sincalide was then injected with additional images acquired every 5 minutes for 45 minutes to calculate the gallbladder ejection fraction. FINDINGS: The hepatobiliary scan shows prompt and homogeneous hepatic uptake. There is visualized activity within the intra and extrahepatic biliary tree at 10 minutes, and within the gallbladder at 15 minutes. There is normal biliary to bowel transit, with small bowel visualized by 25 minutes. On the sincalide imaging, the gallbladder ejection fraction was measured at 2%. IMPRESSION: 1. There is no scintigraphic evidence of acute cholecystitis. 2. The gallbladder ejection fraction is abnormally diminished, measuring 2%. This suggest gallbladder dysfunction and clinical correlation will be required. ACT 112: Negative or not required by law. Electronically signed by: Isacc Benedict M.D. 07/09/2021 10:08 AM I & O Totals 24 Hours 07/08/21 07/09/21 07/10/21 06:59 06:59 06:59 Intake Total 500 / 500 2065.000 / 2065.000 686.26 / 686.26 Output Total 650 / 650 Balance 500 / 500 1415.000 / 1415.000 686.26 / 686.26 Cumulative 07/08/21 00:57 thru 07/09/21 10:39 Intake Total 3251.260 Output Total 650 Balance 2601.260 RT Ventilator Mngmt (Last Documented) Ventilator Ordered Settings Respiratory Rate 16 07/09/21 06:56 Ventilator - PT Measurements Respiratory Rate 16 PG Care Time/CCT Total # of Minutes Spent Total Time Spent with Patient: Total time spent is greater than 50% in coordination of care (as documented) at patient's floor/unit and/or counseling patient:60 minutes including discussion with patient and telephone conference with patient's daughter Harriet Coding Level of Care Code 14767 Inpt Consult Level 5 Diagnoses COVID U07.1 Malignant pleural effusion J91.0 Metastatic breast cancer C50.919 Hypoxia R09.02 Time Spent (min) 60
[2021-07-09] MEDS: ANASTROZOLE 1 MG TAB PO SCH (12:27)
--- NOTE | 2021-07-09 13:38 | Surgery Progress Note ---
Date of Service July 09, 2021 Assessment & Plan (1) Pleural effusion: (2) Nausea & vomiting: (3) Malignant pleural effusion: (4) Metastatic breast cancer: (5) Elevated LFTs: Plan: 60-year-old woman with metastatic breast cancer to the liver and bone and malig nant pleural effusion presents with few day history of nausea/vomiting/right sided abdominal pain. CT and ultrasound findings are equivocal for acute cholecystitis. HIDA scan today demonstrated no evidence of acute cholecystitis with prompt uptake of contrast into the gallbladder. White count down to 11 today. With her HIDA scan finding, she does not require any urgent surgical intervention. She does have ascites in the right upper quadrant, question possible component of spontaneous bacterial peritonitis? I would advance her diet to clears, and keep her on Zosyn for now. We will monitor her progress. Admission and Anticipated Discharge Date Admission Date: July 08, 2021 Subjective Doing fairly well today. Has less abdominal pain. Denies nausea or vomiting. She is on sips and chips. Physical Exam Constitutional: WD/WN, vitals as above Eyes: PERRL, conjunctivae normal, anicteric sclerae Gastrointestinal (Abdomen): Inspection/Auscultation: abdomen normal to inspection; abdomen not distended Percussion/Palpation: + abdomen tender (Mild right upper quadrant/epigastric tenderness) and abdomen soft; no guarding and abdomen not rigid Musculoskeletal: Extremities: no cyanosis and no clubbing Skin: no rashes, warm and dry Psychiatric: A+Ox3, euthymic affect Results & Data ([facility]) Vital Signs (Past 12 Hours) Vital Signs Temp Pulse Resp BP Pulse Ox 07/09/21 06:56 36.7 C 86 16 96/61 L 95 (1) Nausea & vomiting Vomiting type: unspecified Qualified Code(s): R11.2 - Nausea with vomiting, unspecified
--- NOTE | 2021-07-09 17:15 | Hospitalist Progress Note ---
Date of Service July 09, 2021 Assessment & Plan (1) COVID: Plan: No apparent active viral pneumonia at this time. Will follow (2) Malignant pleural effusion: Plan: Due to metastatic breast cancer. She has a right Pleurx catheter for draining recurrent malignant right pleural effusion. She will need a left Pleurx catheter placed at this time (3) Metastatic breast cancer: Plan: Chemotherapy per oncology recommendations (4) Hypoxia: Plan: Supplemental oxygen as needed to maintain saturation greater than 90% Plan: Initiate Reglan treatment for persistent nausea. Placement of left Pleurx catheter for intermittent drainage of malignant pleural effusion. Hopefully chronic cholecystitis findings on HIDA scan will not need to be addressed anytime soon. Admission and Anticipated Discharge Date Admission Date: July 08, 2021 Subjective Alert and oriented. Nausea is primary complaint. We will add Reglan before meals and at bedtime. HIDA scan negative for acute cholecystitis but she appears to have chronic cholecystitis with low ejection fraction. She needs a left side sided Pleurx catheter placed. She already has a right Pleurx catheter for drainage of malignant pleural effusions. There is MRI evidence of a 5 mm right temporal metastasis. This will need follow-up as an outpatient. Review of Systems Review of Systems: Constitutional-no fever or chills ENT-no blurred vision, no double vision, no epistaxis, no sore throat Respiratory-no cough, no wheezing, no shortness of breath Cardiac-no palpitations, no chest pain, no syncope GI-no vomiting, diarrhea, melena, hematochezia. Persistent nausea -no urinary retention, no urinary incontinence, no dysuria, no hematuria Musculoskeletal-no joint pain, no muscle tenderness Skin-no bruising, no rashes, no pruritus Neuro-no isolated weakness, no paresthesia, no weakness Psych-no depression, no anxiety Physical Exam Physical Exam: General-alert and oriented x3, no fevers, no chills HEENT-head atraumatic and normocephalic, TMs intact bilaterally, pupils equal and reactive to light, extraocular muscles intact Neck-no lymphadenopathy or thyromegaly, trachea midline Chest-clear to auscultation percussion. No rales wheezing or rhonchi Cardiac-regular rate and rhythm, normal S1 and S2, no murmurs Abdomen-normal bowel sounds. Epigastric tenderness without rebound or guarding Extremities-no cyanosis, clubbing, or edema Neuro-cranial nerves II through XII intact, motor and sensory function within normal limits, strength symmetrical , no focal deficits Psych-normal affect, normal mood Results & Data Results & Data ([facility]) Vital Signs (Past 12 Hours) Vital Signs Temp Pulse Resp BP BP Pulse Ox 07/09/21 15:36 36.6 C 94 H 18 115/72 97 07/09/21 06:56 36.7 C 86 16 96/61 L 95 Laboratory Results 07/09/21 05:49 07/09/21 05:49 PG Care Time/CCT Total # of Minutes Spent Total Time Spent with Patient: Total time spent is greater than 50% in coordination of care (as documented) at patient's floor/unit and/or counseling patient: Coding Level of Care Code 01017 Subseq Hosp Care Lvl 3 Diagnoses COVID U07.1 Malignant pleural effusion J91.0 Metastatic breast cancer C50.919 Hypoxia R09.02
[2021-07-09] MEDS: ENOXAPARIN INJ 40 MG/0.4 ML SYR SQ SCH (19:36)
[2021-07-09] MEDS: METOCLOPRAMIDE HCL 10 MG TABLET PO SCH (19:37)
[2021-07-09] MEDS: ONDANSETRON INJ 2 MG/ML 2 ML VIAL IV PRN (19:37)
--- NOTE | 2021-07-09 22:14 | Electrocardiogram Report ---
Test Reason : Blood Pressure : / mmHG Vent. Rate : 094 BPM Atrial Rate : 094 BPM P-R Int : 134 ms QRS Dur : 066 ms QT Int : 364 ms P-R-T Axes : 061 -09 027 degrees QTc Int : 455 ms Normal sinus rhythm Low voltage QRS Cannot rule out Anterior infarct , age undetermined Abnormal ECG When compared with ECG of 06-JUL-2021 17:46, (unconfirmed) No significant change was found Confirmed by Perry Young ([id number]) on 07/09/2021 10:14:17 PM Referred By: REFERRED SELF Confirmed By:Perry Young
[2021-07-10] MEDS: PIPERACILLIN/TAZOBACTAM 3.375 GM in DEXTROSE 5% 100 ML IV SCH ×2 (02:06→13:00)
[2021-07-10] MEDS: traMADol HCL 50 MG TABLET PO PRN ×2 (04:02→11:16)
[2021-07-10 06:00] LABS: Basophils # (auto) 0.05 K/uL (0-0.2); Basophils % (auto) 0.4 %; Eosinophils # (auto) 0.39 K/uL (0-0.5); Eosinophils % (auto) 3.2 %; Hematocrit (blood only) 28.5 % (37-47); Hemoglobin 9.4 g/dL (12.0-16.0); Immature Granulocytes # (auto) 0.54 K/uL (0.00-0.02); Immature Granulocytes % (auto) 4.5 %; Mean Corpuscular Hemoglobin 33.3 pg (25-34); Mean Corpuscular Volume 101.1 fL (80-100); Mean Platelet Volume 11.2 fL (7.4-10.4); Monocytes # (auto) 1.66 K/uL (0.11-0.59); Monocytes % (auto) 13.8 %; Neutrophils # (auto) 8.21 K/uL (1.4-6.5); Neutrophils % (auto) 68.1 %; Nucleated RBC # (auto) 0.29 K/uL (0-0); Nucleated RBC % (auto) 2.4 %; Platelet Count 110 K/uL (130-400); RDW Coefficient of Variation 19.7 % (11.5-14.5); RDW Standard Deviation 71.9 fL (36.4-46.3); Red Blood Count 2.82 M/uL (4.2-5.4); White Blood Count 12.05 K/uL (4.8-10.8)
[2021-07-10 06:24] LABS: Anisocytosis Present; Basophilic Stippling 1+; Polychromasia 1+
[2021-07-10 06:28] LABS: Albumin Globulin Ratio 1.4 (0.9-2); Albumin Level 2.3 gm/dl (3.4-5.0); BUN Creatinine Ratio 27.2 (10-20); Bilirubin,Total 2.4 mg/dl (0.2-1.0); Calcium 7.6 mg/dl (8.5-10.1); Creatinine Clr Calc Pharmacy 62.2 ml/min; Est GFR (African American) 90.2 ml/min; Est GFR (Non-African American) 77.8 ml/min; Globulin 1.6 gm/dl (2.5-4.0); Total Protein 3.9 gm/dl (6.0-8.3)
[2021-07-10] MEDS: METOCLOPRAMIDE HCL 10 MG TABLET PO SCH ×4 (08:48→20:22)
[2021-07-10] MEDS: PANTOprazole 40 MG TAB PO SCH (08:48)
[2021-07-10] MEDS: ANASTROZOLE 1 MG TAB PO SCH (08:48)
[2021-07-10] MEDS: ARTIFICIAL TEARS OP SCH ×4 (08:49→20:22)
[2021-07-10] MEDS ORDERED: LIDOCAINE 1% LOCAL 20 ML VIAL ONE (09:58)
--- NOTE | 2021-07-10 11:06 | Pulmonology Progress Note ---
Date of Service July 10, 2021 Assessment & Plan (1) COVID: (2) Malignant pleural effusion: (3) Metastatic breast cancer: (4) Hypoxia: Plan: Impression: 60-year-old female with history of breast cancer and Metastasis to the pleural fluid and to bone. Patient with recurrent left pleural effusion. She has a Pleurx catheter on the right and recurrent malignant effusion on the left. Recommendations: 1.Recurrent left pleural effusion: Patient will undergo left-sided ultrasound- guided Pleurx catheter placement. She is already set up with home health for the right-sided Pleurx catheter. Recommend that she continue drainage of alternate sides on a daily basis with home health. She will need to follow-up in the pulmonary clinic in 1 to 2 weeks for suture removal. 2. Hypoxia: Secondary to #1. Continue to wean oxygen as tolerated. 3. Breast cancer: Per oncology Thank you for including us in the care of this patient. At this point time the patient appears stable from a pulmonary perspective. Outpatient follow-up in 2 weeks in the pulmonary clinic with me for suture removal. If she has additional pulmonary issues, feel free to contact us otherwise pulmonary will sign off. Admission and Anticipated Discharge Date Admission Date: July 08, 2021 Subjective Patient seen and examined. EMR reviewed. Patient feels well. She did have her Pleurx accessed yesterday and drained. She had some slight chest discomfort and coughing when lying supine overnight. No fevers chills or night sweats. Review of Systems Review of Systems: All systems reviewed & are unremarkable except as noted in Subjective Physical Exam Physical Exam: GENERAL : No acute distress EYES: No icterus, gaze conjugate NOSE: No evidence of epistaxis MOUTH: No lesions or candidiasis NECK: Supple LUNGS: Decreased breath sounds bilaterally. Otherwise clear to auscultation bilaterally with no wheezes, rales, rhonchi. HEART: Regular, rate controlled ABDOMEN: Soft, NT, ND, BS Present EXTREMITIES: No LE edema, pedal pulses intact NEURO: A&OX3 Results & Data Results & Data ([facility]) Vital Signs (Past 12 Hours) Vital Signs Temp Pulse Resp BP BP Pulse Ox 07/10/21 07:17 36.6 C 86 16 92/50 L 94 07/09/21 23:32 37.0 C 95 H 18 98/60 L 96 Laboratory Results 07/10/21 05:26 07/10/21 05:26 Diagnostic Findings No new imaging PG Care Time/CCT Total # of Minutes Spent Total Time Spent with Patient: Total time spent is greater than 50% in coordination of care (as documented) at patient's floor/unit and/or counseling patient: Coding Level of Care Code 72282 Subseq Hosp Care Lvl 2 Diagnoses COVID U07.1 Malignant pleural effusion J91.0 Metastatic breast cancer C50.919 Hypoxia R09.02
--- NOTE | 2021-07-10 11:08 | Procedure Note ---
Procedure Note Date of Service July 10, 2021 Note Procedure: Ultrasound guided Left Pleurx catheter placement. Indication: Recurrent malignant effusion Consent: Signed by patient and verified with timeout prior to procedure. Anesthesia: 15 mL's 1% lidocaine without epinephrine locally. Watermaster: Dr. Won Spence Procedure: Appropriate radiographic films had been reviewed prior to commencement of the procedure. Risks and benefits were again discussed with patient consent was verified. The patient was placed in the left side up lateral decubitus position. Limited thoracic ultrasound was performed which revealed demonstrating a moderate-sized pleural effusion with compressive atelectasis. Site appropriate for the pleurotomy was marked. Skin was prepped and draped in normal sterile fashion. Using 1% lidocaine, the skin and soft tissues down to the pleura were ane sthetized. A tract extending approximately 8 to 10 cm anteriorly from the pleurotomy site was also infiltrated and a site appropriate for the exit of the Pleurx catheter was marked. A 1 cm skin klarissa was made at the posterior site. The catheter over the needle apparatus was advanced into the pleural space with pleural fluid easily aspirated. A wire was passed through the catheter after the needle was removed. The Pleurx catheter was then loaded on the tunneling device. A 1cm skin incision was made at the anterior catheter exit site. The tunneling device with the attached Pleurx catheter were passed from the anterior incision back to the posterior incision until the cuff of the Pleurx catheter resided within the subcutaneous tissues. The catheter was palpated along its course and no kinking was identified. Serial dilatation was then performed over the wire with the pull-away catheter being left in place. The Pleurx was removed from the tunneling mechanism and advanced through the peel-away catheter. The catheter sheath was then peeled back as the Pleurx catheter was advanced into the pleural space. The Pleurx catheter course was palpated and no kinks were felt. It was attached to wall suction and a total of 650mL's was removed. Using 1-0 silk, 2 stitches were placed at the exit Pleurx site and the catheter secured in place. 2 small silk sutures were used to close the posterior incision. A sterile dressing was applied. The patient tolerated the procedure well without obvious complication. Post procedure x-ray is pending. Estimated blood loss: Less than 10 mL's Coding CPT Codes Pulmonary/Thoracic - Pulmonary and Thoracic: 67186 Insert pleural cathereter w/cuff ([id number]) Pulmonary/Thoracic - Pulmonary and Thoracic: 95893 US, Chest, real time with imaging documentation ([id number]) [facility] Codes (Charges) Pulmonary/Thoracic Procedure 1: Pulmonary and Thoracic: 64718 Insert pleural cathereter w/cuff Procedure 2: Pulmonary and Thoracic: 78288 US, Chest, real time with imaging documentation
--- NOTE | 2021-07-10 11:43 | Surgery Progress Note ---
Date of Service July 10, 2021 Assessment & Plan (1) Pleural effusion: (2) Nausea & vomiting: (3) Malignant pleural effusion: (4) Metastatic breast cancer: (5) Elevated LFTs: Plan: 60-year-old woman with metastatic breast cancer to the liver and bone and malig nant pleural effusion presents with few day history of nausea/vomiting/right sided abdominal pain. CT and ultrasound findings were equivocal for acute cholecystitis. HIDA scan showing no cystic duct obstruction/acute cholecystitis however EF was low at 2%. 07/10/2021: Mild increase in leukocytosis of 12K afebrile t.bili and lfts still elevated (likely chronic) No obstruction via HIDA yesterday + nausea and some abdominal pain after eating (likely given the biliary dyskinesia) With her HIDA scan finding, she does not require any urgent surgical intervention. She does have ascites in the right upper quadrant, question possible component of spontaneous bacterial peritonitis? Continue clears per patient request, little appetite would continue IV zosyn given continued leukocytosis Continue pain management as needed Discussed with Dr. Beebe who agrees with above. Admission and Anticipated Discharge Date Admission Date: July 08, 2021 Subjective having back pain, had left pleurex catheter placed so sore from procedure abdominal pain after eating but improved compared to presentation to the hospital + nausea after eating little appetite not complaining of abdominal pain other than after eating Physical Exam Constitutional: + thin, + frail appearing and cooperative Neck: normal visual inspection and trachea midline Respiratory: normal respiratory effort; no respiratory distress Gastrointestinal (Abdomen): Inspection/Auscultation: abdomen normal to inspection and normal bowel sounds; abdomen not distended Percussion/Palpation: abdomen soft; abdomen nontender, no guarding and abdomen not rigid Skin: no rashes, warm and dry no jaundice Psychiatric: Orientation: alert and oriented x 3 Results & Data ([facility]) Vital Signs (Past 12 Hours) Vital Signs Temp Pulse Resp BP Pulse Ox 07/10/21 07:17 36.6 C 86 16 92/50 L 94 Laboratory Results 07/10/21 07/10/21 Range/Units 05:26 05:26 WBC 12.05 H (4.8-10.8) K/uL RBC 2.82 L (4.2-5.4) M/uL Hgb 9.4 L (12.0-16.0) g/dL Hct 28.5 L (37-47) % MCV 101.1 H (80-100) fL MCH 33.3 (25-34) pg MCHC 33.0 (32-36) g/dL RDW Std Deviation 71.9 H (36.4-46.3) fL RDW Coeff of Fritz 19.7 H (11.5-14.5) % Plt Count 110 L (130-400) K/uL MPV 11.2 H (7.4-10.4) fL Immature Gran % (Auto) 4.5 % Neut % (Auto) 68.1 % Lymph % (Auto) 10.0 % [place] % (Auto) 13.8 % Eos % (Auto) 3.2 % Baso % (Auto) 0.4 % Neut # (Auto) 8.21 H (1.4-6.5) K/uL Lymph # (Auto) 1.20 (1.2-3.4) K/uL [place] # (Auto) 1.66 H (0.11-0.59) K/uL Eos # (Auto) 0.39 (0-0.5) K/uL Baso # (Auto) 0.05 (0-0.2) K/uL Immature Gran # (Auto) 0.54 H (0.00-0.02) K/uL Absolute Nucleated RBC 0.29 H (0-0) K/uL Nucleated RBC % (auto) 2.4 % Polychromasia 1+ Basophilic Stippling 1+ Anisocytosis Present Sodium 134 L (136-145) mmol/L Potassium 4.0 (3.5-5.1) mmol/L Chloride 106 (98-107) mmol/L Carbon Dioxide 22 (21-32) mmol/L Anion Gap 6 (3-11) BUN 22 (6-23) mg/dl Creatinine 0.81 (0.6-1.2) mg/dl Est Cr Clr Drug Dosing 62.2 ml/min Est GFR ( Amer) 90.2 ml/min Est GFR (Non-Af Amer) 77.8 ml/min BUN/Creatinine Ratio 27.2 H (10-20) Glucose 86 (70-99(Fasting)) mg/dl Calcium 7.6 L (8.5-10.1) mg/dl Total Bilirubin 2.4 H (0.2-1.0) mg/dl AST 118 H (13-39) U/L ALT 27 (7-52) U/L Alkaline Phosphatase 105 H (34-104) U/L Total Protein 3.9 L (6.0-8.3) gm/dl Albumin 2.3 L (3.4-5.0) gm/dl Globulin 1.6 L (2.5-4.0) gm/dl Albumin/Globulin Ratio 1.4 (0.9-2) (1) Nausea & vomiting Vomiting type: unspecified Qualified Code(s): R11.2 - Nausea with vomiting, unspecified
--- NOTE | 2021-07-10 11:44 | XRay Report ---
XR chest 1V portable HISTORY: 60 years-old Female post L pleurex placement status post placement of a left-sided chest tu be COMPARISON: CTA chest 07/08/2021, chest radiograph 07/06/2021 TECHNIQUE: Portable AP view of the chest FINDINGS: The cardiac silhouette is mildly enlarged. Pulmonary vascular congestion with progressively worsened right greater than left interstitial coarsening. Mild bibasilar opacities with small pleural effusion s, increased in size on the right and mildly decreased on the left. Unchanged positioning of the righ t-sided chest tube. Status post placement of a left-sided chest tube, distal tip remaining over the m edial left lung base. Tiny left-sided pneumothorax with pleural separation at the apex measuring up t o 3 mm. Left subclavian [id number]-[id number] catheter distal tip projects over the mid SVC. Multifocal scler otic metastatic disease redemonstrated. IMPRESSION: 1. Cardiomegaly with pulmonary vascular congestion and progressed interstitial coarsening suggestive of pulmonary edema versus interstitial pneumonitis. 2. Small pleural effusions, mildly increased in size on the right and slightly decreased on the left. 3. Bilateral chest tubes are in place with tiny left apical pneumothorax. 4. Sclerotic metastatic disease redemonstrated. ACT 112: Negative or not required by law. The above report was generated using voice recognition software. It may contain grammatical, syntax o r spelling errors. Electronically signed by: Severo Johnson M.D. 07/10/2021 11:43 AM
[2021-07-10] MEDS ORDERED: MoRPHine SULFATE CR 15 MG TABCR PO STA (12:48)
--- NOTE | 2021-07-10 13:41 | Hospitalist Progress Note ---
Date of Service July 10, 2021 Assessment & Plan (1) COVID: Plan: No apparent active viral pneumonia at this time. Will follow (2) Malignant pleural effusion: Plan: Due to metastatic breast cancer. She has a right Pleurx catheter for draining recurrent malignant right pleural effusion. Left sided Pleurx catheter placed today, July 10, without incident. (3) Metastatic breast cancer: Plan: Chemotherapy per oncology recommendations. Back pain is probably due to bone metastases. Morphine long-acting every 12 hours has been started (4) Hypoxia: Plan: Supplemental oxygen as needed to maintain saturation greater than 90% Plan: Reglan treatment for persistent nausea has helped. Long-acting morphine sulfate has been started. Hopefully she can go home tomorrow, July 11, if she is more comfortable Admission and Anticipated Discharge Date Admission Date: July 08, 2021 Subjective Main complaint is back pain that I suspect is related to bone metastases. Scheduled long-acting morphine every 12 hours has been added. Case discussed with oncology. They will be starting an anthracycline based chemotherapy regimen as an outpatient. Cardiac echo ordered to document left ventricular ejection fraction for further comparison in the future. Diet advanced. Reglan has helped with nausea. Review of Systems Review of Systems: Constitutional-no fever or chills ENT-no blurred vision, no double vision, no epistaxis, no sore throat Respiratory-no cough, no wheezing, no shortness of breath Cardiac-no palpitations, no chest pain, no syncope GI-no nausea, vomiting, diarrhea, melena, hematochezia -no urinary retention, no urinary incontinence, no dysuria, no hematuria Musculoskeletal-back pain probably from bone metastases to the spine Skin-no bruising, no rashes, no pruritus Neuro-no isolated weakness, no paresthesia, no weakness Psych-no depression, no anxiety Physical Exam Physical Exam: General-alert and oriented x3, no fevers, no chills. Tearful due to pain HEENT-head atraumatic and normocephalic, TMs intact bilaterally, pupils equal and reactive to light, extraocular muscles intact Neck-no lymphadenopathy or thyromegaly, trachea midline Chest-clear to auscultation percussion. No rales wheezing or rhonchi Cardiac-regular rate and rhythm, normal S1 and S2, no murmurs Abdomen-normal bowel sounds, nontender, no hepatosplenomegaly Extremities-no cyanosis, clubbing, or edema Neuro-cranial nerves II through XII intact, motor and sensory function within normal limits, strength symmetrical 5/5, no focal deficits Psych-normal affect, normal mood Results & Data Results & Data ([facility]) Vital Signs (Past 12 Hours) Vital Signs Temp Pulse Resp BP Pulse Ox 07/10/21 07:17 36.6 C 86 16 92/50 L 94 Laboratory Results 07/10/21 05:26 07/10/21 05:26 PG Care Time/CCT Total # of Minutes Spent Total Time Spent with Patient: Total time spent is greater than 50% in coordination of care (as documented) at patient's floor/unit and/or counseling patient: Coding Level of Care Code 96594 Subseq Hosp Care Lvl 3 Diagnoses COVID U07.1 Malignant pleural effusion J91.0 Metastatic breast cancer C50.919 Hypoxia R09.02
--- NOTE | 2021-07-10 14:12 | XCELERA ---
[id number] \\[id number]
[2021-07-10] MEDS: ENOXAPARIN INJ 40 MG/0.4 ML SYR SQ SCH (20:23)
--- NOTE | 2021-07-10 21:48 | Consultation Report ---
DATE OF SERVICE: 07/10/2021 REASON FOR CONSULT: Breast cancer with recently diagnosed brain metastasis. HISTORY OF PRESENT ILLNESS: Ms. Lynn is a 60-year-old female with metastatic ER/LA positive, HER2 negative breast cancer, for which she was most recently on palliative chemotherapy with capecitabine. The patient was admitted on 07/08/2021 with complaints of nausea and dizziness. Brain MRI obtained on 07/08/2021 revealed a small 5 mm enhancing lesion in the right temporal lobe, which may represent intracranial metastasis along with diffuse bony metastasis. CT abdomen and pelvis obtained on 07/08/2021 revealed cholelithiasis with gallbladder wall thickening concerning for acute cholecystitis, mild ascites, extensive blastic metastasis and ill-defined hypodensities in the liver, too small to characterize. HIDA scan obtained on 07/09/2021 revealed no scintigraphic evidence of acute cholecystitis. On admission, patient was also found to have recurrent left pleural effusion for which a PleurX catheter was placed today. During my evaluation of her, she complains of pain around the site of PleurX catheter. Also, complains of mild shortness of breath at rest and with exertion. She states that nausea and vomiting have since resolved. She denies fever, chills, significant weight loss or any other complaints. PAST MEDICAL HISTORY: 1. Metastatic breast cancer. 2. GERD. 3. Bone metastasis. PAST SURGICAL HISTORY: No significant past surgical history. MEDICATIONS PRIOR TO ADMISSION: 1. Tamoxifen 20 mg p.o. daily. 2. Tylenol 500 mg p.o. b.i.d. p.r.n. 3. Tramadol 50 mg p.o. q.6 hours p.r.n. ALLERGIES: No known drug allergies. SOCIAL HISTORY: Denies smoking, alcohol and illicit drug use. FAMILY HISTORY: Breast cancer in her mother and cousin. REVIEW OF SYSTEMS: CONSTITUTIONAL: Endorses fatigue. Denies weight loss, fevers or night sweats. EYES: Endorses eye drainage and irritation due to Xeloda. RESPIRATORY: Endorses chest pain and dyspnea on exertion. GASTROINTESTINAL: She states that nausea and vomiting have resolved. Denies abdominal pain, diarrhea, constipation. GENITOURINARY: She denies urinary frequency, urgency or dysuria. NEUROLOGICAL: Denies headaches, dizziness, or blurry vision. MUSCULOSKELETAL: Denies any complaints. PHYSICAL EXAMINATION: VITAL SIGNS: Blood pressure 92/50, heart rate 86, respiratory rate 16, temperature 36.6, oxygen saturation 94% on 1.5 liters per minute nasal cannula. HEENT: No palpable masses. LYMPHATIC: No palpable lymphadenopathy. HEART: Heart sounds regular rate and rhythm. No murmurs appreciated. LUNGS: Decreased breath sounds bilaterally. ABDOMEN: No abdominal tenderness. No palpable hepatosplenomegaly. EXTREMITIES: No peripheral edema. LABORATORY DATA: CBC on 07/10/2021 revealed white cell count of 12,000, hemoglobin 9.4 with MCV of 101.1 and platelet count of 110,000. Chemistry significant for sodium of 134, BUN 22, creatinine 0.81, calcium 7.6, bilirubin 2.4, AST 118, ALT 287, and alkaline phosphatase is 105. IMAGING STUDIES: CT abdomen and pelvis on 07/08/2021, Impression: 1. Cholelithiasis with gallbladder thickening concerning for acute cholecystitis. 2. Extensive blastic metastasis. 3. Mild ascites. 4. ill-defined hypodensities in the liver are too small to characterize. Brain MRI on 07/08/2021: A 5 mm enhancing lesion in the right temporal lobe, which may represent intracranial metastasis. Diffuse bony metastasis also noted. HIDA scan on 07/09/2021: 1. There is no scintigraphic evidence of acute cholecystitis. 2. Gallbladder ejection fraction is abnormally diminished measuring 2%. IMPRESSION: 1. Breast cancer with metastasis. 2. Possible brain metastasis. 3. Bone metastasis. 4. Malignant pleural effusion. 5. Liver metastasis. PLAN: Very pleasant female with breast cancer, for which she was most recently on Xeloda and tamoxifen. Given persistent malignant pleural effusion along with poor tolerance of Xeloda, I will recommend discontinuing Xeloda and switching to dose reduced liposomal doxorubicin.I discussed potential side effects of treatment with her. She will need a 2D echocardiogram prior to switching therapy. She will also need molecular testing on her prior tumor sample as well as evaluation for germline mutation analysis given significant family history of breast cancer. She will need close follow up brain imaging to assess tiny enhancing right temporal lobe lesion. The patient was given the opportunity to ask questions, which were answered to her satisfaction. We will see her in clinic upon discharge from hospital. Thank you for this consult. Please feel free to call if you have any further questions. Job ID: [id number] [facility]
[2021-07-11] MEDS ORDERED: MoRPHine SULFATE CR 15 MG TABCR PO SCH (01:00)
[2021-07-11 06:53] LABS: Albumin Globulin Ratio 1.3 (0.9-2); Albumin Level 2.7 gm/dl (3.4-5.0); BUN Creatinine Ratio 29.4 (10-20); Bilirubin,Total 2.3 mg/dl (0.2-1.0); Calcium 7.9 mg/dl (8.5-10.1); Creatinine Clr Calc Pharmacy 49.4 ml/min; Est GFR (African American) 68.3 ml/min; Est GFR (Non-African American) 58.9 ml/min; Globulin 2.1 gm/dl (2.5-4.0); Potassium 4.6 mmol/L (3.5-5.1); Total Protein 4.8 gm/dl (6.0-8.3)
[2021-07-11 07:23] LABS: Mean Corpuscular Hgb Conc 32.4 g/dL (32-36)
[2021-07-11 07:27] LABS: Acanthocytes 1+; Anisocytosis Present; Basophils # (auto) 0.07 K/uL (0-0.2); Basophils % (auto) 0.4 %; Eosinophils # (auto) 0.23 K/uL (0-0.5); Eosinophils % (auto) 1.4 %; Hematocrit (blood only) 34.6 % (37-47); Hemoglobin 11.2 g/dL (12.0-16.0); Immature Granulocytes # (auto) 0.49 K/uL (0.00-0.02); Mean Corpuscular Hemoglobin 33.5 pg (25-34); Mean Corpuscular Volume 103.6 fL (80-100); Mean Platelet Volume 11.3 fL (7.4-10.4); Monocytes # (auto) 2.27 K/uL (0.11-0.59); Monocytes % (auto) 13.7 %; Neutrophils # (auto) 11.54 K/uL (1.4-6.5); Neutrophils % (auto) 69.5 %; Nucleated RBC # (auto) 0.47 K/uL (0-0); Nucleated RBC % (auto) 2.8 %; Platelet Count 128 K/uL (130-400); Platelet Estimate Decreased (Normal); Polychromasia 1+; RDW Standard Deviation 74.2 fL (36.4-46.3); Red Blood Count 3.34 M/uL (4.2-5.4); Schistocytes Occasional
[2021-07-11] MEDS: METOCLOPRAMIDE HCL 10 MG TABLET PO SCH ×4 (08:48→19:46)
[2021-07-11] MEDS: ANASTROZOLE 1 MG TAB PO SCH (08:48)
[2021-07-11] MEDS: ARTIFICIAL TEARS OP SCH ×5 (08:49→19:46)
[2021-07-11] MEDS: PANTOprazole 40 MG TAB PO SCH (08:49)
[2021-07-11] MEDS ORDERED: oxyCODONE HCL IR 5 MG TAB (IMMEDIATE RELEASE) PO PRN (09:26)
--- NOTE | 2021-07-11 10:56 | Surgery Progress Note ---
Date of Service July 11, 2021 Assessment & Plan (1) Pleural effusion: (2) Nausea & vomiting: (3) Malignant pleural effusion: (4) Metastatic breast cancer: (5) Elevated LFTs: Plan: 60-year-old woman with metastatic breast cancer to the liver and bone and malig nant pleural effusion presents with few day history of nausea/vomiting/right sided abdominal pain. CT and ultrasound findings were equivocal for acute cholecystitis. HIDA scan showing no cystic duct obstruction/acute cholecystitis however EF was low at 2%. 07/11/2021: increase in leukocytosis to 16K afebrile t.bili and lfts still elevated (likely chronic) No obstruction via HIDA + nausea very drowsy today (likely secondary to the MS Contin pain management) Plan: With her HIDA scan finding, she does not require any urgent surgical intervention. She does have ascites in the right upper quadrant, question possible component of spontaneous bacterial peritonitis? Continue diet, low fat diet given biliary dyskinesia Would recommend antibiotics given increase in leukocytosis Continue pain management as needed, per medicine team Discussed with Dr. Beebe who agrees with above. Admission and Anticipated Discharge Date Admission Date: July 08, 2021 Subjective patient very drowsy because of pain medication able to answer questions but easily falls back to sleep keeps stating wants pain medication dose reduced as she is getting very drowsy no abdominal pain + nausea diet advanced but not eating much Physical Exam Constitutional: + thin, + frail appearing and + lethargic; no acute distress and not ill appearing Eyes: + pinpoint pupils Neck: normal visual inspection and trachea midline Respiratory: normal respiratory effort; no respiratory distress and no labored breathing Gastrointestinal (Abdomen): Inspection/Auscultation: abdomen normal to inspection and + hypoactive bowel sounds; abdomen not distended Percussion/Palpation: abdomen soft; abdomen nontender, no guarding and abdomen not rigid Skin: no rashes, warm and dry no jaundice Psychiatric: Orientation: alert Results & Data ([facility]) Vital Signs (Past 12 Hours) Vital Signs Temp Pulse Resp BP Pulse Ox 07/11/21 07:15 36.4 C L 92 H 16 105/64 93 Laboratory Results 07/11/21 07/11/21 Range/Units 06:11 06:11 WBC 16.60 H (4.8-10.8) K/uL RBC 3.34 L (4.2-5.4) M/uL Hgb 11.2 L (12.0-16.0) g/dL Hct 34.6 L (37-47) % MCV 103.6 H (80-100) fL MCH 33.5 (25-34) pg MCHC 32.4 (32-36) g/dL RDW Std Deviation 74.2 H (36.4-46.3) fL RDW Coeff of Fritz 20.0 H (11.5-14.5) % Plt Count 128 L (130-400) K/uL MPV 11.3 H (7.4-10.4) fL Immature Gran % (Auto) 3.0 % Neut % (Auto) 69.5 % Lymph % (Auto) 12.0 % [place] % (Auto) 13.7 % Eos % (Auto) 1.4 % Baso % (Auto) 0.4 % Neut # (Auto) 11.54 H (1.4-6.5) K/uL Lymph # (Auto) 2.00 (1.2-3.4) K/uL [place] # (Auto) 2.27 H (0.11-0.59) K/uL Eos # (Auto) 0.23 (0-0.5) K/uL Baso # (Auto) 0.07 (0-0.2) K/uL Immature Gran # (Auto) 0.49 H (0.00-0.02) K/uL Absolute Nucleated RBC 0.47 H (0-0) K/uL Nucleated RBC % (auto) 2.8 % Platelet Estimate Decreased L (Normal) Polychromasia 1+ Anisocytosis Present Acanthocytes (Spur) 1+ Schistocytes Occasional Sodium 134 L (136-145) mmol/L Potassium 4.6 (3.5-5.1) mmol/L Chloride 105 (98-107) mmol/L Carbon Dioxide 22 (21-32) mmol/L Anion Gap 7 (3-11) BUN 30 H (6-23) mg/dl Creatinine 1.02 (0.6-1.2) mg/dl Est Cr Clr Drug Dosing 49.4 ml/min Est GFR ( Amer) 68.3 ml/min Est GFR (Non-Af Amer) 58.9 ml/min BUN/Creatinine Ratio 29.4 H (10-20) Glucose 96 (70-99(Fasting)) mg/dl Calcium 7.9 L (8.5-10.1) mg/dl Total Bilirubin 2.3 H (0.2-1.0) mg/dl AST 147 H (13-39) U/L ALT 33 (7-52) U/L Alkaline Phosphatase 121 H (34-104) U/L Total Protein 4.8 L (6.0-8.3) gm/dl Albumin 2.7 L (3.4-5.0) gm/dl Globulin 2.1 L (2.5-4.0) gm/dl Albumin/Globulin Ratio 1.3 (0.9-2) (1) Nausea & vomiting Vomiting type: unspecified Qualified Code(s): R11.2 - Nausea with vomiting, unspecified
[2021-07-11] MEDS ORDERED: PIPERACILL/TAZOBAC CONSULT ACTIVE PRN (11:29)
--- NOTE | 2021-07-11 11:58 | Gastrointestinal Consultation ---
Date of Consultation July 11, 2021 Assessment & Plan (1) Nausea & vomiting: (2) Ascites: Suspect malignant ascites. No appreciable fluid collection on PE. * Could consider ultrasound guided dx paracentesis, although doubt there is enough ascitic fluid for collection at this time. * Defer further to Dr. Huang. * Continue supportive care. Thank you for allowing us to participate in the care of this patient. If you have any questions or concerns, please do not hesitate to contact us. Supervising Physician Co-Signing Physician Notes I personally evaluated the patient and agree with the findings as documented by MACY Anderson Exam: Constitutional: WD/WN, vitals as above General: EOM intact bilaterally Neck: normal visual inspection Respiratory: normal respiratory effort, lungs clear to auscultation Cardiovascular: RRR, no murmur, no edema Gastrointestinal: abdomennormal to inspection, nondistended, soft, nontender, no hepatosplenomegaly Musculoskeletal: no cyanosis, head normal to inspection Skin: no rashes, warm and dry Neurologic: moves all extremities Psychiatric: A and O x3, euthymic affect History of Present Illness Reason for Consultation: Possible SBP Requesting Physician: Dr. Hughes Attending Physician: Mike Hughes MD History of Present Illness Patient is a very pleasant 60 year-old female with a history of metastatic breast CA on palliative chemotherapy admitted approximately 10 days ago with right-sided chest pain and pneumothorax. She was treated and discharged home only to return back to the hospital on 07/08/21 with complaints of nausea with vomiting and RUQ pain. She states she has a poor appetite and continues with nausea but no further vomiting. Mild RUQ pain. No fevers or chills or abdominal distention. Patient was found to have abnormal imaging suggestive of acute cholecystitis and HIDA with EF of 2%. She was also found to have mild ascites. Due to this, recommendation for GI evaluation for possible SBP. Allergies Allergy/AdvReac Type Severity Reaction Status Date / Time capecitabine AdvReac Intermediate SEE COMMENT Verified 07/08/21 03:05 Home Medications Medication Instructions Recorded Confirmed Type anastrozole 1 mg tablet 1 mg PO QAM #30 tab 01/14/20 07/08/21 Rx zoledronic acid 4 mg/100 mL in 4 mg IV MONTHLY ml 09/15/20 07/08/21 History mannitol 5 %-water intravenous piggybck acetaminophen 500 mg tablet 500 mg PO BID PRN 07/01/21 07/08/21 History artificial 1 drp OPB HS 07/01/21 07/08/21 History tears(svrnhca-tgtgzzux-hetefjf) 0.1 %-0.3 %-0.2 % eye drops (GenTeal Tears Moderate) carboxymethylcellulose sodium 1 % 1 drp OPB QID 07/01/21 07/08/21 History eye liquid gel drops (Refresh Liquigel) prednisolone acetate 1 % eye 1 drp OPB QID 07/01/21 07/08/21 History drops,suspension tramadol 50 mg tablet 50 mg PO Q6H PRN 07/01/21 07/08/21 History Patient History Medical History Acute pericardial effusion Bone cancer met cancer GERD (gastroesophageal reflux disease) Malignant pleural effusion Multiple fractures of ribs Normocytic hypochromic anemia Pathologic fracture of lumbar vertebra Pathologic fracture of thoracic vertebrae Pneumothorax Pulmonary nodules Secondary malignant neoplasm of bone Surgical History History of bilateral tubal ligation Port-A-Cath in place (02/17/20) Insertion of Mediport Left Subclavian Vein Under Fluoroscopy Dr. Maria 02/17/2020 Family History Mother , about age 82 Alzheimer disease Breast cancer Father , age 52 from MVA Motor vehicle accident Family/Other Breast cancer cousin Daughter Cancer Son Diabetes Other Asthma Hypertension Social History Smoking Status: Never smoker Second Hand Exposure: Yes (30 yrs ago); Hx Alcohol Use: No Hx Substance Use: No Preferred Language: Khmer Communication Ability: Effective Visual Impairment: No Limitations [employer] Area Supervisor Required: No Beliefs That Will Affect Care: None marital status: Current Living Situation: Spouse and Family Current Living Situation Comment: lives with and son, 2 story home, with 1st floor set up current occupational status: previously employed 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; 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; 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 How many Children do You have: 3 How many Children do You have Comment: 1 child developmentally disable Feels Safe at Home: Yes Assistive Devices: None Review of Systems Constitutional: as per Subjective / HPI Respiratory: no cough and no dyspnea Cardiovascular: no chest pain and no palpitations Gastrointestinal: as per Subjective / HPI Physical Exam Constitutional: + frail appearing; no acute distress Eyes: + anicteric sclerae and EOM intact bilaterally Neck: normal visual inspection Respiratory: normal respiratory effort, lungs clear to auscultation Cardiovascular: Rate/Rhythm: regular rate and regular rhythm Gastrointestinal (Abdomen): Inspection/Auscultation: abdomen normal to inspection and normal bowel sounds; abdomen not distended Percussion/Palpat ion: + abdomen tender (RUQ), abdomen soft and + abdomen firm; no ascites Results & Data ([facility]) Vital Signs (Past 12 Hours) Vital Signs Temp Pulse Resp BP Pulse Ox 07/11/21 07:15 36.4 C L 92 H 16 105/64 93 Diagnostic Findings Laboratory Results WBC 16.60 K/uL (4.8-10.8) H 07/11/21 06:11 RBC 3.34 M/uL (4.2-5.4) L 07/11/21 06:11 Hgb 11.2 g/dL (12.0-16.0) L 07/11/21 06:11 Hct 34.6 % (37-47) L 07/11/21 06:11 MCV 103.6 fL (80-100) H 07/11/21 06:11 MCH 33.5 pg (25-34) 07/11/21 06:11 MCHC 32.4 g/dL (32-36) 07/11/21 06:11 RDW Std Deviation 74.2 fL (36.4-46.3) H 07/11/21 06:11 RDW Coeff of Fritz 20.0 % (11.5-14.5) H 07/11/21 06:11 Plt Count 128 K/uL (130-400) L 07/11/21 06:11 MPV 11.3 fL (7.4-10.4) H 07/11/21 06:11 Immature Gran % (Auto) 3.0 % 07/11/21 06:11 Neut % (Auto) 69.5 % 07/11/21 06:11 Lymph % (Auto) 12.0 % 07/11/21 06:11 Norman % (Auto) 13.7 % 07/11/21 06:11 Eos % (Auto) 1.4 % 07/11/21 06:11 Baso % (Auto) 0.4 % 07/11/21 06:11 Neut # (Auto) 11.54 K/uL (1.4-6.5) H 07/11/21 06:11 Lymph # (Auto) 2.00 K/uL (1.2-3.4) 07/11/21 06:11 Norman # (Auto) 2.27 K/uL (0.11-0.59) H 07/11/21 06:11 Eos # (Auto) 0.23 K/uL (0-0.5) 07/11/21 06:11 Baso # (Auto) 0.07 K/uL (0-0.2) 07/11/21 06:11 Immature Gran # (Auto) 0.49 K/uL (0.00-0.02) H 07/11/21 06:11 Absolute Nucleated RBC 0.47 K/uL (0-0) H 07/11/21 06:11 Nucleated RBC % (auto) 2.8 % 07/11/21 06:11 Platelet Estimate Decreased (Normal) L 07/11/21 06:11 Polychromasia 1+ 07/11/21 06:11 Poikilocytosis Present 07/08/21 01:34 Basophilic Stippling 1+ 07/10/21 05:26 Anisocytosis Present 07/11/21 06:11 Tear Drop Cells 1+ 07/09/21 05:49 Acanthocytes (Spur) 1+ 07/11/21 06:11 Schistocytes Occasional 07/11/21 06:11 Sodium 134 mmol/L (136-145) L 07/11/21 06:11 Potassium 4.6 mmol/L (3.5-5.1) 07/11/21 06:11 Chloride 105 mmol/L (98-107) 07/11/21 06:11 Carbon Dioxide 22 mmol/L (21-32) 07/11/21 06:11 Anion Gap 7 (3-11) 07/11/21 06:11 BUN 30 mg/dl (6-23) H 07/11/21 06:11 Creatinine 1.02 mg/dl (0.6-1.2) 07/11/21 06:11 Est Cr Clr Drug Dosing 49.4 ml/min 07/11/21 06:11 Est GFR ( Amer) 68.3 ml/min 07/11/21 06:11 Est GFR (Non-Af Amer) 58.9 ml/min 07/11/21 06:11 BUN/Creatinine Ratio 29.4 (10-20) H 07/11/21 06:11 Glucose 96 mg/dl (70-99(Fasting)) 07/11/21 06:11 Lactate 1.3 mmol/L (0.4-2.0) 07/08/21 02:25 Calcium 7.9 mg/dl (8.5-10.1) L 07/11/21 06:11 Phosphorus 3.5 mg/dl (2.5-4.9) 07/08/21 01:15 Magnesium 1.9 mg/dl (1.7-2.4) 07/08/21 01:15 Total Bilirubin 2.3 mg/dl (0.2-1.0) H 07/11/21 06:11 Direct Bilirubin 0.6 mg/dl (0-0.2) H 07/09/21 05:49 AST 147 U/L (13-39) H 07/11/21 06:11 ALT 33 U/L (7-52) 07/11/21 06:11 Alkaline Phosphatase 121 U/L (34-104) H 07/11/21 06:11 Troponin I < 0.03 ng/ml (0-0.04) 07/08/21 01:34 Total Protein 4.8 gm/dl (6.0-8.3) L 07/11/21 06:11 Albumin 2.7 gm/dl (3.4-5.0) L 07/11/21 06:11 Globulin 2.1 gm/dl (2.5-4.0) L 07/11/21 06:11 Albumin/Globulin Ratio 1.3 (0.9-2) 07/11/21 06:11 Lipase 4 U/L (11-82) L 07/08/21 01:34 Procalcitonin 0.18 ng/ml (0-0.5) 07/08/21 02:25 Urine Color Dark Yellow 07/08/21 04:33 Urine Appearance Clear (Clear) 07/08/21 04:33 Urine pH 6.0 (4.5-7.5) 07/08/21 04:33 Ur Specific [place] > 1.045 (1.000-1.030) H 07/08/21 04:33 Urine Protein Trace (Negative) H 07/08/21 04:33 Urine Glucose (UA) Negative (Negative) 07/08/21 04:33 Urine Ketones Trace (Negative) H 07/08/21 04:33 Urine Blood Negative (Negative) 07/08/21 04:33 Urine Nitrite Negative (Negative) 07/08/21 04:33 Urine Bilirubin Negative (Negative) 07/08/21 04:33 Urine Urobilinogen Positive (Negative) H 07/08/21 04:33 Ur Leukocyte Esterase Trace (Negative) H 07/08/21 04:33 Urine WBC (Auto) 10-30 /hpf (0-5) H 07/08/21 04:33 Urine RBC (Auto) 5-10 /hpf (0-4) H 07/08/21 04:33 U Hyaline Cast (Auto) 10-30 /lpf (0-5) H 07/08/21 04:33 U Epithel Cells (Auto) >30 /lpf (0-5) H 07/08/21 04:33 Urine Bacteria (Auto) Negative (Negative) 07/08/21 04:33 Ur Renal Epithelial Cell Not Reportable 07/08/21 04:33 Calcium Oxalate Crystal Present (None Prsent) A 07/08/21 04:33 Impressions Chest CTA 07/08/21 01:21 CT angio chest PE protocol CLINICAL HISTORY: PE, shortness of breath, history of metastatic breast ca TECHNIQUE: Multidetector row helical CT of the chest was performed. Coronal and sagittal reformations were obtained. Coronal and sagittal MIPS were obtained from the axial data set and were submitted for review. Automated dose lowering techniques and/or adjustment according to patient size were utilized for this exam. Comparison: Comparison is made to CTA chest 07/01/2021 FINDINGS: Lungs and pleura: There is a moderate left pleural effusion, stable to decreased from prior exam. Small right pleural effusion is seen, significantly decreased from prior exam. A right pleural drain is noted. No suspicious pulmonary nodule is seen. Heart and pericardium: Heart size is normal. No pericardial effusion. Vessels: No evidence of pulmonary embolism. Mediastinum and titus: Unremarkable. Chest wall and lower neck: Subcentimeter axillary lymph nodes noted. Abdomen: For findings below the diaphragm, please refer to CT of the abdomen dated the same. Bones: Extensive lytic and blastic bony lesions are seen throughout the visualized skeleton. Multilevel degenerative changes are stable. IMPRESSION: 1. No evidence of pulmonary embolism. 2. Interval improvement in right pleural effusion. 3. Moderate left pleural effusion. 4. Extensive skeletal metastases. ACT 112: Negative or not required by law. Electronically signed by: Chaitanya Montejo M.D. 07/08/2021 8:21 AM Abdomen/Pelvis CT 07/08/21 01:22 CT abd pelvis IV con only CLINICAL HISTORY: Nausea and vomiting, history of metastatic cancer TECHNIQUE: Helical axial images of the abdomen and pelvis were obtained and displayed. Automated dose lowering techniques and/or adjustment according to patient size were utilized for this exam. This exam was performed with intravenous contrast. COMPARISON: Comparison is made to CT abdomen pelvis 07/02/2028 2 FINDINGS: Lower chest: No acute abnormality Liver: Ill-defined hypodensities are in the liver. Gallbladder and biliary tree: There is gallbladder wall thickening measuring up to 4 mm with a large stone noted in the gallbladder neck. No intra- or extrahepatic biliary ductal dilation. Pancreas: Unremarkable, no focal lesions. Spleen: Splenomegaly is noted, the spleen measures Adrenals: Unremarkable. Kidneys and ureters: Unremarkable. Bladder: Unremarkable. Reproductive organs: Multiple calcified fibroids are seen. Bowel: Unremarkable. Lymph nodes Retroperitoneal: Unremarkable. Mesenteric: Unremarkable. Pelvic: Unremarkable. Peritoneum: Mild ascites is seen, comparable to prior exam. Vessels: Unremarkable. Abdominal wall: Unremarkable. Bones: Extensive lytic and blastic metastatic disease is seen. Stable compression deformity of L1. IMPRESSION: 1. Cholelithiasis with gallbladder wall thickening concerning for acute cholecystitis. The wall was prominent on the prior exam as well, although the gallbladder was decompressed at that time, and these findings may also represent reactive edema to surrounding ascites. Recommend gallbladder ultrasound or HIDA to further evaluate this finding. 2. Extensive blastic metastases. 3. Stable mild ascites. 4. Ill-defined hypodensities in the liver are too small to characterize. Metastatic disease cannot be entirely excluded. ACT 112: Negative or not required by law. Electronically signed by: Chaitanya Montejo M.D. 07/08/2021 8:28 AM Brain MRI 07/08/21 04:43 MR brain wo/w con CLINICAL HISTORY: metastatic cancer, new nausea, ?brain mets? TECHNIQUE: Multiplanar and multisequence MR images of the brain were obtained prior to and following administration of gadolinium contrast. Comparison: Comparison is made to MRI brain 01/10/2021 FINDINGS: There is a 5 mm enhancing lesion in the right temporal lobe (series 11 image 71) which may represent an intracranial metastasis. Multiple enhancing appearance of the calvarium is noted compatible with osseous metastasis. The ventricular system is normal in appearance. There is no evidence of acute intraparenchymal hemorrhage. No extra axial fluid collections are seen. The corpus callosum, pituitary gland, and cerebellar tonsils appear grossly unremarkable. Flow voids of the major intracranial arterial vessels are identified. The imaged portions of the paranasal sinuses, mastoid air cells, and orbits are unremarkable. IMPRESSION: There is a 5 mm enhancing lesion in the right temporal lobe which may represent an intracranial metastasis. Diffuse bony metastases are also noted. ACT 112: Negative or not required by law. Electronically signed by: Chaitanya Montejo M.D. 07/08/2021 10:22 AM Gallbladder Ultrasound 07/08/21 07:58 US gallbladder CLINICAL HISTORY: ?acute cholecystitis TECHNIQUE: Multiple real-time sonographic images of the right upper quadrant were obtained. Comparison: None available at the time of this dictation. FINDINGS: The liver is diffusely homogenous with normal contour and echogenicity. Small lesions are seen which measure 1.1 and 7 mm and do not appear cystic. No intrahepatic ductal dilatation is seen. A large stone is seen in the gallbladder. The gallbladder wall measures 5 mm. A sonographic Vazquez's sign was not elicited by the cheese tester. The common duct measures 0.7 cm in diameter at the level of the hepatic artery. The visualized portions of the pancreas appear normal. The right kidney shows normal echogenicity, cortical thickness and renal contour. The right kidney shows no evidence of hydronephrosis or mass. Ascites is seen most prominent about the liver. IMPRESSION: 1. Gallstone and gallbladder wall thickening. This may be secondary to ascites in a patient with a negative Vazquez's sign. However if the patient has received pain medication, this exam may be equivocal for acute cholecystitis. If clinical suspicion remains, a HIDA scan can be performed. 2. Multiple liver masses are seen. If not previously evaluated, a nonemergent liver MRI with Eovist can be performed. ACT 112: Negative or not required by law. Electronically signed by: Chaitanya Montejo M.D. 07/08/2021 1:11 PM Hepatobiliary Scan Nuclear Medicine 07/09/21 13:21 NUCLEAR HEPATOBILIARY SCAN WITH EJECTION FRACTION IMAGING CLINICAL HISTORY: Right upper quadrant abdominal pain. COMPARISON STUDY: Abdominal ultrasound dated 07/08/2021. TECHNIQUE: Dynamic images of the liver and anterior abdomen were obtained every 5 minutes for a total of 60 minutes following the IV administration of 5.6 mCi of technetium 99m Mebrofenin. 1.26 mcg of sincalide was then injected with additional images acquired every 5 minutes for 45 minutes to calculate the gallbladder ejection fraction. FINDINGS: The hepatobiliary scan shows prompt and homogeneous hepatic uptake. There is visualized activity within the intra and extrahepatic biliary tree at 10 minutes, and within the gallbladder at 15 minutes. There is normal biliary to bowel transit, with small bowel visualized by 25 minutes. On the sincalide imaging, the gallbladder ejection fraction was measured at 2%. IMPRESSION: 1. There is no scintigraphic evidence of acute cholecystitis. 2. The gallbladder ejection fraction is abnormally diminished, measuring 2%. This suggest gallbladder dysfunction and clinical correlation will be required. ACT 112: Negative or not required by law. Electronically signed by: Isacc Benedict M.D. 07/09/2021 10:08 AM Chest X-Ray 07/10/21 11:02 XR chest 1V portable HISTORY: 60 years-old Female post L pleurex placement status post placement of a left-sided chest tube COMPARISON: CTA chest 07/08/2021, chest radiograph 07/06/2021 TECHNIQUE: Portable AP view of the chest FINDINGS: The cardiac silhouette is mildly enlarged. Pulmonary vascular congestion with progressively worsened right greater than left interstitial coarsening. Mild bibasilar opacities with small pleural effusions, increased in size on the right and mildly decreased on the left. Unchanged positioning of the right-sided chest tube. Status post placement of a left-sided chest tube, distal tip remaining over the medial left lung base. Tiny left-sided pneumothorax with pleural separation at the apex measuring up to 3 mm. Left subclavian Cdcdur-w-Vhut catheter distal tip projects over the mid SVC. Multifocal sclerotic metastatic disease redemonstrated. IMPRESSION: 1. Cardiomegaly with pulmonary vascular congestion and progressed interstitial coarsening suggestive of pulmonary edema versus interstitial pneumonitis. 2. Small pleural effusions, mildly increased in size on the right and slightly decreased on the left. 3. Bilateral chest tubes are in place with tiny left apical pneumothorax. 4. Sclerotic metastatic disease redemonstrated. ACT 112: Negative or not required by law. The above report was generated using voice recognition software. It may contain grammatical, syntax or spelling errors. Electronically signed by: Severo Johnson M.D. 07/10/2021 11:43 AM PG Care Time/CCT Total # of Minutes Spent Total Time Spent with Patient: Total time spent is greater than 50% in coordination of care (as documented) at patient's floor/unit and/or counseling patient: Coding Level of Care Code 94784 Initial Inpt Care Lvl 3 Diagnoses Nausea & vomiting R11.2 Vomiting type: unspecified Ascites R18.8 (1) Nausea & vomiting Vomiting type: unspecified Qualified Code(s): R11.2 - Nausea with vomiting, unspecified
[2021-07-11] MEDS ORDERED: PIPERACILLIN/TAZOBACTAM 3.375 GM in DEXTROSE 5% 100 ML IV ONE (12:00)
[2021-07-11] MEDS: D5W AND NSS 1,000 ML IV SCH (12:36)
--- NOTE | 2021-07-11 13:15 | Hospitalist Progress Note ---
Date of Service July 11, 2021 Assessment & Plan (1) COVID: Plan: No apparent active viral pneumonia at this time. Will follow (2) Malignant pleural effusion: Plan: Due to metastatic breast cancer. She has a right Pleurx catheter for draining recurrent malignant right pleural effusion. Left sided Pleurx catheter placed July 10, without incident. (3) Metastatic breast cancer: Plan: Chemotherapy per oncology recommendations. Back pain is probably due to bone metastases. Morphine long-acting every 12 hours was not well-tolerated and has been discontinued. Will use oxycodone 5 mg short acting as needed (4) Hypoxia: Plan: Supplemental oxygen as needed to maintain saturation greater than 90% (5) Ascites: Plan: Related to underlying malignancy. Surgery has raised the question of possible spontaneous bacterial peritonitis. Zosyn has been restarted and gastroenterology consultation requested to determine if paracentesis is necessary. Plan: Reglan treatment for persistent nausea has helped. Long-acting morphine sulfate was not well tolerated causing somnolence and has been discontinued. Will use oxycodone IR on a as needed basis. Zosyn has been restarted. Gastroenterology consultation pending to determine if paracentesis is necessary Admission and Anticipated Discharge Date Admission Date: July 08, 2021 Subjective The patient is somnolent from long-acting morphine sulfate. She is arousable and able to speak coherently. We will switch long-acting morphine sulfate to oxycodone IR on a as needed basis. Surgery is concerned that she may have spontaneous bacterial peritonitis. Zosyn restarted and gastroenterology consulted for their opinion as to whether ascitic fluid needs to be obtained and analyzed. She is not eating much and IV fluids are ordered. Lengthy discussion by phone with her daughter, Gayathri Review of Systems Review of Systems: Constitutional-no fever or chills. Somnolence developed from long-acting morphine use ENT-no blurred vision, no double vision, no epistaxis, no sore throat Respiratory-no cough, no wheezing, no shortness of breath Cardiac-no palpitations, no chest pain, no syncope GI- nausea. Improved with addition of Reglan but still present. No vomiting. Poor oral intake. -no urinary retention, no urinary incontinence, no dysuria, no hematuria Musculoskeletal-no joint pain, no muscle tenderness Skin-no bruising, no rashes, no pruritus Neuro-generalized weakness. No paresthesia, no weakness Psych-no depression, no anxiety Physical Exam Physical Exam: General-somnolent but easily arousable. She appears chronically ill. HEENT-head atraumatic and normocephalic, TMs intact bilaterally, pupils equal and reactive to light, extraocular muscles intact Neck-no lymphadenopathy or thyromegaly, trachea midline Chest-clear to auscultation percussion. No rales wheezing or rhonchi Cardiac-regular rate and rhythm, normal S1 and S2, no murmurs Abdomen-normal bowel sounds, no hepatosplenomegaly Extremities-no cyanosis, clubbing, or edema Neuro-cranial nerves II through XII intact, motor and sensory function within normal limits, strength symmetrical but generalized weakness, no focal deficits Psych-depressed affect Results & Data Results & Data ([facility]) Vital Signs (Past 12 Hours) Vital Signs Temp Pulse Resp BP Pulse Ox 07/11/21 07:15 36.4 C L 92 H 16 105/64 93 Laboratory Results 07/11/21 06:11 07/11/21 06:11 PG Care Time/CCT Total # of Minutes Spent Total Time Spent with Patient: Total time spent is greater than 50% in coordination of care (as documented) at patient's floor/unit and/or counseling patient: Coding Level of Care Code 52368 Subseq Hosp Care Lvl 3 Diagnoses COVID U07.1 Malignant pleural effusion J91.0 Metastatic breast cancer C50.919 Hypoxia R09.02 Ascites R18.8
[2021-07-11] MEDS: PIPERACILLIN/TAZOBACTAM 3.375 GM in DEXTROSE 5% 100 ML IV SCH (17:22)
[2021-07-11] MEDS ORDERED: SODIUM CHLORIDE 0.9% 1000ML 1,000 ML IV ONE (18:41)
[2021-07-11] MEDS: ENOXAPARIN INJ 40 MG/0.4 ML SYR SQ SCH (19:46)
[2021-07-11] MEDS: ONDANSETRON INJ 2 MG/ML 2 ML VIAL IV PRN (22:58)
[2021-07-12] MEDS: D5W AND NSS 1,000 ML IV SCH ×3 (01:44→21:21)
[2021-07-12] MEDS: PIPERACILLIN/TAZOBACTAM 3.375 GM in DEXTROSE 5% 100 ML IV SCH ×3 (02:11→17:14)
[2021-07-12 08:28] LABS: Hematocrit (blood only) 31.1 % (37-47); Hemoglobin 9.9 g/dL (12.0-16.0); Mean Corpuscular Hemoglobin 32.7 pg (25-34); Mean Corpuscular Hgb Conc 31.8 g/dL (32-36); Mean Corpuscular Volume 102.6 fL (80-100); Mean Platelet Volume 11.7 fL (7.4-10.4); Nucleated RBC # (auto) 0.66 K/uL (0-0); Nucleated RBC % (auto) 3.7 %; Platelet Count 138 K/uL (130-400); RDW Coefficient of Variation 20.1 % (11.5-14.5); RDW Standard Deviation 74.2 fL (36.4-46.3); Red Blood Count 3.03 M/uL (4.2-5.4); White Blood Count 17.84 K/uL (4.8-10.8)
[2021-07-12 08:30] LABS: Albumin Globulin Ratio 1.3 (0.9-2); Albumin Level 2.5 gm/dl (3.4-5.0); Anisocytosis Present; BUN Creatinine Ratio 33.3 (10-20); Basophils # (auto) 0.05 K/uL (0-0.2); Basophils % (auto) 0.3 %; Bilirubin,Total 2.1 mg/dl (0.2-1.0); Calcium 7.8 mg/dl (8.5-10.1); Echinocytes 1+; Eosinophils % (auto) 1.7 %; Est GFR (African American) 65.9 ml/min; Est GFR (Non-African American) 56.9 ml/min; Globulin 1.9 gm/dl (2.5-4.0); Immature Granulocytes # (auto) 0.48 K/uL (0.00-0.02); Immature Granulocytes % (auto) 2.7 %; Lymphocytes # (auto) 1.74 K/uL (1.2-3.4); Lymphocytes % (auto) 9.8 %; Monocytes # (auto) 2.29 K/uL (0.11-0.59); Monocytes % (auto) 12.8 %; Neutrophils # (auto) 12.98 K/uL (1.4-6.5); Neutrophils % (auto) 72.7 %; Polychromasia 1+; Potassium 4.3 mmol/L (3.5-5.1); Schistocytes Occasional; Total Protein 4.4 gm/dl (6.0-8.3)
[2021-07-12] MEDS ORDERED: MELATONIN 3 MG TAB PO PRN (08:39)
[2021-07-12] MEDS ORDERED: SODIUM CHLORIDE 0.9% 1000ML 500 ML IV ONE (08:40)
[2021-07-12] MEDS: METOCLOPRAMIDE HCL 10 MG TABLET PO SCH ×3 (08:55→17:15)
[2021-07-12] MEDS: PANTOprazole 40 MG TAB PO SCH (08:55)
[2021-07-12] MEDS: ANASTROZOLE 1 MG TAB PO SCH (08:55)
[2021-07-12] MEDS: ARTIFICIAL TEARS OP SCH ×3 (08:55→20:16)
--- NOTE | 2021-07-12 13:56 | Surgery Progress Note ---
Date of Service July 12, 2021 Assessment & Plan (1) Pleural effusion: (2) Nausea & vomiting: (3) Malignant pleural effusion: (4) Metastatic breast cancer: (5) Elevated LFTs: Plan: 60-year-old woman with metastatic breast cancer to the liver and bone and malig nant pleural effusion presented with few day history of nausea/vomiting/right sided abdominal pain. CT and ultrasound findings were equivocal for acute cholecystitis. HIDA scan showing no cystic duct obstruction/acute cholecystitis however EF was low at 2%. 07/12/2021: increase in leukocytosis to 17K afebrile t.bili and lfts still elevated (likely chronic given liver metastasis, t.bili improved to 2.1) No obstruction via HIDA + nausea very drowsy today (likely secondary to the MS Contin pain management) Plan: With her HIDA scan finding, she does not require any urgent surgical interven tion. Uncertain of etiology of increasing leukocytosis ?? Her abdominal exam is pretty benign, slightly tender in RUQ on deep palpation today but this could be nonspecific. Do not believe it is her gallbladder but unable to ascertain from patient as she has been very drowsy secondary to MS Contin. She does have ascites in the right upper quadrant, question possible component of spontaneous bacterial peritonitis? Other infectious etiology to consider (Pneumonia, UTI, infected pleural effusions?, will defer to medical team Continue low fat diet given biliary dyskinesia Continue antibiotics given increase in leukocytosis Pain management per medicine team Admission and Anticipated Discharge Date Admission Date: July 08, 2021 Subjective patient still very drowsy, unable to obtain ROS as she kept falling asleep when asking questions Son is present in room and at bedside. Said she was able to eat some senegalese toast this am which is an improvement not complaining of any abdominal pain to nursing staff. Physical Exam Constitutional: + frail appearing and + lethargic; no acute distress and not ill appearing Neck: normal visual inspection and trachea midline Respiratory: normal respiratory effort; no respiratory distress and no labored breathing Gastrointestinal (Abdomen): Inspection/Auscultation: abdomen normal to inspection and normal bowel sounds; abdomen not distended Percussion/Palpation: + abdomen tender (RUQ on deep palpation) and abdomen soft; no guarding, abdomen not rigid, no ascites and no fluid wave Skin: no rashes, warm and dry Neurologic: + obtunded Results & Data ([facility]) Vital Signs (Past 12 Hours) Vital Signs Temp Pulse Resp BP Pulse Ox 07/12/21 07:27 36.7 C 94 H 16 98/54 L 92 Laboratory Results 07/12/21 07/12/21 Range/Units 07:33 07:33 WBC 17.84 H (4.8-10.8) K/uL RBC 3.03 L (4.2-5.4) M/uL Hgb 9.9 L (12.0-16.0) g/dL Hct 31.1 L (37-47) % MCV 102.6 H (80-100) fL MCH 32.7 (25-34) pg MCHC 31.8 L (32-36) g/dL RDW Std Deviation 74.2 H (36.4-46.3) fL RDW Coeff of Fritz 20.1 H (11.5-14.5) % Plt Count 138 (130-400) K/uL MPV 11.7 H (7.4-10.4) fL Immature Gran % (Auto) 2.7 % Neut % (Auto) 72.7 % Lymph % (Auto) 9.8 % Estill % (Auto) 12.8 % Eos % (Auto) 1.7 % Baso % (Auto) 0.3 % Neut # (Auto) 12.98 H (1.4-6.5) K/uL Lymph # (Auto) 1.74 (1.2-3.4) K/uL Estill # (Auto) 2.29 H (0.11-0.59) K/uL Eos # (Auto) 0.30 (0-0.5) K/uL Baso # (Auto) 0.05 (0-0.2) K/uL Immature Gran # (Auto) 0.48 H (0.00-0.02) K/uL Absolute Nucleated RBC 0.66 H (0-0) K/uL Nucleated RBC % (auto) 3.7 % Polychromasia 1+ Anisocytosis Present Echinocytes 1+ Schistocytes Occasional Sodium 132 L (136-145) mmol/L Potassium 4.3 (3.5-5.1) mmol/L Chloride 105 (98-107) mmol/L Carbon Dioxide 21 (21-32) mmol/L Anion Gap 6 (3-11) BUN 35 H (6-23) mg/dl Creatinine 1.05 (0.6-1.2) mg/dl Est Cr Clr Drug Dosing 48.0 ml/min Est GFR ( Amer) 65.9 ml/min Est GFR (Non-Af Amer) 56.9 ml/min BUN/Creatinine Ratio 33.3 H (10-20) Glucose 116 H (70-99(Fasting)) mg/dl Calcium 7.8 L (8.5-10.1) mg/dl Total Bilirubin 2.1 H (0.2-1.0) mg/dl AST 155 H (13-39) U/L ALT 34 (7-52) U/L Alkaline Phosphatase 123 H (34-104) U/L Total Protein 4.4 L (6.0-8.3) gm/dl Albumin 2.5 L (3.4-5.0) gm/dl Globulin 1.9 L (2.5-4.0) gm/dl Albumin/Globulin Ratio 1.3 (0.9-2) (1) Nausea & vomiting Vomiting type: unspecified Qualified Code(s): R11.2 - Nausea with vomiting, unspecified
--- NOTE | 2021-07-12 15:24 | Hospitalist Progress Note ---
Date of Service July 12, 2021 Assessment & Plan (1) Malignant pleural effusion: Plan: 60 y/o F w/ PMHx of metastatic breast cancer (ER/CT+, Her-2 -) on Tamoxifen and Xeloda which are currently on hold, known metastatic disease to liver and bone, malignant pleural effusion s/p right PleurX catheter, who presented on 07/08/21 for several days of N/V prior to admission. Somnolence - considering as multifactorial delirium; infection, narcotic use (PO morphine 30 mg, 2 doses total received, last dose at 2AM on 07/11/21), hospital environment - avoiding further narcotics. Holding home tramadol. Pain control: Tylenol suspension (max 2g daily in setting of liver lesions) preferred. toradol, ibuprofen if insufficient; uptrending Cr noted - not requiring pain medication at this time - ammonia level wnl - VBG not suggestive of CO2 retention Leukocytosis, uptrending, 17.83 - continuing infectious workup. Highest suspicion for acalculous cholecystitis given HIDA w/ EF of 2% and gallbladder wall thickening (5mm). Equivocal US and CT abd for acute cholecystitis. HIDA was negative for acute cholecystitis given normal uptake; however, w/ EF of 2%. - will repeat gallbladder US and compare to 07/08/21 result to check for progression of wall thickening which would support acalculous cholecystitis - ordering US limited ascites to assess if ascites worsened and if sufficient for paracentesis. SBP lower on suspicion, but considered. - GI and surgery consult recs appreciated - continue IV Zosyn Abnormal chest xray - 07/10/21 cxr: Cardiomegaly with pulmonary vascular congestion and progressed interstitial coarsening suggestive of pulmonary edema versus interstitial pneumonitis. - 100mL/hr maintenance fluid; continue, but used w/ caution. Echo w/ normal EF. 07/10/21 echo w/ normal EF 65-70%. Trace pericardial effusion. - will repeat cxr and procalc Poor PO intake and poor urine output - straight cath 450 mL, UOP so far for today - considered hypovolemia but also OLGA given Cr ~1.0 is higher than baseline of 0.5-0.6s. - continue maintenance rate IV fluids. - s/p 500mL bolus for HR in 90s and soft BP in AM Metastatic breast cancer - oncology following; had recommended consideration discontinuing Xeloda and switching to dose reduced liposomal doxorubicin Malignant pleural effusions - Continue bilateral Pleurx catheters. Elevated LFTs, stable - follow Hyponatremia - 132, stable this admission. Follow. FEN: low fat diet. 100mL/hr D5 NSS. ppx: Lovenox code: full dispo: med/surg (2) Metastatic breast cancer: (3) Hypoxia: (4) Ascites: Admission and Anticipated Discharge Date Admission Date: July 08, 2021 Supervising Physician Co-Signing Physician Notes I personally examined the patient and verified all horner points of history and exam, discussed case, and agree with decision making with Dr Correa wakes up only long enough to say that she's very tired. denies pain but does wince when i press on her abdomen. family present at the bedside, answered all questions to the best of my ability and tried to explain current ddxs and plans to the best of my ability as well vitals noted nad heent nc at mmm breathing unlabored no accessory muscles good effort. abd soft but (+) epigastric and RUQ TTP no guarding/rebound/rigidity septic picture -biggest ddx would be worsening gallbladder disease/acalculous cholecystitis -- zosyn, repeat US/labs/serial exams -- if no other source found will d/w surgery further re ?cholecystectomy based on no other potential causes (depending also on the rest of her clinical progress) --lesser ddx - SBP - with such limited ascites i doubt this would be the case -- repeat US to look for changes in ascites - and if enough present, paracentesis. fairly unlikely but will maintain vigilance for signs of pneumonia, cellulitis, UTI, bacteremia, etc -- but right now those are really only on ddx because she is in a compromised state and those are common infections -empiric zosyn AMS - appears to be multifocal metabolic/toxic encephalopathy - family noted significant change after MSContin given ~1.5 days ago -- this likely played a role, but suspect that this is more of a multifactorial picture w septic picture, MScontin effects, hospital environment all playing a role. because of this, and because of nothing appearing consistent with narcotics-induced respiratory compromise, will hold off on trial of narcan so as not to precipitate abrupt withdrawal pain/symptoms (which in and of themselves can be delirogenic as well). stimulation/reorientation/supportive care as possible. given baseline liver disease w mets - ammonia level. given preciptation after narcotics VBG to be complete/rule out any respiratory issues that would necessitate narcan/further intervention (although based on vitals and bedside assessment i doubt this will be the case) malnutrition -poor PO intake prior to hospitalization, nearly none last 2 days with AMS. IV fluids. follow - low threshold for NGT and tube feeds if PO intake does not improve over next ~1-2 days DVT proph - lovenox Subjective Patient's main complaint this AM was dizziness and fatigue. Not complaining of pain. Family at bedside w/ questions/concerns about abx, fluids, and oversedation. Review of Systems Review of Systems: All systems reviewed & are unremarkable except as noted in HPI & below Physical Exam Physical Exam: General: Grossly A&O. NAD. Somnolent appearing. Cooperative. Provided some verbal answers in A. HEENT: Atraumatic, normocephalic. EOMI Pulm: CTAB. -wheezes, -rales, -rhonchi. No respiratory distress. Cardiac: RRR, -mrg. No LE edema. Abdominal: Nondistended, soft. Nontender to light palpation on my exam. Results & Data Results & Data ([facility]) Vital Signs (Past 12 Hours) Vital Signs Temp Pulse Resp BP Pulse Ox 07/12/21 14:47 36.6 C 93 H 16 105/70 96 07/12/21 07:27 36.7 C 94 H 16 98/54 L 92 Laboratory Results wbc uptrending 11->12->16s->17.84. Hb 9.9, acceptable. Plts 138 stable. Na 132, stable. Cr 1.05 slight uptrending. BUN/Cr 33.3. Tbili 2.1 table. AST 155 stable. UC, BC NGTD. 07/10 echo ef 65-70. 07/12/21 07:33 07/12/21 07:33 Resident Activity Tracking Resident Involvement: Resident Care Provided Care Provided: Adult Hospital Medicine
--- NOTE | 2021-07-12 19:20 | Billing Data ---
Date of Service July 12, 2021 Coding Level of Care Code 19083 Subseq Hosp Care Lvl 3
[2021-07-12 20:03] LABS: Base Excess VBG -3.3 mEq/L; Oxygen Saturation VBG 78.8 %; pH VBG 7.39 (7.36-7.41)
[2021-07-12] MEDS: ENOXAPARIN INJ 40 MG/0.4 ML SYR SQ SCH (20:15)
[2021-07-13] MEDS: METOCLOPRAMIDE HCL 10 MG TABLET PO SCH ×5 (01:49→21:12)
[2021-07-13] MEDS: PIPERACILLIN/TAZOBACTAM 3.375 GM in DEXTROSE 5% 100 ML IV SCH ×3 (02:23→17:54)
[2021-07-13 06:27] LABS: Hematocrit (blood only) 27.1 % (37-47); Hemoglobin 8.8 g/dL (12.0-16.0); Mean Corpuscular Hemoglobin 33.2 pg (25-34); Mean Corpuscular Hgb Conc 32.5 g/dL (32-36); Mean Corpuscular Volume 102.3 fL (80-100); Mean Platelet Volume 11.4 fL (7.4-10.4); Nucleated RBC # (auto) 0.65 K/uL (0-0); Nucleated RBC % (auto) 4.1 %; Platelet Count 133 K/uL (130-400); RDW Coefficient of Variation 20.5 % (11.5-14.5); RDW Standard Deviation 75.5 fL (36.4-46.3); Red Blood Count 2.65 M/uL (4.2-5.4); White Blood Count 15.81 K/uL (4.8-10.8)
[2021-07-13 06:49] LABS: Albumin Globulin Ratio 1.1 (0.9-2); BUN Creatinine Ratio 42.2 (10-20); Bilirubin,Total 1.7 mg/dl (0.2-1.0); C Reactive Protein 3.13 mg/dl (0-0.5); Calcium 7.4 mg/dl (8.5-10.1); Creatinine Clr Calc Pharmacy 60.7 ml/min; Est GFR (African American) 87.6 ml/min; Est GFR (Non-African American) 75.6 ml/min; Globulin 1.8 gm/dl (2.5-4.0); Potassium 3.9 mmol/L (3.5-5.1); Total Protein 3.8 gm/dl (6.0-8.3)
[2021-07-13 06:50] LABS: ALC (manual) 0.14 K/uL (1.2-3.4); ANC (manual) 13.75 K/uL (1.4-6.5); Anisocytosis Present; Eosinophils # (manual) 0.41 K/uL (0-0.5); Eosinophils % (manual) 2.6 %; Lymphocytes # (manual) 0.14 K/uL (1.2-3.4); Lymphocytes % (manual) 0.9 %; Metamyelocytes # (manual) 0.27 K/uL (0-0); Metamyelocytes % (manual) 1.7 %; Monocytes # (manual) 0.82 K/uL (0.11-0.59); Monocytes % (manual) 5.2 %; Myelocytes # (manual) 0.41 K/uL (0-0); Myelocytes % (manual) 2.6 %; Neutrophils # (manual) 13.75 K/uL (1.4-6.5); Polychromasia 1+; Schistocytes 1+
[2021-07-13] MEDS: ANASTROZOLE 1 MG TAB PO SCH (08:18)
[2021-07-13] MEDS: ARTIFICIAL TEARS OP SCH ×4 (08:19→21:12)
[2021-07-13] MEDS: PANTOprazole 40 MG TAB PO SCH (08:19)
[2021-07-13] MEDS: D5W AND NSS 1,000 ML IV SCH (08:19)
--- NOTE | 2021-07-13 08:54 | XRay Report ---
XR chest 1V portable CLINICAL HISTORY: Follow-up interstitial and alveolar opacities. COMPARISON STUDY: 07/10/2021 TECHNIQUE: 1 view of the chest FINDINGS: Single frontal view of the chest demonstrates the cardiomediastinal silhouette to be within normal li mits. A Port-A-Cath is in place. Compared to previous examination, there is worsening of interstitial and alveolar opacities bilaterally, right greater than left. More confluent alveolar opacities in th e right lung base. However, there is also increasing right pleural fluid and the findings may relate to pleural fluid layering along the posterior gutter. Mild central vascular congestion is present. Th ere is no acute osseous pathology. IMPRESSION: 1. Compared to previous examination, there is again evidence for mild central vascular congestion. 2. There has been worsening of interstitial and alveolar opacities bilaterally, right greater than le ft. 3. There is also interval increase in right pleural effusion. ACT 112: Negative or not required by law. Electronically signed by: Niko Alatorre M.D. 07/13/2021 8:53 AM
--- NOTE | 2021-07-13 08:58 | Hospitalist Progress Note ---
Date of Service July 13, 2021 Assessment & Plan (1) Malignant pleural effusion: Plan: 60 y/o F w/ PMHx of metastatic breast cancer (ER/IN+, Her-2 -) on Tamoxifen and Xeloda, known metastatic disease to liver and bone, malignant pleural effusion s/p right PleurX catheter, who presented on 07/08/21 for several days of N/V and somnolence. Somnolence - ongoing - etiology: likely multifactorial delirium due to infection (currently of unknown origin), narcotic use (PO morphine 30 mg, 2 doses total received, last dose at 2AM on 07/11/21, given for bony mets), hospital environment - recommend avoiding further narcotics including home tramadol. Pain control: Tylenol suspension (max 2g daily in setting of liver lesions) preferred; NSAIDs as second line - ammonia level wnl - VBG not suggestive of CO2 retention - electrolytes normal - Brain MRI obtained: There is a new 5 mm enhancing lesion in the right temporal lobe which may represent an intracranial metastasis, however no acute bleeds Leukocytosis - WBC 15, down from 17 since zosyn has been resumed - Procal not elevated. CRP mildly elevated at 3.1. - etiology uncertain, although suspect infectious given septic presentation. - Highest suspicion for cholecystitis - although HIDA was interpreted as negative for acute cholecystitis given normal uptake, EF of 2% and gallbladder wall thickening (5mm) was concerning. Repeat gallbladder US down 07/12 showed progression of gallbladder wall thickening and the presence of stones - abdominal US obtained on 07/12 as well - only trace ascites noted, very low suspicion of SBP at this time - underlying pneumonia is also possible source - although CXR showed no focal consolidation, there is also a progressive pleural effusion that could be obscuring it. Consider further characterization with chest CT - general surgery consulted - Dr. Maria to re-evaluate patient and imaging this afternoon - continue IV Zosyn - trend CBC Pulmonary Vascular congestion - progressive vascular congestion and progressive R sided pleural effusion noted on CXR today - Echo w/ normal EF. 07/10/21 echo w/ normal EF 65-70%. Trace pericardial effusion. - IV discontinued - discussed delicate balance of IV hydration with volume overload Metastatic breast cancer - oncology following; had recommended consideration discontinuing Xeloda and switching to dose reduced liposomal doxorubicin Malignant pleural effusions - Continue bilateral Pleurx catheters. Elevated LFTs, stable - follow Hyponatremia - 133, up from 132 - follow FEN: low fat diet. ppx: Lovenox code: full dispo: med/surg (2) Metastatic breast cancer: (3) Hypoxia: (4) Ascites: Admission and Anticipated Discharge Date Admission Date: July 08, 2021 Supervising Physician Co-Signing Physician Notes I personally examined the patient and verified all horner points of history and exam, discussed case, and agree with decision making with Dr Kaba more awake and alert. didn't eat well but did a little. voided some. d/w Dr Maria input greatly appreciated - he also wondered about liver biopsy - messaged oncology who thought this may be helpful. vitals noted nad heent nc at mmm breathing unlabored no accessory muscles good effort. much more awake than yesterday septic picture -biggest ddx would be worsening gallbladder disease/acalculous cholecystitis -- zosyn, for surgery today. --lesser ddx - SBP - with such limited ascites i doubt this would be the case -- repeat US to look for changes in ascites - and if enough present, paracentesis. fairly unlikely but will maintain vigilance for signs of pneumonia, cellulitis, UTI, bacteremia, etc -- but right now those are really only on ddx because she is in a compromised state and those are common infections -empiric zosyn AMS - appears to be multifocal metabolic/toxic encephalopathy - although with improvement today - possibly majority from MS contin. d/w family though that OR/anesthesia/etc may worsen delirium again -- ongoing supportive care malnutrition -poor PO intake prior to hospitalization, nearly none last 2 days with AMS. 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 Patient was awake and communicative today - but did eventually doze back to sleep. Review of Systems Review of Systems: All systems reviewed & are unremarkable except as noted in HPI & below Physical Exam Constitutional: WD/WN, vitals as above + lethargic; no acute distress Eyes: + anicteric sclerae ENMT: external ear and nose normal, oropharynx normal Neck: trachea midline Respiratory: normal respiratory effort, lungs clear to auscultation Cardiovascular: RRR, no murmur, no edema Heart Sounds: normal S1 and normal S2 Gastrointestinal (Abdomen): Inspection/Auscultation: abdomen normal to inspection and normal bowel sounds; abdomen not distended Percussion/Palpation: + abdomen tender (RUQ) and + abdomen firm Musculoskeletal: Head/Neck/Chest: normocephalic and head atraumatic Skin: no rashes, warm and dry Neurologic: moves all extremities Psychiatric: A+Ox3, euthymic affect Results & Data Results & Data ([facility]) Vital Signs (Past 12 Hours) Vital Signs Temp Pulse Resp BP BP Pulse Ox 07/13/21 07:54 37.3 C 81 12 100/62 97 07/12/21 23:18 36.6 C 93 H 18 95/58 L 97 Resident Activity Tracking Resident Involvement: Resident Care Provided Care Provided: Adult Hospital Medicine
--- NOTE | 2021-07-13 09:02 | Ultrasound Report ---
US abdomen ltd ascites CLINICAL HISTORY: assess ascites TECHNIQUE: Real-time grayscale sonographic images of the 4 quadrants of the abdomen were obtained. Comparison: None available at the time of this dictation. FINDINGS: There is only a trace amount of free fluid seen in each of the 4 quadrants. IMPRESSION: Trace ascites in the 4 quadrants. ACT 112: Negative or not required by law. Electronically signed by: Niko Alatorre M.D. 07/13/2021 9:00 AM
--- NOTE | 2021-07-13 12:13 | Ultrasound Report ---
US gallbladder CLINICAL HISTORY: assess for worsening of wall thickening TECHNIQUE: Multiple real-time sonographic images of the right upper quadrant were obtained. Comparison: Comparison is made to CT abdomen pelvis 07/08/2021 and gallbladder ultrasound 07/08/2021 FINDINGS: The liver is diffusely homogenous with normal contour and echogenicity. Redemonstration of hypoechoi c lesions in the liver that do not appear cystic. These measure up to 1 cm in diameter. No intrahepat ic ductal dilatation is seen. The gallbladder wall is irregularly thickened measuring from 2 to 10 m m. Multiple stones are seen. There are foci of wall thickening with comet tail artifacts which may re present adenomyomatosis. A sonographic Vazquez's sign was not elicited by the resident services director. The commo n duct measures 0.7 cm in diameter at the level of the hepatic artery. The visualized portions of th e pancreas appear normal. Prominence of the right renal collecting system is seen. A small amount of ascites and pleural fluid is seen. IMPRESSION: 1. Interval increase in gallbladder wall thickening. Redemonstration multiple stones. The artifact m ay represent adenomyomatosis versus polyp. 2. Prominence of the right renal collecting system without cam hydronephrosis. 3. Small ascites and pleural fluid. 4. Redemonstration multiple liver lesions, nonemergent ultrasound is recommended to exclude malignan cy. ACT 112: Negative or not required by law. Electronically signed by: Chaitanya Montejo M.D. 07/13/2021 12:11 PM
--- NOTE | 2021-07-13 15:09 | Surgery Consultation ---
Date of Consultation July 13, 2021 Assessment & Plan (1) Acute cholecystitis: With her elevated white blood cell count, HIDA scan with ejection fraction of 2%, as well as worsening gallbladder wall thickening on ultrasound I do believe she is developing acute cholecystitis. It would fit with her clinical picture. Her daughter is here with her today who is a nurse in our recovery room. We discussed her options. I discussed with her laparoscopic cholecystectomy as well as the risks which would include bleeding, infection, injury to a bile duct or bile leaks, injury to another organ, DVT, PE, PR, CVA etc. Following our discussion I answered all their questions. They agree and w rajeev will proceed later today with laparoscopic Lilian cystectomy. I suspect the fluctuating mild elevation in her LFTs may either be from the cholecystitis or some of the metastatic burden on her liver. (2) Ascites: (3) Pleural effusion: (4) Leukocytosis: (5) Malignant pleural effusion: (6) Metastatic breast cancer: (7) GERD (gastroesophageal reflux disease): History of Present Illness Attending Physician: Rajiv Douglas DO History of Present Illness 60-year-old female with metastatic breast cancer. She was admitted several days ago with nausea vomiting dizziness etc. She is was seen by the other surgical group and they are asking for a second opinion. Initially she was seeing some improvement however today she is having right upper quadrant abdominal pain nausea and an elevated white blood cell count. Allergies Allergy/AdvReac Type Severity Reaction Status Date / Time capecitabine AdvReac Intermediate SEE COMMENT Verified 07/08/21 03:05 Home Medications Medication Instructions Recorded Confirmed Type anastrozole 1 mg tablet 1 mg PO QAM #30 tab 01/14/20 07/08/21 Rx zoledronic acid 4 mg/100 mL in 4 mg IV MONTHLY ml 09/15/20 07/08/21 History mannitol 5 %-water intravenous piggybck acetaminophen 500 mg tablet 500 mg PO BID PRN 07/01/21 07/08/21 History artificial 1 drp OPB HS 07/01/21 07/08/21 History tears(nohhzyz-lxpjpghn-xfsyyug) 0.1 %-0.3 %-0.2 % eye drops (GenTeal Tears Moderate) carboxymethylcellulose sodium 1 % 1 drp OPB QID 07/01/21 07/08/21 History eye liquid gel drops (Refresh Liquigel) prednisolone acetate 1 % eye 1 drp OPB QID 07/01/21 07/08/21 History drops,suspension tramadol 50 mg tablet 50 mg PO Q6H PRN 07/01/21 07/08/21 History Patient History Medical History Acute pericardial effusion Bone cancer met cancer GERD (gastroesophageal reflux disease) Malignant pleural effusion Multiple fractures of ribs Normocytic hypochromic anemia Pathologic fracture of lumbar vertebra Pathologic fracture of thoracic vertebrae Pneumothorax Pulmonary nodules Secondary malignant neoplasm of bone Surgical History History of bilateral tubal ligation Port-A-Cath in place (02/17/20) Insertion of Mediport Left Subclavian Vein Under Fluoroscopy Dr. Maria 02/17/2020 Family History Mother , about age 82 Alzheimer disease Breast cancer Father , age 52 from MVA Motor vehicle accident Family/Other Breast cancer cousin Daughter Cancer Son Diabetes Other Asthma Hypertension Social History Smoking Status: Never smoker Second Hand Exposure: Yes (30 yrs ago); Hx Alcohol Use: No Hx Substance Use: No Preferred Language: Macedonian Communication Ability: Effective Visual Impairment: No Limitations Die Try Out Worker Required: No Beliefs That Will Affect Care: None marital status: Current Living Situation: Spouse and Family Current Living Situation Comment: lives with and son, 2 story home, with 1st floor set up current occupational status: previously employed 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; 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; 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 Decreased breath sounds at the bases right greater than left. Cardiovascular: Rate/Rhythm: regular rate and regular rhythm Gastrointestinal (Abdomen): Soft. Positive right upper quadrant tenderness to palpation with mild guarding. Skin: no rashes, warm and dry Psychiatric: Orientation: alert, oriented x 3 and cooperative Results & Data ([facility]) Vital Signs (Past 12 Hours) Vital Signs Temp Pulse Resp BP Pulse Ox 07/13/21 07:54 37.3 C 81 12 100/62 97 PG Care Time/CCT Total # of Minutes Spent Total Time Spent with Patient: Total time spent is greater than 50% in coordination of care (as documented) at patient's floor/unit and/or counseling patient: Coding Level of Care Code 07125 Inpt Consult Level 5 Diagnoses Acute cholecystitis K81.0 Ascites R18.8 Pleural effusion J90 Leukocytosis D72.829 Leukocytosis type: unspecified Malignant pleural effusion J91.0 Metastatic breast cancer C50.919 GERD (gastroesophageal reflux disease) K21.9 (1) Leukocytosis Leukocytosis type: unspecified Qualified Code(s): D72.829 - Elevated white blood cell count, unspecified
--- NOTE | 2021-07-13 15:11 | Surgery Progress Note ---
Date of Service July 13, 2021 Patient seen this morning around 11:15 am Assessment & Plan (1) Pleural effusion: (2) Nausea & vomiting: (3) Malignant pleural effusion: (4) Metastatic breast cancer: (5) Elevated LFTs: Plan: 60-year-old woman with metastatic breast cancer to the liver and bone and malignant pleural effusion presented with few day history of nausea/vomiting/right sided abdominal pain. CT and ultrasound findings were equivocal for acute cholecystitis. HIDA scan showing no cystic duct obstruction/acute cholecystitis however EF was low at 2%. 07/12/2021: increase in leukocytosis to 17K afebrile t.bili and lfts still elevated (likely chronic given liver metastasis, t.bili improved to 2.1) No obstruction via HIDA + nausea very drowsy today (likely secondary to the MS Contin pain management) 07/13/2021: afebrile, leukocytosis slightly improved to 15K t. bili and lfts improved awaiting official read from the repeated GB ultrasound minimal ascites so likelihood of SBP is low CXR today with worsening of interstitial and alveolar opacities bilaterally Plan: Awaiting for official read of repeat GB ultrasound. Her HIDA scan a few days ago showed no cystic duct obstruction therefore no acute cholecystitis. She does have dyskinesia with EF of 2%. Etiology of her increasing leukocytosis is uncertain . Very hard to obtain ROS from patient last few days given the continued somnolence. Will update Dr. Beebe with patients exam and labs and awaiting ultrasound findings. Discussed with daughter that this could be her gallbladder but uncertain at this time pending repeat ultrasound. Other infectious etiology to consider Pneumonia, UTI, infected pleural effusions?, will defer to medical team Continue low fat diet given biliary dyskinesia Continue antibiotics given increase in leukocytosis Pain management per medicine team Admission and Anticipated Discharge Date Admission Date: July 08, 2021 Subjective Patient still drowsy but a little more awake this morning Daughter is present at bedside said she ate a little this morning but not much patient states she has abdominal pain after eating and only when pressed on. Still very drowsy to get a good ROS from patient Had repeat GB ultrasound last evening, still awaiting official read when patient was evaluated. Physical Exam Constitutional: + thin, + frail appearing, cooperative and + lethargic; not ill appearing Neck: trachea midline, no thyromegaly Respiratory: normal respiratory effort; no respiratory distress, no labored breathing and no retractions Chest (Breasts): Chest: + vascular access device or port (left upper chest) Gastrointestinal (Abdomen): Percussion/Palpation: + abdomen tender (RUQ on deep palpation) and abdomen soft; no guarding, abdomen not rigid and abdomen not firm Skin: no rashes, warm and dry Psychiatric: Orientation: alert Results & Data ([facility]) Vital Signs (Past 12 Hours) Vital Signs Temp Pulse Resp BP Pulse Ox 07/13/21 07:54 37.3 C 81 12 100/62 97 Laboratory Results 07/13/21 07/13/21 07/13/21 Range/Units 05:44 05:44 05:44 WBC 15.81 H (4.8-10.8) K/uL RBC 2.65 L (4.2-5.4) M/uL Hgb 8.8 L (12.0-16.0) g/dL Hct 27.1 L (37-47) % MCV 102.3 H (80-100) fL MCH 33.2 (25-34) pg MCHC 32.5 (32-36) g/dL RDW Std Deviation 75.5 H (36.4-46.3) fL RDW Coeff of Fritz 20.5 H (11.5-14.5) % Plt Count 133 (130-400) K/uL MPV 11.4 H (7.4-10.4) fL Absolute Nucleated RBC 0.65 H (0-0) K/uL Nucleated RBC % (auto) 4.1 % Neutrophils % (Manual) 87.0 % Lymphocytes % (Manual) 0.9 % Monocytes % (Manual) 5.2 % Eosinophils % (Manual) 2.6 % Metamyelocytes % (Man) 1.7 % Myelocytes % (Man) 2.6 % Neutrophils # (Manual) 13.75 H (1.4-6.5) K/uL Total Absolute Neuts 13.75 H (1.4-6.5) K/uL Lymphocytes # (Manual) 0.14 L (1.2-3.4) K/uL Total Abs Lymphocytes 0.14 L (1.2-3.4) K/uL Monocytes # (Manual) 0.82 H (0.11-0.59) K/uL Eosinophils # (Manual) 0.41 (0-0.5) K/uL Metamyelocytes # (Man) 0.27 H (0-0) K/uL Myelocytes # (Manual) 0.41 H (0-0) K/uL Polychromasia 1+ Anisocytosis Present Schistocytes 1+ VBG pH (7.36-7.41) VBG pCO2 (38-50) mmHg VBG pO2 mmHg VBG HCO3 mmol/L VBG O2 Saturation % VBG Base Excess mEq/L Barometric Pressure mm/Hg Sodium 133 L (136-145) mmol/L Potassium 3.9 (3.5-5.1) mmol/L Chloride 108 H (98-107) mmol/L Carbon Dioxide 21 (21-32) mmol/L Anion Gap 4 (3-11) BUN 35 H (6-23) mg/dl Creatinine 0.83 (0.6-1.2) mg/dl Est Cr Clr Drug Dosing 60.7 ml/min Est GFR ( Amer) 87.6 ml/min Est GFR (Non-Af Amer) 75.6 ml/min BUN/Creatinine Ratio 42.2 H (10-20) Glucose 96 (70-99(Fasting)) mg/dl Calcium 7.4 L (8.5-10.1) mg/dl Total Bilirubin 1.7 H (0.2-1.0) mg/dl AST 147 H (13-39) U/L ALT 33 (7-52) U/L Alkaline Phosphatase 113 H (34-104) U/L Ammonia (18-72) umol/L C-Reactive Protein 3.13 H (0-0.5) mg/dl Total Protein 3.8 L (6.0-8.3) gm/dl Albumin 2.0 L (3.4-5.0) gm/dl Globulin 1.8 L (2.5-4.0) gm/dl Albumin/Globulin Ratio 1.1 (0.9-2) Procalcitonin 0.31 (0-0.5) ng/ml 07/12/21 07/12/21 Range/Units 19:51 19:51 WBC (4.8-10.8) K/uL RBC (4.2-5.4) M/uL Hgb (12.0-16.0) g/dL Hct (37-47) % MCV (80-100) fL MCH (25-34) pg MCHC (32-36) g/dL RDW Std Deviation (36.4-46.3) fL RDW Coeff of Fritz (11.5-14.5) % Plt Count (130-400) K/uL MPV (7.4-10.4) fL Absolute Nucleated RBC (0-0) K/uL Nucleated RBC % (auto) % Neutrophils % (Manual) % Lymphocytes % (Manual) % Monocytes % (Manual) % Eosinophils % (Manual) % Metamyelocytes % (Man) % Myelocytes % (Man) % Neutrophils # (Manual) (1.4-6.5) K/uL Total Absolute Neuts (1.4-6.5) K/uL Lymphocytes # (Manual) (1.2-3.4) K/uL Total Abs Lymphocytes (1.2-3.4) K/uL Monocytes # (Manual) (0.11-0.59) K/uL Eosinophils # (Manual) (0-0.5) K/uL Metamyelocytes # (Man) (0-0) K/uL Myelocytes # (Manual) (0-0) K/uL Polychromasia Anisocytosis Schistocytes VBG pH 7.39 (7.36-7.41) VBG pCO2 36 L (38-50) mmHg VBG pO2 45 mmHg VBG HCO3 21 mmol/L VBG O2 Saturation 78.8 % VBG Base Excess -3.3 mEq/L Barometric Pressure 722.4 mm/Hg Sodium (136-145) mmol/L Potassium (3.5-5.1) mmol/L Chloride (98-107) mmol/L Carbon Dioxide (21-32) mmol/L Anion Gap (3-11) BUN (6-23) mg/dl Creatinine (0.6-1.2) mg/dl Est Cr Clr Drug Dosing ml/min Est GFR ( Amer) ml/min Est GFR (Non-Af Amer) ml/min BUN/Creatinine Ratio (10-20) Glucose (70-99(Fasting)) mg/dl Calcium (8.5-10.1) mg/dl Total Bilirubin (0.2-1.0) mg/dl AST (13-39) U/L ALT (7-52) U/L Alkaline Phosphatase (34-104) U/L Ammonia 58.0 (18-72) umol/L C-Reactive Protein (0-0.5) mg/dl Total Protein (6.0-8.3) gm/dl Albumin (3.4-5.0) gm/dl Globulin (2.5-4.0) gm/dl Albumin/Globulin Ratio (0.9-2) Procalcitonin (0-0.5) ng/ml Diagnostic Findings XR chest 1V portable CLINICAL HISTORY: Follow-up interstitial and alveolar opacities. COMPARISON STUDY: 07/10/2021 TECHNIQUE: 1 view of the chest FINDINGS: Single frontal view of the chest demonstrates the cardiomediastinal silhouette to be within normal limits. A Port-A-Cath is in place. Compared to previous examination, there is worsening of interstitial and alveolar opacities bilaterally, right greater than left. More confluent alveolar opacities in the r ight lung base. However, there is also increasing right pleural fluid and the findings may relate to pleural fluid layering along the posterior gutter. Mild central vascular congestion is present. There is no acute osseous pathology. IMPRESSION: 1. Compared to previous examination, there is again evidence for mild central vascular congestion. 2. There has been worsening of interstitial and alveolar opacities bilaterally, right greater than left. 3. There is also interval increase in right pleural effusion. (1) Nausea & vomiting Vomiting type: unspecified Qualified Code(s): R11.2 - Nausea with vomiting, unspecified
--- NOTE | 2021-07-13 15:52 | Anesthesiology Consultation ---
Date of Service July 13, 2021 Assessment & Plan (1) Encounter for pre-operative examination: Chart Review Chart Review: key entry operator initiated History Surgery Operation Date: 07/13/21 12:50 Proposed Procedures p Laparoscopic Cholecystectomy - Bo Maria, Height/Weight Height: 5 ft 4 in Weight: 63 kg Allergies Allergy/AdvReac Type Severity Reaction Status Date / Time capecitabine AdvReac Intermediate SEE COMMENT Verified 07/08/21 03:05 Medications Home Medications Medication Instructions Recorded Confirmed Last Taken anastrozole 1 mg tablet 1 mg PO QAM #30 tab 01/14/20 07/08/21 07/06/21 zoledronic acid 4 mg/100 mL in 4 mg IV MONTHLY ml 09/15/20 07/08/21 07/03/21 mannitol 5 %-water intravenous piggybck acetaminophen 500 mg tablet 500 mg PO BID PRN 07/01/21 07/08/21 Unknown artificial 1 drp OPB HS 07/01/21 07/08/21 07/05/21 tears([id number]-mtslhxl) 0.1 %-0.3 %-0.2 % eye drops (GenTeal Tears Moderate) carboxymethylcellulose sodium 1 % 1 drp OPB QID 07/01/21 07/08/21 07/06/21 16:00 eye liquid gel drops (Refresh Liquigel) prednisolone acetate 1 % eye 1 drp OPB QID 07/01/21 07/08/21 07/06/21 16:00 drops,suspension tramadol 50 mg tablet 50 mg PO Q6H PRN 07/01/21 07/08/21 07/06/21 08:00 Active Medications Generic Name Dose Route Start Last Admin Trade Name Freq PRN Reason Stop Dose Admin Anastrozole 1 mg 07/09/21 11:30 07/13/21 08:18 Anastrozole 1 Mg Tab PO 08/08/21 11:29 1 mg QAM DARLENE Administration Artificial Tears 1 drops 07/08/21 13:00 07/13/21 13:19 Artificial Tears OP 08/07/21 12:59 Not Given QID DARLENE Enoxaparin Sodium 40 mg 07/08/21 21:00 07/12/21 20:15 Enoxaparin Inj 40 Mg/0.4 Ml Syr SQ 08/07/21 10:54 40 mg Q24H DARLENE Administration Piperacillin Sod/Tazobactam 115 mls @ 28.75 mls/hr 07/11/21 18:00 07/13/21 14:59 Sod 3.375 gm/ Dextrose IV 07/21/21 17:59 Infused Q8H DARLENE Infusion Protocol Dextrose/Sodium Chloride 1,000 mls @ 100 mls/hr 07/11/21 12:00 07/13/21 09:09 D5w And Nss IV 08/10/21 11:59 0 mls/hr .Q10H DARLENE Infusion Metoclopramide HCl 10 mg 07/09/21 21:00 07/13/21 11:00 Metoclopramide Hcl 10 Mg Tablet PO 08/08/21 20:59 10 mg ACHS DARLENE Administration Ondansetron HCl 4 mg 07/08/21 10:55 07/11/21 22:58 Ondansetron Inj 2 Mg/Ml 2 Ml Vial IV 08/07/21 10:54 4 mg Q6H PRN Administration Nausea And Vomiting Pantoprazole Sodium 40 mg 07/08/21 10:55 07/13/21 08:19 Pantoprazole 40 Mg Tab PO 08/07/21 10:54 40 mg DAILY DARLENE Administration Tramadol HCl 50 mg 07/08/21 10:55 07/10/21 11:16 Tramadol Hcl 50 Mg Tablet PO 08/07/21 10:54 50 mg Q6H PRN Administration Pain Past Medical History Medical History Acute pericardial effusion Bone cancer met cancer GERD (gastroesophageal reflux disease) Malignant pleural effusion Multiple fractures of ribs Normocytic hypochromic anemia Pathologic fracture of lumbar vertebra Pathologic fracture of thoracic vertebrae Pneumothorax Pulmonary nodules Secondary malignant neoplasm of bone Past Family History Family History Mother , about age 82 Alzheimer disease Breast cancer Father , age 52 from MVA Motor vehicle accident Family/Other Breast cancer cousin Daughter Cancer Son Diabetes Other Asthma Hypertension Past Surgical History Surgical History History of bilateral tubal ligation Port-A-Cath in place (02/17/20) Insertion of Mediport Left Subclavian Vein Under Fluoroscopy Dr. Maria 02/17/2020 Social History Smoking Status: Never smoker Hx Alcohol Use: No Hx Substance Use: No substance use type: does not use Physical Exam Vital Signs Last Vital Signs Temp 99.1 F 07/13/21 07:54 Pulse 81 07/13/21 07:54 Resp 12 07/13/21 07:54 BP 100/62 07/13/21 07:54 Pulse Ox 97 07/13/21 07:54 Testing Laboratory Results 07/13/21 05:44 07/13/21 05:44 Urine Color Dark Yellow 07/08/21 04:33 Urine Appearance Clear (Clear) 07/08/21 04:33 Urine pH 6.0 (4.5-7.5) 07/08/21 04:33 Ur Specific Hoffman > 1.045 (1.000-1.030) H 07/08/21 04:33 Urine Protein Trace (Negative) H 07/08/21 04:33 Urine Glucose (UA) Negative (Negative) 07/08/21 04:33 Urine Ketones Trace (Negative) H 07/08/21 04:33 Urine Nitrite Negative (Negative) 07/08/21 04:33 Ur Leukocyte Esterase Trace (Negative) H 07/08/21 04:33 Urine WBC (Auto) 10-30 /hpf (0-5) H 07/08/21 04:33 Urine RBC (Auto) 5-10 /hpf (0-4) H 07/08/21 04:33 U Hyaline Cast (Auto) 10-30 /lpf (0-5) H 07/08/21 04:33 U Epithel Cells (Auto) >30 /lpf (0-5) H 07/08/21 04:33 Urine Bacteria (Auto) Negative (Negative) 07/08/21 04:33 07/08/21 02:25 Aerobic Blood Culture - Final Blood No growth in Aerobic bottle after 5 days. Anaerobic Blood Culture - Final No growth in Anaerobic bottle after 5 days. 07/08/21 02:55 Aerobic Blood Culture - Final Blood No growth in Aerobic bottle after 5 days. Anaerobic Blood Culture - Final No growth in Anaerobic bottle after 5 days. 07/08/21 04:33 Urine Culture - Final Urine,Clean Catch More than three types of organisms present, all high co unts mixed probable skin conrad - No further identifications or sensitivities to follow. Electrocardiogram Date: 07/08/21 Normal sinus rhythm, rate 94 bpm Low voltage QRS Cannot rule out Anterior infarct , age undetermined Abnormal ECG When compared with ECG of 06-JUL-2021 17:46, (unconfirmed) No significant change was found Confirmed by Perry Young ([id number]) on 07/09/2021 10:14:17 PM Chest X-Ray Date: 07/13/21 IMPRESSION: 1. Compared to previous examination, there is again evidence for mild central vascular congestion. 2. There has been worsening of interstitial and alveolar opacities bilaterally, right greater than left. 3. There is also interval increase in right pleural effusion. Echocardiogram Date: 07/10/21 Compared with 11/23/20 study, no significant change The LV is normal in size LV systolic function is normal EF 65-70% The LV wall motion is normal There is borderline concentric LVH Grade 1 diastolic dysfunction RV is normal in size and function Trace pericardial effusion. Not hemodynamically significant. No significant valvular disease
[2021-07-13] MEDS ORDERED: LIDOCAINE 2% 2 ML VIAL/AMP(20MG/ML) INFIL ONE (17:34)
[2021-07-13] MEDS ORDERED: fentaNYL citrate 100 MCG/2 ML VIAL ONE (17:34)
[2021-07-13] MEDS ORDERED: PROPOFOL IV EMULSION 10 MG/ML 20 ML VIAL IV ONE ×3 (17:34→17:49)
[2021-07-13] MEDS ORDERED: SUCCINYLCHOLINE 100MG/5ML SYR IV ONE (17:34)
[2021-07-13] MEDS ORDERED: ROCURONIUM BROMIDE 10 MG/ML 5 ML VIAL IV ONE (17:34)
[2021-07-13] MEDS ORDERED: BUPIVACAINE 0.5 % 5 MG/1 ML MPF 30ML VIAL ONE (17:35)
[2021-07-13] MEDS ORDERED: PHENYLEPHRINE 100MCG/ML 5ML SYR IV PRN (17:41)
[2021-07-13] MEDS ORDERED: ATROPINE SULFATE 0.1 MG/ML 10ML SYR IV PRN (17:41)
[2021-07-13] MEDS ORDERED: ONDANSETRON INJ 2 MG/ML 2 ML VIAL IV PRN (17:41)
[2021-07-13] MEDS ORDERED: HYDROmorphone INJ 1 MG/ML SYRINGE IV PRN (17:41)
[2021-07-13] MEDS ORDERED: fentaNYL citrate 100 MCG/2 ML VIAL IV PRN (17:41)
[2021-07-13] MEDS ORDERED: ePHEDrine sulfate 50 MG/ML AMP IV PRN (17:41)
[2021-07-13] MEDS ORDERED: LABETALOL HCL IV 5 MG/ML 20ML IV PRN (17:41)
--- NOTE | 2021-07-13 18:50 | Billing Data ---
Date of Service July 13, 2021 Coding Level of Care Code 36906 Subseq Hosp Care Lvl 3
[2021-07-13] MEDS ORDERED: SURGICEL ABSORB HEMOSTAT 2IN X 14IN TOP ONE (18:58)
[2021-07-13] MEDS ORDERED: GLYCOPYRROLATE 0.2 MG/ML VIAL ONE (19:08)
[2021-07-13] MEDS ORDERED: NEOSTIGMINE METHYLSULFATE 1 MG/ML 10ML VIAL ONE (19:08)
[2021-07-13] MEDS ORDERED: SUGAMMADEX SODIUM 200 MG/2 ML VIAL IV ONE (19:10)
--- NOTE | 2021-07-13 19:35 | Operative Report ---
[facility] Post Operative Report Pre & Post Diagnosis Operation Date: 07/13/21 12:50 Pre-Op Diagnosis: Acute cholecystitis Post-Op Diagnosis: Acute cholecystitis; liver lesions I identified the patient and participated in the time-out.: Yes Procedure Operation Date: 07/13/21 12:50 Actual Procedures p Laparoscopic Cholecystectomy, Liver Nodule Biopsy(Not Applicable) - Bo Maria DO Surgeon Bo Maria DO Supervisor Cell Efficiency n/a Estimated Blood Loss 100 Findings Consistent with Post-Op Diagnosis Specimens 1. gallbladder 2. right lobe liver biopsy Description of Procedure After informed consent was obtained the patient was taken to the operating room and placed in supine position. After successful intubation the abdomen was sterilely prepped and draped in usual fashion. A supraumbilical incision was made with an 11 blade scalpel and carried down through the soft tissue using cautery. The anterior rectus fascia was opened using cautery and two #0 Vicryl stay sutures were placed. Peritoneum was entered using blunt finger penetration and a finger sweep performed. A 12 mm Pierre trocar was placed and the abdomen was insufflated to 18 mmHg. The laparoscope was inserted and the abdomen examined in 360 degrees. There was some ascitic fluid in the upper abdomen. The lower liver was also nodular with several lesions on both lobes. The gallbladder appeared acutely inflamed. I placed a subxiphoid 5 mm port and 2 right upper quadrant 5 mm port under direct vision. The patient was placed in a reverse Trendelenburg position and airplaned to the left. The gallbladder was very inflamed. I used a gallbladder needle to drain about 30 cc of thick sludgelike bile. We then grabbed the gallbladder and elevated it superiorly and laterally. I began by using blunt dissection with a [place] dissector. Veins I was able to delineate the cystic duct and clipped twice proximally once distally and transected. Similar fashion identified the cystic artery. Was also skeletonized clipped and divided. Electrocautery was used to remove the gallbladder from the gallbladder fossa. It was removed intact and placed into an Endo Catch bag. I had to extend the camera port site/fascia in order to remove the gallbladder due to a very large stone. We then re-insufflated the abdomen. I thoroughly irrigated the right upper quadrant. Any bleeding points on the gallbladder fossa were controlled using cautery. There was a fair amount of oozing and therefore I placed a piece of Surgicel into the gallbladder fossa. Next at the request of medicine I did perform a needle biopsy of one of the nodules in the right lobe of the liver. This was done with a Edward-Cut needle biopsy biopsy device. Bleeding was controlled using cautery. I thoroughly irrigated the right upper quadrant. At the end of the procedure there was adequate hemostasis and no evidence of any bile leaks. A final look around the abdomen showed no other abnormalities. The trochars were all removed and the abdomen desufflated. The fascia of the camera port was closed using 0 Vicryl in [id number] fashion. All the wounds were irrigated and closed using 4-0 Monocryl. 30 cc of Marcaine were injected around the incisions for postoperative analgesia skin glue used as a dressing. The patient was awakened extubated and transferred recovery in stable condition. I attest to the content of the Intraoperative Record and any orders documented therein. Any exceptions are noted below.
--- NOTE | 2021-07-13 20:09 | Anesthesiology Progress Note ---
Date of Service July 13, 2021 Anesthesia Post Procedure Vital Signs Vital Signs: Temp Pulse Pulse Resp BP BP Pulse Ox 07/13/21 20:00 36.8 C 84 19 121/62 100 07/13/21 19:50 84 19 129/70 100 07/13/21 19:40 85 19 134/77 100 07/13/21 19:31 36.6 C 91 H 18 136/72 99 07/13/21 17:28 36.6 C 93 H 20 118/63 99 07/13/21 16:40 85 19 134/77 100 07/13/21 16:09 36.4 C L 86 12 108/72 97 07/13/21 07:54 37.3 C 81 12 100/62 97 07/12/21 23:18 36.6 C 93 H 18 95/58 L 97 Transfer of Care Handoff Completed per policy Notes Mental Status: alert / awake / arousable Patient Amnestic to Procedure: Yes Nausea / Vomiting: adequately controlled Pain: adequately controlled Airway Patency, RR, SpO2: stable & adequate BP & HR: stable & adequate Hydration State: stable & adequate Anesthetic Complications: no major complications apparent and Pt Satisfied with anesthetic care Notes: The patient is sleepy but awakens near her baseline. Her vital signs are stable.
[2021-07-13] MEDS: ACETAMINOPHEN 325 MG TAB PO PRN (20:57)
[2021-07-14] MEDS ORDERED: KETOROLAC TROMETHAMINE 15 MG/ML VIAL IV ONE (00:38)
[2021-07-14] MEDS: PIPERACILLIN/TAZOBACTAM 3.375 GM in DEXTROSE 5% 100 ML IV SCH ×3 (01:07→17:42)
--- NOTE | 2021-07-14 05:10 | Surgery Progress Note ---
Date of Service July 14, 2021 Assessment & Plan (1) Acute cholecystitis: Plan: Postop day #1 laparoscopic cholecystectomy Continue analgesics Continue antiemetics Advance diet as patient tolerates and as bowel function improves Continue IV fluids until oral intake is deemed adequate Encourage use of incentive spirometry Increase activity as able Lovenox is in place for DVT prevention as above. doing ok. pre-op pain in RUQ resolved will give her liquids and slowly advance as tolerated. will monitor wbc...likely reactive from surgery. Admission and Anticipated Discharge Date Admission Date: July 08, 2021 Subjective Patient is resting in bed. She denies any flatus or BM since her surgery. She notes she has had little in the way of oral intake since her surgery as she just does not feel up to it although she does deny any nausea vomiting. She notes pain at her surgical incisions. He has had limited activity since her surgery. Physical Exam Gastrointestinal (Abdomen): Soft and nondistended. Her incisions are clean, dry, intact. Bowel sounds are hypoactive. She has appropriate tenderness near surgical incisions. Results & Data ([facility]) Vital Signs (Past 12 Hours) Vital Signs Temp Pulse Pulse Resp BP BP Pulse Ox 07/14/21 03:39 36.5 C 82 18 98/62 L 98 07/14/21 02:27 36.4 C L 81 16 92/55 L 98 07/13/21 23:22 36.6 C 89 18 109/68 98 07/13/21 21:58 36.7 C 90 14 107/67 98 07/13/21 21:10 36.3 C L 94 H 18 127/72 97 07/13/21 20:40 36.5 C 91 H 16 122/80 98 07/13/21 20:20 87 22 132/67 100 07/13/21 20:10 84 20 134/75 100 07/13/21 20:00 36.8 C 84 19 121/62 100 07/13/21 19:50 84 19 129/70 100 07/13/21 19:40 85 19 134/77 100 07/13/21 19:31 36.6 C 91 H 18 136/72 99 07/13/21 17:28 36.6 C 93 H 20 118/63 99 PG Care Time/CCT Total # of Minutes Spent Total Time Spent with Patient: Total time spent is greater than 50% in coordination of care (as documented) at patient's floor/unit and/or counseling patient: Coding Level of Care Code None Diagnoses Acute cholecystitis K81.0
[2021-07-14 06:42] LABS: Basophils # (auto) 0.04 K/uL (0-0.2); Basophils % (auto) 0.2 %; Eosinophils # (auto) 0.03 K/uL (0-0.5); Eosinophils % (auto) 0.2 %; Hematocrit (blood only) 29.5 % (37-47); Hemoglobin 9.5 g/dL (12.0-16.0); Immature Granulocytes % (auto) 4.3 %; Lymphocytes # (auto) 1.07 K/uL (1.2-3.4); Lymphocytes % (auto) 5.8 %; Mean Corpuscular Hemoglobin 32.6 pg (25-34); Mean Corpuscular Hgb Conc 32.2 g/dL (32-36); Mean Corpuscular Volume 101.4 fL (80-100); Mean Platelet Volume 11.8 fL (7.4-10.4); Monocytes # (auto) 1.64 K/uL (0.11-0.59); Monocytes % (auto) 8.9 %; Neutrophils # (auto) 14.85 K/uL (1.4-6.5); Neutrophils % (auto) 80.6 %; Nucleated RBC # (auto) 0.45 K/uL (0-0); Nucleated RBC % (auto) 2.5 %; Platelet Count 168 K/uL (130-400); RDW Coefficient of Variation 20.7 % (11.5-14.5); RDW Standard Deviation 76.5 fL (36.4-46.3); Red Blood Count 2.91 M/uL (4.2-5.4); White Blood Count 18.43 K/uL (4.8-10.8)
[2021-07-14 07:07] LABS: Albumin Globulin Ratio 1.2 (0.9-2); Albumin Level 2.1 gm/dl (3.4-5.0); BUN Creatinine Ratio 41.6 (10-20); Bilirubin,Total 1.8 mg/dl (0.2-1.0); Calcium 7.4 mg/dl (8.5-10.1); Creatinine Clr Calc Pharmacy 49.9 ml/min; Est GFR (African American) 69.1 ml/min; Est GFR (Non-African American) 59.6 ml/min; Globulin 1.8 gm/dl (2.5-4.0); Potassium 4.6 mmol/L (3.5-5.1); Total Protein 3.9 gm/dl (6.0-8.3)
[2021-07-14 07:10] LABS: Anisocytosis Present; Polychromasia 1+; Schistocytes 1+
[2021-07-14] MEDS: ANASTROZOLE 1 MG TAB PO SCH (08:21)
[2021-07-14] MEDS: PANTOprazole 40 MG TAB PO SCH (08:21)
[2021-07-14] MEDS: ARTIFICIAL TEARS OP SCH ×4 (08:21→20:39)
[2021-07-14] MEDS: METOCLOPRAMIDE HCL 10 MG TABLET PO SCH ×5 (08:21→20:38)
--- NOTE | 2021-07-14 11:13 | Hospitalist Progress Note ---
Date of Service July 14, 2021 Assessment & Plan (1) Malignant pleural effusion: Plan: 60 y/o F w/ PMHx of metastatic breast cancer (ER/SD+, Her-2 -) on Tamoxifen and Xeloda, known metastatic disease to liver and bone, malignant pleural effusion s/p right PleurX catheter, who presented on 07/08/21 for several days of N/V and somnolence. Somnolence - Improving - etiology: likely multifactorial delirium due to infection (cholecystitis), narcotic use (PO morphine 30 mg, 2 doses total received, last dose at 2AM on 07/11/21, given for bony mets), hospital environment - ammonia level wnl - VBG not suggestive of CO2 retention - electrolytes normal - Brain MRI obtained: There is a new 5 mm enhancing lesion in the right temporal lobe which may represent an intracranial metastasis, however no acute bleeds - status post cholecystectomy, infectious source now removed - recommend avoiding further narcotics including home tramadol. Pain control: Tylenol suspension (max 2g daily in setting of liver lesions) preferred; NSAIDs as second line Leukocytosis - WBC 18, up from 15 - SIRS criteria not met - patient underwent cholecystectomy on 07/13/21 --> per operative report, gallbladder did appear inflamed. Although we would have expected WBC to trend down with source of infection removed, increase is likely reactive to physiologic stress of surgery. - continue Zosyn --> will discuss with surgery re: duration of abx - trend CBC Pulmonary Vascular congestion - progressive vascular congestion and progressive R sided pleural effusion noted on CXR today - Echo w/ normal EF. 07/10/21 echo w/ normal EF 65-70%. Trace pericardial effusion. - IV discontinued - discussed delicate balance of IV hydration with volume overload. Encouraged PO intake - although patient has Pleurx catheters in place, it is still favorable to minimize pulmonary edema Metastatic breast cancer - oncology following; had recommended consideration discontinuing Xeloda and switching to dose reduced liposomal doxorubicin Malignant pleural effusions - bilateral Pleurx catheters in place Elevated LFTs, stable - suspect due to burden of liver mets - follow Hyponatremia - 131 - if worsens, will consider checking urine osms and sodium levels - follow BMP FEN: clear liquid, advance as tolerated ppx: Lovenox code: full dispo: med/surg (2) Metastatic breast cancer: (3) Hypoxia: (4) Ascites: Admission and Anticipated Discharge Date Admission Date: July 08, 2021 Supervising Physician Co-Signing Physician Notes I personally examined the patient and verified all horner points of history and exam, discussed case, and agree with decision making with Dr Kbaa didnt eat much but drinking better. overall doing better. no acute complaints today. surgery input greatly appreciated. vitals noted nad heent nc at mmm breathing unlabored no accessory muscles good effort. ~300ml straw/clear drained from pleurX by nursing while i was in the room septic picture -cholecystitis. now post op. given HR/temp/RR reassuring, and no other notable sources of infection, and clinically pt appearing more well - strongly suspect increase in WBC just demargination/reactive to physical stress of surgery AMS - appears to be multifocal metabolic/toxic encephalopathy - although with improvement - possibly majority from MS contin. continue supportive care malnutrition -poor PO intake prior to hospitalization, nearly none last 2 days with AMS. follow PO intake now that mentation improved and GB out - hopefully will improve DVT proph - lovenox Subjective no acute events overnight. awake and alert in bed today - son at bedside. Patient feeling much improved - taking some PO intake in Review of Systems Review of Systems: All systems reviewed & are unremarkable except as noted in HPI & below Physical Exam Constitutional: WD/WN, vitals as above cooperative; no acute distress Eyes: + anicteric sclerae ENMT: external ear and nose normal, oropharynx normal Neck: trachea midline Respiratory: normal respiratory effort, lungs clear to auscultation Cardiovascular: RRR, no murmur, no edema Heart Sounds: normal S1 and normal S2 Gastrointestinal (Abdomen): Inspection/Auscultation: abdomen normal to inspection and normal bowel sounds; abdomen not distended Percussi on/Palpation: + abdomen tender (RUQ) and + abdomen firm Incision sites without surrounding erythema or purulent discharge Musculoskeletal: Head/Neck/Chest: normocephalic and head atraumatic Skin: no rashes, warm and dry Neurologic: moves all extremities Psychiatric: A+Ox3, euthymic affect Results & Data Results & Data ([facility]) Vital Signs (Past 12 Hours) Vital Signs Temp Pulse Pulse Resp BP BP Pulse Ox 07/14/21 07:16 36.4 C L 76 16 104/69 98 07/14/21 03:39 36.5 C 82 18 98/62 L 98 07/14/21 02:27 36.4 C L 81 16 92/55 L 98 07/13/21 23:22 36.6 C 89 18 109/68 98 Resident Activity Tracking Resident Involvement: Resident Care Provided Care Provided: Adult Hospital Medicine
[2021-07-14] MEDS: HEPARIN 100 UNIT/ML 5ML FLUSH FLUSH PRN (15:14)
--- NOTE | 2021-07-14 16:02 | Billing Data ---
Date of Service July 14, 2021 Coding Level of Care Code 79705 Subseq Hosp Care Lvl 3
[2021-07-14] MEDS: ACETAMINOPHEN 325 MG TAB PO PRN (16:06)
[2021-07-14] MEDS ORDERED: MoRPHine SULFATE 2 MG/ML CARP IV STA (17:49)
[2021-07-14] MEDS: LACTATED RINGER'S 1,000 ML IV SCH (18:17)
[2021-07-14] MEDS: ENOXAPARIN INJ 40 MG/0.4 ML SYR SQ SCH (20:38)
[2021-07-15] MEDS: PIPERACILLIN/TAZOBACTAM 3.375 GM in DEXTROSE 5% 100 ML IV SCH ×3 (02:00→18:10)
--- NOTE | 2021-07-15 06:10 | Surgery Progress Note ---
Date of Service July 15, 2021 Assessment & Plan (1) Acute cholecystitis: Plan: Postop day #2 laparoscopic cholecystectomy Continue analgesics Continue antiemetics Continue to advance diet as tolerated Continue hydration measures with IV fluids until oral intake is felt to be adequate Encourage use of incentive spirometry Increase activity as able Await a.m. labs. Patient was noted to have leukocytosis on yesterday's labs which may have been reactive from surgery. Lovenox is in place for DVT prevention as above. her only c/o is pain at umbilical incision. does not appear in distress. poor appetite. wbc increased to 21,000. spoke to primary service as well as her son and daughter. ? etiology. will grab some blood/urine cx's and ct scan of chest /abd/pelvis. expect abcess appearance in gallbladder fossa secondary to intra-operative placement of surgicel. continue zosyn. Admission and Anticipated Discharge Date Admission Date: July 08, 2021 Subjective Patient is resting comfortably in bed. She notes that her abdominal pain is slightly improved. She does report some pain at her surgical incisions. She says that she passed a small amount of flatus but has not had a bowel movement. She denies any nausea vomiting. She has drank some liquids sparingly which did not exacerbate any abdominal pain. Physical Exam Gastrointestinal (Abdomen): Abdomen is soft and nondistended. His incisions are clean, dry, intact. Bowel sounds are hypoactive. Patient has appropriate pain near surgical incisions. Results & Data ([facility]) Vital Signs (Past 12 Hours) Vital Signs Temp Pulse Resp BP Pulse Ox 07/14/21 22:24 36.6 C 89 18 104/67 99 PG Care Time/CCT Total # of Minutes Spent Total Time Spent with Patient: Total time spent is greater than 50% in coordination of care (as documented) at patient's floor/unit and/or counseling patient: Coding Level of Care Code None Diagnoses Acute cholecystitis K81.0
[2021-07-15 06:27] LABS: Hematocrit (blood only) 30.7 % (37-47); Mean Corpuscular Hemoglobin 32.8 pg (25-34); Mean Corpuscular Hgb Conc 32.6 g/dL (32-36); Mean Corpuscular Volume 100.7 fL (80-100); Mean Platelet Volume 11.7 fL (7.4-10.4); Nucleated RBC # (auto) 0.83 K/uL (0-0); Nucleated RBC % (auto) 3.9 %; Platelet Count 179 K/uL (130-400); RDW Coefficient of Variation 21.2 % (11.5-14.5); RDW Standard Deviation 76.7 fL (36.4-46.3); Red Blood Count 3.05 M/uL (4.2-5.4)
[2021-07-15 06:49] LABS: Albumin Globulin Ratio 1.1 (0.9-2); Albumin Level 2.1 gm/dl (3.4-5.0); BUN Creatinine Ratio 43.9 (10-20); Bilirubin,Total 1.9 mg/dl (0.2-1.0); Calcium 7.2 mg/dl (8.5-10.1); Creatinine Clr Calc Pharmacy 44.2 ml/min; Est GFR (African American) 59.7 ml/min; Est GFR (Non-African American) 51.5 ml/min; Globulin 1.9 gm/dl (2.5-4.0); Potassium 4.1 mmol/L (3.5-5.1)
[2021-07-15 06:52] LABS: Anisocytosis Present; Basophils # (auto) 0.07 K/uL (0-0.2); Basophils % (auto) 0.3 %; Eosinophils # (auto) 0.14 K/uL (0-0.5); Eosinophils % (auto) 0.6 %; Immature Granulocytes # (auto) 1.35 K/uL (0.00-0.02); Immature Granulocytes % (auto) 6.3 %; Lymphocytes # (auto) 1.29 K/uL (1.2-3.4); Monocytes # (auto) 2.93 K/uL (0.11-0.59); Monocytes % (auto) 13.6 %; Neutrophils # (auto) 15.82 K/uL (1.4-6.5); Neutrophils % (auto) 73.2 %; Polychromasia 1+; Schistocytes 1+
[2021-07-15] MEDS: METOCLOPRAMIDE HCL 10 MG TABLET PO SCH ×4 (08:07→20:28)
[2021-07-15] MEDS: PANTOprazole 40 MG TAB PO SCH (08:07)
[2021-07-15] MEDS: ANASTROZOLE 1 MG TAB PO SCH (08:07)
[2021-07-15] MEDS: ARTIFICIAL TEARS OP SCH ×4 (08:07→20:29)
[2021-07-15] MEDS ORDERED: Nursing to Pharmacy Communication SCH (08:15)
--- NOTE | 2021-07-15 08:39 | Hospitalist Progress Note ---
Date of Service July 15, 2021 Assessment & Plan (1) Malignant pleural effusion: Plan: 60 y/o F w/ PMHx of metastatic breast cancer (ER/TN+, Her-2 -) on Tamoxifen and Xeloda, known metastatic disease to liver and bone, malignant pleural effusion s/p right PleurX catheter, who presented on 07/08/21 for several days of N/V and somnolence. Somnolence - seemed to be improved yesterday, perhaps slightly worse today - etiology: likely multifactorial delirium due to infection (cholecystitis), narcotic use (PO morphine 30 mg, 2 doses total received, last dose at 2AM on 07/11/21, given for bony mets), hospital environment - ammonia level wnl - VBG not suggestive of CO2 retention - electrolytes normal - Brain MRI obtained: There is a new 5 mm enhancing lesion in the right temporal lobe which may represent an intracranial metastasis, however no acute bleeds - status post cholecystectomy, infectious source now removed. Continues on IV Zosyn - recommend avoiding further narcotics including home tramadol. Pain control: Tylenol suspension (max 2g daily in setting of liver lesions) preferred; NSAIDs as second line Leukocytosis - WBC 21, up from 18, yet no other SIRS criteria met. - CRP repeated today, down to 1.92 from 3.1 on 07/13/21. - Procal repeated today, up to 0.6 from 0.3 on 07/13/21 - patient underwent cholecystectomy on 07/13/21 --> per operative report, gallbladder did appear inflamed. - etiology for progressive increase in WBC may either be demargination/reactive to physiologic stress from recent cholecystectomy vs. developing post-operative infection/abscess or worsening ascites (and possible SBP). Improving CRP, yet increasing procal further complicates this interpretation. - order placed for repeat CT abdomen/pelvis with contrast to assess for post- surgical complication (ie bile leak) or abscess formation - continue Zosyn in interim (which should be sufficient for anaerobic coverage) - trend CBC Pulmonary Vascular congestion - progressive vascular congestion and progressive R sided pleural effusion noted on CXR today - Echo w/ normal EF. 07/10/21 echo w/ normal EF 65-70%. Trace pericardial effusion. - IV resumed at 60mls/hr - discussed delicate balance of IV hydration with volume overload. Encouraged PO intake - although patient has Pleurx catheters in place, it is still favorable to minimize pulmonary edema Metastatic breast cancer - oncology following; had recommended consideration discontinuing Xeloda and switching to dose reduced liposomal doxorubicin Malignant pleural effusions - bilateral Pleurx catheters in place Elevated LFTs, stable - suspect due to burden of liver mets - follow Hyponatremia - 130 - if worsens, will consider checking urine osms and sodium levels - follow BMP FEN: clear liquid, advance as tolerated ppx: Lovenox code: full dispo: med/surg (2) Metastatic breast cancer: (3) Hypoxia: (4) Ascites: Admission and Anticipated Discharge Date Admission Date: July 08, 2021 Supervising Physician Co-Signing Physician Notes I personally examined the patient and verified all horner points of history and exam, discussed case, and agree with decision making with Dr Sesar dumont more distended. soem nausea. later revisited and reviewed CT findings. case d/w surgery, input greatly appreciated vitals noted nad heent nc at mmm breathing unlabored no accessory muscles good effort. abd mod distention without guarding or rebound septic picture -cholecystitis. now post op. given HR/temp/RR reassuring, and no other notable sources of infection, and clinically pt appearing more well - strongly suspect increase in WBC just demargination/reactive to physical stress of surgery BUT since it went up more and abd a bit more distended - R3, surgery, and myself all independently felt CT warranted - ordered - findings reassuring. constipation likely explains distention (miralax) and nothing worrisome to explain WBC ---> possibly a little demargination from pneumomediastinum, but this is asymptomatic and is likely from laparoscopic surgery AMS - appears to be multifocal metabolic/toxic encephalopathy that improved gr eatly- although with improvement - possibly majority from MS contin. continue supportive care malnutrition -poor PO intake prior to hospitalization, nearly none last 2 days with AMS. follow PO intake now that mentation improved and GB out - hopefully will improve more. low threshold to escalate appetite stimulation regimen DVT proph - lovenox Subjective No acute events overnight. Son present at bedside. Patient stated she was having muscle cramps on left leg, voices concern about a blood clot. She feels slightly more abdominal discomfort today - she did eat yesterday, but very little PO liquid intake. Review of Systems Review of Systems: All systems reviewed & are unremarkable except as noted in HPI & below Physical Exam Constitutional: WD/WN, vitals as above cooperative; no acute distress + seems slightly more lethargic today compared to yesterday Eyes: + anicteric sclerae ENMT: external ear and nose normal, oropharynx normal Neck: trachea midline Respiratory: normal respiratory effort, lungs clear to auscultation Cardiovascular: RRR, no murmur, no edema Heart Sounds: normal S1 and normal S2 Chest (Breasts): Chest: + vascular access device or port Gastrointestinal (Abdomen): Inspection/Auscultation: abdomen normal to inspection, + abdomen distended and normal bowel sounds Percussion/Palpation: + abdomen tender (RUQ, epigastrum) and + abdomen firm + incision sites without erythema or discharge Musculoskeletal: Head/Neck/Chest: normocephalic and head atraumatic Skin: no rashes, warm and dry Neurologic: moves all extremities + clonus Psychiatric: A+Ox3, euthymic affect Results & Data Results & Data ([facility]) Vital Signs (Past 12 Hours) Vital Signs Temp Pulse Resp BP Pulse Ox 07/15/21 07:11 36.4 C L 89 16 117/68 99 07/14/21 22:24 36.6 C 89 18 104/67 99 Resident Activity Tracking Resident Involvement: Resident Care Provided Care Provided: Adult Hospital Medicine
[2021-07-15] MEDS: ONDANSETRON INJ 2 MG/ML 2 ML VIAL IV PRN (09:39)
[2021-07-15] MEDS: LACTATED RINGER'S 1,000 ML IV SCH (09:46)
[2021-07-15] MEDS: HEPARIN 100 UNIT/ML 5ML FLUSH FLUSH PRN (11:55)
[2021-07-15] MEDS ORDERED: OPTIRAY 320 100ml IV ONE (12:38)
--- NOTE | 2021-07-15 14:05 | CT Scan Report ---
CHEST CT WITH CONTRAST; CT ABDOMEN AND PELVIS WITH IV AND ORAL CONTRAST CT DOSE: 722.98 mGy.cm HISTORY: Acute generalized abdominal pain with leukocytosis status post cholecystectomy worsening po st operative WBC TECHNIQUE: Multiaxial CT images of the chest, abdomen and pelvis were performed following the IV admi nistration of 95 cc of Optiray. Oral contrast was also used. A dose lowering technique was utilized a dhering to the principles of ALARA. COMPARISON: CTA chest with CT abdomen and pelvis 07/08/2021 FINDINGS: CT CHEST: Unremarkable thyroid. No adenopathy. Left subclavian Onomvl-z-Lait catheter distal tip terminates wit hin the right atrium. The heart is mildly enlarged. No thoracic aortic aortic aneurysm or dissection. Patency of the imaged great vessels. The opacified pulmonary artery is unremarkable. Bilateral chest tubes are in place. The left side chest tube distal tip terminates at the medial left lung base. The right-sided chest tube distal tip distal tip terminates adjacent to the anterior right lung apex. Small to moderate pleural effusions. Dependent bibasilar consolidation. There is mild pneumomediastin um with subcutaneous and deep tissue air. The bilateral chest wall distributions. No definite pneumot horax. Unchanged 5 mm groundglass nodule of the lingula, image 121. Mild tracheobronchial secretions. Extensive osteoblastic skeletal metastasis redemonstrated. No acute pathologic fracture identified. Unchanged mild thoracolumbar compression deformities CT ABDOMEN/PELVIS: The spleen is mildly enlarged. Small volume of abdominal pelvic ascites with anasarca. Pancreatic par enchymal atrophy. Unremarkable adrenal glands. Atrophic left hepatic lobe. Small amount of abdominal collaterals. Ill-defined scattered hypodense hepatic lesions are redemonstrated measuring up to appro ximately 10 mm within the right hepatic lobe. These appear unchanged from prior. Patent hepatic and p ortal veins. Surgical clips are noted within the jeff hepatis. Fluid and edema is noted within the p nita hepatis without discrete fluid collection. Unremarkable kidneys. No hydronephrosis. Unremarkable urinary bladder. Uterine calcifications are suggestive of calcified fibroids. No abdominal aortic an eurysm. No bowel obstruction or bowel wall thickening. Moderate fecal retention. The visualized appendix appe ars noninflamed and is air-filled. Subcutaneous emphysema of the abdominal wall, likely from pneumoth orax. Extensive osteoblastic skeletal metastasis. No acute pathologic fracture notified. Unchanged lo wer thoracic and L1 compression deformities. IMPRESSION: 1. Postoperative changes of interval cholecystectomy. Mild amount of fluid and edema within the lesa cystectomy bed are likely expected postoperative findings. No focal postoperative fluid collection. 2. Small to moderate layering pleural effusions with bilateral chest tubes in place. No pneumothorax. 3. Small amount of pneumomediastinum is noted in addition to subcutaneous emphysema of the chest and abdomen. 4. Unchanged hepatic and skeletal metastasis. 5. Constipation. No bowel obstruction or bowel wall thickening. 6. Left hepatic lobe atrophy redemonstrated. Small volume of abdominal pelvic ascites, anasarca and h epatosplenomegaly. Underlying portal venous hypertension considered. ACT 112: Negative or not required by law. Electronically signed by: Severo Johnson M.D. 07/15/2021 2:04 PM
--- NOTE | 2021-07-15 14:27 | Billing Data ---
Date of Service July 15, 2021 Coding Level of Care Code 70851 Subseq Hosp Care Lvl 3
[2021-07-15] MEDS: POLYETHYLENE (MIRALAX) 17 GM PACK PO SCH (15:02)
[2021-07-15] MEDS: ACETAMINOPHEN 325 MG TAB PO PRN (20:28)
[2021-07-15] MEDS: ENOXAPARIN INJ 40 MG/0.4 ML SYR SQ SCH (20:29)
[2021-07-15] MEDS: KETOROLAC TROMETHAMINE 15 MG/ML VIAL IV PRN (22:01)
[2021-07-16] MEDS: PIPERACILLIN/TAZOBACTAM 3.375 GM in DEXTROSE 5% 100 ML IV SCH ×3 (02:27→18:32)
[2021-07-16] MEDS: LACTATED RINGER'S 1,000 ML IV SCH ×2 (02:28→18:36)
[2021-07-16] MEDS: KETOROLAC TROMETHAMINE 15 MG/ML VIAL IV PRN ×2 (03:34→19:53)
[2021-07-16] MEDS: ONDANSETRON INJ 2 MG/ML 2 ML VIAL IV PRN (07:39)
[2021-07-16 09:06] LABS: Hematocrit (blood only) 28.8 % (37-47); Hemoglobin 9.6 g/dL (12.0-16.0); Mean Corpuscular Hemoglobin 32.5 pg (25-34); Mean Corpuscular Hgb Conc 33.3 g/dL (32-36); Mean Corpuscular Volume 97.6 fL (80-100); Nucleated RBC # (auto) 1.98 K/uL (0-0); Nucleated RBC % (auto) 9.3 %; Platelet Count 174 K/uL (130-400); RDW Coefficient of Variation 22.6 % (11.5-14.5); RDW Standard Deviation 77.6 fL (36.4-46.3); Red Blood Count 2.95 M/uL (4.2-5.4); White Blood Count 21.23 K/uL (4.8-10.8)
[2021-07-16 09:33] LABS: ALC (manual) 0.57 K/uL (1.2-3.4); ANC (manual) 14.54 K/uL (1.4-6.5); Acanthocytes 1+; Anisocytosis Present; Eosinophils # (manual) 0.19 K/uL (0-0.5); Eosinophils % (manual) 0.9 %; Howell-Jolly Bodies 1+; Lymphocytes # (manual) 0.57 K/uL (1.2-3.4); Lymphocytes % (manual) 2.7 %; Metamyelocytes # (manual) 1.15 K/uL (0-0); Metamyelocytes % (manual) 5.4 %; Monocytes # (manual) 1.72 K/uL (0.11-0.59); Monocytes % (manual) 8.1 %; Myelocytes # (manual) 3.06 K/uL (0-0); Myelocytes % (manual) 14.4 %; Neutrophils # (manual) 14.54 K/uL (1.4-6.5); Neutrophils % (manual) 68.5 %; Poikilocytosis Present; Polychromasia 1+; Schistocytes 1+
[2021-07-16 09:40] LABS: Albumin Globulin Ratio 1.2 (0.9-2); BUN Creatinine Ratio 42.9 (10-20); Bilirubin,Total 2.2 mg/dl (0.2-1.0); Calcium 7.1 mg/dl (8.5-10.1); Creatinine Clr Calc Pharmacy 42.3 ml/min; Est GFR (African American) 56.7 ml/min; Est GFR (Non-African American) 48.9 ml/min; Globulin 1.7 gm/dl (2.5-4.0); Potassium 4.3 mmol/L (3.5-5.1); Total Protein 3.7 gm/dl (6.0-8.3)
[2021-07-16] MEDS: ANASTROZOLE 1 MG TAB PO SCH (10:04)
[2021-07-16] MEDS: PANTOprazole 40 MG TAB PO SCH (10:04)
[2021-07-16] MEDS: ARTIFICIAL TEARS OP SCH ×4 (10:04→20:23)
[2021-07-16] MEDS: METOCLOPRAMIDE HCL 10 MG TABLET PO SCH ×4 (10:04→20:23)
[2021-07-16] MEDS: POLYETHYLENE (MIRALAX) 17 GM PACK PO SCH (10:18)
--- NOTE | 2021-07-16 11:48 | Surgery Progress Note ---
Date of Service July 16, 2021 Assessment & Plan (1) Hx laparoscopic cholecystectomy: Plan: pod 3 still with leukocytosis. ? etiology. cultures pending. imaging with no obvious source continue antibiotics. will continue to follow along. Admission and Anticipated Discharge Date Admission Date: July 08, 2021 Subjective pt seen. daughter at bedside. no new complaints. minimal abdominal pain at umbilical incision. poor appetite. fatigued. Physical Exam Physical Exam: alert but fatigued abd: soft. incisions c/d/i. mild incisional tenderness Results & Data ([facility]) Vital Signs (Past 12 Hours) Vital Signs Temp Pulse Resp BP Pulse Ox 07/16/21 07:15 36.4 C L 90 16 101/60 97 PG Care Time/CCT Total # of Minutes Spent Total Time Spent with Patient: Total time spent is greater than 50% in coordination of care (as documented) at patient's floor/unit and/or counseling patient: Coding Level of Care Code None Diagnoses Hx laparoscopic cholecystectomy Z90.49
--- NOTE | 2021-07-16 11:49 | Hospitalist Progress Note ---
Date of Service July 16, 2021 Assessment & Plan (1) Leukocytosis: Plan: Audra is a 60 y/o female with a hx metastatic breast cancer to liver and bone and malignant pleural effusion who presented to [facility] on 07/08 for evaluation nausea, vomiting, and abd pain. #Leukocytosis -WBC unchanged, 21.23, from 21.60 -Etiology remains unclear. Considered demargination/reactive to physiologic stress from recent cholecystectomy -Repeat CT abd/pelvis is unchanged, showing no evidence of post-surgical complications of abscess or bile leak. -Vitals remain stable. SIRS criteria not met. Continue to monitor. -Continue Zosyn -Continue to trend CBC #Somnolence -Improved today -S/p cholecystectomy, continues on IV Zosyn -Etiology likely multifactorial including, hospital environment, physiological stress related to cholecystectomy, narcotic use (PO morphine 30 mg, 2 doses total received, last dose at 2AM on 07/11/21). - recommend avoiding further narcotics including home tramadol. Pain control: Tylenol suspension (max 2g daily in setting of liver lesions) preferred; NSAIDs as second line #Metastatic Breast Cancer -Oncology following #Malignant pleural effusions -Bilateral Pleurx catheters in place to help minimize pulmonary edema -discussed delicate balance of IV hydration with volume overload. -Encouraged PO intake. -Continue to monitor volume status #Elevated LFTs -ALT, Alk.phos., and total bili elevated today -Likely secondary to know liver mets. -Cont. to monitor #Hyponatremia -128 today, down from 130 -Labs suggestive of dehydration, likely related to poor PO intake due to appetite loss -IV fluid increased to 100mls/hr -Will consider checking urine osms and Na if this continues to worsen -Cont. to follow BMP FEN: Full diet DVT ppx: Lovenox Code: Full Dispo: Med/Surg I, Tin Payne MD, was the resident participating in the care of this patient. The plan was discussed and agreed upon by Mindi Allred, the attending physician and myself. Please see Dr. Whitaker's documentation for further information. (2) Malignant pleural effusion: (3) Metastatic breast cancer: (4) Ascites: (5) Hypoxia: Admission and Anticipated Discharge Date Admission Date: July 08, 2021 Supervising Physician Co-Signing Physician Notes I personally examined the patient with the medical student and resident physician and verified all horner points of history and exam. Upon our exam, the patient is sleeping. The daughter is at bedside. The daughter reports that the patient finished physical therapy this morning, somewhat stronger than the day previous. Appetite is fair, working on taking supplements. Exam 110/72, 100, 18, 36.7, 98% on 3 L via nasal cannula Abdomen is soft, nontender Respirations are nonlabored Data WBC 21.23, hemoglobin 9.6 Sodium 128, potassium 4.3, creatinine 1.19, BUN 51 Total bilirubin 2.2, AST 247, ALT 46, alkaline phosphatase 180 Imaging [address]A chest and CT abdomen pelvis reviewed Impression and plan Cholecystitis status post laparoscopic cholecystectomy, postop day #3 Leukocytosis, infectious versus demargination Acute mental status change, multifactorial, metabolic/toxic encephalopathy, improving Protein calorie malnutrition, cachexia of malignancy Metastatic breast cancer No focal sign of infection by exam or imaging. Suspect the leukocytosis is secondary to demargination, although if continues, may need to open the differential and/or expand antimicrobial coverage. Her mental status seems to be improving, suspect this is multifactorial -acute illness and pain medications. Generalized weakness secondary to malignancy with metastasis, acute infection, and recent surgery. Fluid status is somewhat delicate, otherwise think she is mildly hypovolemic current so will increase fluids but watch for signs of fluid overload Continue to trend WBC Subjective No acute changes overnight. She feels "okay". She had a brief episode of dizziness this morning while getting up to use the bathroom. Symptoms resolved after a few minutes. She also had an episode of coughing followed by vomiting. Her son is present at bedside and witnessed this episode and reports a small amount of clear liquid, no bile or blood noticed. She reports a lack of appetite and constipation since admission. She is drinking fluids and will try to eat as much as she can for breakfast. . Review of Systems Review of Systems: Constitutional: + lack of appetite, +fatigue, No fever or chills Respiratory: + coughing, + wheezing Cardiovascular: No dyspnea or chest pain Gastrointestinal: + Constipation, No abdominal pain, No diarrhea Genitourinary: no dysuria Musculoskeletal: + Intermittent mild Back pain Neurologic: + Dizziness, No headaches Physical Exam Constitutional: + thin and + frail appearing; no acute distress Eyes: PERRL, conjunctivae normal, anicteric sclerae Neck: trachea midline, no thyromegaly Respiratory: normal respiratory effort, lungs clear to auscultation + audible wheezes Cardiovascular: Rate/Rhythm: regular rate and regular rhythm Heart Sounds: no murmur Extremities: + edema Chest (Breasts): Chest: + vascular access device or port Gastrointestinal (Abdomen): Inspection/Auscultation: normal bowel sounds and + abdominal surgical scar Percussion/Palpation: + abdomen tender and + abdomen firm; no guarding Psychiatric: A+Ox3, euthymic affect Lymphatic: no cervical lymphadenopathy Results & Data Results & Data ([facility]) Vital Signs (Past 12 Hours) Vital Signs Temp Pulse Resp BP Pulse Ox 07/16/21 07:15 36.4 C L 90 16 101/60 97 Resident Activity Tracking Resident Involvement: Resident Care Provided Care Provided: Adult Hospital Medicine (1) Leukocytosis Leukocytosis type: unspecified Qualified Code(s): D72.829 - Elevated white blood cell count, unspecified
[2021-07-16] MEDS: ENOXAPARIN INJ 40 MG/0.4 ML SYR SQ SCH (20:21)
[2021-07-17] MEDS: PIPERACILLIN/TAZOBACTAM 3.375 GM in DEXTROSE 5% 100 ML IV SCH ×3 (02:18→18:37)
[2021-07-17] MEDS: KETOROLAC TROMETHAMINE 15 MG/ML VIAL IV PRN ×3 (06:22→20:42)
[2021-07-17 08:15] LABS: Mean Corpuscular Hgb Conc 33.3 g/dL (32-36); Platelet Count 211 K/uL (130-400)
[2021-07-17] MEDS: ANASTROZOLE 1 MG TAB PO SCH (08:32)
[2021-07-17] MEDS: PANTOprazole 40 MG TAB PO SCH (08:33)
[2021-07-17] MEDS: POLYETHYLENE (MIRALAX) 17 GM PACK PO SCH (08:33)
[2021-07-17] MEDS: METOCLOPRAMIDE HCL 10 MG TABLET PO SCH ×4 (08:33→20:51)
[2021-07-17] MEDS: ARTIFICIAL TEARS OP SCH ×4 (08:34→20:50)
[2021-07-17 08:35] LABS: Albumin Globulin Ratio 1.1 (0.9-2); Albumin Level 1.9 gm/dl (3.4-5.0); BUN Creatinine Ratio 44.1 (10-20); Bilirubin,Total 2.7 mg/dl (0.2-1.0); Calcium 7.1 mg/dl (8.5-10.1); Creatinine Clr Calc Pharmacy 42.7 ml/min; Est GFR (African American) 57.2 ml/min; Est GFR (Non-African American) 49.4 ml/min; Globulin 1.8 gm/dl (2.5-4.0); Magnesium 1.9 mg/dl (1.7-2.4); Phosphorus 4.3 mg/dl (2.5-4.9); Potassium 4.5 mmol/L (3.5-5.1); Total Protein 3.7 gm/dl (6.0-8.3)
[2021-07-17 09:20] LABS: ALC (manual) 0.38 K/uL (1.2-3.4); ANC (manual) 16.26 K/uL (1.4-6.5); Acanthocytes 1+; Anisocytosis Present; Hematocrit (blood only) 28.2 % (37-47); Hemoglobin 9.4 g/dL (12.0-16.0); Lymphocytes # (manual) 0.38 K/uL (1.2-3.4); Lymphocytes % (manual) 1.8 %; Mean Corpuscular Hemoglobin 32.3 pg (25-34); Mean Corpuscular Volume 96.9 fL (80-100); Metamyelocytes # (manual) 1.67 K/uL (0-0); Monocytes # (manual) 2.05 K/uL (0.11-0.59); Monocytes % (manual) 9.8 %; Myelocytes # (manual) 0.57 K/uL (0-0); Myelocytes % (manual) 2.7 %; Neutrophils # (manual) 16.26 K/uL (1.4-6.5); Neutrophils % (manual) 77.7 %; Nucleated RBC # (auto) 2.11 K/uL (0-0); Nucleated RBC % (auto) 10.1 %; Poikilocytosis Present; Polychromasia 1+; RDW Standard Deviation 80.5 fL (36.4-46.3); Red Blood Count 2.91 M/uL (4.2-5.4); White Blood Count 20.93 K/uL (4.8-10.8)
[2021-07-17] MEDS: LACTATED RINGER'S 1,000 ML IV SCH ×2 (10:31→20:46)
[2021-07-17] MEDS: ACETAMINOPHEN 325 MG TAB PO PRN (12:38)
--- NOTE | 2021-07-17 13:00 | Hospitalist Progress Note ---
Date of Service July 17, 2021 Assessment & Plan (1) Leukocytosis: Plan: Audra is a 60 y/o female with a hx metastatic breast cancer to liver and bone and malignant pleural effusion who presented to [facility] on 07/08 for evaluation nausea, vomiting, and abd pain. #Leukocytosis -WBC down slightly, 20.93 today, down from 21.23. However, ProCal 0.78 today, elevated from 0.61 on 07/15, CRP 2.44 today, elevated from 1.92 on 07/15 -This is concerning for worsening infectious source of unknown etiology. No focal sign of infection on exam or imaging. Considered demargination but with her inadequate response to Zosyn, we may need to expand antimicrobial coverage and possibly open the differential. -R/O other possible sources: Lyme Ab negative, MRSA swab order, and UA + culture order. -Continue Zosyn, add Doxy. for additional coverage as we await further lab res ults. -Continue to trend CBC #Hyponatremia -Na 127 today, still trending down -BUN/Cr 44.1, BP 81/43 today -Labs suggestive of dehydration, likely related to poor PO intake due to appetite loss -Urine Osms and Na ordered -Cont. to follow BMP and monitor vitals #Somnolence -Slight worse today. She was able to respond to questions on evaluation but with minimal interaction compared to yesterday -Etiology likely multifactorial including, hospital environment, physiological stress related to cholecystectomy (Post. Op day 4), secondary to malignancy with metastasis, acute infection. -Cont. to monitor for any acute mental status changes #Metastatic Breast Cancer -Oncology following #Malignant pleural effusions -Bilateral Pleurx catheters in place to help minimize pulmonary edema -discussed delicate balance of IV hydration with volume overload. -Encouraged PO intake. -Continue to monitor volume status #Elevated LFTs -AST 296, Alk.phos 220, and total bili 2.7 -Likely secondary to know liver mets. -Cont. to monitor FEN: Full diet DVT ppx: Lovenox Code: Full Dispo: Med/Surg I, Tin Payne MD, was the resident participating in this patient's care. The plan was discussed and agreed upon by Mindi Allred, Dr. Whitaker, and myself. Please see Dr. Whitaker's documentation for further information. (2) Hyponatremia: (3) Malignant pleural effusion: (4) Metastatic breast cancer: (5) Ascites: (6) Hypoxia: Admission and Anticipated Discharge Date Admission Date: July 08, 2021 Supervising Physician Co-Signing Physician Notes I personally examined the patient with the medical student and resident physician and verified all horner points of history and exam. Upon our exam, the patient is sleeping but awakens to voice.. The daughter and son are present. Appetite is fair, working on taking supplements. Exam 81/43, 85, 16, 36.3, 97% on 3 L nasal cannula Abdomen is soft, nontender Respirations are nonlabored Data WBC 20.93, hemoglobin 9.4 Sodium 127, potassium 4.5, creatinine 1.18, BUN 52 Total bilirubin 2.7, AST 296, ALT 52, alkaline phosphatase 220 Impression and plan Cholecystitis status post laparoscopic cholecystectomy, postop day #4 Leukocytosis, infectious versus demargination Acute mental status change, multifactorial, metabolic/toxic encephalopathy, improving Protein calorie malnutrition, cachexia of malignancy Metastatic breast cancer We will add doxycycline for additional coverage and monitor CBC Urinalysis repeated, MRSA swab today IV fluids increased to 100 cc/h; appears slightly dry, though has history of fluid overload Family updated Subjective No acute changes overnight. Did not have much of an appetite last night and this morning. Reports feeling "Tired" with a mild headache. No dizziness or lightheadedness reported. She still hasn't had a bowel movement since admission. Her sister was present at bedside and reports that the patient has been drowsy throughout the morning with minimal engagement in conversation. Review of Systems Review of Systems: Constitutional: + lack of appetite, +fatigue, No fever or chills Respiratory: No coughing or wheezing Cardiovascular: No dyspnea or chest pain Gastrointestinal: + Constipation, No abdominal pain, No diarrhea Genitourinary: no dysuria Musculoskeletal: + Intermittent mild Back pain Neurologic: +Headaches No Dizziness Physical Exam Constitutional: + thin and + frail appearing; no acute distress Respiratory: normal respiratory effort, lungs clear to auscultation Cardiovascular: Rate/Rhythm: regular rate and regular rhythm Heart Sounds: no murmur Results & Data Results & Data ([facility]) Vital Signs (Past 12 Hours) Vital Signs Temp Pulse Resp BP Pulse Ox 07/17/21 07:46 36.2 C L 86 16 108/61 100 Resident Activity Tracking Resident Involvement: Resident Care Provided Care Provided: Adult Hospital Medicine (1) Leukocytosis Leukocytosis type: unspecified Qualified Code(s): D72.829 - Elevated white blood cell count, unspecified
[2021-07-17 13:47] LABS: Lyme Ab IgG w/WB Rflx Negative (Negative); Lyme Ab IgM w/WB Rflx Negative (Negative)
--- NOTE | 2021-07-17 14:01 | Surgery Progress Note ---
Date of Service July 17, 2021 Assessment & Plan (1) Hx laparoscopic cholecystectomy: Plan: POD#4 lap lesa and liver biopsy Liver biopsy pathology pending WBC remains elevated at 20, pt afebrile; blood cx's no growth to date, unclear etiology... did have CT scan on 07/13 without obvious issues; on IV zosyn....medical team considering broadening IV abx and obtaining further workup (UA and MRSA swab ordered) On regular diet, but not much appetite Decondition, PT/OT ordered We will continue to follow for now Admission and Anticipated Discharge Date Admission Date: July 08, 2021 Subjective Patient lying in bed on side with and son at bedside. They say she is not eating much and has been receiving toradol and tylenol for pain. When I press on patient's abdomen and ask her if she has pain she says "a little." Physical Exam Physical Exam: lying in bed on L side, appears fatigued Gastrointestinal (Abdomen): Inspection/Auscultation: + abdominal surgical incision (c/d/i with some chelsi incisional ecchymosis) Percussion/Palpation: + abdomen tender (chelsi-incisional discomfort) Results & Data ([facility]) Vital Signs (Past 12 Hours) Vital Signs Temp Pulse Resp BP Pulse Ox 07/17/21 07:46 36.2 C L 86 16 108/61 100 PG Care Time/CCT Total # of Minutes Spent Total Time Spent with Patient: Total time spent is greater than 50% in coordination of care (as documented) at patient's floor/unit and/or counseling patient: Coding Level of Care Code None Diagnoses Hx laparoscopic cholecystectomy Z90.49
[2021-07-17] MEDS ORDERED: SODIUM CHLORIDE 0.9% 1000ML 250 ML IV ONE (15:22)
[2021-07-17] MEDS ORDERED: MoRPHine SULFATE 2 MG/ML CARP IV STA (17:15)
[2021-07-17] MEDS ORDERED: LACTATED RINGER'S 250 ML IV ONE (19:47)
[2021-07-17] MEDS: ENOXAPARIN INJ 40 MG/0.4 ML SYR SQ SCH (20:50)
[2021-07-17] MEDS: DOXYCYCLINE HYCLATE 100 MG CAP PO SCH (20:51)
[2021-07-18] MEDS: PIPERACILLIN/TAZOBACTAM 3.375 GM in DEXTROSE 5% 100 ML IV SCH ×3 (02:04→17:19)
[2021-07-18 05:42] LABS: Hematocrit (blood only) 27.1 % (37-47); Mean Corpuscular Hemoglobin 31.6 pg (25-34); Mean Corpuscular Hgb Conc 33.2 g/dL (32-36); Mean Corpuscular Volume 95.1 fL (80-100); Nucleated RBC # (auto) 2.22 K/uL (0-0); Nucleated RBC % (auto) 9.4 %; Platelet Count 200 K/uL (130-400); RDW Coefficient of Variation 26.1 % (11.5-14.5); RDW Standard Deviation 84.5 fL (36.4-46.3); Red Blood Count 2.85 M/uL (4.2-5.4); White Blood Count 23.71 K/uL (4.8-10.8)
[2021-07-18 06:17] LABS: Acanthocytes 2+; Anisocytosis Present; Basophils # (auto) 0.09 K/uL (0-0.2); Basophils % (auto) 0.4 %; Eosinophils # (auto) 0.03 K/uL (0-0.5); Eosinophils % (auto) 0.1 %; Howell-Jolly Bodies 1+; Immature Granulocytes # (auto) 1.94 K/uL (0.00-0.02); Immature Granulocytes % (auto) 8.2 %; Lymphocytes # (auto) 0.49 K/uL (1.2-3.4); Lymphocytes % (auto) 2.1 %; Monocytes # (auto) 2.44 K/uL (0.11-0.59); Monocytes % (auto) 10.3 %; Neutrophils # (auto) 18.72 K/uL (1.4-6.5); Neutrophils % (auto) 78.9 %; Polychromasia 1+; Schistocytes 1+
[2021-07-18] MEDS: LACTATED RINGER'S 1,000 ML IV SCH ×2 (06:18→16:38)
[2021-07-18 07:23] LABS: Alanine Aminotransferase 61 U/L (7-52); Albumin Globulin Ratio 1.1 (0.9-2); Albumin Level 1.9 gm/dl (3.4-5.0); Alkaline Phosphatase 243 U/L (34-104); Anion Gap 9 (3-11); Bilirubin,Total 3.2 mg/dl (0.2-1.0); Blood Urea Nitrogen 58 mg/dl (6-23); Carbon Dioxide 17 mmol/L (21-32); Chloride 102 mmol/L (98-107); Est GFR (African American) 52.9 ml/min; Est GFR (Non-African American) 45.6 ml/min; Globulin 1.7 gm/dl (2.5-4.0); Glucose 90 mg/dl (70-99(Fasting)); Phosphorus 4.5 mg/dl (2.5-4.9); Sodium 128 mmol/L (136-145); Total Protein 3.6 gm/dl (6.0-8.3)
--- NOTE | 2021-07-18 08:08 | Surgery Progress Note ---
Date of Service July 18, 2021 Assessment & Plan (1) Hx laparoscopic cholecystectomy: Plan: W BC continues to rise and LFTs are slowly rising as well. Questionable ascending cholangitis developing. Would consider GI consult? ERCP?. No surgical issues at this time. Patient with poor baseline diagnosis. Path report shows metastatic disease to the gallbladder and liver. We will continue to follow from the periphery but poor overall prognosis. Admission and Anticipated Discharge Date Admission Date: July 08, 2021 Subjective pt seen. Son at bedside. She denies any pain or nausea. She is rather somnolent and fatigued. Per her son she is more alert today than yesterday. She is alert and able to converse. Physical Exam Physical Exam: Alert. Appears fatigued. Resting in bed. Abdomen is soft nontender. Incisions are healing. Perhaps some mild jaundice. Results & Data ([facility]) Vital Signs (Past 12 Hours) Vital Signs Temp Pulse Pulse Resp BP Pulse Ox 07/18/21 07:25 36.8 C 100 H 16 90/50 L 94 07/17/21 21:49 36.8 C 100 H 18 94/55 L 96 PG Care Time/CCT Total # of Minutes Spent Total Time Spent with Patient: Total time spent is greater than 50% in coordination of care (as documented) at patient's floor/unit and/or counseling patient: Coding Level of Care Code None Diagnoses Hx laparoscopic cholecystectomy Z90.49
[2021-07-18] MEDS: KETOROLAC TROMETHAMINE 15 MG/ML VIAL IV PRN ×2 (08:58→21:44)
[2021-07-18] MEDS ORDERED: OPTIRAY 320 100ml IV ONE (09:15)
--- NOTE | 2021-07-18 09:45 | Hospitalist Progress Note ---
Date of Service July 18, 2021 Assessment & Plan (1) Leukocytosis: Plan: Audra is a 60 y/o female with a hx metastatic breast cancer to liver and bone and malignant pleural effusion who presented to [facility] on 07/08 for evaluation nausea, vomiting, and abd pain. #Leukocytosis -WBC elevated 23.7 from, 20.93 yesterday. -Elevated ProCal 0.78 and CRP 2.44 -This is concerning for worsening infectious source of unknown etiology. No focal sign of infection on exam or imaging. Differentials considered include developing ascending cholangitis, bile duct injury, bile leak, pancreatitis, abd abscess. -Lyme Ab negative, MRSA swab negative -UA + culture order. Await results. -Repeated CT abd/pelvis today. Per GI report, CT shows possible biloma s/p lap lesa. Unclear if secondary to ongoing bile leak. -HIDA scan today. Reevaluate pending results of HIDA -On Zosyn + Doxy (first dose last night) -Continue to trend CBC #Hyponatremia -Na 128 today, increased from yesterday, heading -Labs suggestive of dehydration, likely related to poor PO intake due to appet ite loss -Await Urine Osms and Na -Cont. to follow BMP and monitor vitals #Somnolence -More interactive today. Still weak and frail appearing compared to baseline. Was able to move from bed to chair with assistance. -Etiology likely multifactorial including, hospital environment, physiological stress related to cholecystectomy (Post. Op day 5), secondary to malignancy with metastasis, acute infection of unknown etiology. -Cont. to monitor for any acute mental status changes #Metastatic Breast Cancer -CA 15-3 and CA 27-29 ordered with AM labs to evaluate tumor markers. -Oncology following #Malignant pleural effusions -Bilateral Pleurx catheters in place to help minimize pulmonary edema -discussed delicate balance of IV hydration with volume overload. -Encouraged PO intake. -Continue to monitor volume status #Elevated LFTs -Continuing to rise since admission -AST 384, ALT 61, Alk.phos 243 -Likely secondary to know liver mets. Consider worsening cancer prognosis, developing ascending cholangitis, bile duct injury, bile leakage, abscess -Cont. to monitor FEN: Full diet DVT ppx: Lovenox Code: Full Dispo: Med/Surg I, Tin Payne MD, was the resident participating in this patient's care. The plan was discussed and agreed upon by Mindi Allred, Dr. Whitaker, and myself. Please see Dr. Whitaker's documentation for further information. (2) Hyponatremia: (3) Malignant pleural effusion: (4) Metastatic breast cancer: (5) Ascites: (6) Hypoxia: Admission and Anticipated Discharge Date Admission Date: July 08, 2021 Supervising Physician Co-Signing Physician Notes I personally examined the patient with the medical student and resident physician and verified all horner points of history and exam. Upon our exam, patient is awake and oriented. She is talking to her daughter who is at bedside. During the exam, the patient is assisted out of bed to the bedside chair. She is able to sit in the chair unassisted. Appetite is slightly improved today according to the daughter. Exam 90/50, 100, 16, 36.8, 94% on nasal cannula 2 L/min Heart is regular Lungs clear with nonlabored respirations Abdomen is soft, nontender. There is ecchymosis present on the lower abdominal wall. No suggestion of a cellulitis Data WBC 23.71, hemoglobin 9.0, platelet count 200 Sodium 148, potassium 4.7, BUN 58, creatinine 1.26 Total bilirubin 3.2, AST 34, ALT 61, alkaline phosphatase [address] scan of the abdomen and pelvis dated 07/18/2021 shows what may be a small loculated fluid collection within the cholecystectomy bed (although in discussion with general surgery this is likely representing the Surgicel). Also suggestive of possible biloma. Small hypoenhancing subcapsular foci in the spleen that could represent small splenic infarcts Pathology Pathology of the gallbladder shows metastatic carcinoma consistent with breast primary, acute and chronic cholecystitis. Pathology of the hepatic, left lobe, core biopsy shows metastatic carcinoma consistent with breast primary. Impression and plan Cholecystitis status post laparoscopic cholecystectomy, postop day #5 Leukocytosis, infectious versus demargination, worsening Acute mental status change, multifactorial, metabolic/toxic encephalopathy, improved today Protein calorie malnutrition, cachexia of malignancy Metastatic breast cancer Appreciate general surgery and gastroenterology consultation today Plan is for HIDA scan today to evaluate for ongoing bile leak Continue antibiotics The small splenic infarcts are not surprising given patient's widely metastatic malignancy; she is currently on prophylactic Lovenox and will leave as such in case surgical/endoscopic intervention is needed in the next 24-48 hours; the decision after that would be if we should put her on therapeutic anticoagulation (Lovenox); this would not be without risk given her current hemoglobin. Subjective She feels okay today. Was able to get more rest last night and feels less tired today compared to yesterday. Has some intermittent back pain. No abd pain reported. She feels that the pain meds from last night were helpful. She still does not have much of an appetite. Review of Systems Review of Systems: Constitutional: + lack of appetite, +fatigue, No fever or chills Respiratory: No coughing or wheezing Cardiovascular: No dyspnea or chest pain Gastrointestinal: No abdominal pain, No diarrhea Genitourinary: no dysuria Musculoskeletal: + Intermittent mild Back pain Neurologic: No Headaches, No Dizziness Physical Exam Constitutional: + thin and + frail appearing; no acute distress Respiratory: normal respiratory effort, lungs clear to auscultation Cardiovascular: Rate/Rhythm: regular rate and regular rhythm Heart Sounds: no murmur Gastrointestinal (Abdomen): Inspection/Auscultation: normal bowel sounds and + abdominal surgical scar Percussion/Palpation: abdomen soft; abdomen nontender and no guarding Results & Data Results & Data ([facility]) Vital Signs (Past 12 Hours) Vital Signs Temp Pulse Pulse Resp BP Pulse Ox 07/18/21 07:25 36.8 C 100 H 16 90/50 L 94 07/17/21 21:49 36.8 C 100 H 18 94/55 L 96 Resident Activity Tracking Resident Involvement: Resident Care Provided Care Provided: Adult [facility] Medicine (1) Leukocytosis Leukocytosis type: unspecified Qualified Code(s): D72.829 - Elevated white blood cell count, unspecified
[2021-07-18] MEDS: ARTIFICIAL TEARS OP SCH ×4 (09:58→21:50)
[2021-07-18] MEDS: METOCLOPRAMIDE HCL 10 MG TABLET PO SCH ×5 (09:58→22:04)
[2021-07-18] MEDS: POLYETHYLENE (MIRALAX) 17 GM PACK PO SCH (09:58)
[2021-07-18] MEDS: ANASTROZOLE 1 MG TAB PO SCH (09:58)
[2021-07-18] MEDS: PANTOprazole 40 MG TAB PO SCH (09:58)
[2021-07-18] MEDS: DOXYCYCLINE HYCLATE 100 MG CAP PO SCH ×3 (09:58→22:05)
--- NOTE | 2021-07-18 10:10 | CT Scan Report ---
CT OF THE ABDOMEN AND PELVIS WITH CONTRAST CLINICAL HISTORY: Status post cholecystectomy. Abdominal pain. Evaluate for increasing ascites. COMPARISON STUDY: CT of the abdomen and pelvis July 15, 2021. TECHNIQUE: Following IV administration of 94 mL of Optiray, axial images of the abdomen and pelvis we re obtained from the lung bases to the proximal femurs. Images were reviewed in the axial, sagittal, and coronal planes. IV contrast was administered without complication. Automated exposure control wa s utilized for the study. A dose lowering technique was utilized adhering to the principles of ALARA . CT DOSE: 620.12 mGy.cm FINDINGS: Bilateral pleural drains remain in place. Bilateral pleural effusions have increased in siz e since CT of July 15, 2021. Anasarca with significant body wall edema has progressed. No pneumat osis, free air or portal venous gas is present. Splenomegaly is unchanged. Note is made of multiple s mall subcapsular hypoenhancing foci within the spleen. These are indeterminate. Several small hepatic metastases are again noted. These are similar to prior CT. There is no biliary ductal dilatation sta tus post cholecystectomy. A small amount of perihepatic ascites has diminished. Fluid within the chol ecystectomy bed has increased since prior exam. Note is now made of a 4.4 x 2.5 cm cholecystectomy be d fluid collection. There is no evidence for a bowel obstruction. There is mild diffuse colonic wall thickening. Note is made of stranding with possible enhancing nodules within the central mesentery sh own best on axial image 155 of 471. Innumerable skeletal metastases with several pathologic spine fra ctures are unchanged. No abdominal or pelvic lymphadenopathy is present. Contrast within the bladder is from recent contrast-enhanced CT. IMPRESSION: 1. Small loculated fluid collection within the cholecystectomy bed, measuring 4.4 x 2.5 cm. Although nonspecific in the early postoperative setting, a biloma cannot be excluded. Nuclear medicine hepatob iliary scan could be considered for further evaluation. 2. Increase in bilateral pleural effusions and anasarca with body wall edema. 3. No change in hepatic and skeletal metastases. Mesenteric nodularity may reflect tumor implants. 4. No bowel obstruction. 5. Small hypoenhancing subcapsular foci within the spleen. Small splenic infarcts are within the diff erential. ACT 112: Negative or not required by law. Electronically signed by: Allan Santamaria M.D. 07/18/2021 10:08 AM
[2021-07-18 10:33] LABS: Potassium 4.7 mmol/L (3.5-5.1)
[2021-07-18] MEDS: ONDANSETRON INJ 2 MG/ML 2 ML VIAL IV PRN (11:31)
[2021-07-18] MEDS: ACETAMINOPHEN 325 MG TAB PO PRN (11:32)
--- NOTE | 2021-07-18 11:38 | Gastroenterology Progress Note ---
Date of Service July 18, 2021 Assessment & Plan (1) Leukocytosis: Plan: CT shows possible biloma s/p lap lesa. It is unclear if this is visitor services representative of ongoing bile leak. -HIDA scan today. Discussed with nuclear medicine. -Continue IV antibiotics per primary team. -Further recommendations pending results of HIDA. Admission and Anticipated Discharge Date Admission Date: July 08, 2021 Supervising Physician Co-Signing Physician Notes Agree with THERESA Walker as above I reviewed the HIDA scan with Radiology, and there is no evidence of biloma or bile leak Recommend repeat LFT's in AM Continue IV Abx as per Hospitalist team Continue to follow her clinical course and make further recommendations as needed. Subjective Patient is a 60 yo female with metastatic breast cancer to liver, bone, & gallbladder. She underwent a cholecystectomy 5 days ago. GI has been asked to evaluate again due to concerns of possible cholangitis due to worsening leukocytosis. Patient had a CT scan this AM that indicated a possible biloma measuring 4.4 x 2.5 cm within the cholecystectomy bed. A HIDA scan was recommended. WBC count is 23,700. AST 384, ALT 61, AP 243. CT also questioned new splenic infarcts. Patient is currently on Zosyn & Doxy. Patient is afebrile. BP 90/50. HR 100. Review of Systems Gastrointestinal: no abdominal pain Physical Exam Gastrointestinal (Abdomen): Inspection/Auscultation: abdomen normal to inspection Percussion/Palpation: abdomen soft; abdomen nontender, no guarding and abdomen not rigid Results & Data Results & Data ([facility]) Vital Signs (Past 12 Hours) Vital Signs Temp Pulse Resp BP Pulse Ox 07/18/21 07:25 36.8 C 100 H 16 90/50 L 94 PG Care Time/CCT Total # of Minutes Spent Total Time Spent with Patient: Total time spent is greater than 50% in coordination of care (as documented) at patient's floor/unit and/or counseling patient: Coding Level of Care Code 79235 Subseq Hosp Care Lvl 3 Diagnoses Leukocytosis D72.829 Leukocytosis type: unspecified (1) Leukocytosis Leukocytosis type: unspecified Qualified Code(s): D72.829 - Elevated white blood cell count, unspecified
--- NOTE | 2021-07-18 15:44 | Nuclear Medicine Report ---
NUCLEAR HEPATOBILIARY SCAN CLINICAL HISTORY: Recent cholecystectomy. Fluid collection the gallbladder fossa seen by CT. Assess f or bile leak. COMPARISON STUDY: Abdominal CT dated 07/18/2021. TECHNIQUE: Dynamic images of the liver and anterior abdomen were obtained every 5 minutes for a total of 30 minutes following the IV administration of 5.0 mCi of technetium 99m Mebrofenin. An additional static image was obtained at 45 minutes. FINDINGS: The hepatobiliary scan shows prompt and homogeneous hepatic uptake. There is visualized act ivity within the intra and extrahepatic biliary tree at 10 minutes, and within the small bowel by 15 minutes. There is no abnormal pooling of tracer within the gallbladder fossa to suggest bile leak. IMPRESSION: There is no scintigraphic evidence of bile leak at the time of examination. ACT 112: Negative or not required by law. Electronically signed by: Isacc Benedict M.D. 07/18/2021 3:42 PM
[2021-07-18 18:31] LABS: Adenovirus PCR Not Detected (NotDetected); Bordetella parapertussis PCR Not Detected (NotDetected); Bordetella pertussis PCR Not Detected (NotDetected); Chlamydia pneumoniae PCR Not Detected (NotDetected); Coronavirus 229E PCR Not Detected (NotDetected); Coronavirus CoV-2 (COVID19)PCR Not Detected (NotDetected); Coronavirus HKU1 PCR Not Detected (NotDetected); Coronavirus NL63 PCR Not Detected (NotDetected); Coronavirus OC43PCR Not Detected (NotDetected); Human Metapneumovirus PCR Not Detected (NotDetected); Influenza A PCR Not Detected (NotDetected); Influenza B PCR Not Detected (NotDetected); Mycoplasma pneumoniae PCR Not Detected (NotDetected); Parainfluenza Virus 1 PCR Not Detected (NotDetected); Parainfluenza Virus 2 PCR Not Detected (NotDetected); Parainfluenza Virus 3 PCR Not Detected (NotDetected); Parainfluenza Virus 4 PCR Not Detected (NotDetected); Respiratory Syncytial VirusPCR Not Detected (NotDetected); Rhinovirus/Enterovirus PCR Not Detected (NotDetected)
[2021-07-18] MEDS: ENOXAPARIN INJ 40 MG/0.4 ML SYR SQ SCH (21:53)
[2021-07-18] MEDS ORDERED: METOCLOPRAMIDE HCL INJ 5 MG/ML 2 ML VIAL IV STA (22:35)
[2021-07-18] MEDS ORDERED: DOXYCYCLINE HYCLATE 100 MG in DEXTROSE 5% 100 ML IV STA (22:35)
[2021-07-19] MEDS: PIPERACILLIN/TAZOBACTAM 3.375 GM in DEXTROSE 5% 100 ML IV SCH ×3 (01:31→18:04)
[2021-07-19] MEDS: LACTATED RINGER'S 1,000 ML IV SCH ×3 (01:41→22:16)
[2021-07-19 06:29] LABS: Potassium 4.8 mmol/L (3.5-5.1)
[2021-07-19 06:31] LABS: Albumin Globulin Ratio 1.3 (0.9-2); Bilirubin,Total 3.4 mg/dl (0.2-1.0); Calcium 7.5 mg/dl (8.5-10.1); Est GFR (African American) 46.6 ml/min; Est GFR (Non-African American) 40.2 ml/min; Globulin 1.6 gm/dl (2.5-4.0); Hemoglobin 9.3 g/dL (12.0-16.0); Mean Corpuscular Hemoglobin 31.3 pg (25-34); Mean Corpuscular Hgb Conc 33.2 g/dL (32-36); Mean Corpuscular Volume 94.3 fL (80-100); Nucleated RBC # (auto) 2.48 K/uL (0-0); Nucleated RBC % (auto) 8.4 %; Platelet Count 213 K/uL (130-400); RDW Coefficient of Variation 28.2 % (11.5-14.5); RDW Standard Deviation 93.2 fL (36.4-46.3); Red Blood Count 2.97 M/uL (4.2-5.4); Total Protein 3.6 gm/dl (6.0-8.3); White Blood Count 29.64 K/uL (4.8-10.8)
[2021-07-19 07:06] LABS: Anisocytosis Present; Basophils # (auto) 0.08 K/uL (0-0.2); Basophils % (auto) 0.3 %; Echinocytes 1+; Eosinophils # (auto) 0.04 K/uL (0-0.5); Eosinophils % (auto) 0.1 %; Immature Granulocytes # (auto) 2.38 K/uL (0.00-0.02); Lymphocytes # (auto) 0.93 K/uL (1.2-3.4); Lymphocytes % (auto) 3.1 %; Monocytes # (auto) 2.98 K/uL (0.11-0.59); Monocytes % (auto) 10.1 %; Neutrophils # (auto) 23.23 K/uL (1.4-6.5); Neutrophils % (auto) 78.4 %; Polychromasia 1+; Schistocytes 1+
[2021-07-19] MEDS: PANTOprazole 40 MG TAB PO SCH (07:21)
[2021-07-19] MEDS: DOXYCYCLINE HYCLATE 100 MG CAP PO SCH (07:21)
[2021-07-19] MEDS: METOCLOPRAMIDE HCL 10 MG TABLET PO SCH (07:21)
[2021-07-19] MEDS: ANASTROZOLE 1 MG TAB PO SCH (07:21)
[2021-07-19] MEDS: ARTIFICIAL TEARS OP SCH ×4 (07:24→21:33)
[2021-07-19] MEDS: POLYETHYLENE (MIRALAX) 17 GM PACK PO SCH (07:25)
[2021-07-19] MEDS ORDERED: VANCOMYCIN CONSULT ACTIVE PRN (09:41)
[2021-07-19] MEDS ORDERED: VANCOMYCIN HCL 1,000 MG in SODIUM CHLORIDE 0.9% 500 ML IV SCH (09:45)
--- NOTE | 2021-07-19 10:08 | Pharmacy Report ---
Pharmacy Vanc AUC Short Note - Date of Service July 19, 2021 - Assessment & Plan Assessment 60 year old F with metastatic breast cancer, s/p lap lesa on 07/13/21. On day # 12 of Zosyn. Concern for worsening infection, source unknown but differentials include developing ascending cholangitis, bile duct injury, bile leak, pancreatitis, abdominal abscess. All cultures reported no growth to date at this time. Coverage broadened on 07/19 to include vancomycin (pulmonary source indicated on order) Plan Vancomycin * Loading dose: 1250 (20 mg/kg) IV * Will hold off on scheduling a maintenance dose due to worsening renal function (Scr 1.18 -> 1.26-> 1.4) * current vanco ke/half life estimated to be 0.034 hr-20.3 hr * Random level ordered for 07/20 AM Zosyn 3.375 g IV q8 hours (extended infusion) Pharmacy will continue to follow and will adjust dose/frequency as necessary. Thank you.
[2021-07-19] MEDS ORDERED: VANCOMYCIN HCL 1,250 MG in SODIUM CHLORIDE 0.9% 250 ML IV ONE (10:30)
--- NOTE | 2021-07-19 11:24 | Gastroenterology Progress Note ---
Date of Service July 19, 2021 Assessment & Plan (1) Elevated LFTs: Plan: -Continue IV antibiotics per primary team -Continue to monitor LFTs -Will discuss clinical case with GI services to determine if EUS/ERCP is warranted. Admission and Anticipated Discharge Date Admission Date: July 08, 2021 Supervising Physician Co-Signing Physician Notes Agree with THERESA Walker as above ERCP today with Dr. Padilla Continue current therapy and supportive care Subjective Patient is a 60 yo female with breast cancer with mets to the bone, brain, liver & gallbladder s/p lap lesa with rising LFTs and leukocytosis. She continues on IV antibiotic therapy, however this has been changed to Vanco & Zosyn. HIDA scan from yesterday did not show evidence of a bile leak. LFTs today: T bili 3.4, AST 437, ALT 67, AP 301. Physical Exam Constitutional: + ill appearing Respiratory: normal respiratory effort Gastrointestinal (Abdomen): Inspection/Auscultation: + abdominal surgical incision; abdomen not distended Results & Data Results & Data ([facility]) Vital Signs (Past 12 Hours) Vital Signs Temp Pulse Resp BP Pulse Ox 07/19/21 07:34 36.4 C L 80 16 95/53 L 97 PG Care Time/CCT Total # of Minutes Spent Total Time Spent with Patient: Total time spent is greater than 50% in coordination of care (as documented) at patient's floor/unit and/or counseling patient: Coding Level of Care Code 82857 Subseq Hosp Care Lvl 2 Diagnoses Elevated LFTs R79.89
[2021-07-19] MEDS: KETOROLAC TROMETHAMINE 15 MG/ML VIAL IV PRN ×2 (11:33→19:26)
[2021-07-19] MEDS: METOCLOPRAMIDE HCL INJ 5 MG/ML 2 ML VIAL IV SCH ×3 (11:33→21:33)
--- NOTE | 2021-07-19 15:51 | Hospitalist Progress Note ---
Date of Service July 19, 2021 Assessment & Plan (1) Leukocytosis: Plan: Audra is a 60 y/o female with a hx metastatic breast cancer to liver and bone and malignant pleural effusion who presented to [facility] on 07/08 for evaluation nausea, vomiting, and abd pain. #Leukocytosis -WBC elevated to 29.64 -S/p laparoscopic Cholecystectomy, post op day 6.HIDA scan from yesterday did not show evidence of a bile leak. -ERCP today to r/o choledocholithiasis. -This is concerning for worsening infectious source of unknown etiology. No focal sign of infection on exam or imaging. Worsening WBC despite broad coverage with Zosyn + Doxy. Will d/c Zosyn + Doxy and restart on IV Vanc. since she respond to Vanc. prior to lap lesa. -UA + culture ordered. Await results. -Lyme Ab negative, MRSA swab negative -Continue to trend CBC #Hyponatremia -Improving -Na 130 today -Await Urine Osms and Na -Cont. to follow BMP and monitor vitals #Somnolence -Patient is able to respond to questions with yes/no but keeps her eys closed throught evaluation and for most of the day. She is Still weak and frail appearing compared to baseline. -Etiology likely multifactorial including, hospital environment, physiological stress related to cholecystectomy, malignancy with metastasis, and acute infection of unknown etiology. -Cont. to monitor for any acute mental status changes #Metastatic Breast Cancer -CA 15-3 and CA 27-29 ordered to evaluate tumor markers. -Oncology following #Malignant pleural effusions -Pleurx catheters in place to help minimize pulmonary edema -discussed delicate balance of IV hydration with volume overload. -Encouraged PO intake. -Continue to monitor volume status #Elevated LFTs -Continuing to rise since admission -LFTs today: T bili 3.4, AST 437, ALT 67, AP 301. -ERCP today to r/o choledocholithiasis. -Cont. to monitor FEN: Full diet DVT ppx: Lovenox Code: Full Dispo: Med/Surg I, Tin Payne MD, was the resident participating in this patient's care. The plan was discussed and agreed upon by Mindi Allred, Dr. Klever horner, and myself. Please see Dr. Whitaker's documentation for further information. (2) Hyponatremia: (3) Malignant pleural effusion: (4) Metastatic breast cancer: (5) Ascites: (6) Hypoxia: Admission and Anticipated Discharge Date Admission Date: July 08, 2021 Supervising Physician Co-Signing Physician Notes I personally examined the patient with the medical student and resident physician and verified all horner points of history and exam. Upon our exam, patient sleepy, she does awaken to my voice and does nod yes to some questions; briefly opens her eyes but mostly these remain short during our visit. Exam 105/52, 94, 14, 36.6, percent on nasal cannula 2 L/min Heart is regular Lungs clear with nonlabored respirations Abdomen is soft, nontender. There is resolving ecchymosis present on the lower abdominal wall. Patient feels to be some subcutaneous edema of the right upper abdominal quadrant and left flank; I suspect this is dependent edema since she normally lays on her right side. There is no tenderness in this area. Data WBC 29.64, hemoglobin 9.3 Sodium 130, BUN 63, creatinine 1.4 Total bilirubin 3.4, AST 437, ALT 67, alkaline phosphatase [address] scan of the abdomen and pelvis dated 07/18/2021 shows what may be a small loculated fluid collection within the cholecystectomy bed (although in discussion with general surgery this is likely representing the Surgicel). Also suggestive of possible biloma. Small hypoenhancing subcapsular foci in the spleen that could represent small splenic infarcts Pathology Pathology of the gallbladder shows metastatic carcinoma consistent with breast primary, acute and chronic cholecystitis. Pathology of the hepatic, left lobe, core biopsy shows metastatic carcinoma consistent with breast primary. Impression and plan Cholecystitis status post laparoscopic cholecystectomy, postop day #6 Leukocytosis, worsening Acute mental status change, multifactorial, metabolic/toxic encephalopathy, waxing/waning Protein calorie malnutrition, cachexia of malignancy Metastatic breast cancer (brain, liver, gallbladder, bone) Appreciate general surgery and gastroenterology consultation today Plan is for ERCP later today We will add vancomycin given worsening leukocytosis Small splenic infarcts would not surprising given patient's widely metastatic malignancy; she is currently on prophylactic Lovenox and will leave as such in case surgical/endoscopic intervention is needed in the next 24-48 hours; the decision after that would be if we should put her on therapeutic anticoagulation (Lovenox); this would not be without risk given her current hemoglobin. Alternatively, splenic lesions could be small abscesses or metastatic sites. Met with daughter and son both in the room and outside of the room with the daughter. The daughters ultimate wish would be to have her mother at home. The has not come to the hospitalaccording to the daughter, he just does not handle hospitals well emotionally. It sounds as if they would have enough help between the , daughter, and son to care for the patient at home with hospice. The patient is currently a full code, although we did discuss both changing the resuscitation status and hospice; the patient was agreeable to hospice although it was not clear if she was understanding all that was being asked. The daughter and son wish to rediscuss hospice tomorrow morning when the patient is usually more awake. I explained to the patient, son, and daughter that even if she were to recover from the surgery and her infectionif she does indeed have infectionwas discovered and "cured", her overall prognosis would be poor given her widely metastatic breast cancer. Her overall prognosis is extremely poor. Given her current trajectory, I suspect her prognosis would be measured in weeks. With a recovery from her surgery and infection, it would be 1-2 months, at best. Subjective No acute changes overnight. No abdominal pain reported. Daughter present at bedside and reports the patient was more interactive this morning compared to days prior. Review of Systems Review of Systems: Constitutional: + lack of appetite, +fatigue, No fever or chills Respiratory: No coughing or wheezing Cardiovascular: No dyspnea or chest pain Gastrointestinal: No abdominal pain, No diarrhea Genitourinary: no dysuria Musculoskeletal: No Intermittent mild Back pain Neurologic: No Headaches, No Dizziness Physical Exam Constitutional: + thin and + frail appearing; no acute distress Respiratory: normal respiratory effort, lungs clear to auscultation Cardiovascular: Rate/Rhythm: regular rate and regular rhythm Heart Sounds: no murmur Gastrointestinal (Abdomen): Inspection/Auscultation: normal bowel sounds and + abdominal surgical scar Percussion/Palpation: abdomen soft; abdomen nontender and no guarding Results & Data Results & Data ([facility]) Vital Signs (Past 12 Hours) Vital Signs Temp Pulse Resp BP Pulse Ox 07/19/21 07:34 36.4 C L 80 16 95/53 L 97 Resident Activity Tracking Resident Involvement: Resident Care Provided Care Provided: Adult Hospital Medicine (1) Leukocytosis Leukocytosis type: unspecified Qualified Code(s): D72.829 - Elevated white blood cell count, unspecified
[2021-07-19] MEDS ORDERED: LIDOCAINE 2% 2 ML VIAL/AMP(20MG/ML) INFIL ONE (16:12)
[2021-07-19] MEDS ORDERED: ONDANSETRON INJ 2 MG/ML 2 ML VIAL ONE (16:12)
[2021-07-19] MEDS ORDERED: fentaNYL citrate 100 MCG/2 ML VIAL ONE (16:12)
[2021-07-19] MEDS ORDERED: PROPOFOL IV EMULSION 10 MG/ML 20 ML VIAL IV ONE (16:12)
[2021-07-19] MEDS ORDERED: ROCURONIUM BROMIDE 10 MG/ML 5 ML VIAL IV ONE (16:12)
[2021-07-19] MEDS ORDERED: MIDAZOLAM HCL 1 MG/ML 2ML VIAL ONE (16:12)
--- NOTE | 2021-07-19 16:12 | History & Physical Report ---
Date of Service July 19, 2021 Assessment & Plan (1) Abnormal LFTs: Plan: ERCP today to r/o choledocholithiasis. Patient was explained in detail regarding risks, benefits, limitations and alternatives of the above endoscopic procedure. Risks of intravenous sedation used for procedure were also explained. Risks include, but not limited to perforation, bleeding, infection, respiratory distress, cardiac arrest and . Patient is also aware about the possibility of missed lesion. Patient's questions were answered. The patient verbalized understanding the information and agreed to undergo the procedure. Admission and Anticipated Discharge Date Admission Date: July 08, 2021 History of Present Illness Primary Care Provider: Aston Marshall MD patient with acute cholecystitis and metastatic breast cancer to the liver , s/p Lap lesa, now with rising LFTs and leukocytosis, HIDA scan with no leak, I was consulted for possible ERCP. Allergies Allergy/AdvReac Type Severity Reaction Status Date / Time capecitabine AdvReac Intermediate SEE COMMENT Verified 07/08/21 03:05 Home Medications Medication Instructions Recorded Confirmed Type anastrozole 1 mg tablet 1 mg PO QAM #30 tab 01/14/20 07/08/21 Rx zoledronic acid 4 mg/100 mL in 4 mg IV MONTHLY ml 09/15/20 07/08/21 History mannitol 5 %-water intravenous piggybck acetaminophen 500 mg tablet 500 mg PO BID PRN 07/01/21 07/08/21 History artificial 1 drp OPB HS 07/01/21 07/08/21 History tears(nyhzdwn-safpqzgg-ynfknpv) 0.1 %-0.3 %-0.2 % eye drops (GenTeal Tears Moderate) carboxymethylcellulose sodium 1 % 1 drp OPB QID 07/01/21 07/08/21 History eye liquid gel drops (Refresh Liquigel) prednisolone acetate 1 % eye 1 drp OPB QID 07/01/21 07/08/21 History drops,suspension tramadol 50 mg tablet 50 mg PO Q6H PRN 07/01/21 07/08/21 History Past Med/Surg History Medical History (Updated 07/17/21 @ 15:36 by Mindi Allred) Acute pericardial effusion Bone cancer met cancer GERD (gastroesophageal reflux disease) Malignant pleural effusion Multiple fractures of ribs Normocytic hypochromic anemia Pathologic fracture of lumbar vertebra Pathologic fracture of thoracic vertebrae Pneumothorax Pulmonary nodules Secondary malignant neoplasm of bone Surgical History (Updated 07/16/21 @ 11:47 by Bo Maria DO) History of bilateral tubal ligation Hx laparoscopic cholecystectomy (07/13/21) Laparoscopic Cholecystectomy, Liver Nodule Biopsy - Bo Maria DO 07/13/2021 Port-A-Cath in place (02/17/20) Insertion of Mediport Left Subclavian Vein Under Fluoroscopy Dr. Maria 02/17/2020 Family History Mother , about age 82 Alzheimer disease Breast cancer Father , age 52 from MVA Motor vehicle accident Family/Other Breast cancer cousin Daughter Cancer Son Diabetes Other Asthma Hypertension Social History Smoking Status: Never smoker Second Hand Exposure: Yes (30 yrs ago); Hx Alcohol Use: No Hx Substance Use: No Preferred Language: Prydeinig Communication Ability: Effective Visual Impairment: No Limitations Metal Control Worker Required: No Beliefs That Will Affect Care: None marital status: Current Living Situation: Spouse and Family Current Living Situation Comment: lives with and son, 2 story home, with 1st floor set up current occupational status: previously employed 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; 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; 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 How many Children do You have: 3 How many Children do You have Comment: 1 child developmentally disable Feels Safe at Home: Yes Assistive Devices: Oxygen - Continuous Review of Systems All systems reviewed & are unremarkable except as noted in HPI & below Physical Exam Constitutional: comfortable; no acute distress Respiratory: normal respiratory effort, lungs clear to auscultation Cardiovascular: RRR, no murmur, no edema Gastrointestinal (Abdomen): normal bowel sounds, soft, nontender, no hepatosplenomegaly Results & Data ([facility]) Vital Signs (Past 12 Hours) Vital Signs Temp Pulse Resp BP Pulse Ox 07/19/21 07:34 36.4 C L 80 16 95/53 L 97 Code Status & VTE Plan VTE Prophylaxis Plan VTE Prophylaxis will be ordered: Yes
[2021-07-19] MEDS ORDERED: SUGAMMADEX SODIUM 200 MG/2 ML VIAL IV ONE (16:18)
--- NOTE | 2021-07-19 16:18 | Anesthesiology Consultation ---
Date of Service July 19, 2021 Assessment & Plan ASA [id number] Proposed Anesthesia Anesthesia Type: General Risk / Benefits Reviewed With: PT / POA / Parent / Guardian, Accepts Plan and Informed Consent Obtained History Surgery Operation Date: 07/13/21 12:50 Proposed Procedures p Laparoscopic Cholecystectomy - Bo Maria DO Operation Date: 07/19/21 18:20 Proposed Procedures p Endoscopic Retrograde Cholangiopancreatogram - Jose Alberto Padilla MD Height/Weight Height: 5 ft 4 in Weight: 70.6 kg Allergies Allergy/AdvReac Type Severity Reaction Status Date / Time capecitabine AdvReac Intermediate SEE COMMENT Verified 07/08/21 03:05 Medications Home Medications Medication Instructions Recorded Confirmed Last Taken anastrozole 1 mg tablet 1 mg PO QAM #30 tab 01/14/20 07/08/21 07/06/21 zoledronic acid 4 mg/100 mL in 4 mg IV MONTHLY ml 09/15/20 07/08/21 07/03/21 mannitol 5 %-water intravenous piggybck acetaminophen 500 mg tablet 500 mg PO BID PRN 07/01/21 07/08/21 Unknown artificial 1 drp OPB HS 07/01/21 07/08/21 07/05/21 tears([id number]) 0.1 %-0.3 %-0.2 % eye drops (GenTeal Tears Moderate) carboxymethylcellulose sodium 1 % 1 drp OPB QID 07/01/21 07/08/21 07/06/21 16:00 eye liquid gel drops (Refresh Liquigel) prednisolone acetate 1 % eye 1 drp OPB QID 07/01/21 07/08/21 07/06/21 16:00 drops,suspension tramadol 50 mg tablet 50 mg PO Q6H PRN 07/01/21 07/08/21 07/06/21 08:00 Active Medications Generic Name Dose Route Start Last Admin Trade Name Freq PRN Reason Stop Dose Admin Acetaminophen 650 mg 07/12/21 18:49 07/18/21 11:32 Acetaminophen 325 Mg Tab PO 08/11/21 18:48 650 mg Q6H PRN Administration fever or pain Anastrozole 1 mg 07/09/21 11:30 07/19/21 07:21 Anastrozole 1 Mg Tab PO 08/08/21 11:29 1 mg QAM DARLENE Administration Artificial Tears 1 drops 07/08/21 13:00 07/19/21 11:33 Artificial Tears OP 08/07/21 12:59 Not Given QID DARLENE Enoxaparin Sodium 40 mg 07/08/21 21:00 07/18/21 21:53 Enoxaparin Inj 40 Mg/0.4 Ml Syr SQ 08/07/21 10:54 40 mg Q24H DARLENE Administration Heparin Sodium (Porcine) 5 ml 07/10/21 00:12 07/15/21 11:55 Heparin 100 Unit/Ml 5ml Flush FLUSH 08/09/21 00:11 5 ml PRN PRN Administration Flush Piperacillin Sod/Tazobactam 115 mls @ 28.75 mls/hr 07/11/21 18:00 07/19/21 14:15 Sod 3.375 gm/ Dextrose IV 07/21/21 17:59 Infused Q8H DARLENE Infusion Protocol Lactated Ringer's 1,000 mls @ 100 mls/hr 07/14/21 18:00 07/19/21 11:44 Lr IV 08/13/21 17:59 100 mls/hr .Q10H DARLENE Administration Ketorolac Tromethamine 15 mg 07/15/21 21:51 07/19/21 11:33 Ketorolac Tromethamine 15 Mg/Ml Vial IV 07/20/21 21:50 15 mg Q6H PRN Administration Pain Melatonin 3 mg 07/12/21 08:39 07/17/21 00:11 Melatonin 3 Mg Tab PO 08/11/21 08:38 3 mg HS PRN Administration Sleep Metoclopramide HCl 10 mg 07/19/21 11:30 07/19/21 11:33 Metoclopramide Hcl Inj 5 Mg/Ml 2 Ml Vial IV 08/18/21 11:29 10 mg ACHS DARLENE Administration Ondansetron HCl 4 mg 07/08/21 10:55 07/18/21 11:31 Ondansetron Inj 2 Mg/Ml 2 Ml Vial IV 08/07/21 10:54 4 mg Q6H PRN Administration Nausea And Vomiting Pantoprazole Sodium 40 mg 07/08/21 10:55 07/19/21 07:21 Pantoprazole 40 Mg Tab PO 08/07/21 10:54 40 mg DAILY DARLENE Administration Tramadol HCl 50 mg 07/08/21 10:55 07/10/21 11:16 Tramadol Hcl 50 Mg Tablet PO 08/07/21 10:54 50 mg Q6H PRN Administration Pain NPO Date Last Intake of Fluids: 07/19/21 Time Last Intake of Fluids: 07:30 Last Intake of Fluids Comment: Dr. Christofer taveras, sip of boost Date Last Intake of Solids: 07/19/21 Time Last Intake of Solids: 07:30 Last Intake of Solids Comment: bites, Dr. Christofer taveras Past Medical History Medical History Acute pericardial effusion Bone cancer met cancer GERD (gastroesophageal reflux disease) Malignant pleural effusion Multiple fractures of ribs Normocytic hypochromic anemia Pathologic fracture of lumbar vertebra Pathologic fracture of thoracic vertebrae Pneumothorax Pulmonary nodules Secondary malignant neoplasm of bone Exercise / Class Metabolic Activity II 4-5 Yardwork/Stairs/Walk up hill Past Family History Family History Mother , about age 82 Alzheimer disease Breast cancer Father , age 52 from MVA Motor vehicle accident Family/Other Breast cancer cousin Daughter Cancer Son Diabetes Other Asthma Hypertension Past Surgical History Surgical History History of bilateral tubal ligation Hx laparoscopic cholecystectomy (07/13/21) Laparoscopic Cholecystectomy, Liver Nodule Biopsy - Bo Maria, 07/13/2021 Port-A-Cath in place (02/17/20) Insertion of Mediport Left Subclavian Vein Under Fluoroscopy Dr. Maria 02/17/2020 Past Anesthesia History No Hx of Anesthesia Complications and No Family Hx of Anesthesia Complications History of PONV No Hx of PONV and No Hx of Motion Sickness Social History Smoking Status: Never smoker Hx Alcohol Use: No Hx Substance Use: No substance use type: does not use Review of Systems denies fever/cough/ colds/ chest pain/ SOB/ BRENNAN denies BRENNAN Physical Exam Vital Signs Last Vital Signs Temp 36.6 C 07/19/21 16:10 Pulse 94 H 07/19/21 16:10 Resp 14 07/19/21 16:10 BP 105/52 L 07/19/21 16:10 Pulse Ox 100 07/19/21 16:10 ENMT Mouth: no TMJ abnormality and no dentition abnormality Thyromental Distance: > or= 3.5 Finger Breadths Mallampati Class: Other (unable to assess pt obtunded) Neck neck extension not limited Respiratory normal respiratory effort; no respiratory distress Auscultation: lungs clear to auscultation bilaterally Cardiovascular Rate/Rhythm: regular rate and regular rhythm Neurologic moves all extremities Psychiatric Orientation: alert and oriented x 3 Testing Laboratory Results 07/19/21 05:23 07/19/21 05:23 Urine Color Dark Yellow 07/08/21 04:33 Urine Appearance Clear (Clear) 07/08/21 04:33 Urine pH 6.0 (4.5-7.5) 07/08/21 04:33 Ur Specific [place] > 1.045 (1.000-1.030) H 07/08/21 04:33 Urine Protein Trace (Negative) H 07/08/21 04:33 Urine Glucose (UA) Negative (Negative) 07/08/21 04:33 Urine Ketones Trace (Negative) H 07/08/21 04:33 Urine Nitrite Negative (Negative) 07/08/21 04:33 Ur Leukocyte Esterase Trace (Negative) H 07/08/21 04:33 Urine WBC (Auto) 10-30 /hpf (0-5) H 07/08/21 04:33 Urine RBC (Auto) 5-10 /hpf (0-4) H 07/08/21 04:33 U Hyaline Cast (Auto) 10-30 /lpf (0-5) H 07/08/21 04:33 U Epithel Cells (Auto) >30 /lpf (0-5) H 07/08/21 04:33 Urine Bacteria (Auto) Negative (Negative) 07/08/21 04:33 07/15/21 10:56 Aerobic Blood Culture - Preliminary Blood No growth in Aerobic bottle after 48 hours. Anaerobic Blood Culture - Preliminary No growth in Anaerobic bottle after 48 hours. 07/15/21 10:46 Aerobic Blood Culture - Preliminary Blood No growth in Aerobic bottle after 48 hours. Anaerobic Blood Culture - Preliminary No growth in Anaerobic bottle after 48 hours. 07/08/21 02:25 Aerobic Blood Culture - Final Blood No growth in Aerobic bottle after 5 days. Anaerobic Blood Culture - Final No growth in Anaerobic bottle after 5 days. 07/08/21 02:55 Aerobic Blood Culture - Final Blood No growth in Aerobic bottle after 5 days. Anaerobic Blood Culture - Final No growth in Anaerobic bottle after 5 days. 07/08/21 04:33 Urine Culture - Final Urine,Clean Catch More than three types of organisms present, all high counts mixed probable skin conrad - No further identifications or sensitivities to follow. Electrocardiogram Date: 07/08/21 Normal sinus rhythm, rate 94 bpm Low voltage QRS Cannot rule out Anterior infarct , age undetermined Abnormal ECG When compared with ECG of 06-JUL-2021 17:46, (unconfirmed) No significant change was found Confirmed by Perry Young ([id number]) on 07/09/2021 10:14:17 PM Chest X-Ray Date: 07/13/21 IMPRESSION: 1. Compared to previous examination, there is again evidence for mild central vascular congestion. 2. There has been worsening of interstitial and alveolar opacities bilaterally, right greater than left. 3. There is also interval increase in right pleural effusion. Echocardiogram Date: 07/10/21 Compared with 11/23/20 study, no significant change The LV is normal in size LV systolic function is normal EF 65-70% The LV wall motion is normal There is borderline concentric LVH Grade 1 diastolic dysfunction RV is normal in size and function Trace pericardial effusion. Not hemodynamically significant. No significant valvular disease
[2021-07-19] MEDS ORDERED: ATROPINE SULFATE 0.1 MG/ML 10ML SYR IV PRN (16:19)
[2021-07-19] MEDS ORDERED: ONDANSETRON INJ 2 MG/ML 2 ML VIAL IV PRN (16:19)
[2021-07-19] MEDS ORDERED: ePHEDrine sulfate 50 MG/ML AMP IV PRN (16:19)
[2021-07-19] MEDS ORDERED: fentaNYL citrate 100 MCG/2 ML VIAL IV PRN (16:19)
--- NOTE | 2021-07-19 16:56 | Operative Report ---
Post Operative Report Pre & Post Diagnosis Operation Date: 07/13/21 12:50 Pre-Op Diagnosis: Acute cholecystitis Post-Op Diagnosis: Acute cholecystitis Operation Date: 07/19/21 18:20 Pre-Op Diagnosis: NAUSEA Post-Op Diagnosis: NAUSEA I identified the patient and participated in the time-out.: Yes Procedure Operation Date: 07/13/21 12:50 Actual Procedures p Laparoscopic Cholecystectomy, Liver Nodule Biopsy(Not Applicable) - Bo Maria DO Operation Date: 07/19/21 18:20 Actual Procedures p Endoscopic Retrograde Cholangiopancreatogram(Not Applicable) - Jose Alberto Padilla MD Surgeon Jose Alberto Padilla MD [employer] Tester n/a Estimated Blood Loss 100 Findings See Below (Normal cholangiogram, no bile leak, no choledocholithiasis. Sludge was removed.) Specimens None Description of Procedure ERCP I attest to the content of the Intraoperative Record and any orders documented therein. Any exceptions are noted below.
--- NOTE | 2021-07-19 17:10 | GI REPORT ---
Patient Name: Audra Lynn Procedure Date: 07/19/2021 1:36 PM Date of : 1960 Admit Type: Inpatient Age: 60 Gender: Female Attending MD: Jose Alberto Padilla MD Procedure: ERCP Providers: Jose Alberto Padilla MD Referring MD: Yasir Sebastian Case, DO Indications: Suspected bile leak, Elevated liver enzymes Medicines: General Anesthesia Complications: No immediate complications. Estimated Blood Loss: Estimated blood loss: none. Procedure: Pre-Anesthesia Assessment: - Prior to the procedure, a History and Physical was performed, and patient medications, allergies and sensitivities were reviewed. The patient's tolerance of previous anesthesia was reviewed. - The alternatives, risks and benefits of the procedure were discussed at length with the patient's daughter. The patient's proxy verbalized understanding of the risks as well as the alternatives and wished to proceed with the procedure. - Patient identification and proposed procedure were verified prior to the procedure by the physician and the nurse. The procedure was verified in the procedure room. - Pre-procedure physical examination revealed no contraindications to sedation. After obtaining informed consent, the scope was passed under direct vision. Throughout the procedure, the patient's blood pressure, pulse, and oxygen saturations were monitored continuously. The Duodenoscope was introduced through the mouth, and advanced to the duodenum and used to inject contrast into the bile duct. The ERCP was accomplished without difficulty. The patient tolerated the procedure well. Findings: A geological scout film of the abdomen was obtained. Surgical clips, consistent with a previous cholecystectomy, were seen in the area of the right upper quadrant of the abdomen. The esophagus was successfully intubated under direct vision. The scope was advanced to a normal major papilla in the descending duodenum without detailed examination of the pharynx, larynx and associated structures, and upper GI tract. The upper GI tract was grossly normal. There is significant edema of the duodenal wall and the periampullary area. There spontaneous blood oozing from friable mucosa. A 0.025 inch x 270 cm angled Visiglide wire was passed into the biliary tree. The Fusion OMNI sphincterotome was passed over the guidewire and the bile duct was then deeply cannulated. Contrast was injected. I personally interpreted the bile duct images. Ductal flow of contrast was adequate. Image quality was adequate. Contrast extended to the main bile duct. Opacification of the entire biliary tree except for the gallbladder was successful. The maximum diameter of the ducts was 7 mm. There was no extravasation of contrast. A 3 mm biliary sphincterotomy was made with a monofilament traction (standard) sphincterotome using ERBE electrocautery. There was no post-sphincterotomy bleeding. The biliary tree was swept with an 11.5 mm balloon starting at the bifurcation. Sludge was swept from the duct. Impression: - Unremarkable cholangiogram with no bile leak. - The biliary tree was swept and sludge was found. - The abnormal LFTs are likely related to metastatic infiltration of the liver. Recommendation: - Return patient to hospital bunch for ongoing care. - Full liquid diet for 1 day. - PPI BID. - Hold all Anticoagulation including prophylaxis for 48 hrs. - Avoid aspirin and nonsteroidal anti-inflammatory medicines for 5 days. - Recall GI if needed. Jose Alberto Padilla MD 07/19/2021 5:09:53 PM This report has been signed electronically. Note Initiated On: 07/19/2021 1:36 PM Number of Addenda: 0 I attest to the content of the Intraoperative Record and orders documented therein, exceptions below {[id number]}
--- NOTE | 2021-07-19 17:27 | Anesthesiology Progress Note ---
Date of Service July 19, 2021 Anesthesia Post Procedure Vital Signs Vital Signs: Temp Pulse Pulse Resp BP BP Pulse Ox 07/19/21 17:25 36.5 C 76 18 97/44 L 97 07/19/21 17:15 75 18 94/51 L 100 07/19/21 17:07 36.6 C 99 H 18 95/50 L 98 07/19/21 16:10 36.6 C 94 H 14 105/52 L 100 07/19/21 07:34 36.4 C L 80 16 95/53 L 97 07/18/21 18:50 95/61 L Transfer of Care Handoff Completed per policy Notes Mental Status: see notes below Patient Amnestic to Procedure: Yes Nausea / Vomiting: adequately controlled Pain: adequately controlled Airway Patency, RR, SpO2: stable & adequate BP & HR: stable & adequate Hydration State: stable & adequate Anesthetic Complications: no major complications apparent and Pt Satisfied with anesthetic care Notes: The patient is resting comfortably similar to her baseline. Her vital signs are stable.
--- NOTE | 2021-07-19 17:44 | Anesthesiology Progress Note ---
Date of Service July 19, 2021 Anesthesia Post Procedure Vital Signs Vital Signs: Temp Pulse Pulse Resp BP BP Pulse Ox 07/19/21 17:25 36.5 C 76 18 97/44 L 97 07/19/21 17:15 75 18 94/51 L 100 07/19/21 17:07 36.6 C 99 H 18 95/50 L 98 07/19/21 16:10 36.6 C 94 H 14 105/52 L 100 07/19/21 07:34 36.4 C L 80 16 95/53 L 97 07/18/21 18:50 95/61 L Pain Intensity Medial Abdomen: Pain Intensity: 3 Head: Pain Intensity: 8 Back: Pain Intensity: 7 Transfer of Care Handoff Completed per policy Notes Mental Status: alert / awake / arousable and participated in evaluation Patient Amnestic to Procedure: Yes Nausea / Vomiting: adequately controlled Pain: adequately controlled Airway Patency, RR, SpO2: stable & adequate BP & HR: stable & adequate Hydration State: stable & adequate Anesthetic Complications: no major complications apparent and Pt Satisfied with anesthetic care
--- NOTE | 2021-07-19 17:47 | Fluoroscopy Report ---
[place] ERCP biliary ductal CLINICAL HISTORY: ERCP COMPARISON STUDY: CT of the abdomen and pelvis July 18, 2021. FLUOROSCOPY TIME: 38 seconds. FLUOROSCOPIC IMAGES: 9. FINDINGS: Fluoroscopy was provided during ERCP. There is opacification of the biliary tree. No contra st extravasation to suggest biliary leak was noted. There is contrast within the duodenum. No filling defects are identified within the common bile duct. IMPRESSION: Fluoroscopy provided during ERCP. No contrast extravasation identified. ACT 112: Negative or not required by law. Electronically signed by: Allan Santamaria M.D. 07/19/2021 5:46 PM
[2021-07-19] MEDS ORDERED: GLUCAGON FOR INJ 1 MG VIAL ONE (18:01)
[2021-07-19] MEDS: ENOXAPARIN INJ 40 MG/0.4 ML SYR SQ SCH (21:33)
[2021-07-20] MEDS: PIPERACILLIN/TAZOBACTAM 3.375 GM in DEXTROSE 5% 100 ML IV SCH ×3 (02:04→18:08)
[2021-07-20] MEDS: LACTATED RINGER'S 1,000 ML IV SCH (05:04)
[2021-07-20] MEDS: KETOROLAC TROMETHAMINE 15 MG/ML VIAL IV PRN (05:25)
[2021-07-20 06:35] LABS: Mean Corpuscular Hemoglobin 30.9 pg (25-34); Mean Corpuscular Hgb Conc 33.3 g/dL (32-36); Mean Corpuscular Volume 92.8 fL (80-100); Nucleated RBC # (auto) 2.67 K/uL (0-0); Nucleated RBC % (auto) 9.6 %; Platelet Count 249 K/uL (130-400); RDW Standard Deviation 102.2 fL (36.4-46.3); Red Blood Count 2.91 M/uL (4.2-5.4); White Blood Count 27.69 K/uL (4.8-10.8)
[2021-07-20 06:40] LABS: ANC (manual) 24.89 K/uL (1.4-6.5); Anisocytosis Present; Echinocytes 1+; Lymphocytes % (manual) 1.8 %; Metamyelocytes # (manual) 0.25 K/uL (0-0); Metamyelocytes % (manual) 0.9 %; Monocytes # (manual) 0.78 K/uL (0.11-0.59); Monocytes % (manual) 2.8 %; Myelocytes # (manual) 1.27 K/uL (0-0); Myelocytes % (manual) 4.6 %; Neutrophils # (manual) 24.89 K/uL (1.4-6.5); Neutrophils % (manual) 89.9 %; Pappenheimer Bodies 1+; Polychromasia 1+; Schistocytes 1+
[2021-07-20 07:15] LABS: Albumin Level 1.8 gm/dl (3.4-5.0); BUN Creatinine Ratio 46.4 (10-20); Bilirubin,Total 3.8 mg/dl (0.2-1.0); Calcium 7.7 mg/dl (8.5-10.1); Creatinine Clr Calc Pharmacy 36.7 ml/min; Est GFR (African American) 41.8 ml/min; Est GFR (Non-African American) 36.1 ml/min; Globulin 1.8 gm/dl (2.5-4.0); Total Protein 3.6 gm/dl (6.0-8.3)
[2021-07-20] MEDS ORDERED: PANTOprazole 40 MG TAB PO SCH (09:00)
[2021-07-20] MEDS ORDERED: VANCOMYCIN HCL 1,000 MG in SODIUM CHLORIDE 0.9% 250 ML IV SCH (09:00)
--- NOTE | 2021-07-20 09:57 | Pharmacy Report ---
Pharmacy Vanc AUC Short Note - Date of Service July 20, 2021 - Assessment & Plan Assessment 60 year old F with metastatic breast cancer, s/p lap lesa on 07/13/21. On day #13 of Zosyn and day #2 of Vancomycin. * Concern for worsening infection, source unknown but differentials include dev eloping ascending cholangitis, bile duct injury, bile leak, pancreatitis, abdominal abscess. All cultures reported no growth to date at this time. * Renal fxn continues to worsen. Plan Vancomycin * AUC/HA is the preferred PK/PD target for vancomycin * AUC guided dosing is effective and associated with decreased risk of nephrotoxicity compared to traditional trough targets * Random level this AM was 8.4 mcg/mL following a single dose of Vancomycin 1250 mg * Will schedule Vancomycin 1000 mg IV every 24 hours starting this AM - expected to achieve goal AUC/HA * Continue to monitor SCr closely * Trough level ordered for 07/22/21 Zosyn * 3.375 g IV every 8 hours - remains appropriate Pharmacy will continue to follow and will adjust dose/frequency as necessary. Thank you.
[2021-07-20] MEDS: PANTOprazole 40 MG in SYRINGE 0 ML IV SCH ×2 (10:13→22:39)
[2021-07-20] MEDS: METOCLOPRAMIDE HCL INJ 5 MG/ML 2 ML VIAL IV SCH ×4 (10:14→21:34)
[2021-07-20] MEDS: ARTIFICIAL TEARS OP SCH ×4 (10:16→21:35)
[2021-07-20] MEDS: ANASTROZOLE 1 MG TAB PO SCH (10:27)
[2021-07-20 12:00] VITALS: BP 99/50; TEMP 98.1; O2SAT 98
--- NOTE | 2021-07-20 13:20 | Hospitalist Progress Note ---
Date of Service July 20, 2021 Assessment & Plan (1) Leukocytosis: Plan: Audra is a 60 y/o female with a hx metastatic breast cancer to liver and bone who presented to [facility] on 07/08 for evaluation of n/v and abd pain, and is now s/p cholecystectomy. Despite removal of inflamed gallbladder, patient has clinically declined with worsening somnolence. She continues to have an elevated WBC despite treatment with IV zosyn and vancomycin. Her liver and kidney func tion continue to worsen. Discussed case at length today with oncology --> they feel cancer is stable and a secondary process seems to be driving worsening clinical state. Family is currently leaning toward moving to comfort measures/hospice care --> will reconvene as a family tomorrow and make further decisions. #Somnolence -Patient is able to respond to questions with yes/no but keeps her eyes closed throughout evaluation and for most of the day. She is still weak and frail appearing compared to baseline. -Etiology likely multifactorial including, hospital environment, physiological stress related to cholecystectomy, malignancy with metastasis, and acute infection of unknown etiology. -Spoke with the family today about transitioning to hospice/palliative care given her widely metastatic breast cancer and overall poor prognosis. Family is open to hospice but are also open to treatment for a few days and to re-evaluate depending on response to current treatment regimen. -The patient was agreeable to hospice although it was not clear if she was understanding all that was being asked. The , daughter, and son wish to revisit this discussion following discussion with oncology this afternoon. #Leukocytosis -WBC 27.69 today, slightly improved from yesterday -S/p laparoscopic Cholecystectomy, post op day 7. -ERCP yesterday to r/o choledocholithiasis showed unremarkable cholangiogram with no bile leak. -This is concerning for worsening infectious source of unknown etiology. No focal sign of infection on exam or imaging. Likely multifactorial including, demargination/ reactive physiologic stress related to recent cholecystectomy, malignancy with metastasis, and acute infection of unknown etiology. -Continue IV vanc and zosyn -Continue to trend CBC. #Hyponatremia -Improving -Na 131 today -Cont. to follow BMP #Metastatic Breast Cancer -CA 15-3 and CA 27-29 ordered to evaluate tumor markers. -Oncology following #Malignant pleural effusions -Pleurx catheters in place to help minimize pulmonary edema -Discussed delicate balance of IV hydration with volume overload. -Encouraged PO intake. -Continue to monitor volume status #Elevated LFTs -Continuing to rise since admission -LFTs today: T bili 3.8, AST 564, ALT 78, AP 362. -ERCP yesterday to r/o choledocholithiasis showed unremarkable cholangiogram with no bile leak, abnormal LFT's are likely related to metastatic infiltration of the liver -Cont. to monitor FEN: Full liquid DVT ppx: Lovenox Code: DNR/DNI Dispo: Med/Surg (2) Hyponatremia: (3) Malignant pleural effusion: (4) Metastatic breast cancer: (5) Ascites: (6) Hypoxia: Admission and Anticipated Discharge Date Admission Date: July 08, 2021 Supervising Physician Co-Signing Physician Notes Patient seen and examined with PGY-3 Dr. Kaba and student doctor. Chailno. Agree with history, exam findings, assessment and plan of care as outlined. 60 year old female with hx of metastatic breast cancer to the liver and bone, malignant pleural effusion admitted with acute cholelithiasis. Children and at the bedside. Overall, family is sad and concerned about whether they are making the right decisions. After much discussion with both our team and oncology, family would like to pursue hospice option. However, reluctant to do home hospice (concerned about being able to live in the house after mom passes if she passes there) and would prefer a hospice facility. Sleepy; answers questions with yes or now or nodding. 1. Goals of care: she is very weak and frail compared to pre-admission baseline. Despite extensive work up looking for source of worsening clinical status, unable to find an infectious or other source. Possible this may be secondary to her metastatic cancer, although prior imaging and labs seemed to suggest this was improving. At this point, she is so weak and deconditioned that she would not be a good candidate for further chemotherapy and radiation. After discussion with oncology and our team, family is interested in pursuing hospice care. Appreciate CM assistance with setting this up. We will also reconvene as a family since patient tends to be more awake and interactive in the mornings. 2. Acute cholelithiasis. S/p lap lesa. 3. Leukocytosis. ERCP done to rule out choledocholithiasis. ?worsening despite broad antibiotic coverage. Restarted vancomycin, continuing zosyn. 4. Hyponatremia. Improving. Urine Osm/Lytes pending. 5. Breast cancer. Appreciate oncology recommendations. 6. Malignant pleural effusions. Pleurx catheters in place. 7. Elevated liver tests. Continuing to rise. Likely secondary to metastatic disease. Dispo: pending family decision regarding hospice and where that will happen. Subjective No acute changes overnight. Patient remains somnolent and briefly response with yes/no responses. Patients children and were present at bedside to discuss possible transition of care to hospice given the patient overall poor prognosis. Physical Exam Constitutional: + thin and + frail appearing; no acute distress Results & Data Results & Data ([facility]) Vital Signs (Past 12 Hours) Vital Signs Temp Pulse Resp BP Pulse Ox 07/20/21 10:00 36.7 C 81 17 99/50 L 98 07/20/21 03:00 36.5 C 84 20 101/67 95 Resident Activity Tracking Resident Involvement: Resident Care Provided Care Provided: Adult Hospital Medicine (1) Leukocytosis Leukocytosis type: unspecified Qualified Code(s): D72.829 - Elevated white blood cell count, unspecified
[2021-07-20] MEDS: MoRPHine SULFATE 2 MG/ML CARP IV PRN ×2 (15:06→19:57)
[2021-07-20] MEDS: HEPARIN 100 UNIT/ML 5ML FLUSH FLUSH PRN (22:24)
[2021-07-21] MEDS: MoRPHine SULFATE 2 MG/ML CARP IV PRN ×3 (00:08→05:32)
[2021-07-21] MEDS: LACTATED RINGER'S 1,000 ML IV SCH (01:47)
[2021-07-21] MEDS ORDERED: ONDANSETRON INJ 2 MG/ML 2 ML VIAL IV PRN (02:21)
[2021-07-21] MEDS ORDERED: ONDANSETRON 4 MG OD TAB SL PRN (02:21)
[2021-07-21] MEDS ORDERED: chlorproMAZINE HCL 25 MG TAB PO PRN (02:21)
[2021-07-21] MEDS ORDERED: GLYCOPYRROLATE 0.2 MG/ML VIAL IV PRN (02:21)
[2021-07-21] MEDS ORDERED: LORazepam 2 MG/1 ML VIAL IV PRN (02:21)
[2021-07-21] MEDS ORDERED: MoRPHine SULFATE 5 MG/0.25 ML UDP PO PRN (02:21)
[2021-07-21] MEDS ORDERED: LORazepam 0.5 MG TAB PO PRN (02:21)
[2021-07-21] MEDS: PIPERACILLIN/TAZOBACTAM 3.375 GM in DEXTROSE 5% 100 ML IV SCH (03:43)
--- NOTE | 2021-07-21 06:43 | Hospitalist Progress Note ---
Date of Service July 21, 2021 Assessment & Plan Admission and Anticipated Discharge Date Admission Date: July 08, 2021
[2021-07-21] MEDS: PANTOprazole 40 MG in SYRINGE 0 ML IV SCH (11:37)
[2021-07-21] MEDS: ARTIFICIAL TEARS OP SCH ×2 (11:38→15:02)
[2021-07-21] MEDS: METOCLOPRAMIDE HCL INJ 5 MG/ML 2 ML VIAL IV SCH ×2 (11:39→15:02)
--- NOTE | 2021-07-21 13:02 | Death Pronouncement Note ---
Date of Service July 21, 2021 Pronouncement Note Admission Date Admission Date: July 08, 2021 Date and Time of Date of : 07/21/21 Time of : 12:57 Contributing Factors (1) Leukocytosis: (2) Hyponatremia: (3) Malignant pleural effusion: (4) Metastatic breast cancer: (5) Ascites: (6) Hypoxia: Hospital Course Hospital Course: See discharge note Summary Additional details: Messaged to evaluate patient as she had passed. Patient evaluated with son and daughter at the bedside. Patient without pulse, respirations, heart sounds, response to sternal rub, pupils fixed and dilated. Additional Data Confirmation of : no pulse, no respirations, no heart sounds and pupils fixed and dilated Family: at bedside Attending/PCP notified?: Yes Attending physician: Chema Alfaro, DO Was code activated?: No Supervising Physician Co-Signing Physician Notes Patient seen and examined with PGY-3 Dr. Kaba. Agree with history, exam findings, assessment and plan of care as outlined. 60 year old female with hx of metastatic breast cancer to the liver and bone, malignant pleural effusion admitted with acute cholelithiasis. Seen this morning with daughter and son at the bedside. Patient placed on comfort measures overnight. Passed with daughter and son at the bedside this afternoon. Resident Activity Tracking Resident Involvement: Resident Care Provided Care Provided: Adult Hospital Medicine
--- NOTE | 2021-07-21 13:03 | Discharge Summary ---
Date of Service July 21, 2021 Admission HPI Per Admitting Provider Chief Complaint: nausea Primary Care Provider: Aston Marshall MD Audra Lynn is a pleasant 60yo female with history of metastatic breast cancer (ER/[place]+, HER-2 NEG) on Anastrazole and Xeloda which have been on hold per Oncology for the last several weeks due to LFT abnormalities and thrombocytopenia. Patient with malignant pleural effusion s/p PleurX catheter placement as well as known metastatic disease to the liver and bone. Patient was admitted 07/02 - 07/03 with shortness of breath. She was found to have a moderate right sided pleural effusion, a 15-20% right sided PTX and a moderate left sided pleural effusion as well. She had a PleurX catheter placed with drainage of 650mL of fluid. Patient returns to the ER today with complaint of dizziness and nausea. She has been intermittently nauseous for the last several days, worse this evening after dinner. She has had decreased oral intake. She tries to force herself to eat but it is difficult for her. She has vomited several times this evening - non-bloody/non-bilious. She has some lower abdominal discomfort as well. She has weakness and dizziness, difficulty ambulating as well as shortness of breath. The nausea is worsened by movement. She denies fever, chills, chest pain, cough. Denies focal neurological deficits, headache, visual changes. No additional complaints at this time. Her daughter is a nurse here at [facility] and helps to manage her care. She drains the PleurX q48 hours. Last drained today - 500mL of clear kezia fluid. She is still having some discomfort at the PleurX catheter site. Daughter state s that it is very slightly red but does not appear to be infected. Patient's Covid-19 test today is POSITIVE. She was also POSITIVE on 06/18 (21 days ago) ER Course: Vancomycin 1gm, Zosyn 3.375gm, Morphine 4mg, Reglan 10mg, NSS x 500mL, Zofran Admission Exam Per Admitting Provider General: cachectic, chronically ill in appearance Skin: warm, dry, intact, no rashes or lesions HEENT: NC/AT, PERRL, EOMI, anicteric sclera, conjunctiva without injection, external ear normal to inspection and nontender, nares patent, dry mucus membranes, dentition intact, no oropharyngeal lesions, neck supple, trachea midline, no LAD, no thyromegaly, no JVD Heart: +S1/S2, regular, no m/r/g, left chest CVC with dressing in place, no redness/drainage Lungs: equal air entry bilaterally, no rales/rhonchi/wheezes, PleurX on right, no redness/drainage Abd: +BS, soft, NT/ND, no masses/organomegaly/ascites Ext: warm, 2+ pulses in UE/LE bilaterally, no clubbing/cyanosis or edema Neuro: nonfocal, patient AA&O x 4, speech intact, no facial droop, moving all extremities on command with equal strength 5/5 Principal Diagnosis Metastatic Breast Cancer, Malignant Pleural Effusion Discharge Exam Patient physical exam at time of 12:57PM on 07/21/21 No pulse, no breath sounds, no pupil constriction with light, no response with sternal rub. Discharge Data Allergies Allergy/AdvReac Type Severity Reaction Status Date / Time capecitabine AdvReac Intermediate SEE COMMENT Verified 07/08/21 03:05 Consultations 07/08/21 03:45 ED Decision to Admit Stat 07/08/21 14:02 Consult General Surgery Routine Consult Oncology Routine 07/11/21 11:29 Consult Gastroenterology Routine Procedures Performed Operation Date: 07/13/21 12:50 Actual Procedures p Laparoscopic Cholecystectomy, Liver Nodule Biopsy(Not Applicable) - Bo Maria, Operation Date: 07/19/21 18:20 Actual Procedures p Endoscopic Retrograde Cholangiopancreatogram(Not Applicable) - Jose Alberto Padilla MD Ordered Studies 07/08/21 01:21 CT angio chest PE protocol Urgent 07/08/21 01:22 CT abd pelvis IV con only Urgent 07/08/21 04:43 MR brain wo/w con Urgent 07/08/21 07:58 US gallbladder Urgent 07/12/21 17:00 US abdomen ltd ascites Routine US gallbladder Routine 07/15/21 09:42 CT abd pelvis oral and IV con Routine 07/15/21 10:34 CT chest diagnostic w con Routine 07/18/21 09:00 CT abd pelvis IV con only Routine 07/19/21 14:00 FL ERCP biliary ductal Routine Hospital Course (1) Leukocytosis: Overnight patient was converted to FLAME CHANNELER per family request and worsening condition. Patient was initially evaluated in the moisture machine tender and found to be minimally responsive to light touch. Was notified of patient's passing around 12:50PM. Patient pronounced at 12:57PM with family at bedside. Please see below for hospital course during her stay prior to passing. Audra is a 60 y/o female with a hx metastatic breast cancer to liver and bone who presented to [facility] on 07/08 for evaluation of n/v and abd pain, and is now s/p cholecystectomy. Despite removal of inflamed gallbladder, patient has clinically declined with worsening somnolence. She continues to have an elevated WBC despite treatment with IV zosyn and vancomycin. Her liver and kidney f unction continue to worsen. Discussed case at length today with oncology --> they feel cancer is stable and a secondary process seems to be driving worsening clinical state. Family is currently leaning toward moving to comfort measures/hospice care --> will reconvene as a family tomorrow and make further decisions - Overnight was converted to FLAME CHANNELER due to worsening condition and patient family preference. #Somnolence -Patient is able to respond to questions with yes/no but keeps her eyes closed throughout evaluation and for most of the day. She is still weak and frail appearing compared to baseline. -Etiology likely multifactorial including, hospital environment, physiological stress related to cholecystectomy, malignancy with metastasis, and acute infection of unknown etiology. -Spoke with the family today about transitioning to hospice/palliative care given her widely metastatic breast cancer and overall poor prognosis. Family is open to hospice but are also open to treatment for a few days and to re-evaluate depending on response to current treatment regimen. -The patient was agreeable to hospice although it was not clear if she was understanding all that was being asked. The , daughter, and son wish to revisit this discussion following discussion with oncology -- decision was made later that evening for FLAME CHANNELER. #Leukocytosis -WBC downtrending -S/p laparoscopic Cholecystectomy, post op day 8 -ERCP o r/o choledocholithiasis showed unremarkable cholangiogram with no bile leak. -This is concerning for worsening infectious source of unknown etiology. No focal sign of infection on exam or imaging. Likely multifactorial including, demargination/ reactive physiologic stress related to recent cholecystectomy, malignancy with metastasis, and acute infection of unknown etiology. -Continued IV vanc and zosyn until FLAME CHANNELER. #Hyponatremia -Likely secondary to metastatic disease in addition to minimal PO intake #Metastatic Breast Cancer -CA 15-3 and CA 27-29 ordered to evaluate tumor markers. -Oncology following #Malignant pleural effusions -Pleurx catheters in place to help minimize pulmonary edema -Discussed delicate balance of IV hydration with volume overload. -Encouraged PO intake. -Continue to monitor volume status #Elevated LFTs -Continuing to rise since admission -LFTs: T bili 3.8, AST 564, ALT 78, AP 362. -ERCP to r/o choledocholithiasis showed unremarkable cholangiogram with no bile leak, abnormal LFT's are likely related to metastatic infiltration of the liver -Cont. to monitor (2) Hyponatremia: (3) Malignant pleural effusion: (4) Metastatic breast cancer: (5) Ascites: (6) Hypoxia: Total Time Total Time Spent Total Time Spent (In Minutes): See attending attestation Discharge Plan Discharge Items Patient Disposition: Discharge Diagnosis: Acute Cholecystitis Addtl Attending Provider Instructions: Other Date/Time: 07/21/21 12:57 Interventions: Discharge Summary Assessment (RN) Last Done: 07/21/21 15:47 Supervising Physician Co-Signing Physician Notes Patient seen and examined with PGY-3 Dr. Kaba. Agree with history, exam findings, assessment and plan of care as outlined. 60 year old female with hx of metastatic breast cancer to the liver and bone, malignant pleural effusion admitted with acute cholelithiasis. Seen this morning with daughter and son at the bedside. Patient placed on comfort measures overnight. Passed with daughter and son at the bedside this afternoon. Resident Activity Tracking Resident Involvement: Resident Care Provided Care Provided: Adult [facility]
[2021-07-21 15:48] VITALS: PULSE 76
[2021-07-22] MEDS ORDERED: VANCOMYCIN TROUGH ONE (08:30)
[2021-07-22 08:42] LABS: CA 27.29 5787 U/mL (<38); CA15-3 Breast Antigen 3901 U/mL (<32)
== END 2021-07-21 15:48 | disposition expired | DRG 417 ==
LOC: SUATTDRO → ED 00:57 → 3W 04:43 → SUATTDRO 04:43 → 3W 11:01